=== PATIENT | male | born 1960 ===

== ENCOUNTER 2017-09-02 11:38 | Inpatient (IN) | payer BC, OTHER ==
[2017-09-02] MEDS ORDERED: Vancomycin 1 GM 1 GM/250 ML BAG IV SCH (13:30)
--- NOTE | 2017-09-02 13:36 | C.PDOC ---
History Of Present Illness 57 y/o male sent from clinic presents to ED with worsening swelling and redness to right foot since yesterday. Patient states 2 months ago he developed a callus to right foot that later became a blister. Pt notes that area popped and then he started to develop pain and swelling. Patient reports fever and chills since last night. Patient states he has not seen a doctor in over 6 years - denies PMH. Denies nausea, vomiting, numbness, trauma, sob, calf pain or chest pain. Time Seen by Provider: 09/02/17 12:53 Chief Complaint (Nursing): Abnormal Skin Integrity History Per: Patient History/Exam Limitations: no limitations Onset/Duration Of Symptoms: Days Current Symptoms Are (Timing): Still Present Location Of Injury: Right: Foot Quality Of Symptoms: Painful, Swollen Past Medical History Reviewed: Historical Data, Nursing Documentation, Vital Signs Vital Signs: Last Vital Signs Temp 101.4 F H 09/02/17 14:47 Pulse 108 H 09/02/17 16:30 Resp 17 09/02/17 16:30 BP 107/63 09/02/17 16:30 Pulse Ox 94 L 09/02/17 16:30 - Medical History PMH: No Chronic Diseases Surgical History: No Surg Hx Family History: States: No Known Family Hx - Social History Hx Alcohol Use: No Hx Substance Use: No Review Of Systems Constitutional: Negative for: Fever, Chills Gastrointestinal: Negative for: Nausea, Vomiting Musculoskeletal: Positive for: Foot Pain Skin: Negative for: Rash Neurological: Negative for: Weakness, Numbness Physical Exam - Physical Exam Appears: Non-toxic, No Acute Distress Skin: Warm, Dry, No Rash Head: Atraumatic, Normacephalic Eye(s): bilateral: Normal Inspection, EOMI Nose: Normal Oral Mucosa: Moist Neck: Normal ROM, Supple Chest: Symmetrical Cardiovascular: Rhythm Regular, Other (Tachycardic) Respiratory: Normal Breath Sounds, No Accessory Muscle Use, No Rales, No Rhonchi , No Wheezing Gastrointestinal/Abdominal: Soft, No Tenderness, No Guarding, No Rebound Extremity: Tenderness (under 1st and 2nd MTP to right plantar aspect of right foot), No Calf Tenderness, Capillary Refill (<2 sec), No Deformity, Swelling ( to right foot ), Other (2cm x 1cm full thickness ulceration to lateral plantar aspect of right foot. second ulceration to the plantar aspect at the 1st and 2nd mtp with Erythema to right foot ) Extremity: Bilateral: Normal ROM Pulses: Left Dorsalis Pedis: Normal, Right Dorsalis Pedis: Normal Neurological/Psych: Oriented x3, Normal Motor, Normal Sensation Gait: Steady ED Course And Treatment - Laboratory Results Result Diagrams: 09/02/17 14:04 09/02/17 14:04 ECG: Interpreted By Me, Viewed By Me ECG Rhythm: Sinus Tachycardia Rate From EC (BPM) O2 Sat by Pulse Oximetry: 100 (RA) Pulse Ox Interpretation: Normal Progress Note: Vancomycin, Motrin and IV fluids administered. Podiatry resident , Dr. Cevallos evaluated patient at [facility], discussed with Dr. Frye agreed with plan of admission. Instructed NPO after midlnight for OR in the morning. Case discussed with Dr. Hlils , agreed upon plan and admission. Disposition - Disposition Disposition: HOSPITALIZED Disposition Time: 14:00 Condition: STABLE - Clinical Impression Clinical Impression: Cellulitis, Osteomyelitis of foot, Hyperglycemia - PA / LAB SCIENTIST / Resident Statement MD/DO has reviewed & agrees with the documentation as recorded. - Scribe Statement The provider has reviewed the documentation as recorded by the Raimundoibkelly Ramirez All medical record entries made by the Suzie were at my direction and personally dictated by me. I have reviewed the chart and agree that the record accurately reflects my personal performance of the history, physical exam, medical decision making, and the department course for this patient. I have also personally directed, reviewed, and agree with the discharge instructions and disposition.
--- NOTE | 2017-09-02 13:42 | RAD ---
PROCEDURE: Right Foot Radiographs. HISTORY: r/o osteo COMPARISON: None. FINDINGS: BONES: Bone alignment and mineralization are normal. There is no acute fracture or bone destruction. JOINTS: Normal. SOFT TISSUES: There is large lateral soft tissue defect in the midfoot. OTHER FINDINGS: None. IMPRESSION: Large lateral soft tissue defect in the midfoot most compatible with an ulcer. No radiographic evidence for osteomyelitis.
[2017-09-02 14:07] LABS: BASO # 0.1 K/uL (0.0-0.2); BASO % 0.5 % (0.0-2.0); HEMOGLOBIN 12.2 g/dL (12.0-18.0); LYMPH # 1.5 K/uL (1.0-4.3); LYMPH % 7.5 % (20.0-40.0); MEAN CELL VOLUME 87.4 fL (80.0-94.0); MEAN CORPUSCULAR HEMOGLOBIN 31.1 pg (27.0-31.0); MEAN CORPUSCULAR HGB CONC 35.5 g/dL (33.0-37.0); MONO # 1.1 K/uL (0.0-0.8); MONO % 5.7 % (0.0-10.0); NEUT # 17.1 K/uL (1.8-7.0); NEUT % 86.3 % (50.0-75.0); PLATELET COUNT 293 K/uL (130-400); RBC 3.92 Mil/uL (4.40-5.90); RED CELL DISTRIBUTION WIDTH 12.1 % (11.5-14.5); WHITE BLOOD COUNT 19.8 K/uL (4.8-10.8)
[2017-09-02 14:26] LABS: BANDS 8 % (0-2); LYMPHOCYTE 8 % (20-40); MONOCYTE 5 % (0-10); NEUTROPHIL 79 % (50-75); PLATELET ESTIMATE NORMAL (NORMAL); TOTAL CELLS COUNTED 100
[2017-09-02 14:27] LABS: ANISOCYTOSIS SLIGHT; POLYCHROMIC SLIGHT; TOXIC GRANULATION PRESENT
[2017-09-02 14:28] LABS: ALB/GLOB RATIO 0.8 (1.0-2.1); ALBUMIN 3.9 g/dL (3.5-5.0); ALT/SGPT 21 U/L (21-72); AST/SGOT 23 U/L (17-59); BLOOD UREA NITROGEN 14 mg/dL (9-20); CALCIUM 9.1 mg/dl (8.6-10.4); GFR AFRICAN-AMERICAN > 60; GFR NON-AFRICAN AMERICAN > 60
[2017-09-02] MEDS ORDERED: Sodium Chloride 0.9% 1,000 ML IV ONE ×2 (14:31→15:15)
--- NOTE | 2017-09-02 14:39 | CP.PCM.CON ---
History of Present Illness - History of Present Illness History of Present Illness: Podiatry Consult Note- Dr. Frye Mr. Zavala is a 57 yo Azeri speaking male patient who is seen in the ED today for ulceration of R foot. Pt complains of a wound to the bottom of his R foot which he has had for 2 months, which is worsening. Denies any recent changes in activity or shoe gear. He reports he developed fever and chills yesterday with cramping in the R foot and leg. Patient does not follow up with a primary care physician. Pt is a poor historian, he is unsure of his medical problems and is unsure if he is a diabetic. He denies n/v/sob/cp/deep calf pain at this time. Pt also complains of rash to his right leg, he is unsure how long he has had this, denies pruritis, denies any pain to the leg. PMH: unknown per patient ALL: NKDA Meds: denies Sug. Hx: denies Soc. Hx: denies ETOH, deneis ever smoking, denies illicit drug use Review of Systems - Review of Systems Review of Systems: all systems reviewed and found neg outside hpi Past Patient History - Past Social History Smoking Status: Never Smoked - PSYCHIATRIC Hx Substance Use: No - SURGICAL HISTORY Hx Surgeries: Yes Other/Comment: eye surgery - ANESTHESIA Hx Anesthesia: Yes Hx Anesthesia Reactions: No Meds Allergies/Adverse Reactions: Allergies Allergy/AdvReac Type Severity Reaction Status Date / Time No Known Allergies Allergy Verified 09/02/17 11:58 - Medications Medications: Current Medications Vancomycin HCl (Vancomycin 1gm In Normal Saline Addvantage) 1 gm in 250 mls @ 166.667 mls/hr IV STAT CARTER PRN Reason: Protocol Sodium Chloride (Sodium Chloride 0.9%) 1,000 mls @ 1,000 mls/hr IV .Q1H ONE Stop: 09/02/17 15:30 Physical Exam - Constitutional Appears: Non-toxic, No Acute Distress - Extremities Exam Extremities exam: Negative for: calf tenderness Additional comments: Right low. ext exam: VASC- pedal pulses are fully palpable (DP/PT is 2/4), skin temp runs warm to warm (with increased callor noted to medial arch and sub-metatarsal 1), cap refill is < 3sec to all digits, moderate edema is noted to medial-plantar arch and sub-met 1 NEURO-gross and protective pedal sensation are diminished DERM- there is full thickness ulceration (measures approximately 2.0x2.0x0,5 cm ) noted sub-met 1 with mixed fibro-hyperkeratotic border and central fibrous plug with there is + malodor, neg probe to bone, neg sinus tracking, there is surrounding erythema which is noted to track proximally up medial arch (does not extend proximally up the leg); there is a 2nd full thickness ulceration noted to plantar aspect of styloid process of 5th metatarsal which measures 2.0x1.5x0.5 cm with fixed fibro-hyperkeratotic border, neg PTB, neg malodor, neg juan-wound erythema, neg tracking. There does appear to be a scattered maculo-papular rash along anterior-medial aspect of R leg (non-tender to palpation, neg callor along distribution) MSK- rigid cavovarus foot type is noted, MMT is 5/5 in all directions, neg tenderness to palpation of ulcerations, neg Hohmans sign on deep calf squeeze. - Neurological Exam Neurological exam: Alert, CN II-XII Intact, Oriented x3 - Psychiatric Exam Psychiatric exam: Normal Affect, Normal Mood Results - Vital Signs Recent Vital Signs: Last Vital Signs Temp 99.7 F H 09/02/17 11:54 Pulse 120 H 09/02/17 11:54 Resp 18 09/02/17 11:54 BP 164/96 H 09/02/17 11:54 Pulse Ox 100 09/02/17 13:47 - Labs Result Diagrams: 09/02/17 14:04 09/02/17 14:04 Labs: Laboratory Results - last 24 hr 09/02/17 09/02/17 14:04 14:04 WBC 19.8 H RBC 3.92 L Hgb 12.2 Hct 34.3 L MCV 87.4 MCH 31.1 H MCHC 35.5 RDW 12.1 Plt Count 293 MPV 8.0 Neut % (Auto) 86.3 H Lymph % (Auto) 7.5 L [place] % (Auto) 5.7 Eos % (Auto) 0.0 Baso % (Auto) 0.5 Neut # (Auto) 17.1 H Lymph # (Auto) 1.5 [place] # (Auto) 1.1 H Eos # (Auto) 0.0 Baso # (Auto) 0.1 Neutrophils % (Manual) 79 H Band Neutrophils % 8 H Lymphocytes % (Manual) 8 L Monocytes % (Manual) 5 Toxic Granulation Present Platelet Estimate Normal Polychromasia Slight Anisocytosis (manual) Slight Sodium 135 Potassium 4.7 Chloride 94 L Carbon Dioxide 25 Anion Gap 22 H BUN 14 Creatinine 0.7 L Est GFR ( Amer) > 60 Est GFR (Non-Af Amer) > 60 Random Glucose 432 H* Calcium 9.1 Total Bilirubin 0.8 AST 23 ALT 21 Alkaline Phosphatase 154 H Total Protein 8.6 H Albumin 3.9 Globulin 4.7 H Albumin/Globulin Ratio 0.8 L Assessment & Plan - Assessment and Plan (Free Text) Assessment: 57 yo male pt w/ unknown pmhx presents to ED with infected full-thickness ulcerations R foot Plan: Pt S&E in ED at bedside Plan discussed with attending Dr. Frye in detail d/w with Dr. Hills who will see the patient, medical clearance is requested tmax 101.4, + leukocytosis (WBC 19.8), hyperglycemia (random glucose 432) R foot x-rays: extensive soft tissue emphysema noted to 1st MTPJ, 1st interspace and extending to 2nd digit, no signs OM Verbal consent obtained for aseptic bedside I&D R foot ulcerations, pt tolerated procedure w/o complaint or incident, no evidence of purulence upon milking of ulceration sites and medial arch wound cx taken Will order MRI RLE Pt is for OR with Dr. Frye tomorrow morning 09/03 for I&D R foot infection NPO past midnight tonight Will follow
[2017-09-02] MEDS ORDERED: Sodium Chloride 0.9% 1,000 ML ONE ×2 (14:44→15:55)
[2017-09-02] MEDS ORDERED: Vancomycin 1 gm/NS 200 ml 1 GM/200 ML BAG IVPB ONE (15:00)
--- NOTE | 2017-09-02 15:02 | RAD ---
PROCEDURE: CHEST RADIOGRAPH, 1 VIEW HISTORY: Preoperative examination COMPARISON: None available. FINDINGS: LUNGS: The lungs are well inflated and clear. PLEURA: No pneumothorax or pleural fluid seen. CARDIOVASCULAR: Normal. OSSEOUS STRUCTURES: No significant abnormalities. VISUALIZED UPPER ABDOMEN: Normal. OTHER FINDINGS: None. IMPRESSION: No active pulmonary disease.
[2017-09-02 15:12] LABS: INR 1.3; PROTHROMBIN TIME 15.5 SECONDS (9.7-12.2)
--- NOTE | 2017-09-02 16:45 | CP.PCM.PN ---
Subjective - Date & Time of Evaluation Date of Evaluation: 09/02/17 Time of Evaluation: 16:15 - Subjective Subjective: H&P dictated #[id number] Middle aged male with 1.hyperglycemia, c/w uncontrolled diabetes not on any meds at this time 2.elevated WBC counts with bandemia, fever and tachycardia- Possible sepsis 3. Diabetic foot ulcers with soft tissue emphysema at the first inter tarsal region, r/o osteomyelitis PLAN: Give vancomycin 1gm iv q12 hrs along with rocephin 1 gm iv q 12hrs pending all the culture results. Check accuchecks Check labs as ordered. MRI of the right foot to r/o osteo Podiatry consult appreciated Request ID consult Patient is scheduled for possible debridement of right foot ulcers. Benefits outweigh the risks and he is at acceptable risk for the scheduled procedure. Objective - Vital Signs/Intake and Output Vital Signs (last 24 hours): Temp Pulse Resp BP Pulse Ox 101.4 F H 108 H 17 107/63 94 L 09/02/17 14:47 09/02/17 16:30 09/02/17 16:30 09/02/17 16:30 09/02/17 16:30 - Labs Labs: 09/02/17 14:04 09/02/17 14:04 PT 15.5 SECONDS (9.7-12.2) H 09/02/17 14:54 INR 1.3 09/02/17 14:54 APTT 28 SECONDS (21-34) 09/02/17 14:54
[2017-09-02] MEDS: Sodium Chloride 0.45% 1,000 ML IV SCH (19:30)
[2017-09-02] MEDS: (Novolog) Insulin Aspart, Recombinant 100 u/ml 10 ml vial SC SCH (22:50)
[2017-09-03] MEDS: Vancomycin 1 gm/NS 200 ml 1 GM/200 ML BAG IVPB SCH ×2 (03:15→16:54)
--- NOTE | 2017-09-03 04:43 | HP ---
CHIEF COMPLAINT: Right foot ulcer and throbbing pain, progressively getting worse over the past 2 weeks. HISTORY OF PRESENT ILLNESS: Mr. Zavala is a 57-year-old male, who is Tanzanian speaking; all the history obtained through the Tanzanian speaking closing coordinator, who is an RN in ED. All the history obtained from the patient. As per the patient, the patient was evaluated at [facility] for right foot swelling, pain and ulcers; progressively getting worse over the past few weeks, so the patient was referred to ED for further evaluation. The patient claims that he has right foot ulcer for about 6 months, one on the lateral side, there are other 2 ulcers developed on the medial side for the past 2 weeks. The ulcer was becoming deeper and he started noticing pulsating pain in the right foot and the right lower leg and had fever. He denies any headache or dizziness. Denies any chest pain, shortness of breath or wheezing. Denies any nausea, vomiting, abdominal pain, diarrhea or constipation. Denies any urinary complaints. Denies any neurologic symptoms. All other systems reviewed and were found to be negative. PAST MEDICAL HISTORY: Denies any past medical history. PAST SURGICAL HISTORY: Underwent eye surgery for some type of growth many years ago. FAMILY HISTORY: Nothing contributory to the present illness. Denies any family history of diabetes or hypertension. PERSONAL HISTORY: He lives with his partner, having 3 children. 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 SOCIAL HISTORY: He is an ex-smoker, quit smoking about 8 years ago. Smoked for about 30 years. Used to drink heavily before and he quit alcohol also about 8 years ago. Denies any drug abuse. ALLERGIES: NO KNOWN DRUG ALLERGIES. MEDICATIONS: None at home. REVIEW OF SYSTEMS: As described in history of present illness. All other systems reviewed and were found to be negative. PHYSICAL EXAMINATION: GENERAL: Middle-aged male, lying in bed, in no acute distress. VITAL SIGNS: Blood pressure 107/63, pulse 108, respirations 17, temperature 101.4 degrees Fahrenheit, and O2 saturations 97% on room air. HEENT: Pupils equal, round and reacting to light and accommodation. Extraocular muscles are intact. No icterus. No pallor. No oral thrush. No pharyngeal congestion. NECK: Supple. No JVD. No thyromegaly. CHEST: Moving equally bilaterally on respiration. LUNGS: Bilateral vesicular breath sounds. No wheezing. No rhonchi. CVS: S1 and S2 present, regular. ABDOMEN: Soft, nontender. Bowel sounds present. No guarding. No rigidity. No rebound tenderness noted. DEEP FAT COOK FRY: Alert, awake and oriented x3. No focal deficits noted. EXTREMITIES: There is right foot cellulitic changes noted, warm to touch, tenderness present. There are multiple ulcers, 2 on the medial side, below the greater toe which is about 1 to 1.5 inch in diameter and there is another small one below that. There is another 2-inch size deep ulcer on the lateral aspect of the right foot along the little toe with some granulation tissue. No pus or any oozing noted. Tenderness noted. LABORATORY DATA: Labs done from the ED; WBC 19.8, hemoglobin 12.2, hematocrit 34.3, platelets 293,000, bands 8. PT 15.5, INR 1.3, and PTT 28. Sodium 135, potassium 4.7, chloride 94, bicarb 25, BUN 14, creatinine 0.7, glucose 305 and 432, calcium 9.1, total bilirubin 0.8, AST 23, ALT 21, alkaline phosphatase 154, C-reactive protein more than 15, total protein 8.6, albumin 3.9. Chest x-ray is negative for any infiltrate. EKG shows normal sinus tachycardia at 117 beats per minute. No acute ST-T changes noted. Foot x-ray consistent with extensive soft tissue emphysema in the first and third tarsal space and medial soft tissue of the midfoot. Large lateral soft tissue defect in the midfoot, most compatible with an ulcer. No radiographic evidence for osteomyelitis. ASSESSMENT: Middle-aged male with no past medical history, admitted for worsening right foot swelling, ulcer and pain over the past few weeks. In the emergency room, the patient was found to be having elevated WBC count with elevated bands and elevated glucose and x-ray consistent with extensive emphysema of the right foot. 1. Right foot, diabetic foot ulcer with extensive soft tissue emphysema in the first and third tarsal space. 2. Possible sepsis from diabetic foot ulcer. 3. Elevated sugars consistent with uncontrolled diabetes mellitus, not diagnosed prior. 4. Rule out osteomyelitis of the right foot. PLAN: The patient is being admitted to the floor. The patient received IV antibiotics in the ED, will continue with Rocephin 1 gm every 12 hours along with vancomycin 1 gm IV every 12 hours, pending blood cultures and wound cultures results. Will repeat CBC in a.m. We will do Accu-Cheks every a.c. and at bedtime with sliding scale coverage, check hemoglobin A1c, will start the patient on hypoglycemic agents. We will check MRI of the right foot to rule out any osteomyelitis. Podiatry consult appreciated, discussed with Podiatry resident. The patient is scheduled for possible debridement in a.m. Benefits outweigh the risk and the patient is at acceptable risk for the scheduled procedure. We will obtain infectious diseases consult with Dr. Barcenas. We will give subcu heparin 5000 units subcu every 12 hours for DVT prophylaxis and Pepcid for GI prophylaxis. Will request diabetic teaching. Will add further recommendation as his clinical course progresses. Fernando Hills MD
[2017-09-03 06:25] LABS: BASO % 0.3 % (0.0-2.0); EOS % 0.2 % (0.0-4.0); HEMOGLOBIN 10.7 g/dL (12.0-18.0); LYMPH # 1.6 K/uL (1.0-4.3); MEAN CELL VOLUME 88.2 fL (80.0-94.0); MEAN CORPUSCULAR HEMOGLOBIN 30.4 pg (27.0-31.0); MEAN CORPUSCULAR HGB CONC 34.4 g/dL (33.0-37.0); MEAN PLATELET VOLUME 8.2 fL (7.2-11.7); MONO % 5.8 % (0.0-10.0); NEUT # 15.2 K/uL (1.8-7.0); NEUT % 84.7 % (50.0-75.0); PLATELET COUNT 283 K/uL (130-400); RBC 3.51 Mil/uL (4.40-5.90); RED CELL DISTRIBUTION WIDTH 12.2 % (11.5-14.5); WHITE BLOOD COUNT 17.9 K/uL (4.8-10.8)
[2017-09-03 06:46] LABS: ALB/GLOB RATIO 0.8 (1.0-2.1); ALBUMIN 3.1 g/dL (3.5-5.0); ALT/SGPT 15 U/L (21-72); AST/SGOT 20 U/L (17-59); BLOOD UREA NITROGEN 16 mg/dL (9-20); GFR AFRICAN-AMERICAN > 60; GFR NON-AFRICAN AMERICAN > 60
[2017-09-03 07:12] LABS: SQUAMOUS EPITHIAL < 1 /hpf (0-5); URINE BILIRUBIN NEGATIVE (NEGATIVE); URINE BLOOD NEGATIVE (NEGATIVE); URINE CLARITY Clear (Clear); URINE COLOR Yellow (YELLOW); URINE GLUCOSE (UA) 3+ mg/dL (Normal); URINE LEUKOCYTE ESTERASE NEG Leu/uL (Negative); URINE PROTEIN NEGATIVE (NEGATIVE); URINE UROBILINOGEN NORMAL mg/dL (0.2-1.0)
[2017-09-03] MEDS: (Novolog) Insulin Aspart, Recombinant 100 u/ml 10 ml vial SC SCH ×4 (07:21→16:55)
[2017-09-03] MEDS ORDERED: Bupivacaine 0.5% Inj(30mL) ID ONE (07:28)
[2017-09-03] MEDS ORDERED: Lidocaine 2% MPF (5 ml) Inj ONE (07:30)
[2017-09-03] MEDS ORDERED: Bacitracin 150,000 UNIT in Sodium Chloride 0.9% Irrig 3,000 ML IR SCH (07:45)
[2017-09-03] MEDS ORDERED: Midazolam 2 MG/2 ML VIAL ONE (07:53)
[2017-09-03] MEDS ORDERED: Propofol 10 mg/ml Inj (20 ML) ONE (07:54)
[2017-09-03 08:37] LABS: BANDS 6 % (0-2); LYMPHOCYTE 10 % (20-40); MONOCYTE 4 % (0-10); NEUTROPHIL 80 % (50-75); PLATELET ESTIMATE NORMAL (NORMAL); TOTAL CELLS COUNTED 100
[2017-09-03 08:38] LABS: ANISOCYTOSIS SLIGHT; HYPOCHROMIC SLIGHT; LARGE PLATELETS PRESENT; MICROCYTOSIS SLIGHT; POIKILOCYTOSIS SLIGHT
[2017-09-03] MEDS ORDERED: Bupivacaine 0.25% Inj(30mL) ONE (09:04)
--- NOTE | 2017-09-03 09:26 | PCM.SURG1 ---
Surgeon's Initial Post Op Note - Surgeon's Notes Surgeon: Dr. Nehal Frye DPM Campus Administrator: Dr. Asad Blood DPM PGY-1 Type of Anesthesia: IV Sedation, Local Anesthesia Administered By: Dr. Chito MITTAL Pre-Operative Diagnosis: Right foot chronic wounds with soft tissue emphysema Operative Findings: See dictation. M: 1/4 inch iodoform packing; 4-0 and 3-0 prolene. I: 20 cc of 1:1 2% lidocaine plain:0.5% marcaine plain - pre-op. Post op: 17 cc of 0.5% marcaine plain Post-Operative Diagnosis: Same Operation Performed: Incision and draiange of the right foot with removal of non -viable soft tissue Specimen/Specimens Removed: Pre-op dirty wound cultures and clean wound cultures Estimated Blood Loss: EBL {In ML}: 30 Blood Products Given: N/A Drains Used: No Drains Post-Op Condition: Good Date of Surgery/Procedure: 09/03/17 Time of Surgery/Procedure: 09:28
[2017-09-03] MEDS ORDERED: Oxycodone/Acetaminophen 5/325 mg Tab PO PRN ×2 (09:28)
[2017-09-03] MEDS ORDERED: HYDROmorphone 0.5 mg/0.5 ml ISec IVP PRN (09:30)
[2017-09-03] MEDS: Lactated Ringer's 1,000 ML IV SCH (10:16)
[2017-09-03] MEDS: Sodium Chloride 0.45% 1,000 ML IV SCH ×2 (10:17→23:42)
--- NOTE | 2017-09-03 10:17 | CP.PCM.PN ---
Subjective - Date & Time of Evaluation Date of Evaluation: 09/03/17 Time of Evaluation: 10:20 - Subjective Subjective: Progress note dictated #[id number] Objective - Vital Signs/Intake and Output Vital Signs (last 24 hours): Temp Pulse Resp BP Pulse Ox 99.2 F 93 H 23 122/74 98 09/03/17 10:00 09/03/17 10:00 09/03/17 10:00 09/03/17 10:00 09/03/17 10:00 Intake and Output: 09/03/17 09/03/17 06:59 18:59 Intake Total 560 900 Output Total 400 Balance 160 900 - Medications Medications: Current Medications Acetaminophen (Tylenol 325mg Tab) 650 mg PO Q6 PRN PRN Reason: Fever >100.4 F Last Admin: 09/02/17 23:30 Dose: 650 mg Heparin Sodium (Porcine) (Heparin) 5,000 units SC Q12H [facility] Last Admin: 09/02/17 22:48 Dose: 5,000 units Hydromorphone HCl (Dilaudid) 0.5 mg IVP Q10M PRN PRN Reason: Pain, moderate (4-7) Stop: 09/03/17 11:31 Ceftriaxone Sodium 1 gm/ (Sodium Chloride) 100 mls @ 100 mls/hr IVPB Q12H CARTER PRN Reason: Protocol Last Admin: 09/03/17 07:22 Dose: 100 mls/hr Vancomycin/Sodium Chloride (Vancomycin 1 Gm/Ns 200 Ml) 1 gm in 200 mls @ 133 mls/hr IVPB Q12H CARTER PRN Reason: Protocol Stop: 09/08/17 04:01 Last Admin: 09/03/17 03:15 Dose: 133 mls/hr Sodium Chloride (Sodium Chloride 0.45%) 1,000 mls @ 70 mls/hr IV .[id number] [facility] Last Admin: 09/02/17 19:30 Dose: 70 mls/hr Lactated Ringer's (Lactated Ringer's) 1,000 mls @ 100 mls/hr IV .Q10H [facility] Insulin Aspart (Novolog) 0 unit SC ACHS CARTER PRN Reason: Protocol Last Admin: 09/03/17 07:21 Dose: Not Given Ondansetron HCl (Zofran Inj) 4 mg IVP ONCE PRN PRN Reason: Nausea/Vomiting Stop: 09/03/17 11:32 Oxycodone/Acetaminophen (Percocet 5/325 Mg Tab) 1 tab PO Q4 PRN PRN Reason: Pain, moderate (4-7) Stop: 09/06/17 09:29 Oxycodone/Acetaminophen (Percocet 5/325 Mg Tab) 2 tab PO Q4H PRN PRN Reason: Pain, severe (8-10) Stop: 09/06/17 09:29 Pneumococcal Polyvalent Vaccine (Pneumovax 23 Vaccine) 0.5 ml IM .ONCE ONE Stop: 09/04/17 22:23 - Labs Labs: 09/03/17 06:18 09/03/17 06:18 PT 15.5 SECONDS (9.7-12.2) H 09/02/17 14:54 INR 1.3 09/02/17 14:54 APTT 28 SECONDS (21-34) 09/02/17 14:54
--- NOTE | 2017-09-03 11:03 | CP.PCM.PCO ---
Physician Communication Note - Physician Communication Note Physician Communication Note: R foot MRI for tomorrow 09/04/17 Additional Comments - Additional Comments Additional Comments: Will remove packing tomorrow in AM, per Dr. Frye will get MRI tomorrow 09/04/17
[2017-09-03] MEDS: Piperacill/Tazo 3.375gm in Dex 3.375 GM/50 ML BAG IVPB SCH ×2 (14:57→20:28)
--- NOTE | 2017-09-03 17:09 | CARD ---
APPROVED REPORT EKG Measurement Heart [id number] <Conclusion> Sinus tachycardia Otherwise normal ECG
--- NOTE | 2017-09-03 21:09 | CP.PCM.CON ---
History of Present Illness - History of Present Illness History of Present Illness: dictated Past Patient History - Past Medical History & Family History Past Medical History?: Yes - Past Social History Smoking Status: Current Some Days Smoker - MUSCULOSKELETAL/RHEUMATOLOGICAL Hx Falls: No - PSYCHIATRIC Hx Substance Use: No - SURGICAL HISTORY Hx Surgeries: Yes Other/Comment: eye surgery - ANESTHESIA Hx Anesthesia: Yes Hx Anesthesia Reactions: No Meds Allergies/Adverse Reactions: Allergies Allergy/AdvReac Type Severity Reaction Status Date / Time No Known Allergies Allergy Verified 09/02/17 11:58 - Medications Medications: Current Medications Acetaminophen (Tylenol 325mg Tab) 650 mg PO Q6 PRN PRN Reason: Fever >100.4 F Last Admin: 09/03/17 16:59 Dose: 650 mg Glipizide (Glucotrol) 5 mg PO ACB [facility] Last Admin: 09/03/17 13:00 Dose: 5 mg Heparin Sodium (Porcine) (Heparin) 5,000 units SC Q12H [facility] Last Admin: 09/02/17 22:48 Dose: 5,000 units Vancomycin/Sodium Chloride (Vancomycin 1 Gm/Ns 200 Ml) 1 gm in 200 mls @ 133 mls/hr IVPB Q12H [facility] PRN Reason: Protocol Stop: 09/08/17 04:01 Last Admin: 09/03/17 16:54 Dose: 133 mls/hr Sodium Chloride (Sodium Chloride 0.45%) 1,000 mls @ 70 mls/hr IV .[id number] [facility] Last Admin: 09/03/17 10:17 Dose: Not Given Lactated Ringer's (Lactated Ringer's) 1,000 mls @ 100 mls/hr IV .Q10H [facility] Last Admin: 09/03/17 10:16 Dose: Not Given Piperacillin Sod/Tazobactam Sod (Zosyn 3.375 Gm Iv Premix) 3.375 gm in 50 mls @ 100 mls/hr IVPB Q6H [facility] PRN Reason: Protocol Last Admin: 09/03/17 20:28 Dose: 100 mls/hr Insulin Aspart (Novolog) 0 unit SC ACHS [facility] PRN Reason: Protocol Last Admin: 09/03/17 16:55 Dose: Not Given Insulin Aspart (Novolog) 6 unit SC AC [facility] Last Admin: 09/03/17 16:55 Dose: 6 unit Insulin Glargine (Lantus) 14 unit SC HS [facility] Oxycodone/Acetaminophen (Percocet 5/325 Mg Tab) 1 tab PO Q4 PRN PRN Reason: Pain, moderate (4-7) Stop: 09/06/17 09:29 Oxycodone/Acetaminophen (Percocet 5/325 Mg Tab) 2 tab PO Q4H PRN PRN Reason: Pain, severe (8-10) Stop: 09/06/17 09:29 Pneumococcal Polyvalent Vaccine (Pneumovax 23 Vaccine) 0.5 ml IM .ONCE ONE Stop: 09/04/17 22:23 Results - Vital Signs Recent Vital Signs: Last Vital Signs Temp 99.4 F 09/03/17 16:59 Pulse 101 H 09/03/17 15:30 Resp 20 09/03/17 15:30 BP 159/89 H 09/03/17 15:30 Pulse Ox 95 09/03/17 15:30 - Labs Result Diagrams: 09/03/17 06:18 09/03/17 06:18 Labs: Laboratory Results - last 24 hr 09/02/17 09/03/17 09/03/17 21:03 06:18 06:18 WBC 17.9 H RBC 3.51 L Hgb 10.7 L Hct 31.0 L MCV 88.2 MCH 30.4 MCHC 34.4 RDW 12.2 Plt Count 283 MPV 8.2 Neut % (Auto) 84.7 H Lymph % (Auto) 9.0 L [place] % (Auto) 5.8 Eos % (Auto) 0.2 Baso % (Auto) 0.3 Neut # (Auto) 15.2 H Lymph # (Auto) 1.6 [place] # (Auto) 1.0 H Eos # (Auto) 0.0 Baso # (Auto) 0.0 Neutrophils % (Manual) 80 H Band Neutrophils % 6 H Lymphocytes % (Manual) 10 L Monocytes % (Manual) 4 Platelet Estimate Normal Large Platelets Present Hypochromasia (manual) Slight Poikilocytosis (manual Slight Anisocytosis (manual) Slight Microcytosis (manual) Slight Macrocytosis (manual) Slight Sodium 136 Potassium 4.1 Chloride 101 Carbon Dioxide 23 Anion Gap 16 BUN 16 Creatinine 0.6 L Est GFR ( Amer) > 60 Est GFR (Non-Af Amer) > 60 POC Glucose (mg/dL) 375 H Random Glucose 297 H Hemoglobin A1c Calcium 8.0 L Total Bilirubin 0.5 AST 20 ALT 15 L D Alkaline Phosphatase 108 C-Reactive Protein 328.30 H Total Protein 7.2 Albumin 3.1 L D Globulin 4.1 H Albumin/Globulin Ratio 0.8 L Urine Color Urine Clarity Urine pH Ur Specific [place] Urine Protein Urine Glucose (UA) Urine Ketones Urine Blood Urine Nitrate Urine Bilirubin Urine Urobilinogen Ur Leukocyte Esterase Urine WBC (Auto) Urine RBC (Auto) Ur Squamous Epith Cells 09/03/17 09/03/17 09/03/17 06:18 06:19 06:58 WBC RBC Hgb Hct MCV MCH MCHC RDW Plt Count MPV Neut % (Auto) Lymph % (Auto) [place] % (Auto) Eos % (Auto) Baso % (Auto) Neut # (Auto) Lymph # (Auto) [place] # (Auto) Eos # (Auto) Baso # (Auto) Neutrophils % (Manual) Band Neutrophils % Lymphocytes % (Manual) Monocytes % (Manual) Platelet Estimate Large Platelets Hypochromasia (manual) Poikilocytosis (manual Anisocytosis (manual) Microcytosis (manual) Macrocytosis (manual) Sodium Potassium Chloride Carbon Dioxide Anion Gap BUN Creatinine Est GFR ( Amer) Est GFR (Non-Af Amer) POC Glucose (mg/dL) 260 H 262 H Random Glucose Hemoglobin A1c 11.8 H Calcium Total Bilirubin AST ALT Alkaline Phosphatase C-Reactive Protein Total Protein Albumin Globulin Albumin/Globulin Ratio Urine Color Urine Clarity Urine pH Ur Specific [place] Urine Protein Urine Glucose (UA) Urine Ketones Urine Blood Urine Nitrate Urine Bilirubin Urine Urobilinogen Ur Leukocyte Esterase Urine WBC (Auto) Urine RBC (Auto) Ur Squamous Epith Cells 09/03/17 09/03/17 09/03/17 07:06 10:59 16:06 WBC RBC Hgb Hct MCV MCH MCHC RDW Plt Count MPV Neut % (Auto) Lymph % (Auto) [place] % (Auto) Eos % (Auto) Baso % (Auto) Neut # (Auto) Lymph # (Auto) [place] # (Auto) Eos # (Auto) Baso # (Auto) Neutrophils % (Manual) Band Neutrophils % Lymphocytes % (Manual) Monocytes % (Manual) Platelet Estimate Large Platelets Hypochromasia (manual) Poikilocytosis (manual Anisocytosis (manual) Microcytosis (manual) Macrocytosis (manual) Sodium Potassium Chloride Carbon Dioxide Anion Gap BUN Creatinine Est GFR ( Amer) Est GFR (Non-Af Amer) POC Glucose (mg/dL) 286 H 266 H Random Glucose Hemoglobin A1c Calcium Total Bilirubin AST ALT Alkaline Phosphatase C-Reactive Protein Total Protein Albumin Globulin Albumin/Globulin Ratio Urine Color Yellow Urine Clarity Clear Urine pH 6.0 Ur Specific [place] 1.031 H Urine Protein Negative Urine Glucose (UA) 3+ H Urine Ketones 2+ H Urine Blood Negative Urine Nitrate Negative Urine Bilirubin Negative Urine Urobilinogen Normal Ur Leukocyte Esterase Neg Urine WBC (Auto) < 1 Urine RBC (Auto) < 1 Ur Squamous Epith Cells < 1
[2017-09-03] MEDS ORDERED: (Lantus) Insulin Glargine, Recombinant SC SCH (22:00)
--- NOTE | 2017-09-04 01:41 | CON ---
DATE: LOCATION: Room 353 HISTORY OF PRESENT ILLNESS: This is a 57-year-old male with recent onset evaluation of marked hyperglycemic accelerations with no prior diabetic medications or treatment. Also, no recent medical followup for over 5 years and presenting here with right foot cellulitis and underlying osteomyelitis and is now being referred for diabetic evaluation and management. PAST MEDICAL HISTORY: As mentioned above is actually unremarkable. He has had no recent medical checkup or lab testing for over 5 years, and as noted, he developed about 2 months ago, a blister over a callous formation on the right foot which progressively worsened to the time of admission with supervening swelling, redness, and tenderness in the right foot area as noted. FAMILY HISTORY: Positive for diabetes and hypertension. SOCIAL HISTORY: The patient has a supportive family. No known substance use. REVIEW OF SYSTEMS: As mentioned above, admits to generalized body weakness with easy fatigability and tiredness at suboptimal energy level, also admits to bifrontal headaches and visual blurring. No chest pains or palpitations or PNDs. His oral intake is variable with dyspepsia and vague upper abdominal pain. Also, admits to marked polyuria, nocturia, polydipsia. Also admits to lower extremity painful paresthesias especially nocturnally, with progressively worsening swelling and tenderness and redness of the right foot area, especially in the plantar surface is noted. PHYSICAL EXAMINATION: VITAL SIGNS: This is an average-built male, in no apparent distress with a blood pressure of 150/90, pulse of 70 beats per minute, regular, temperature 98, respirations 20, height is 6 feet, weight is 160 pounds. HEENT: Head is normocephalic. Eyes are anicteric with pink conjunctivae. Funduscopy not possible at this time. Ears, nose, and throat otherwise normal. NECK: Supple. Thyroid gland is normal size. No carotid bruits or cervical adenopathy. CARDIOPULMONARY: Some adynamic precordium. S1 and S2 is rapid and regular. LUNGS: Clear to auscultation. ABDOMEN: Flat, soft with positive bowel sounds. EXTREMITIES: The right foot shows tenderness on the fluctuant area in the plantar surface between the first and second metatarsal area with another ulceration in the lateral aspect of the right plantar area, measuring 2 x 1 cm as noted. LABORATORIES: Chemistries showed a BUN of 16, sodium 136, potassium 4.1, chloride 101, CO2 of 23, glucose 297, creatinine 0.6. His glucose levels have raised from 286 to 375 mg/dL. His hemoglobin A1c is 11.8%. WBC is 19.8. Hemoglobin of 12, hematocrit of 34, platelets 293. 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 He also has diabetic polyneuropathy as noted. Plan of management as discussed with the patient and staff. Will certainly need a more physiologic basal and bolus insulin drug combination, especially with the presence of marked glucose toxicity and the recent hyperglycemic accelerations. As his clinical condition improves and being that he has only been diagnosed fairly recently, should expect reduction of the increased insulin resistance, and hopefully, a better clinical and metabolic response to oral hypoglycemic therapy as an outpatient. However, for this inpatient diabetic management with underlying cellulitis and neuropathic diabetic ulcerations, we would clearly lead insulin therapy not only for the glucotoxicity but also to expertise the healing and clinical improvement of his cellulitis thereof. We will start him with NovoLog given as 6 units t.i.d. before meals, we will start today as ordered. We will add Lantus given as 14 units subcu at bedtime daily to start tonight. We will titrate incrementally as indicated to optimize metabolic control. We will initiate diabetic education to include insulin self administration on glucose monitoring with dietary instructions for healthier food choices thereof. We will follow and advise accordingly. Wendie Steinberg MD cc:
[2017-09-04] MEDS: Piperacill/Tazo 3.375gm in Dex 3.375 GM/50 ML BAG IVPB SCH ×4 (02:04→20:45)
[2017-09-04] MEDS: Vancomycin 1 gm/NS 200 ml 1 GM/200 ML BAG IVPB SCH ×2 (04:26→17:35)
--- NOTE | 2017-09-04 06:21 | PN ---
DATE: SUBJECTIVE: The patient is seen and examined at bedside. The patient underwent surgery this morning. Denies any new complaints. REVIEW OF SYSTEMS: All other systems reviewed and were found to be negative. PHYSICAL EXAMINATION: GENERAL: Middle-aged male, lying in bed, in no acute distress. VITAL SIGNS: Blood pressure 122/74, pulse 93, respirations 23, temperature 99.2 degrees Fahrenheit, O2 saturations 98% on room air. HEENT: Pupils equal, round, and reacting to light and accommodation. Extraocular muscles intact. No icterus. No pallor. No oral thrush. No pharyngeal congestion. NECK: Supple. No JVD. LUNGS: Bilateral vesicular breath sounds. No wheezing. No rhonchi. CVS: S1, S2 present, regular. ABDOMEN: Soft, nontender, bowel sounds present. No guarding. No rigidity. No rebound tenderness noted. DRAWER WAXER: Alert, awake, and oriented x3. No focal deficits noted. EXTREMITIES: Right foot with dressing in place, erythema noted extending up to the lower part of the ankle. MEDICATIONS: Include Tylenol as needed, Rocephin 1 gm every 12 hours, subcu heparin 5000 units every 12 hours, Dilaudid as needed, Zofran as needed, Percocet as needed, Vancomycin 1 gm IV every 12 hours. LABORATORY DATA: Labs from this morning: WBC 17.9, hemoglobin 10.7, hematocrit 31, platelets 283. Sodium 136, potassium 4.1, chloride 101, bicarb 23, BUN 15, creatinine 0.6, glucose 262, hemoglobin A1c 11.8, calcium 8, C-reactive protein 328. UA: Glucose 3+, ketones 2+. Wound cultures pending. Gram stain shows few Gram-positive Cocci in pairs. No polymorphonuclear leukocytes. ASSESSMENT AND PLAN: A middle-aged male with undiagnosed diabetes mellitus, uncontrolled diabetes with right foot multiple diabetic foot ulcers with extensive soft tissue emphysema, status post incision and drainage and debridement and over by Podiatry. We will continue with current antibiotics of Rocephin and vancomycin. Follow up with wound cultures, blood cultures. Podiatry input appreciated. We will start hypoglycemics of glipizide and we will obtain Endocrinology consult with Dr. Steinberg for MRI of the foot to rule out any osteomyelitis. We will continue with deep venous thrombosis and gastrointestinal prophylaxis. Fernando Hills MD [facility] # [id number]
[2017-09-04] MEDS: (Novolog) Insulin Aspart, Recombinant 100 u/ml 10 ml vial SC SCH ×7 (07:44→22:06)
--- NOTE | 2017-09-04 07:51 | CON ---
DATE: REQUESTING PHYSICIAN: Fernando Hills MD HISTORY OF PRESENT ILLNESS: This patient is a 57-year-old [place] male. He came yesterday to the ER with right foot throbbing pain and ulcer which was getting worse for the past 2 weeks, and the patient has been following in [facility] with swelling and ulcers. He said it progressively got worse over few weeks so the patient was referred to the emergency room for further evaluation, and he has his right foot ulcer for six months, one on lateral side and there were other two ulcers developing on the medial side in the past two weeks and was causing lot of pulsating pain in his right foot, and he was running fevers. He denied any chills. He denied any headaches. No dizziness. I think he does not know that he is diabetic, and he is not taking any medications for diabetes. He denies any chest pain. No shortness of breath. No abdominal pain. No nausea. No vomiting. No diarrhea. No wheezing. No urinary symptoms reported. No neurological problems reported, and he does not even seem to know that he has diabetes. PAST MEDICAL HISTORY: Negative except for this ulceration going on for six months. PAST SURGICAL HISTORY: He underwent eye surgery for some eye growth many years ago. Otherwise, there is no other previous surgery. FAMILY HISTORY: Noncontributory. He denies any history of diabetes or hypertension. 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 He is ex-smoker. Has quit smoking for eight years, but smoked about 30 years one pack per day and no history of alcohol. ALLERGIES: HE IS NOT ALLERGIC TO ANY MEDICINE. MEDICATIONS: He takes no medication. REVIEW OF SYSTEMS: As above was negative except for this right foot pulsating pain which was worse for last 2 weeks and fever. Actually, he did have right great toe and swelling of the foot and cellulitis, and he is postoperative at this time. He underwent surgery, I will find out what surgery he did have and will dictate in this note. When I saw him he was feeling very cold as he has had just returned from the OR in the afternoon. PHYSICAL EXAMINATION: GENERAL: On admission, he was admitted with a fever. HEENT: Head is atraumatic and normocephalic. Pupils were reacting to light. Tongue was moist. NECK: Supple. JVP flat. Trachea is central. No lymphadenopathy present. LUNGS: Chest wall is symmetrical. Lungs are clear. No crackles or rales. No wheezing. HEART: S1, S2 is regular. No murmurs appreciated. ABDOMEN: Soft. Nontender. No guarding. No rigidity present. EXTREMITIES: Right leg did have some swelling, and there was OR dressing on the foot. Left foot appeared unremarkable, and so I have to depend on what was written in the note that he did have multiple ulcers, and he was having cellulitis. LABORATORY DATA: His labs are noted. He came with white count of 19.8, hemoglobin 12.2, hematocrit 34.3, platelet count is 293. Bands are 8. Sodium 135, potassium 4.7, creatinine is 0.7. Chest x-ray is negative. He had x-ray which showed extensive soft tissue emphysema in the first and the third dorsal space and medial soft tissue of the mid foot. Since he had emphysema, I would think he was developing a gangrene of the foot with an abscess, subcutaneous emphysema, and he did have high white count and his wound is already growing gram positives and gram negative. He did receive adequate treatment with vancomycin and Rocephin but I would change it to vancomycin and Zosyn to add aerobic coverage, and we will follow. C-reactive protein is 328.30 and creatinine is 0.6, and we will follow with substation operator helper generation. At this time, we are not sure if he had an underlying bone infection, which may be there as he says it was going on for six months and wanted to do OR documentation. Initial postoperative note showed that they did I and D of the right foot and removal of nonviable soft tissue. There was some necrosis of the tissue there and cellulitis and he came in with sepsis with possible right foot osteomyelitis, and he is diabetic and he is unaware of it probably. Tone Barcenas MD
[2017-09-04 08:18] LABS: BASO # 0.1 K/uL (0.0-0.2); BASO % 0.3 % (0.0-2.0); EOS # 0.1 K/uL (0.0-0.7); EOS % 0.9 % (0.0-4.0); HEMOGLOBIN 10.3 g/dL (12.0-18.0); LYMPH # 1.4 K/uL (1.0-4.3); LYMPH % 8.8 % (20.0-40.0); MEAN CELL VOLUME 87.7 fL (80.0-94.0); MEAN CORPUSCULAR HEMOGLOBIN 31.6 pg (27.0-31.0); MEAN PLATELET VOLUME 8.3 fL (7.2-11.7); MONO # 1.1 K/uL (0.0-0.8); MONO % 6.8 % (0.0-10.0); NEUT # 13.6 K/uL (1.8-7.0); NEUT % 83.2 % (50.0-75.0); PLATELET COUNT 281 K/uL (130-400); RBC 3.28 Mil/uL (4.40-5.90); RED CELL DISTRIBUTION WIDTH 12.1 % (11.5-14.5); WHITE BLOOD COUNT 16.4 K/uL (4.8-10.8)
[2017-09-04 08:59] LABS: ALB/GLOB RATIO 0.7 (1.0-2.1); ALBUMIN 2.8 g/dL (3.5-5.0); ALT/SGPT 13 U/L (21-72); AST/SGOT 23 U/L (17-59); BLOOD UREA NITROGEN 11 mg/dL (9-20); CALCIUM 7.9 mg/dl (8.6-10.4); GFR AFRICAN-AMERICAN > 60; GFR NON-AFRICAN AMERICAN > 60
[2017-09-04 09:45] LABS: BANDS 3 % (0-2); LYMPHOCYTE 9 % (20-40); MONOCYTE 3 % (0-10); NEUTROPHIL 84 % (50-75); REACTIVE LYMPHOCYTES 1 % (0-0); TOTAL CELLS COUNTED 100
[2017-09-04 09:46] LABS: ANISOCYTOSIS SLIGHT; HYPOCHROMIC SLIGHT; PLATELET ESTIMATE NORMAL (NORMAL); POIKILOCYTOSIS SLIGHT; TARGET CELLS SLIGHT
--- NOTE | 2017-09-04 10:30 | CP.PCM.PN ---
Subjective - Date & Time of Evaluation Date of Evaluation: 09/04/17 Time of Evaluation: 10:30 - Subjective Subjective: Progress note dictated #[id number] Objective - Vital Signs/Intake and Output Vital Signs (last 24 hours): Temp Pulse Resp BP Pulse Ox 99.9 F H 103 H 20 159/90 H 96 09/04/17 08:20 09/04/17 08:20 09/04/17 08:20 09/04/17 08:20 09/04/17 08:20 Intake and Output: 09/04/17 09/04/17 06:59 18:59 Intake Total 950 Balance 950 - Medications Medications: Current Medications Acetaminophen (Tylenol 325mg Tab) 650 mg PO Q6 PRN PRN Reason: Fever >100.4 F Last Admin: 09/03/17 23:41 Dose: 650 mg Glipizide (Glucotrol) 5 mg PO ACB [facility] Last Admin: 09/04/17 07:52 Dose: 5 mg Heparin Sodium (Porcine) (Heparin) 5,000 units SC Q12H [facility] Last Admin: 09/02/17 22:48 Dose: 5,000 units Vancomycin/Sodium Chloride (Vancomycin 1 Gm/Ns 200 Ml) 1 gm in 200 mls @ 133 mls/hr IVPB Q12H [facility] PRN Reason: Protocol Stop: 09/08/17 04:01 Last Admin: 09/04/17 04:26 Dose: 133 mls/hr Sodium Chloride (Sodium Chloride 0.45%) 1,000 mls @ 70 mls/hr IV .[id number] [facility] Last Admin: 09/03/17 23:42 Dose: 70 mls/hr Lactated Ringer's (Lactated Ringer's) 1,000 mls @ 100 mls/hr IV .Q10H [facility] Last Admin: 09/03/17 10:16 Dose: Not Given Piperacillin Sod/Tazobactam Sod (Zosyn 3.375 Gm Iv Premix) 3.375 gm in 50 mls @ 100 mls/hr IVPB Q6H [facility] PRN Reason: Protocol Last Admin: 09/04/17 07:53 Dose: 100 mls/hr Insulin Aspart (Novolog) 0 unit SC ACHS [facility] PRN Reason: Protocol Last Admin: 09/04/17 07:44 Dose: Not Given Insulin Aspart (Novolog) 6 unit SC AC [facility] Last Admin: 09/04/17 07:52 Dose: 6 unit Insulin Glargine (Lantus) 14 unit SC HS [facility] Oxycodone/Acetaminophen (Percocet 5/325 Mg Tab) 1 tab PO Q4 PRN PRN Reason: Pain, moderate (4-7) Stop: 09/06/17 09:29 Last Admin: 09/04/17 07:59 Dose: 1 tab Oxycodone/Acetaminophen (Percocet 5/325 Mg Tab) 2 tab PO Q4H PRN PRN Reason: Pain, severe (8-10) Stop: 09/06/17 09:29 Pneumococcal Polyvalent Vaccine (Pneumovax 23 Vaccine) 0.5 ml IM .ONCE ONE Stop: 09/04/17 22:23 - Labs Labs: 09/04/17 08:22 09/04/17 08:20 PT 15.5 SECONDS (9.7-12.2) H 09/02/17 14:54 INR 1.3 09/02/17 14:54 APTT 28 SECONDS (21-34) 09/02/17 14:54
--- NOTE | 2017-09-04 10:36 | CP.PCM.PN ---
Subjective - Date & Time of Evaluation Date of Evaluation: 09/04/17 Time of Evaluation: 10:45 - Subjective Subjective: Podiatry Progress Note- Dr. Frye 57 yo diabetic male pt seen at bedside this AM 1 day s/p I&D R foot gas gangrene. Pt seen resting comfortably in be with foot elevated at time of visits. Reports minimal pain which is controlled with pain meds. Denies f/n/v/c/ sob/cp at this time. Denies any deep calf pain. No other pedal complaints today. Objective - Vital Signs/Intake and Output Vital Signs (last 24 hours): Temp Pulse Resp BP Pulse Ox 99.9 F H 103 H 20 159/90 H 96 09/04/17 08:20 09/04/17 08:20 09/04/17 08:20 09/04/17 08:20 09/04/17 08:20 Intake and Output: 09/04/17 09/04/17 06:59 18:59 Intake Total 950 Balance 950 - Medications Medications: Current Medications Acetaminophen (Tylenol 325mg Tab) 650 mg PO Q6 PRN PRN Reason: Fever >100.4 F Last Admin: 09/03/17 23:41 Dose: 650 mg Glipizide (Glucotrol) 5 mg PO ACB [facility] Last Admin: 09/04/17 07:52 Dose: 5 mg Heparin Sodium (Porcine) (Heparin) 5,000 units SC Q12H [facility] Last Admin: 09/02/17 22:48 Dose: 5,000 units Vancomycin/Sodium Chloride (Vancomycin 1 Gm/Ns 200 Ml) 1 gm in 200 mls @ 133 mls/hr IVPB Q12H [facility] PRN Reason: Protocol Stop: 09/08/17 04:01 Last Admin: 09/04/17 04:26 Dose: 133 mls/hr Sodium Chloride (Sodium Chloride 0.45%) 1,000 mls @ 70 mls/hr IV .[id number] [facility] Last Admin: 09/03/17 23:42 Dose: 70 mls/hr Lactated Ringer's (Lactated Ringer's) 1,000 mls @ 100 mls/hr IV .Q10H [facility] Last Admin: 09/03/17 10:16 Dose: Not Given Piperacillin Sod/Tazobactam Sod (Zosyn 3.375 Gm Iv Premix) 3.375 gm in 50 mls @ 100 mls/hr IVPB Q6H [facility] PRN Reason: Protocol Last Admin: 09/04/17 07:53 Dose: 100 mls/hr Insulin Aspart (Novolog) 0 unit SC ACHS [facility] PRN Reason: Protocol Last Admin: 09/04/17 07:44 Dose: Not Given Insulin Aspart (Novolog) 6 unit SC AC [facility] Last Admin: 09/04/17 07:52 Dose: 6 unit Insulin Glargine (Lantus) 14 unit SC HS [facility] Oxycodone/Acetaminophen (Percocet 5/325 Mg Tab) 1 tab PO Q4 PRN PRN Reason: Pain, moderate (4-7) Stop: 09/06/17 09:29 Last Admin: 09/04/17 07:59 Dose: 1 tab Oxycodone/Acetaminophen (Percocet 5/325 Mg Tab) 2 tab PO Q4H PRN PRN Reason: Pain, severe (8-10) Stop: 09/06/17 09:29 Pneumococcal Polyvalent Vaccine (Pneumovax 23 Vaccine) 0.5 ml IM .ONCE ONE Stop: 09/04/17 22:23 - Labs Labs: 09/04/17 08:22 09/04/17 08:20 PT 15.5 SECONDS (9.7-12.2) H 09/02/17 14:54 INR 1.3 09/02/17 14:54 APTT 28 SECONDS (21-34) 09/02/17 14:54 - Constitutional Appears: Non-toxic, No Acute Distress - Extremities Exam Extremities Exam: absent: Calf Tenderness Additional comments: RLE focused dressing appears c/d/i with no strikethrough to outer bandage VASC- pedal pulses are fully palpable (DP/PT is 2/4), skin temp runs warm to warm (with increased callor noted to medial, cap refill is < 3sec to all digits , moderate edema is noted to medial-plantar arch and sub-met 1 NEURO-gross and protective pedal sensation are diminished DERM- there is full thickness ulceration noted sub-met 1 with which tracks dorsally to 1st interspace, + PTB, neg malodor today, there is surrounding erythema which is noted to track proximally up medial arch which does appear to be resolving; there is a 2nd full thickness ulceration noted to plantar aspect of styloid process of 5th metatarsal which measures 2.0x1.5x0.5 cm with fixed fibro-hyperkeratotic border, neg PTB, neg malodor, neg juan-wound erythema, neg tracking. There does appear to be a scattered maculo-papular rash along anterior -medial aspect of R leg (non-tender to palpation, neg callor along distribution ) MSK- rigid cavovarus foot type is noted neg tenderness to palpation of ulcerations, neg Hohmans sign on deep calf squeeze. 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 Hopkins present Plan discussed with attending Dr. Frye tmax overnight 100.3, down to 99.9 this AM, + leukocytosis 16.4 (down from 17.2 yesterday) ESR 131, CRP elevated R foot x-rays: extensive soft tissue emphysema noted to 1st MTPJ, 1st interspace and extending to 2nd digit, no signs OM Wound cx (09/02): + enterobacter, + e. faecalis Intra-op wound cx (09/03): pending Packing advanced, surgical site flushed with sterile saline, and foot dressed with betadine, gauze, DSD, kerlix For MRI (likely OM) c/w IV as per ID will follow closely
--- NOTE | 2017-09-04 14:22 | CP.PCM.PN ---
Subjective - Date & Time of Evaluation Date of Evaluation: 09/04/17 Time of Evaluation: 02:20 - Subjective Subjective: dictated Objective - Vital Signs/Intake and Output Vital Signs (last 24 hours): Temp Pulse Resp BP Pulse Ox 99.9 F H 103 H 20 159/90 H 96 09/04/17 08:20 09/04/17 08:20 09/04/17 08:20 09/04/17 08:20 09/04/17 08:20 Intake and Output: 09/04/17 09/04/17 06:59 18:59 Intake Total 950 Balance 950 - Medications Medications: Current Medications Acetaminophen (Tylenol 325mg Tab) 650 mg PO Q6 PRN PRN Reason: Fever >100.4 F Last Admin: 09/03/17 23:41 Dose: 650 mg Glipizide (Glucotrol) 5 mg PO ACB [facility] Last Admin: 09/04/17 07:52 Dose: 5 mg Heparin Sodium (Porcine) (Heparin) 5,000 units SC Q12H [facility] Last Admin: 09/04/17 10:55 Dose: 5,000 units Vancomycin/Sodium Chloride (Vancomycin 1 Gm/Ns 200 Ml) 1 gm in 200 mls @ 133 mls/hr IVPB Q12H [facility] PRN Reason: Protocol Stop: 09/08/17 04:01 Last Admin: 09/04/17 04:26 Dose: 133 mls/hr Sodium Chloride (Sodium Chloride 0.45%) 1,000 mls @ 70 mls/hr IV .[id number] [facility] Last Admin: 09/03/17 23:42 Dose: 70 mls/hr Lactated Ringer's (Lactated Ringer's) 1,000 mls @ 100 mls/hr IV .Q10H [facility] Last Admin: 09/03/17 10:16 Dose: Not Given Piperacillin Sod/Tazobactam Sod (Zosyn 3.375 Gm Iv Premix) 3.375 gm in 50 mls @ 100 mls/hr IVPB Q6H [facility] PRN Reason: Protocol Last Admin: 09/04/17 13:53 Dose: 100 mls/hr Insulin Aspart (Novolog) 0 unit SC ACHS [facility] PRN Reason: Protocol Last Admin: 09/04/17 11:47 Dose: Not Given Insulin Aspart (Novolog) 6 unit SC AC [facility] Last Admin: 09/04/17 12:17 Dose: 6 unit Insulin Glargine (Lantus) 14 unit SC HS [facility] Oxycodone/Acetaminophen (Percocet 5/325 Mg Tab) 1 tab PO Q4 PRN PRN Reason: Pain, moderate (4-7) Stop: 09/06/17 09:29 Last Admin: 09/04/17 07:59 Dose: 1 tab Oxycodone/Acetaminophen (Percocet 5/325 Mg Tab) 2 tab PO Q4H PRN PRN Reason: Pain, severe (8-10) Stop: 09/06/17 09:29 Pneumococcal Polyvalent Vaccine (Pneumovax 23 Vaccine) 0.5 ml IM .ONCE ONE Stop: 09/04/17 22:23 - Labs Labs: 09/04/17 08:22 09/04/17 08:20 PT 15.5 SECONDS (9.7-12.2) H 09/02/17 14:54 INR 1.3 09/02/17 14:54 APTT 28 SECONDS (21-34) 09/02/17 14:54
[2017-09-04] MEDS: Lactated Ringer's 1,000 ML IV SCH (15:30)
[2017-09-04] MEDS: Sodium Chloride 0.45% 1,000 ML IV SCH (15:30)
--- NOTE | 2017-09-04 16:50 | MRI ---
MRI right forefoot History: Ulcers. Evaluate for osteomyelitis. Comparison: X-ray dated 09/02/2017 Technique: Multi-echo multiplanar sequences were performed through the right forefoot without the use of intravenous contrast. Findings: Prominent circumferential reticulation and edema seen throughout the circumferential soft tissues suggestive for underlying cellulitis. Prominent soft tissue ulceration seen at the volar aspect of 1st digit at the level of the metatarsal head. Additional prominent soft tissue ulceration noted at the dorsal aspect of the interspace between the 1st and 2nd digits with subcutaneous emphysema and air noted in the soft tissues. At that level, there is patchy signal abnormality seen within the 1st metatarsal head best seen on series 3, image 80 with some mild patchy decreased T1 signal. These findings would be concerning for a possible early acute and or developing acute osteomyelitis. Patchy reactive edema seen within the lateral aspect of the medial cuneiform with associated mild patchy decreased T1 signal. These changes may represent an early acute and or developing acute osteomyelitis at this level. Clinical correlation. Additional mild reactive edema seen at the lateral base of the 1st metatarsal bone. Mild patchy nonspecific reactive edema seen within the lateral aspect of the middle cuneiform bone as well as the medial aspect of cuboid bone and lateral aspect of the calcaneus. Clinical correlation. Prominent soft tissue ulceration seen at the lateral aspect of the midfoot adjacent to the base of the 5th metatarsal bone. Some minimal reactive edema noted at the lateral base of the 5th metatarsal bone without gross corresponding T1 signal abnormality. This may represent some mild early acute infectious and/or inflammatory changes but without gross acute osteomyelitis. At the level of the medial aspect of midfoot, within the plantar soft tissues, there is a somewhat lobulated area of multilobulated fluid signal intensity measuring up to 1.7 x 0.9 centimeters as well as the adjacent collection measuring up to 1.9 centimeters which may represent a developing phlegmon collection. This is best seen on series 6, image 22 and series 6, image 21. Some fraying and increased signal noted at the level of the Lisfranc ligament which may represent some partial tearing. Clinical correlation. Minimal patchy nonspecific reactive edema seen at the level of middle phalanx. Severe hallux valgus deformity. Additional signal abnormality noted within the medial and lateral sesamoid bones with decreased T1 signal which may represent underlying prominent osteochondral change and or osteonecrosis. Impression: 1. Prominent circumferential reticulation and edema seen throughout the circumferential soft tissues suggestive for underlying cellulitis. 2. Prominent soft tissue ulceration seen at the volar aspect of 1st digit at the level of the metatarsal head. Additional prominent soft tissue ulceration noted at the dorsal aspect of the interspace between the 1st and 2nd digits with subcutaneous emphysema and air noted in the soft tissues. At that level, there is patchy signal abnormality seen within the 1st metatarsal head best seen on series 3, image 80 with some mild patchy decreased T1 signal. These findings would be concerning for a possible early acute and or developing acute osteomyelitis. 3. Patchy reactive edema seen within the lateral aspect of the medial cuneiform with associated mild patchy decreased T1 signal. These changes may represent an early acute and or developing acute osteomyelitis at this level. Clinical correlation. 4. Additional mild reactive edema seen at the lateral base of the 1st metatarsal bone. 5. Mild patchy nonspecific reactive edema seen within the lateral aspect of the middle cuneiform bone as well as the medial aspect of cuboid bone and lateral aspect of the calcaneus. Clinical correlation. 6. Prominent soft tissue ulceration seen at the lateral aspect of the midfoot adjacent to the base of the 5th metatarsal bone. Some minimal reactive edema noted at the lateral base of the 5th metatarsal bone without gross corresponding T1 signal abnormality. This may represent some mild early acute infectious and/or inflammatory changes but without gross acute osteomyelitis. 7. At the level of the medial aspect of midfoot, within the plantar soft tissues, there is a somewhat lobulated area of multilobulated fluid signal intensity measuring up to 1.7 x 0.9 centimeters as well as the adjacent collection measuring up to 1.9 centimeters which may represent a developing phlegmon collection. This is best seen on series 6, image 22 and series 6, image 21. 8. Some fraying and increased signal noted at the level of the Lisfranc ligament which may represent some partial tearing. Clinical correlation. 9. Minimal patchy nonspecific reactive edema seen at the level of middle phalanx. 10. Severe hallux valgus deformity. 11. Additional signal abnormality noted within the medial and lateral sesamoid bones with decreased T1 signal which may represent underlying prominent osteochondral change and or osteonecrosis.
[2017-09-04] MEDS ORDERED: (Lantus) Insulin Glargine, Recombinant SC SCH (22:00)
[2017-09-04] MEDS ORDERED: Pneumococcal 23-Valent Vaccine IM ONE (22:22)
[2017-09-04] MEDS: Meropenem 1 GM in Sodium Chloride 0.9% 100 ML IVPB SCH (22:24)
--- NOTE | 2017-09-04 22:44 | PN ---
DATE: 09/04/2017 SUBJECTIVE: The patient was seen and examined at bedside. The patient denies any new complaints, event from yesterday noted that he is still spiking with low grade temperatures. Denies any headache, dizziness. Denies any chest pain. REVIEW OF SYSTEMS: All other systems reviewed and were found to be negative. PHYSICAL EXAMINATION: GENERAL: A middle-aged male lying in bed, in no acute distress. VITAL SIGNS: Blood pressure 159/90, pulse 103, respirations 20, temperature 99.9 degrees Fahrenheit, O2 saturations 96% on room air. HEENT: Pupils equal, round, and reacting to light and accommodation. Extraocular muscles intact. No icterus. No pallor. No oral thrush. No pharyngeal congestion. NECK: Supple. No JVD. LUNGS: Bilateral vesicular breath sounds. No wheezing. No rhonchi. CVS: S1, S2 present, regular. ABDOMEN: Soft, nontender. Bowel sounds present. No guarding. No rigidity. No rebound tenderness noted. INVESTMENT UNDERWRITER: Alert, awake, and oriented x3. No focal deficits noted. EXTREMITIES: Right foot with two ulcers, one on the medial side of the plantar aspect and the other one on the lateral side of the plantar aspect, deep ulcers, status post incision and drainage and debridement with sutures in place. Decreasing erythema and warm to touch. MEDICATIONS: Include Tylenol, Glucotrol 5 mg p.o. daily, subcu heparin, Lantus 20 units subcu at bedtime, Novolog 10 units subcu a.c., Percocet as needed, Zosyn 3.375 gm IV every 6 hours, vancomycin 1 gm IV every 12 hours, half normal saline at 70 mL/hour. LABORATORY DATA: Labs from this morning, WBC 16.4, hemoglobin 10.3, hematocrit 28.8, platelets 281. ESR 131, sodium 134, potassium 3.9, chloride 98, bicarb 26, BUN 11, creatinine 0.6, glucose 212, calcium 7.9, total bilirubin 0.5, AST 23, ALT 13, alkaline phosphatase 115, total protein 6.7, albumin 2.8. Wound cultures showed Enterobacter cloacae and enterococcus faecalis. Blood cultures are negative so far. Wound cultures also showed beta hemolytic strep. Group B urine culture is negative. MRI of the lower extremity shows prominent circumferential reticulation and edema seen throughout the circumferential soft tissues suggestive for underlying cellulitis. Prominent soft tissue ulceration seen at the volar aspect of the first digit at the level of the metatarsal head. Additional prominent soft tissue ulcerations noted at the dorsal aspect of the interspace between first and second digits with subcutaneous emphysema and air noted in the soft tissues. At that level, there is PACU signal abnormality seen within the first metatarsal head, best seen on CD3 image 80 with some mild patchy decreased T2 signal. The findings would be concerning for a possible early acute and/or developing acute osteomyelitis. Patchy reactive edema seen within the lateral aspect of the medial cuneiform with associated mild patchy decreased T1 signal. These changes may represent an early acute or developing osteomyelitis at this level. ASSESSMENT AND PLAN: Middle-aged male with uncontrolled diabetes mellitus with diabetic multiple foot ulcers with extensive soft tissue emphysema and cellulitis, MRI consistent with possible acute osteomyelitis, status post incision and drainage and debridement, elevated blood pressures. We will monitor blood pressure closely. Continue with current antibiotics with Zosyn and vancomycin as per Dr. Barcenas. Discussed with Podiatry resident. Continue with wound care and dressing. Endocrinology consult appreciated. Started on insulin and glipizide. Monitor sugars closely. We will request PICC line for possible longterm IV antibiotics. We will start metoprolol 25 mg p.o. b.i.d. We will repeat labs in a.m. Fernando Hills MD
--- NOTE | 2017-09-04 23:05 | PN ---
DATE: ENDO FOLLOWUP NOTE LOCATION: Room 353. SUBJECTIVE: This is a 57-year-old male with recent uncontrolled type 2 insulin-requiring diabetes, currently undergoing IV antibiotic management and local debridement for a right foot cellulitis and is also being followed closely for metabolic management. His glycemic levels are fluctuating but improved and the latest glucose levels have ranged from 212 to 221 and 208 mg/dL. His latest chemistry showed a BUN of 11, sodium 134, potassium 3.9, chloride 98, CO2 of 26, glucose 230, and creatinine 0.6. ASSESSMENT AND PLAN: At this time, we will modify once again his basal and bolus insulin regimen and increase the Novolog to 10 units subcu t.i.d. before meals as ordered. We will continue the low-dose correction scale using Novolog insulin as given to obviate hypoglycemia and detailed orders have been given. We will also modify the basal insulin and increase the Lantus to 20 units subcu at bedtime daily to start tonight. We will titrate increments as indicated to optimize metabolic control. We will obtain serial chemistries and supplement accordingly as needed. We will also continue the diabetic education and dietary instructions at the time of this admission. We will follow and advise accordingly. Wendie Steinberg MD
[2017-09-05] MEDS: Lactated Ringer's 1,000 ML IV SCH (01:30)
--- NOTE | 2017-09-05 03:34 | PN ---
DATE: SUBJECTIVE: The patient was seen this afternoon. He was not complaining of any problems and he was stable, but he had low-grade temps of 100.3. I told him he has sugar problems and he needs to follow a regime and also medications when he is discharged. PHYSICAL EXAMINATION: VITAL SIGNS: Now while I am dictating the note, I was told the temperature is 102.3, pulse is 96, blood pressure 150/83, respirations are 20. HEENT: Head is atraumatic, normocephalic. When I saw him, pupils were reacting to light. NECK: Supple. LUNGS: Clear. Coarse breath sounds. HEART: S1, S2, regular. ABDOMEN: Soft, nontender. No guarding. No rigidity present. EXTREMITIES: Right leg had minimal swelling and he had a new dressing on his foot. Left foot was unremarkable. LABORATORY DATA: Show white count is 16.4 today, hemoglobin 10.3, hematocrit 28.8, and platelet count is 281, it still remains elevated, and his ESR was 131. Chemistry shows his creatinine is 0.6, BUN is 11. Sugars have been a little bit on to be exact right now, and his wound culture is Enterobacter cloacae from 09/02, which is showing Enterobacter and enterococcus fecalis. The enterococcus fecalis, vancomycin sensitivity is 2 which is high and has ampicillin sensitivity less than 2 that makes it difficult. It is very sensitive to erythromycin and to Levaquin. The Levaquin might have been a better choice or Tygacil, and for enterobacter, it is meropenem. The external wound had enterobacter, Cipro sensitive and Levaquin sensitive, later on we will see. Right now when they had called me, I did not have these sensitivities, and I put him on vancomycin and meropenem which I will continue at this time, and otherwise, wound OR cultures are coming out beta hemolytic strep, but probably he did come with necrotic abscess with air and definitely had necrotic changes on the skin and soft tissue which was debrided. We will continue with vancomycin and meropenem at this time. He also had an MRI today and the MRI report is pretty extensive, but it says prominent circumferential radicular edema seen throughout the circumferential soft tissue suggestive of underlying cellulitis, and there is a concerning prominent soft tissue ulceration in the volar space of the first digit, additional soft tissue swelling in the interspace between first and second with subcutaneous edema and air noted in the soft tissue. At that level, there is patchy signal abnormality in the first metatarsal best, seen on the CDs. These findings would be concerning for a possible early acute and developing acute osteomyelitis, but since there is subcutaneous emphysema, I would wonder if there is more disruption going on there, so we will wait for the Podiatry to look into this MRI report, but at this time, I have extended these antibiotics for now, as the patient is still febrile. IMPRESSION: He came with cellulitis, diabetic foot ulcer with necrotic subcutaneous emphysema and status post debridement and still spiking, probably has some more tissue there. Tone Barcenas MD
[2017-09-05] MEDS: Sodium Chloride 0.45% 1,000 ML IV SCH (04:00)
[2017-09-05] MEDS: Meropenem 1 GM in Sodium Chloride 0.9% 100 ML IVPB SCH ×3 (05:35→22:57)
[2017-09-05 06:24] LABS: BASO # 0.1 K/uL (0.0-0.2); BASO % 0.8 % (0.0-2.0); EOS # 0.1 K/uL (0.0-0.7); EOS % 0.8 % (0.0-4.0); LYMPH # 1.9 K/uL (1.0-4.3); LYMPH % 12.2 % (20.0-40.0); MEAN CELL VOLUME 86.5 fL (80.0-94.0); MEAN CORPUSCULAR HEMOGLOBIN 30.6 pg (27.0-31.0); MEAN CORPUSCULAR HGB CONC 35.4 g/dL (33.0-37.0); MEAN PLATELET VOLUME 7.8 fL (7.2-11.7); MONO # 1.4 K/uL (0.0-0.8); MONO % 8.9 % (0.0-10.0); NEUT # 11.8 K/uL (1.8-7.0); NEUT % 77.3 % (50.0-75.0); RBC 3.27 Mil/uL (4.40-5.90); RED CELL DISTRIBUTION WIDTH 12.4 % (11.5-14.5); WHITE BLOOD COUNT 15.3 K/uL (4.8-10.8)
[2017-09-05 06:43] LABS: ALB/GLOB RATIO 0.7 (1.0-2.1); ALBUMIN 2.8 g/dL (3.5-5.0); ALT/SGPT 19 U/L (21-72); AST/SGOT 26 U/L (17-59); BLOOD UREA NITROGEN 8 mg/dL (9-20); CALCIUM 7.7 mg/dl (8.6-10.4); GFR AFRICAN-AMERICAN > 60; GFR NON-AFRICAN AMERICAN > 60
[2017-09-05 08:14] LABS: SQUAMOUS EPITHIAL < 1 /hpf (0-5); URINE BILIRUBIN NEGATIVE (NEGATIVE); URINE BLOOD NEGATIVE (NEGATIVE); URINE CLARITY Clear (Clear); URINE COLOR Yellow (YELLOW); URINE GLUCOSE (UA) 2+ mg/dL (Normal); URINE LEUKOCYTE ESTERASE NEG Leu/uL (Negative); URINE PROTEIN NEGATIVE (NEGATIVE); URINE UROBILINOGEN NORMAL mg/dL (0.2-1.0)
[2017-09-05] MEDS: (Novolog) Insulin Aspart, Recombinant 100 u/ml 10 ml vial SC SCH ×7 (08:37→22:23)
--- NOTE | 2017-09-05 08:40 | RAD ---
Chest x-ray single frontal view History: Fever. Comparison: 09/02/2017 Findings Lung rodriguez are clear. Heart size within normal limits. Mild right hilar prominence. Degenerative changes in the spine. Impression: No focal infiltrate or effusion.
--- NOTE | 2017-09-05 10:25 | CP.PCM.PN ---
Subjective - Date & Time of Evaluation Date of Evaluation: 09/05/17 Time of Evaluation: 09:15 - Subjective Subjective: Podiatry Progress Note- Dr. Frye 57 yo diabetic male pt seen at bedside 2 days s/p I&D gas gangrene R foot. Pt denies any pain or discomfort to the foot at this time. Denies f/n/v/c/sob/cp at this time. Denies any acute overnight events. Objective - Vital Signs/Intake and Output Vital Signs (last 24 hours): Temp Pulse Resp BP Pulse Ox 98.5 F 100 H 20 149/80 96 09/05/17 07:00 09/05/17 07:00 09/05/17 07:00 09/05/17 09:42 09/05/17 07:00 Intake and Output: 09/05/17 09/05/17 06:59 18:59 Intake Total 2090 Output Total 700 Balance 1390 - Medications Medications: Current Medications Acetaminophen (Tylenol 325mg Tab) 650 mg PO Q6 PRN PRN Reason: Fever >100.4 F Last Admin: 09/04/17 20:15 Dose: 650 mg Glipizide (Glucotrol) 5 mg PO ACB [facility] Last Admin: 09/05/17 08:37 Dose: 5 mg Heparin Sodium (Porcine) (Heparin) 5,000 units SC Q8H [facility] Last Admin: 09/05/17 06:00 Dose: 5,000 units Sodium Chloride (Sodium Chloride 0.45%) 1,000 mls @ 70 mls/hr IV .[id number] [facility] Last Admin: 09/05/17 04:00 Dose: Not Given Lactated Ringer's (Lactated Ringer's) 1,000 mls @ 100 mls/hr IV .Q10H [facility] Last Admin: 09/05/17 01:30 Dose: Not Given Meropenem 1 gm/ Sodium (Chloride) 100 mls @ 100 mls/hr IVPB Q8 [facility] PRN Reason: Protocol Last Admin: 09/05/17 05:35 Dose: 100 mls/hr Vancomycin HCl 1,250 mg/ (Sodium Chloride) 250 mls @ 166.6 mls/hr IVPB Q12H [facility] PRN Reason: Protocol Last Admin: 09/05/17 03:55 Dose: 166.6 mls/hr Insulin Aspart (Novolog) 0 unit SC ACHS [facility] PRN Reason: Protocol Last Admin: 09/05/17 08:38 Dose: Not Given Insulin Aspart (Novolog) 10 unit SC AC [facility] Last Admin: 09/05/17 08:37 Dose: 10 unit Insulin Glargine (Lantus) 20 unit SC HS [facility] Last Admin: 09/04/17 22:22 Dose: 20 units Metoprolol Tartrate (Lopressor) 25 mg PO BID [facility] Last Admin: 09/05/17 09:42 Dose: 25 mg Oxycodone/Acetaminophen (Percocet 5/325 Mg Tab) 1 tab PO Q4 PRN PRN Reason: Pain, moderate (4-7) Stop: 09/06/17 09:29 Last Admin: 09/04/17 07:59 Dose: 1 tab Oxycodone/Acetaminophen (Percocet 5/325 Mg Tab) 2 tab PO Q4H PRN PRN Reason: Pain, severe (8-10) Stop: 09/06/17 09:29 - Labs Labs: 09/05/17 06:17 09/05/17 06:17 PT 15.5 SECONDS (9.7-12.2) H 09/02/17 14:54 INR 1.3 09/02/17 14:54 APTT 28 SECONDS (21-34) 09/02/17 14:54 - Constitutional Appears: Non-toxic, No Acute Distress - Extremities Exam Extremities Exam: absent: Calf Tenderness Additional comments: RLE focused dressing appears c/d/i with minimal strikethrough noted to outer bandage VASC- pedal pulses faintly palpable, skin temp runs warm to warm (with increased callor noted to medial foot), cap refill is delayed to 2nd digit ( however is warm to touch and blanchable), cap refill to remaining digits is brisk, moderate pedal edema is noted. NEURO-gross and protective pedal sensation are diminished DERM- there is full thickness ulceration noted sub-met 1 with juan-wound maceration with which tracks dorsally to 1st interspace, + PTB, slight malodor today, there is surrounding erythema which is noted to track proximally up medial arch ; there is a 2nd full thickness ulceration noted to plantar aspect of styloid process of 5th metatarsal which measures 2.0x1.5x0.5 cm with fixed fibro-hyperkeratotic border, neg PTB, neg malodor, neg juan-wound erythema, neg tracking. Plantar forefoot appears dusky/darkened today. Approx 2cc mixed purulent-sanguinous drainage expressed from plantar wound submet 1 with velia bubbles MSK- rigid cavovarus foot type is noted neg tenderness to palpation of ulcerations, neg Hohmans sign on deep calf squeeze. - Neurological Exam Neurological Exam: Alert, Awake, Oriented x3 - Psychiatric Exam Psychiatric exam: Normal Affect, Normal Mood Assessment and Plan - Assessment and Plan (Free Text) Assessment: 57 yo male pt w/ R foot gas gangrene (2/2diabetic neuropathy) POD#2 I&D R foot Plan: Pt S&E at bedside Plan discussed with Dr. Frye Tmax 102.3 overnight, WBC is trending down but remains elevated 15.3 (down from 16.4) MRI: possible early OM 1st met head and medial cuneiform, possible phlegmon collecting plantar-medial foot All sutures removed today, redressed betadine, DSD Plan for OR tomorrow 09/06 w/ Dr. Frye for repeat I&D of R foot NPO past midnight Hold AM anti-coags 09/06 Prognosis is guarded Will follow
[2017-09-05] MEDS ORDERED: Potassium Chloride 20 mEq ER Tab PO STA (10:51)
--- NOTE | 2017-09-05 11:16 | CP.PCM.PN ---
Subjective - Date & Time of Evaluation Date of Evaluation: 09/05/17 Time of Evaluation: 11:20 - Subjective Subjective: Progress note dictated #[id number] Objective - Vital Signs/Intake and Output Vital Signs (last 24 hours): Temp Pulse Resp BP Pulse Ox 98.5 F 100 H 20 149/80 96 09/05/17 07:00 09/05/17 07:00 09/05/17 07:00 09/05/17 09:42 09/05/17 07:00 Intake and Output: 09/05/17 09/05/17 06:59 18:59 Intake Total 2090 Output Total 700 Balance 1390 - Medications Medications: Current Medications Acetaminophen (Tylenol 325mg Tab) 650 mg PO Q6 PRN PRN Reason: Fever >100.4 F Last Admin: 09/04/17 20:15 Dose: 650 mg Glipizide (Glucotrol) 5 mg PO ACB [facility] Last Admin: 09/05/17 08:37 Dose: 5 mg Heparin Sodium (Porcine) (Heparin) 5,000 units SC Q8H [facility] Last Admin: 09/05/17 06:00 Dose: 5,000 units Sodium Chloride (Sodium Chloride 0.45%) 1,000 mls @ 70 mls/hr IV .[id number] [facility] Last Admin: 09/05/17 04:00 Dose: Not Given Lactated Ringer's (Lactated Ringer's) 1,000 mls @ 100 mls/hr IV .Q10H [facility] Last Admin: 09/05/17 01:30 Dose: Not Given Meropenem 1 gm/ Sodium (Chloride) 100 mls @ 100 mls/hr IVPB Q8 [facility] PRN Reason: Protocol Last Admin: 09/05/17 05:35 Dose: 100 mls/hr Vancomycin HCl 1,250 mg/ (Sodium Chloride) 250 mls @ 166.6 mls/hr IVPB Q12H [facility] PRN Reason: Protocol Last Admin: 09/05/17 03:55 Dose: 166.6 mls/hr Insulin Aspart (Novolog) 0 unit SC ACHS [facility] PRN Reason: Protocol Last Admin: 09/05/17 08:38 Dose: Not Given Insulin Aspart (Novolog) 10 unit SC AC [facility] Last Admin: 09/05/17 08:37 Dose: 10 unit Insulin Glargine (Lantus) 20 unit SC HS [facility] Last Admin: 09/04/17 22:22 Dose: 20 units Metoprolol Tartrate (Lopressor) 25 mg PO BID [facility] Last Admin: 09/05/17 09:42 Dose: 25 mg Oxycodone/Acetaminophen (Percocet 5/325 Mg Tab) 1 tab PO Q4 PRN PRN Reason: Pain, moderate (4-7) Stop: 09/06/17 09:29 Last Admin: 09/04/17 07:59 Dose: 1 tab Oxycodone/Acetaminophen (Percocet 5/325 Mg Tab) 2 tab PO Q4H PRN PRN Reason: Pain, severe (8-10) Stop: 09/06/17 09:29 - Labs Labs: 09/05/17 06:17 09/05/17 06:17 PT 15.5 SECONDS (9.7-12.2) H 09/02/17 14:54 INR 1.3 09/02/17 14:54 APTT 28 SECONDS (21-34) 09/02/17 14:54
[2017-09-05] MEDS ORDERED: GENTAMICIN IVPB ONE (17:00)
[2017-09-05] MEDS ORDERED: SODIUM CHLORIDE 0.9% IVPB ONE (17:00)
[2017-09-05] MEDS: (Lantus) Insulin Glargine, Recombinant SC SCH (22:57)
--- NOTE | 2017-09-06 01:53 | PN ---
DATE: 09/05/2017. SUBJECTIVE: The patient was seen and examined at bedside. The patient denies any new complaints. Denies any leg pain. Denies any chest pain. No shortness of breath. PHYSICAL EXAMINATION: GENERAL: Middle-aged male, lying in bed in no acute distress. VITAL SIGNS: Blood pressure 149/80, pulse 98, respirations 20, temperature 101.5 degrees Fahrenheit, O2 saturations 96% on room air. HEENT: Pupils are equal, round and reacting to light and accommodation. Extraocular muscles are intact. No icterus. No pallor. No oral thrush. No oropharyngeal congestion. NECK: Supple. No JVD. LUNGS: Bilateral vesicular breath sounds. No wheezing. No rhonchi. CVS: S1, S2 present. Regular. ABDOMEN: Soft and nontender. Bowel sounds are present. No guarding. No rigidity. No rebound tenderness noted. MANAGER RECRUITMENT: Alert, awake, and oriented x3. No focal deficits noted. EXTREMITIES: Right foot with decreasing erythema. Multiple ulcers. Tender to touch. No oozing noted. MEDICATIONS: Include Tylenol as needed, glipizide 5 mg, subcu heparin for DVT prophylaxis, insulin 12 units subcu a.c., Lantus 22 units subcu at bedtime, meropenem 1 gm IV every 8 hours, metoprolol 25 mg p.o. b.i.d., Percocet as needed, vancomycin 1250 mg IV every 12 hours, gentamicin 200 mg 1 dose. LABORATORY DATA: WBC 15.3, hemoglobin 10, hematocrit 28.3, platelets 300. Sodium 136, potassium 3.5, chloride 100, bicarbonate 25, BUN 8, creatinine 0.6, glucose 193, calcium 7.7. UA specific gravity 1.008, pH 6, glucose 2+, ketones 1+. ASSESSMENT AND PLAN: Middle-aged male with uncontrolled diabetes mellitus with right foot cellulitis, diabetic foot ulcers with osteomyelitis, status post incision and drainage and debridement. His antibiotics switched from Zosyn to meropenem and the vancomycin dose increased. One dose of gentamicin given. We will continue with the current insulin regimen. Blood pressure is improving on Lopressor. Follow up with Podiatry. We will add further recommendation as his clinical course progresses. Fernando Hills MD [facility] # [id number]
--- NOTE | 2017-09-06 02:21 | PN ---
DATE: 09/05/2017. ENDO FOLLOWUP NOTE LOCATION: Room 353. SUBJECTIVE: This is a 57-year-old male with recent uncontrolled type 2 insulin requiring diabetes, presenting here with right foot cellulitis and currently undergoing IV antibiotic management with local debridement procedures as noted thereof. His glycemic levels are fluctuating but improved and today's glucose levels have ranged from 190 to 193 mg/dL. It was 263 at bedtime last night as noted. LABORATORY DATA: The latest chemistry showed the BUN of 8, sodium 136, potassium 3.5, chloride 100, CO2 25, glucose 198, creatinine 0.6. PLAN: So, at this time, we will modify once again his basal and bolus insulin regimen to optimize metabolic control. We will titrate his NovoLog to 12 units subcu t.i.d. before meals to start today as ordered. We will also titrate the Lantus to a higher dosing of 22 units subcu at bedtime daily to start tonight. We will obtain serial chemistries and supplements and accordingly as needed. We will also continued the low dose correction scale using Humalog insulin as given. We will obtain serial chemistries and supplements accordingly as needed. We will follow. Wendie Steinberg MD
--- NOTE | 2017-09-06 03:30 | OP ---
PROCEDURE DATE: 09/03/2017. 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 SURGEON: Nehal Frye DPM. VOICE NETWORK ADMINISTRATOR: Asad Blood DPM, PGY-1. ANESTHESIOLOGIST: Dr. Dale. ANESTHESIA: IV sedation with local. INDICATION: The patient is a 57-year-old male with the above diagnosis. The patient has exhausted all conservative treatment at this time and now requires surgical intervention. The patient signed the consent after careful explanation of risks, benefits, complications and alternatives for the surgical procedure. No guarantees were given nor implied. PREPARATION: The patient was brought in to the operating room and placed on the operating room table in the supine position. Timeout was performed for identification of the correct patient and procedure. DESCRIPTION OF PROCEDURE: After the induction of the IV sedation, the patient received a total of 20 mL of 1:1 mixture of 2% lidocaine plain and 0.5% Marcaine plain in a local block type fashion to the right ankle. Once local anesthesia was achieved, the right foot and ankle were then prepped and draped in a normal sterile manner. No tourniquet was used during the procedure. Attention was directed towards the medial aspect of the right foot as well as between the first and the second metatarsal. Incision was drawn out using the marking pen; on the medial side extending from the first metatarsal head to the metatarsal cuneiform joint and on dorsal side extending from the first interspace to the metatarsal cuneiform joint. Using a #15 blade, incision was made over the planned site. Incisions were deepened after care being taken in identifying all the anatomical surrounding structures. Using curved stats, sinus tracts were identified and opened. Pressure was applied from proximal to distal as well as distal to proximal and lateral to medial. All the purulent drainage was evacuated and nonviable infected soft tissue was removed from the incision site. Surgical site was then irrigated with copious amount of saline infused with Bacitracin using pulse lavage. Surgical site was then packed with 1/4 inch iodoform packing, medial foot incision was closed using 4-0 Prolene, interspace site was closed using 3-0 Prolene with distal edge left open to allow for the iodoform packing access. pre-op wound cultures and post incision and drainage wound cultures were taken. Incision site was dressed with Betadine-soaked Adaptic, 4 x 4, ABD, Kerlix. POSTOPERATIVE CONDITION: The patient tolerated the anesthesia and the procedure well and was escorted to the recovery room with vital signs stable and neurovascular status intact to the right foot. The patient is to weight bear as tolerated to the heel in a surgical shoe. This patient will return to the floor where he will be followed up by Podiatry. Asad Blood DPM Nehal Frye DPM [facility]
[2017-09-06] MEDS: Meropenem 1 GM in Sodium Chloride 0.9% 100 ML IVPB SCH ×3 (05:17→21:45)
[2017-09-06] MEDS: (Novolog) Insulin Aspart, Recombinant 100 u/ml 10 ml vial SC SCH ×7 (07:46→21:49)
--- NOTE | 2017-09-06 10:57 | CP.PCM.PN ---
Subjective - Date & Time of Evaluation Date of Evaluation: 09/06/17 Time of Evaluation: 10:40 - Subjective Subjective: Progress note dictated #[id number] Objective - Vital Signs/Intake and Output Vital Signs (last 24 hours): Temp Pulse Resp BP Pulse Ox 99.0 F 95 H 20 149/76 96 09/06/17 05:46 09/06/17 00:00 09/06/17 00:00 09/06/17 00:00 09/06/17 00:00 Intake and Output: 09/06/17 09/06/17 06:59 18:59 Intake Total 650 350 Balance 650 350 - Medications Medications: Current Medications Acetaminophen (Tylenol 325mg Tab) 650 mg PO Q6 PRN PRN Reason: Fever >100.4 F Last Admin: 09/06/17 02:10 Dose: 650 mg Glipizide (Glucotrol) 5 mg PO ACB [facility] Last Admin: 09/06/17 07:45 Dose: Not Given Heparin Sodium (Porcine) (Heparin) 5,000 units SC Q8H [facility] Last Admin: 09/06/17 06:35 Dose: Not Given Meropenem 1 gm/ Sodium (Chloride) 100 mls @ 100 mls/hr IVPB Q8 [facility] PRN Reason: Protocol Last Admin: 09/06/17 05:17 Dose: 100 mls/hr Vancomycin HCl 1,400 mg/ (Sodium Chloride) 500 mls @ 250 mls/hr IVPB Q12H [facility] PRN Reason: Protocol Insulin Aspart (Novolog) 0 unit SC ACHS [facility] PRN Reason: Protocol Last Admin: 09/06/17 07:46 Dose: Not Given Insulin Aspart (Novolog) 12 unit SC AC [facility] Last Admin: 09/06/17 07:46 Dose: Not Given Insulin Glargine (Lantus) 22 unit SC HS [facility] Last Admin: 09/05/17 22:57 Dose: 22 units Metoprolol Tartrate (Lopressor) 25 mg PO BID [facility] Last Admin: 09/05/17 17:05 Dose: 25 mg - Labs Labs: 09/05/17 06:17 09/05/17 06:17 PT 15.5 SECONDS (9.7-12.2) H 09/02/17 14:54 INR 1.3 09/02/17 14:54 APTT 28 SECONDS (21-34) 09/02/17 14:54
[2017-09-06 11:05] LABS: HEMOGLOBIN 10.2 g/dL (12.0-18.0); MEAN CELL VOLUME 88.1 fL (80.0-94.0); MEAN CORPUSCULAR HEMOGLOBIN 30.9 pg (27.0-31.0); MEAN CORPUSCULAR HGB CONC 35.1 g/dL (33.0-37.0); MEAN PLATELET VOLUME 7.7 fL (7.2-11.7); RBC 3.29 Mil/uL (4.40-5.90); RED CELL DISTRIBUTION WIDTH 12.4 % (11.5-14.5); WHITE BLOOD COUNT 14.7 K/uL (4.8-10.8)
[2017-09-06 11:10] LABS: INR 1.3; PROTHROMBIN TIME 14.5 SECONDS (9.7-12.2)
[2017-09-06 11:20] LABS: BLOOD UREA NITROGEN 8 mg/dL (9-20); CALCIUM 7.9 mg/dl (8.6-10.4); GFR AFRICAN-AMERICAN > 60; GFR NON-AFRICAN AMERICAN > 60
[2017-09-06] MEDS ORDERED: Bacitracin 150,000 UNIT in Sodium Chloride 0.9% Irrig 3,000 ML IR SCH (13:15)
[2017-09-06] MEDS ORDERED: Lidocaine Hydrochloride 10 ML INJ ONE (14:12)
[2017-09-06] MEDS ORDERED: Bupivacaine HCl 0.5% PF (30 ml) Inj ONE (14:12)
[2017-09-06] MEDS ORDERED: ceFAZolin 1 gm in NS 0 GM/0 ML BAG IVPB ONE (14:12)
[2017-09-06] MEDS ORDERED: Midazolam 2 MG/2 ML VIAL ONE (14:25)
[2017-09-06] MEDS ORDERED: Propofol 10 mg/ml Inj (20 ML) ONE (14:25)
[2017-09-06] MEDS ORDERED: HYDROmorphone 0.5 mg/0.5 ml ISec IVP PRN (15:55)
--- NOTE | 2017-09-06 15:58 | PCM.SURG1 ---
Surgeon's Initial Post Op Note - Surgeon's Notes Surgeon: Dr. Nehal Frye DPM Utility Lineman: Dr. Asad Blood DPM PGY-1 Type of Anesthesia: IV Sedation, Local Anesthesia Administered By: Dr. Rashard MITTAL Pre-Operative Diagnosis: Nacrotizing Fasciitis of the right foot Operative Findings: See dictation. M: 1/4 inch iodoform packing. I: 20 cc of 1 :1 lidocaine plain:0.5% marcaine plain - pre-op Post-Operative Diagnosis: Same Operation Performed: Incision and drainage with partial right 2nd ray resection Specimen/Specimens Removed: Right partial 2nd ray Estimated Blood Loss: EBL {In ML}: 80 Blood Products Given: N/A Drains Used: No Drains Post-Op Condition: Good Date of Surgery/Procedure: 09/06/17 Time of Surgery/Procedure: 15:59
[2017-09-06] MEDS ORDERED: Oxycodone/Acetaminophen 5/325 mg Tab PO PRN ×2 (16:02)
[2017-09-06 16:15] LABS: HEMOGLOBIN 9.8 g/dL (12.0-18.0)
--- NOTE | 2017-09-06 16:26 | RAD ---
PROCEDURE: Right Foot Radiographs. HISTORY: s/p right foot surgery COMPARISON: Right foot radiographs dated 09/02/2017. FINDINGS: BONES: Interval 2nd digit amputation at the level of the metatarsal head. No acute fracture. JOINTS: Unremarkable. SOFT TISSUES: Postsurgical changes. OTHER FINDINGS: None. IMPRESSION: Interval 2nd digit amputation as described above.
--- NOTE | 2017-09-06 20:15 | PN ---
DATE: 09/06/2017 SUBJECTIVE: The patient was seen and examined at bedside. The patient was supposed to go for OR this morning. Denies any new complaints. PHYSICAL EXAMINATION: GENERAL: A middle-aged male, lying in bed, in no acute distress. VITAL SIGNS: Blood pressure 149/76, pulse 95, respirations 20, temperature 100.7 degrees Fahrenheit, O2 saturations 96% on room air. HEENT: Pupils are equal, round, and reacting to light and accommodation. Extraocular muscles are intact. No icterus. No pallor. No oral thrush. No oropharyngeal congestion. NECK: Supple. No JVD. LUNGS: Bilateral vesicular breath sounds. No wheezing. No rhonchi. CVS: S1, S2 present. Regular. ABDOMEN: Soft and nontender. Bowel sounds are present. No guarding. No rigidity. No rebound tenderness noted. PLUG SHAPER HAND: Alert, awake, and oriented x3. No focal deficits noted. EXTREMITIES: Right foot ulcers with gas gangrene and cellulitis. MEDICATIONS: Include Tylenol as needed, glipizide 5 mg before breakfast, subcu heparin, insulin 12 units subcu before meals, Lantus 22 units at bedtime, meropenem 1 gm IV every 8 hours, metoprolol 25 mg p.o. b.i.d., vancomycin 1400 mg IV every 12 hours. LABORATORY DATA: From today: WBC 14.7, hemoglobin 10.2, hematocrit 29, platelets 335. Sodium 138, potassium 3.8, chloride 102, bicarbonate 25, BUN 8, creatinine 0.6, glucose 176, calcium 7.9. ASSESSMENT AND PLAN: Middle-aged male with newly diagnosed diabetes mellitus, uncontrolled diabetes, hypertension, cellulitis, diabetic foot ulcer, osteomyelitis with gas gangrene, status post incision and drainage and debridement, for OR today for debridement. We will continue with pain medication, current insulin regimen, and antibiotics meropenem and vancomycin, dose adjusted. We will continue with the current medication. Follow up with Podiatry and Infectious Disease. Discussed with Count Team Member. Discussed with the patient at bedside via a Amharic-speaking sheet folder who is a registered nurse. Fernando Hills MD [facility] # [id number]
--- NOTE | 2017-09-06 20:34 | CP.PCM.PN ---
Subjective - Date & Time of Evaluation Date of Evaluation: 09/06/17 Time of Evaluation: 05:10 - Subjective Subjective: dictated Objective - Vital Signs/Intake and Output Vital Signs (last 24 hours): Temp Pulse Resp BP Pulse Ox 99.1 F 81 17 127/76 97 09/06/17 16:40 09/06/17 16:40 09/06/17 16:40 09/06/17 17:49 09/06/17 16:40 Intake and Output: 09/06/17 09/07/17 18:59 06:59 Intake Total 960 Balance 960 - Medications Medications: Current Medications Acetaminophen (Tylenol 325mg Tab) 650 mg PO Q6 PRN PRN Reason: Fever >100.4 F Last Admin: 09/06/17 02:10 Dose: 650 mg Glipizide (Glucotrol) 5 mg PO ACB [facility] Last Admin: 09/06/17 07:45 Dose: Not Given Heparin Sodium (Porcine) (Heparin) 5,000 units SC Q8H [facility] Last Admin: 09/06/17 06:35 Dose: Not Given Meropenem 1 gm/ Sodium (Chloride) 100 mls @ 100 mls/hr IVPB Q8 [facility] PRN Reason: Protocol Last Admin: 09/06/17 14:28 Dose: 100 mls Vancomycin HCl 1,400 mg/ (Sodium Chloride) 500 mls @ 250 mls/hr IVPB Q12H [facility] PRN Reason: Protocol Last Admin: 09/06/17 17:48 Dose: 250 mls/hr Insulin Aspart (Novolog) 0 unit SC ACHS [facility] PRN Reason: Protocol Last Admin: 09/06/17 17:50 Dose: Not Given Insulin Aspart (Novolog) 12 unit SC AC [facility] Last Admin: 09/06/17 17:51 Dose: Not Given Insulin Glargine (Lantus) 22 unit SC HS [facility] Last Admin: 09/05/17 22:57 Dose: 22 units Metoprolol Tartrate (Lopressor) 25 mg PO BID [facility] Last Admin: 09/06/17 17:49 Dose: 25 mg Oxycodone/Acetaminophen (Percocet 5/325 Mg Tab) 1 tab PO Q4H PRN PRN Reason: Pain, moderate (4-7) Stop: 09/09/17 16:03 Oxycodone/Acetaminophen (Percocet 5/325 Mg Tab) 2 tab PO Q4H PRN PRN Reason: Pain, severe (8-10) Stop: 09/09/17 16:03 - Labs Labs: 09/06/17 16:10 09/06/17 10:53 PT 14.5 SECONDS (9.7-12.2) H 09/06/17 10:53 INR 1.3 09/06/17 10:53 APTT 35 SECONDS (21-34) H 09/06/17 10:53
[2017-09-06] MEDS: (Lantus) Insulin Glargine, Recombinant SC SCH (21:50)
--- NOTE | 2017-09-07 01:32 | PN ---
DATE: SUBJECTIVE: He went to the OR today and he will see the report of the 0perating reports we are going to see. He did have surgery and surgery operative note says that he had an I and D of the right foot with pulsatile lavage and Versajet and removal of infected skin, soft tissue, and bone, and partial second ray resection. So, he did have a bone and partial second ray resection as there was right foot gas gangrene with cellulitis and osteomyelitis. So, had another surgery and expected it because he was still febrile in spite of having adequate antibiotics. I have upped the dose of vancomycin also as the __peak___ was low. He denies any other complaints.he has no new complaints and deneis pain in the foot at present on pain meds PHYSICAL EXAMINATION: VITAL SIGNS: T-max is 99.1, pulse 81, blood pressure 127/76, respirations are 17, saturations 97%. HEENT: Head is atraumatic, normocephalic. NECK: Supple. LUNGS: Clear. No crackles or rales present. HEART: S1, S2 is regular. ABDOMEN: Soft, nontender. No guarding, no rigidity present. EXTREMITIES: Has dressing at this time on right foot. IMP: Abscess and cellulitis of right foot Diabetic foot ulcer with gas gangene ASSESSMENT AND PLAN: We will continue antibiotics over the weekend and we will evaluate him again hopefully and follow with the front loader residential driver as well as the primary, Dr. Hills. We will follow. He is diabetic and he ended up with diabetic gas gangrene and incision and drainage of the foot with cellulitis. Tone Barcenas MD [facility]
--- NOTE | 2017-09-07 03:17 | PN ---
DATE: LOCATION: Room 353. SUBJECTIVE: This is a 57-year-old male presenting with right foot cellulitis and supervening marked hyperglycemic accelerations and is now being followed closely for metabolic management. His glycemic levels are fluctuating, but improved and today's glucose levels have ranged from 176 to 192 mg/dL. Latest chemistries shows a BUN of 8, sodium 138, potassium 3.8, chloride 102, CO2 25, glucose 192, and creatinine 0.6. So at this time we will modify once again his basal and bolus insulin regimen and increase the Lantus to 22 units subcutaneous at bedtime daily, to start tonight. We will also increase the Humalog to 12 units subcu t.i.d. before meals as ordered. We will continue the low dose correction scale using NovoLog insulin as ordered. We will obtain serum chemistry and supplement accordingly as needed. We will follow this. Wendie Steinberg MD
[2017-09-07] MEDS: Meropenem 1 GM in Sodium Chloride 0.9% 100 ML IVPB SCH ×3 (05:15→21:47)
[2017-09-07 06:30] LABS: BASO % 0.4 % (0.0-2.0); EOS # 0.2 K/uL (0.0-0.7); EOS % 1.6 % (0.0-4.0); HEMOGLOBIN 9.3 g/dL (12.0-18.0); LYMPH # 2.3 K/uL (1.0-4.3); LYMPH % 17.4 % (20.0-40.0); MEAN CELL VOLUME 87.5 fL (80.0-94.0); MEAN CORPUSCULAR HEMOGLOBIN 30.6 pg (27.0-31.0); MEAN PLATELET VOLUME 7.7 fL (7.2-11.7); MONO # 1.2 K/uL (0.0-0.8); MONO % 8.8 % (0.0-10.0); NEUT # 9.7 K/uL (1.8-7.0); NEUT % 71.8 % (50.0-75.0); RBC 3.04 Mil/uL (4.40-5.90); RED CELL DISTRIBUTION WIDTH 12.5 % (11.5-14.5); WHITE BLOOD COUNT 13.5 K/uL (4.8-10.8)
[2017-09-07 06:46] LABS: ALB/GLOB RATIO 0.7 (1.0-2.1); ALBUMIN 2.7 g/dL (3.5-5.0); ALT/SGPT 19 U/L (21-72); AST/SGOT 25 U/L (17-59); BLOOD UREA NITROGEN 8 mg/dL (9-20); CALCIUM 7.3 mg/dl (8.6-10.4); GFR AFRICAN-AMERICAN > 60; GFR NON-AFRICAN AMERICAN > 60
[2017-09-07] MEDS: (Novolog) Insulin Aspart, Recombinant 100 u/ml 10 ml vial SC SCH ×7 (07:40→21:48)
--- NOTE | 2017-09-07 08:33 | CP.PCM.PN ---
Subjective - Date & Time of Evaluation Date of Evaluation: 09/07/17 Time of Evaluation: 08:35 - Subjective Subjective: Progress note dictated #[id number] Objective - Vital Signs/Intake and Output Vital Signs (last 24 hours): Temp Pulse Resp BP Pulse Ox 99.5 F 86 20 123/68 96 09/07/17 08:03 09/07/17 08:03 09/07/17 08:03 09/07/17 08:03 09/07/17 08:03 Intake and Output: 09/07/17 09/07/17 06:59 18:59 Intake Total 2100 Output Total 500 Balance 1600 - Medications Medications: Current Medications Acetaminophen (Tylenol 325mg Tab) 650 mg PO Q6 PRN PRN Reason: Fever >100.4 F Last Admin: 09/06/17 02:10 Dose: 650 mg Glipizide (Glucotrol) 5 mg PO ACB [facility] Last Admin: 09/07/17 08:20 Dose: 5 mg Heparin Sodium (Porcine) (Heparin) 5,000 units SC Q8H [facility] Last Admin: 09/06/17 06:35 Dose: Not Given Meropenem 1 gm/ Sodium (Chloride) 100 mls @ 100 mls/hr IVPB Q8 [facility] PRN Reason: Protocol Last Admin: 09/07/17 05:15 Dose: 100 mls/hr Vancomycin HCl 1,400 mg/ (Sodium Chloride) 500 mls @ 250 mls/hr IVPB Q12H [facility] PRN Reason: Protocol Last Admin: 09/07/17 03:00 Dose: 250 mls/hr Insulin Aspart (Novolog) 0 unit SC ACHS [facility] PRN Reason: Protocol Last Admin: 09/07/17 07:40 Dose: Not Given Insulin Aspart (Novolog) 12 unit SC AC [facility] Last Admin: 09/07/17 07:41 Dose: Not Given Insulin Glargine (Lantus) 22 unit SC HS [facility] Last Admin: 09/06/17 21:50 Dose: 22 units Metoprolol Tartrate (Lopressor) 25 mg PO BID [facility] Last Admin: 09/06/17 17:49 Dose: 25 mg Oxycodone/Acetaminophen (Percocet 5/325 Mg Tab) 1 tab PO Q4H PRN PRN Reason: Pain, moderate (4-7) Stop: 09/09/17 16:03 Oxycodone/Acetaminophen (Percocet 5/325 Mg Tab) 2 tab PO Q4H PRN PRN Reason: Pain, severe (8-10) Stop: 09/09/17 16:03 - Labs Labs: 09/07/17 06:17 09/07/17 06:17 PT 14.5 SECONDS (9.7-12.2) H 09/06/17 10:53 INR 1.3 09/06/17 10:53 APTT 35 SECONDS (21-34) H 09/06/17 10:53
--- NOTE | 2017-09-07 14:17 | CP.PCM.PN ---
Subjective - Date & Time of Evaluation Date of Evaluation: 09/07/17 Time of Evaluation: 14:11 - Subjective Subjective: Podiatry Progress Note- Dr. Frye 57 y.o male seen and evaluated at bedside 1 day s/p incision and drainage with partial right 2nd ray resection secondary to necrotizing fasciitis of the right foot. Patient is seen resting comfortably at bedside, in NAD, and AA0x3. Patient reports that he slept okay yesterday. Reports waking up randomly throughout the nice. Feels better. Reports no pain to the right LE. Dressing c/d /i without minimal strikethrough noted. Denies n/v/sob/cp/chills/f Objective - Vital Signs/Intake and Output Vital Signs (last 24 hours): Temp Pulse Resp BP Pulse Ox 99.5 F 86 20 123/68 96 09/07/17 08:03 09/07/17 08:03 09/07/17 08:03 09/07/17 09:44 09/07/17 08:03 Intake and Output: 09/07/17 09/07/17 06:59 18:59 Intake Total 2100 Output Total 500 Balance 1600 - Medications Medications: Current Medications Acetaminophen (Tylenol 325mg Tab) 650 mg PO Q6 PRN PRN Reason: Fever >100.4 F Last Admin: 09/06/17 02:10 Dose: 650 mg Glipizide (Glucotrol) 5 mg PO ACB [facility] Last Admin: 09/07/17 08:20 Dose: 5 mg Heparin Sodium (Porcine) (Heparin) 5,000 units SC Q8H [facility] Last Admin: 09/06/17 06:35 Dose: Not Given Meropenem 1 gm/ Sodium (Chloride) 100 mls @ 100 mls/hr IVPB Q8 [facility] PRN Reason: Protocol Last Admin: 09/07/17 05:15 Dose: 100 mls/hr Vancomycin HCl 1,400 mg/ (Sodium Chloride) 500 mls @ 250 mls/hr IVPB Q12H [facility] PRN Reason: Protocol Last Admin: 09/07/17 03:00 Dose: 250 mls/hr Insulin Aspart (Novolog) 0 unit SC ACHS [facility] PRN Reason: Protocol Last Admin: 09/07/17 11:33 Dose: Not Given Insulin Aspart (Novolog) 12 unit SC AC [facility] Last Admin: 09/07/17 12:23 Dose: 12 unit Insulin Glargine (Lantus) 22 unit SC HS [facility] Last Admin: 09/06/17 21:50 Dose: 22 units Metoprolol Tartrate (Lopressor) 25 mg PO BID [facility] Last Admin: 09/07/17 09:44 Dose: 25 mg Oxycodone/Acetaminophen (Percocet 5/325 Mg Tab) 1 tab PO Q4H PRN PRN Reason: Pain, moderate (4-7) Stop: 09/09/17 16:03 Oxycodone/Acetaminophen (Percocet 5/325 Mg Tab) 2 tab PO Q4H PRN PRN Reason: Pain, severe (8-10) Stop: 09/09/17 16:03 - Labs Labs: 09/07/17 06:17 09/07/17 06:17 PT 14.5 SECONDS (9.7-12.2) H 09/06/17 10:53 INR 1.3 09/06/17 10:53 APTT 35 SECONDS (21-34) H 09/06/17 10:53 - Constitutional Appears: Well, Non-toxic, No Acute Distress - Extremities Exam Extremities Exam: absent: Calf Tenderness Additional comments: dressing appears c/d/i with minimal strikethrough VASC- pedal pulses faintly palpable, skin temp runs warm to warm (with increased callor noted to medial foot), cap refill to remaining digits is brisk , moderate pedal edema is noted. NEURO-gross and protective pedal sensation are diminished DERM- no active drainage or gas, fluctuance, or abscess appreciated surgical site ulceration measures approximately 10cm x 4 cm x 4 cm down to the level of bone with tendons exposed, plantarly the ulceration extends longer and encompasses from the medial aspect of right foot border to the 3rd interspace wound base is mixture fibrotic and granular tissue. flexors tendon exposed plantarly sutures at the proximal ends plantarly and dorsally intact without dehiscence noted; well co-apted, well re-approximated Erythema present Integrity of the surrounding soft tissue appears stable at this time with no nec fasc spreading appreciated at this time Ortho- rigid cavovarus foot type is noted neg tenderness to palpation of ulcerations, neg Hohmans sign on deep calf squeeze. - Neurological Exam Neurological Exam: Alert, Awake, Oriented x3 - Psychiatric Exam Psychiatric exam: Normal Affect, Normal Mood Assessment and Plan - Assessment and Plan (Free Text) Assessment: 57 y.o male 1 day s/p incision and drainage with partial right 2nd ray resection secondary to necrotizing fasciitis Plan: Patient examined and evaluated Discussed plan in detail with attending Dr. Uday Blanco, vitals reviewed- WBC trended down from 14.7 to 13.5 No additional necrotizing fasciittis spreading noted at this time Will continue to closely monitor Will possibility start wound V.A.C therapy Saturday once infection stable Cleanses surgical site with copious amounts of mixture of saline and betadine solution Packed with 1/4 inch idoform packing, betadine soaked adaptic, betadine w2d gauze, dsd, abd and kerlix Patient may PWB to the heel in surgical shoe Keep dressing c/d/i Reinforce dressing as needed Intraop wound culture pending- preliminary gram positive cocci and beta hemolytic strep group b c/w abx per ID Podiatry will continue to follow while in house
--- NOTE | 2017-09-07 14:21 | PN ---
DATE: 09/07/2017 SUBJECTIVE: The patient was seen and examined at bedside. The patient is feeling better. Denies any new complaints. Underwent surgery and amputation of the second toe yesterday by Podiatry. All other systems reviewed and was found to be negative. PHYSICAL EXAMINATION: GENERAL: A middle-aged male, lying in bed, in no acute distress. VITAL SIGNS: Blood pressure 123/68, pulse 86, respirations 20, temperature 99.5 degrees Fahrenheit, O2 saturations 96% on room air. HEENT: Pupils equal, round, and reactive to light and accommodation. Extraocular muscles intact. No icterus. No pallor. No oral thrush. No pharyngeal congestion. NECK: Supple. No JVD. LUNGS: Bilateral vesicular breath sounds. No wheezing. No rhonchi. CVS: S1, S2 present, regular. ABDOMEN: Soft and nontender. Bowel sounds are present. No guarding. No rigidity. No rebound tenderness noted. PIZZA DELIVERY: Alert, awake, and oriented x3. No focal deficits noted. EXTREMITIES: Right foot with dressing in place, decreased erythema and redness. MEDICATIONS: Include Tylenol as needed, glipizide 5 mg before breakfast, subcu heparin for DVT prophylaxis, Novolog 12 units subcu a.c., Lantus 22 units subcu at bedtime, meropenem 1 gm every 8 hours, Lopressor 25 mg p.o. b.i.d., Percocet as needed, vancomycin 1400 mg IV every 12 hours. LABORATORY DATA: From this morning, WBC 13.5, hemoglobin 9.3, hematocrit 26.6, platelets are 333. Sodium 135, potassium 3.8, chloride 99, bicarb 26, BUN 8, creatinine 0.6, glucose 231, calcium 7.3, AST 25, ALT 19, alkaline phosphatase 107, total protein 6.6, albumin 2.7. ASSESSMENT AND PLAN: A middle-aged male with a newly diagnosed diabetes mellitus, uncontrolled diabetes mellitus, hypertension, diabetic foot ulcers with gas gangrene, osteomyelitis, cellulitis of the right foot, status post incision and drainage and debridement, and repeat incision and drainage, debridement, and amputation of the second toe yesterday. The patient is still having low-grade temperatures, fevers are trending down, though spiking low-grade temperatures. We will continue with current antibiotics as per Infectious Disease, on meropenem and vancomycin, local wound care as per Podiatry. Blood pressure is stable on current medications. Pain medication as needed. We will follow up with Podiatry and Infectious Disease. Follow up with social worker aide for possible discharge planning sometime next week, if the patient is clinically stable and does not require any further surgery as per Podiatry. Fernando Hills MD
--- NOTE | 2017-09-07 15:54 | CP.PCM.PN ---
Objective - Vital Signs/Intake and Output Vital Signs (last 24 hours): Temp Pulse Resp BP Pulse Ox 99.5 F 86 20 123/68 96 09/07/17 08:03 09/07/17 08:03 09/07/17 08:03 09/07/17 09:44 09/07/17 08:03 Intake and Output: 09/07/17 09/07/17 06:59 18:59 Intake Total 2100 Output Total 500 Balance 1600 - Medications Medications: Current Medications Acetaminophen (Tylenol 325mg Tab) 650 mg PO Q6 PRN PRN Reason: Fever >100.4 F Last Admin: 09/06/17 02:10 Dose: 650 mg Glipizide (Glucotrol) 5 mg PO ACB [facility] Last Admin: 09/07/17 08:20 Dose: 5 mg Heparin Sodium (Porcine) (Heparin) 5,000 units SC Q8H [facility] Last Admin: 09/07/17 14:15 Dose: 5,000 units Meropenem 1 gm/ Sodium (Chloride) 100 mls @ 100 mls/hr IVPB Q8 [facility] PRN Reason: Protocol Last Admin: 09/07/17 14:16 Dose: 100 mls/hr Vancomycin HCl 1,400 mg/ (Sodium Chloride) 500 mls @ 250 mls/hr IVPB Q12H [facility] PRN Reason: Protocol Last Admin: 09/07/17 03:00 Dose: 250 mls/hr Insulin Aspart (Novolog) 0 unit SC ACHS [facility] PRN Reason: Protocol Last Admin: 09/07/17 11:33 Dose: Not Given Insulin Aspart (Novolog) 12 unit SC AC [facility] Last Admin: 09/07/17 12:23 Dose: 12 unit Insulin Glargine (Lantus) 22 unit SC HS [facility] Last Admin: 09/06/17 21:50 Dose: 22 units Metoprolol Tartrate (Lopressor) 25 mg PO BID [facility] Last Admin: 09/07/17 09:44 Dose: 25 mg Oxycodone/Acetaminophen (Percocet 5/325 Mg Tab) 1 tab PO Q4H PRN PRN Reason: Pain, moderate (4-7) Stop: 09/09/17 16:03 Oxycodone/Acetaminophen (Percocet 5/325 Mg Tab) 2 tab PO Q4H PRN PRN Reason: Pain, severe (8-10) Stop: 09/09/17 16:03 - Labs Labs: 09/07/17 06:17 09/07/17 06:17 PT 14.5 SECONDS (9.7-12.2) H 09/06/17 10:53 INR 1.3 09/06/17 10:53 APTT 35 SECONDS (21-34) H 09/06/17 10:53
[2017-09-07] MEDS: (Lantus) Insulin Glargine, Recombinant SC SCH (21:47)
[2017-09-08] MEDS: Meropenem 1 GM in Sodium Chloride 0.9% 100 ML IVPB SCH ×3 (05:10→21:26)
[2017-09-08] MEDS: (Novolog) Insulin Aspart, Recombinant 100 u/ml 10 ml vial SC SCH ×7 (07:30→21:27)
--- NOTE | 2017-09-08 13:25 | PN ---
DATE: ENDO FOLLOWUP NOTE Room 353. This is a 57-year-old male with recent uncontrolled type 2 insulin requiring diabetes, currently undergoing IV antibiotic management and local debridement procedures for right lower extremity neuropathic ulcerations with underlying cellulitis as noted thereof. His glycemic levels are fluctuating but improved and the latest glucose levels have ranged from 155 to 158 and 192 mg/dL. His latest chemistry showed BUN of 8, sodium 135, potassium 3.8, chloride 99, CO2 26, glucose 215, and creatinine of 0.6. At this time, we will continue the modified basal and bolus insulin regimen as given with NovoLog given as 12 units subcu three times a day before meals as ordered. We will continue the Lantus given as 22 units subcu at bedtime daily as given. We will titrate increment as indicated to optimize metabolic control. We will continue the low dose correction scale using NovoLog insulin as given. We will follow and advise accordingly. Wendie Steinberg MD
--- NOTE | 2017-09-08 16:33 | CP.PCM.PN ---
Subjective - Date & Time of Evaluation Date of Evaluation: 09/08/17 Time of Evaluation: 13:30 - Subjective Subjective: Podiatry Progress Note- Dr. Frye 57 y.o male seen and evaluated at bedside 2 days s/p incision and drainage with partial right 2nd ray resection secondary to necrotizing fasciitis of the right foot. Patient is seen resting comfortably at bedside, in NAD, and AA0x3. Patient reports he feels better and slept better yesterday compared to previous day. Reports no pain to the right LE. Dressing c/d/i without minimal strikethrough noted. Denies n/v/sob/cp/f, reports feeling mild chills at time. Denies calf pain or tenderness Objective - Vital Signs/Intake and Output Vital Signs (last 24 hours): Temp Pulse Resp BP Pulse Ox 98.3 F 89 20 138/79 100 09/08/17 08:28 09/08/17 08:28 09/08/17 08:28 09/08/17 09:51 09/08/17 08:28 Intake and Output: 09/08/17 09/08/17 06:59 18:59 Intake Total 1300 Output Total 450 Balance 850 - Medications Medications: Current Medications Acetaminophen (Tylenol 325mg Tab) 650 mg PO Q6 PRN PRN Reason: Fever >100.4 F Last Admin: 09/06/17 02:10 Dose: 650 mg Glipizide (Glucotrol) 5 mg PO ACB [facility] Last Admin: 09/08/17 07:30 Dose: 5 mg Heparin Sodium (Porcine) (Heparin) 5,000 units SC Q8H [facility] Last Admin: 09/08/17 06:00 Dose: 5,000 units Meropenem 1 gm/ Sodium (Chloride) 100 mls @ 100 mls/hr IVPB Q8 [facility] PRN Reason: Protocol Last Admin: 09/08/17 13:15 Dose: 100 mls/hr Vancomycin HCl 1,400 mg/ (Sodium Chloride) 500 mls @ 250 mls/hr IVPB Q12H [facility] PRN Reason: Protocol Last Admin: 09/08/17 03:00 Dose: 250 mls/hr Insulin Aspart (Novolog) 0 unit SC ACHS [facility] PRN Reason: Protocol Last Admin: 09/08/17 11:30 Dose: Not Given Insulin Aspart (Novolog) 12 unit SC AC [facility] Last Admin: 09/08/17 11:30 Dose: 12 unit Insulin Glargine (Lantus) 22 unit SC HS [facility] Last Admin: 09/07/17 21:47 Dose: 22 units Metoprolol Tartrate (Lopressor) 25 mg PO BID [facility] Last Admin: 09/08/17 09:51 Dose: 25 mg Oxycodone/Acetaminophen (Percocet 5/325 Mg Tab) 1 tab PO Q4H PRN PRN Reason: Pain, moderate (4-7) Stop: 09/09/17 16:03 Oxycodone/Acetaminophen (Percocet 5/325 Mg Tab) 2 tab PO Q4H PRN PRN Reason: Pain, severe (8-10) Stop: 09/09/17 16:03 - Labs Labs: 09/07/17 06:17 09/07/17 06:17 PT 14.5 SECONDS (9.7-12.2) H 09/06/17 10:53 INR 1.3 09/06/17 10:53 APTT 35 SECONDS (21-34) H 09/06/17 10:53 - Constitutional Appears: Well, Non-toxic, No Acute Distress - Extremities Exam Extremities Exam: absent: Calf Tenderness Additional comments: dressing appears c/d/i with minimal strikethrough VASC- pedal pulses faintly palpable, skin temp runs warm to warm (with increased callor noted to medial foot), cap refill to remaining digits is brisk , moderate pedal edema is noted. NEURO-gross and protective pedal sensation are diminished DERM- no active drainage or gas, fluctuance, or abscess appreciated surgical site ulceration measures approximately 10cm x 4 cm x 4 cm down to the level of bone with tendons exposed, plantarly the ulceration extends longer and encompasses from the medial aspect of right foot border to the 3rd interspace wound base is mixture fibrotic and granular tissue. flexors tendon exposed plantarly sutures at the proximal ends plantarly and dorsally intact without dehiscence noted; well co-apted, well re-approximated Erythema present Integrity of the surrounding soft tissue appears stable at this time with no nec fasc spreading appreciated at this time Ortho- rigid cavovarus foot type is noted neg tenderness to palpation of ulcerations, neg Hohmans sign on deep calf squeeze. - Neurological Exam Neurological Exam: Alert, Awake, Oriented x3 - Psychiatric Exam Psychiatric exam: Normal Affect, Normal Mood Assessment and Plan - Assessment and Plan (Free Text) Assessment: 57 y.o male 2 day s/p incision and drainage with partial right 2nd ray resection secondary to necrotizing fasciitis Plan: Patient examined and evaluated Discussed plan in detail with attending Dr. Frye Labs, vitals reviewed- WBC trended down from 14.7 to 13.5 on 09/07/17 No additional necrotizing fasciittis spreading noted at this time Will continue to closely monitor Will possibility start wound V.A.C therapy Saturday once infection stable Cleanses surgical site with copious amounts of mixture of saline and betadine solution Packed with 1 inch idoform packing, betadine soaked xeroform, betadine w2d gauze , dsd, abd and kerlix Patient may PWB to the heel in surgical shoe Keep dressing c/d/i Reinforce dressing as needed Intraop wound culture- enterococcus Faecalis and beta hemolytic strep group b c/w abx per ID Podiatry will continue to follow while in house
--- NOTE | 2017-09-08 19:18 | CP.PCM.PN ---
Subjective - Date & Time of Evaluation Date of Evaluation: 09/08/17 Time of Evaluation: 19:18 - Subjective Subjective: pt is seen an examined, progress note is dictated #[id number] Objective - Vital Signs/Intake and Output Vital Signs (last 24 hours): Temp Pulse Resp BP Pulse Ox 98.3 F 89 20 132/78 100 09/08/17 08:28 09/08/17 08:28 09/08/17 08:28 09/08/17 17:36 09/08/17 08:28 - Medications Medications: Current Medications Acetaminophen (Tylenol 325mg Tab) 650 mg PO Q6 PRN PRN Reason: Fever >100.4 F Last Admin: 09/06/17 02:10 Dose: 650 mg Glipizide (Glucotrol) 5 mg PO ACB [facility] Last Admin: 09/08/17 07:30 Dose: 5 mg Heparin Sodium (Porcine) (Heparin) 5,000 units SC Q8H [facility] Last Admin: 09/08/17 15:00 Dose: 5,000 units Meropenem 1 gm/ Sodium (Chloride) 100 mls @ 100 mls/hr IVPB Q8 [facility] PRN Reason: Protocol Last Admin: 09/08/17 13:15 Dose: 100 mls/hr Vancomycin HCl 1,400 mg/ (Sodium Chloride) 500 mls @ 250 mls/hr IVPB Q12H [facility] PRN Reason: Protocol Last Admin: 09/08/17 16:00 Dose: 250 mls/hr Insulin Aspart (Novolog) 0 unit SC ACHS [facility] PRN Reason: Protocol Last Admin: 09/08/17 16:30 Dose: Not Given Insulin Aspart (Novolog) 12 unit SC AC [facility] Last Admin: 09/08/17 16:30 Dose: 12 unit Insulin Glargine (Lantus) 22 unit SC HS [facility] Last Admin: 09/07/17 21:47 Dose: 22 units Metoprolol Tartrate (Lopressor) 25 mg PO BID [facility] Last Admin: 09/08/17 17:36 Dose: 25 mg Oxycodone/Acetaminophen (Percocet 5/325 Mg Tab) 1 tab PO Q4H PRN PRN Reason: Pain, moderate (4-7) Stop: 09/09/17 16:03 Oxycodone/Acetaminophen (Percocet 5/325 Mg Tab) 2 tab PO Q4H PRN PRN Reason: Pain, severe (8-10) Stop: 09/09/17 16:03 - Labs Labs: 09/07/17 06:17 09/07/17 06:17 PT 14.5 SECONDS (9.7-12.2) H 09/06/17 10:53 INR 1.3 09/06/17 10:53 APTT 35 SECONDS (21-34) H 09/06/17 10:53
[2017-09-08] MEDS: (Lantus) Insulin Glargine, Recombinant SC SCH (21:29)
[2017-09-09] MEDS: Meropenem 1 GM in Sodium Chloride 0.9% 100 ML IVPB SCH ×3 (05:13→21:58)
[2017-09-09 07:32] LABS: BASO # 0.1 K/uL (0.0-0.2); BASO % 0.5 % (0.0-2.0); EOS # 0.3 K/uL (0.0-0.7); EOS % 2.4 % (0.0-4.0); HEMOGLOBIN 10.1 g/dL (12.0-18.0); LYMPH # 2.7 K/uL (1.0-4.3); LYMPH % 21.5 % (20.0-40.0); MEAN CELL VOLUME 87.4 fL (80.0-94.0); MEAN CORPUSCULAR HEMOGLOBIN 30.9 pg (27.0-31.0); MEAN CORPUSCULAR HGB CONC 35.3 g/dL (33.0-37.0); MEAN PLATELET VOLUME 7.5 fL (7.2-11.7); MONO # 0.9 K/uL (0.0-0.8); MONO % 7.4 % (0.0-10.0); NEUT # 8.6 K/uL (1.8-7.0); NEUT % 68.2 % (50.0-75.0); RBC 3.27 Mil/uL (4.40-5.90); RED CELL DISTRIBUTION WIDTH 12.2 % (11.5-14.5); WHITE BLOOD COUNT 12.6 K/uL (4.8-10.8)
[2017-09-09] MEDS: (Novolog) Insulin Aspart, Recombinant 100 u/ml 10 ml vial SC SCH ×7 (07:44→21:33)
[2017-09-09 07:54] LABS: IRON 23 ug/dL (49-181)
[2017-09-09 08:00] LABS: ALB/GLOB RATIO 0.6 (1.0-2.1); ALBUMIN 2.9 g/dL (3.5-5.0); ALT/SGPT 32 U/L (21-72); AST/SGOT 34 U/L (17-59); BLOOD UREA NITROGEN 7 mg/dL (9-20); CALCIUM 8.4 mg/dl (8.6-10.4); GFR AFRICAN-AMERICAN > 60; GFR NON-AFRICAN AMERICAN > 60
[2017-09-09 08:22] LABS: % IRON SATURATION 10 (20-55); TOTAL IRON BINDING CAPACITY 225 ug/dL (250-450)
--- NOTE | 2017-09-09 08:40 | PN ---
DATE:09/08/2017 SUBJECTIVE: The patient is a 57 years old middle-aged male with a past medical history significant for diabetes, uncontrolled hypertension, diabetic foot ulcer with gas gangrene, osteomyelitis, cellulitis of the right foot, status post incision and drainage and debridement, and amputation of the second toe on 09/06/2017. The patient is feeling better now. Not in acute distress. The patient has a dressing to the right foot. No chest pain, no palpitation. No fever. No cough. No abdominal pain. No nausea, vomiting, diarrhea. PHYSICAL EXAMINATION: VITAL SIGNS: As follows, blood pressure 132/78, pulse 89, respirations 20, temperature 98.3, saturation 100%. Height 6 feet, weight is 160 pounds. GENERAL: The patient is a 57 years old middle-aged male, moderately built, moderately nourished, not in distress. HEENT: Pupils normal and reactive to light and accommodation. Conjunctivae pink. Sclerae anicteric. Tongue is moist. Trachea is midline. LUNGS: Symmetric on both sides. Bilateral breath sounds present. Clear to auscultation. CVS: Hallock at the fifth intercostal space, midclavicular line. S1, S2 audible. No murmur or gallop. ABDOMEN: Normal in appearance, soft, tympanic. No guarding. No rigidity. No hepatosplenomegaly. TANK TRUCK OPERATOR: The patient is alert, awake, oriented x3. Nonfocal neuro examination. Cranial nerves II through XII grossly intact. Sensory and motor system within normal limits. EXTREMITIES: No cyanosis, no clubbing, no edema. The patient has a dressing to the right foot. MEDICATIONS: His current medications include as follows, Glucotrol 5 mg p.o. a.c.b., subcu heparin 5000 units every 8 hours, Lantus 22 units subcu at bedtime, metoprolol 25 mg p.o. b.i.d., meropenem 1 gm every 8 hours, NovoLog for sliding scale and NovoLog 12 units subcu a.c., Percocet 1 tablet p.o. every 4 hours p.r.n., Santyl 1 gm topical daily, Tylenol 650 mg p.o. every 6 hours, vancomycin 1.4 gm every 12 hours. LABORATORY DATA: Accu-Cheks 192, 145, 183, and 100. IMPRESSION: In summary, the patient is a 57-year-old middle-aged male with hypertension, diabetes with cellulitis of the right foot, gas gangrene and status post amputation of the second toe. 1. Hypertension. Blood pressure is stable. Continue metoprolol 25 mg p.o. b.i.d. 2. Type 2 diabetes. Continue Lantus, glipizide, and NovoLog. Continue to monitor sugars, and we will titrate insulin as needed. 3. Osteomyelitis of the foot, status post amputation of the second toe. Continue antibiotics as per ID recommendation, vancomycin and meropenem. The patient was seen and examined. Repeat labs in a.m. CBC, CMP, iron, TIBC, ferritin level. Follow with Podiatry. Rachel Hills MD [email or web address]
--- NOTE | 2017-09-09 09:01 | PN ---
DATE: ENDO FOLLOWUP NOTE Room 353 SUBJECTIVE: This is 57-year-old male with recent uncontrolled type 2 insulin requiring diabetes now being followed closely for metabolic management. His glycemic levels are fluctuating, but improved and the glucose levels today have ranged from 231 to 247 mg/dL. The latest chemistry shows a BUN of 8, sodium 135, potassium 3.8, chloride 99, CO2 of 26, glucose 250, and creatinine 0.6. His hospice educator glucose was 306 with a bedtime glucose of 287 mg/dL. PLAN: At this time, we will modify once again his basal and bolus insulin regimen and increase Lantus to 30 units subcu at bedtime daily to start tonight. We will increase also the Humalog to 14 units subcu three times a day before meals as ordered. We will titrate increments as indicated to optimize metabolic control. We will also continue the low dose correction scale using Novolog insulin as given. We will obtain serial chemistries and supplement accordingly as needed. We will follow up with you. Wendie Steinberg MD
[2017-09-09] MEDS: Collagenase 250 Units/gm Ointment(30 gm) TOP SCH ×2 (09:30→09:43)
--- NOTE | 2017-09-09 12:33 | CP.PCM.PN ---
Subjective - Date & Time of Evaluation Date of Evaluation: 09/09/17 Time of Evaluation: 12:20 - Subjective Subjective: Progress note dictated #[id number] Objective - Vital Signs/Intake and Output Vital Signs (last 24 hours): Temp Pulse Resp BP Pulse Ox 99.2 F 87 20 146/76 97 09/09/17 00:00 09/09/17 00:00 09/09/17 00:00 09/09/17 09:31 09/09/17 00:00 Intake and Output: 09/09/17 09/09/17 06:59 18:59 Intake Total 900 Balance 900 - Medications Medications: Current Medications Acetaminophen (Tylenol 325mg Tab) 650 mg PO Q6 PRN PRN Reason: Fever >100.4 F Last Admin: 09/06/17 02:10 Dose: 650 mg Collagenase (Santyl) 1 gm TOP DAILY [facility] Last Admin: 09/09/17 09:43 Dose: Not Given Ferrous Sulfate (Feosol) 325 mg PO DAILY [facility] Glipizide (Glucotrol) 5 mg PO ACB [facility] Last Admin: 09/09/17 08:35 Dose: 5 mg Heparin Sodium (Porcine) (Heparin) 5,000 units SC Q8H [facility] Last Admin: 09/09/17 06:06 Dose: 5,000 units Meropenem 1 gm/ Sodium (Chloride) 100 mls @ 100 mls/hr IVPB Q8 [facility] PRN Reason: Protocol Last Admin: 09/09/17 05:13 Dose: 100 mls/hr Vancomycin HCl 1,400 mg/ (Sodium Chloride) 500 mls @ 250 mls/hr IVPB Q12H [facility] PRN Reason: Protocol Last Admin: 09/09/17 03:00 Dose: 250 mls/hr Insulin Aspart (Novolog) 0 unit SC ACHS [facility] PRN Reason: Protocol Last Admin: 09/09/17 12:30 Dose: Not Given Insulin Aspart (Novolog) 12 unit SC AC [facility] Last Admin: 09/09/17 08:35 Dose: 12 unit Insulin Glargine (Lantus) 22 unit SC HS [facility] Last Admin: 09/08/17 21:29 Dose: 22 units Metoprolol Tartrate (Lopressor) 25 mg PO BID [facility] Last Admin: 09/09/17 09:31 Dose: 25 mg Oxycodone/Acetaminophen (Percocet 5/325 Mg Tab) 1 tab PO Q4H PRN PRN Reason: Pain, moderate (4-7) Stop: 09/09/17 16:03 Oxycodone/Acetaminophen (Percocet 5/325 Mg Tab) 2 tab PO Q4H PRN PRN Reason: Pain, severe (8-10) Stop: 09/09/17 16:03 - Labs Labs: 09/09/17 07:18 09/09/17 07:18 PT 14.5 SECONDS (9.7-12.2) H 09/06/17 10:53 INR 1.3 09/06/17 10:53 APTT 35 SECONDS (21-34) H 09/06/17 10:53
--- NOTE | 2017-09-09 18:23 | CP.PCM.PN ---
Subjective - Date & Time of Evaluation Date of Evaluation: 09/09/17 Time of Evaluation: 04:00 - Subjective Subjective: dictated Objective - Vital Signs/Intake and Output Vital Signs (last 24 hours): Temp Pulse Resp BP Pulse Ox 98.3 F 90 20 142/76 97 09/09/17 17:32 09/09/17 17:32 09/09/17 17:32 09/09/17 17:34 09/09/17 17:32 Intake and Output: 09/09/17 09/09/17 06:59 18:59 Intake Total 900 580 Balance 900 580 - Medications Medications: Current Medications Acetaminophen (Tylenol 325mg Tab) 650 mg PO Q6 PRN PRN Reason: Fever >100.4 F Last Admin: 09/06/17 02:10 Dose: 650 mg Collagenase (Santyl) 1 gm TOP DAILY [facility] Last Admin: 09/09/17 09:43 Dose: Not Given Ferrous Sulfate (Feosol) 325 mg PO DAILY [facility] Last Admin: 09/09/17 12:41 Dose: 325 mg Glipizide (Glucotrol) 5 mg PO ACB [facility] [place] Last Admin: 09/09/17 08:35 Dose: 5 mg Heparin Sodium (Porcine) (Heparin) 5,000 units SC Q8H [facility] [place] Last Admin: 09/09/17 14:39 Dose: 5,000 units Meropenem 1 gm/ Sodium (Chloride) 100 mls @ 100 mls/hr IVPB Q8 [facility] PRN Reason: Protocol Last Admin: 09/09/17 14:30 Dose: 100 mls/hr Insulin Aspart (Novolog) 0 unit SC ACHS [facility] PRN Reason: Protocol Last Admin: 09/09/17 17:15 Dose: Not Given Insulin Aspart (Novolog) 12 unit SC AC [facility] [place] Last Admin: 09/09/17 17:26 Dose: 12 unit Insulin Glargine (Lantus) 24 unit SC HS [facility] Metoprolol Tartrate (Lopressor) 25 mg PO BID [facility] Last Admin: 09/09/17 17:34 Dose: 25 mg - Labs Labs: 09/09/17 07:18 09/09/17 07:18 PT 14.5 SECONDS (9.7-12.2) H 09/06/17 10:53 INR 1.3 09/06/17 10:53 APTT 35 SECONDS (21-34) H 09/06/17 10:53
--- NOTE | 2017-09-09 20:36 | PN ---
DATE: 09/09/2017 SUBJECTIVE: The patient was seen and examined at bedside. The patient denies any new complaints. Denies any headache or dizziness. Denies any chest pain, shortness of breath, or wheezing. Denies any nausea, vomiting, abdominal pain, diarrhea, or constipation. All other systems reviewed and was found to be negative. PHYSICAL EXAMINATION: GENERAL: A middle-aged male, lying in bed, in no acute distress. VITAL SIGNS: Blood pressure 146/76, pulse 87, respirations 20, temperature 99.2 degrees Fahrenheit, O2 saturations 97% on room air. HEENT: Pupils equal, round, and reacting to light and accommodation. Extraocular muscles intact. No icterus. No pallor. No oral thrush. No pharyngeal congestion. NECK: Supple. No JVD. LUNGS: Bilateral vesicular breath sounds. No wheezing. No rhonchi. CVS: S1 and S2 present, regular. ABDOMEN: Soft and nontender. Bowel sounds are present. No guarding. No rigidity. No rebound tenderness noted. 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 No focal deficits noted. EXTREMITIES: Right foot with dressing in place, decreasing erythema and warm to touch. MEDICATIONS: Include Tylenol as needed, collagenase, ferrous sulfate 325 mg daily, Glucotrol 5 mg p.o. before breakfast, Novolog 12 units subcu before meals, Lantus 22 units, meropenem 1 gm IV every 8 hours, vancomycin 1400 mg IV every 12 hours, metoprolol 25 mg p.o. twice a day, Percocet as needed. LABORATORY DATA: Labs from this morning: WBC 12.6, hemoglobin 10.1, hematocrit 28.6, platelets 447. Sodium 137, potassium 4.6, chloride 101, bicarb 26, BUN 7, creatinine 0.6, glucose 175, calcium 8.4, iron 23, TIBC 225, iron saturation 70%, ferritin is 424, C-reactive protein is 60. Repeat wound cultures did show Enterococcus fecalis and beta-hemolytic strep group B. ASSESSMENT AND PLAN: Mr. Zavala is a 57-year-old male with a newly diagnosed diabetes mellitus, uncontrolled sugars, hypertension, diabetic foot ulcers, cellulitis of the right foot, status post incision and drainage and debridement of gas gangrene, necrotizing fasciitis as per Podiatry, osteomyelitis, status post second toe amputation of the right foot. Blood pressure is fairly stable. Continue with metoprolol. Continue with meropenem and vancomycin as per infectious disease recommendation. Continue with wound care and wound VAC to be recommended by Podiatry. We will continue physical therapy, continue with other medications. Add Feosol. Discussed with case management for discharge planning. If no further surgical intervention recommended by Podiatry, we will discuss with Infectious Disease regarding Ancef intravenous antibiotic. We will plan for and for possible subacute rehab placement. Fernando Hills MD
[2017-09-09] MEDS: (Lantus) Insulin Glargine, Recombinant SC SCH (21:59)
--- NOTE | 2017-09-09 23:10 | PN ---
DATE: SUBJECTIVE: The patient is feeling little better. He did have necrotizing fascitis according to the podiatry note and had second toe ray amputation. He denies any nausea, vomiting, but he has still pain in the right foot and has a lot of swelling and dressing. He is on two antibiotics, vancomycin, and meropenem. OBJECTIVE: VITAL SIGNS: He is afebrile, but his T-max was 99.8 yesterday and 99.2. He had the second surgery, and vitals are stable at this time with blood pressure of 152/82, pulse is 90, saturations 97%, respiratory rate is 20. HEENT: Head is atraumatic, normocephalic. NECK: Supple. LUNGS: Clear. HEART: S1, S2 regular. ABDOMEN: Soft, nontender. No guarding, no rigidity present. EXTREMITIES: The right foot has a dressing at this time. Left foot is unremarkable. LABORATORY DATA: White count is 12.6, hemoglobin 10.1, hematocrit is 28.6, and platelet count is 447. Sodium is 137, potassium 4.3, chloride of 101, CO2 is 26, anion gap is 15, BUN is 7, creatinine 0.6. The patient's new culture from 09/06 in the OR comes out to be Enterococcus faecalis and beta hemolytic Strep so it looks like he has a polymicrobial bacteria and since he had necrotizing fasciitis, I would leave the vancomycin and meropenem on, and I tried to discuss with the resident and will speak to Dr. Frye. The patient may need IV antibiotics as he has necrotizing fascitis and deep-seated infection and need to be cleared fully as he is diabetic and so may need IV antibiotics. At this time, it seems he will need both vancomycin and meropenem as the sensitivities are. He did have Enterobacter at one point. Otherwise, Enterococcus faecalis and beta hemolytic can both be covered with vancomycin but we will like to see the foot also with the podiatry resident when I come back, and he will also need a PICC line for IV antibiotics. We will discuss with Dr. Hills and Dr. Frye. Tone Barcenas MD
[2017-09-10] MEDS: Meropenem 1 GM in Sodium Chloride 0.9% 100 ML IVPB SCH ×3 (05:40→21:18)
[2017-09-10] MEDS: (Novolog) Insulin Aspart, Recombinant 100 u/ml 10 ml vial SC SCH ×7 (07:30→21:18)
--- NOTE | 2017-09-10 07:37 | PN ---
DATE: Location: Room 353. SUBJECTIVE: This is a 57-year-old male with recent uncontrolled type 2 insulin-requiring diabetes presenting here with right foot cellulitis and underlying neuropathic ulcerations, foot ulcerations, and is now being followed closely for metabolic management. His glycemic levels are fluctuating but improved and the latest glucose levels today have ranged from 145 to 172 and 175 mg/dL. LABORATORY DATA: His latest chemistry showed a BUN of 7, sodium 137, potassium 4.3, chloride 101, CO2 26, glucose 181, and creatinine 0.6. PLAN: At this time, we will modify once again his basal and bolus insulin regimen and increase the Lantus to 24 units subcu at bedtime daily to start tonight. We will continue the NovoLog given as 12 units subcu t.i.d. before meals as ordered. We will titrate incrementally as indicated to optimize metabolic control. We will follow and advise accordingly. Wendie Steinberg MD
--- NOTE | 2017-09-10 07:39 | OP ---
PROCEDURE DATE: 09/06/2017 SURGEON: Nehal Frye DPM DIRECTOR OF ASSISTED LIVING: Asad Blood DPM ANESTHESIOLOGIST: Dr. Wetzel. ANESTHESIA: IV sedation with local. PREOPERATIVE DIAGNOSIS: Necrotizing fascitis of the right foot. POSTOPERATIVE DIAGNOSIS: Necrotizing fascitis of the right foot. PROCEDURE: Incision and drainage with partial second ray resection of the right foot. INDICATION: The patient is a 57-year-old male with the above diagnosis. The patient had exhausted all conservative treatment at this time, and now requires surgical intervention. The patient signed the consent after careful explanation of risks, benefits, complications, and alternatives for the surgical procedure. No guarantees were given nor implied. NPO status was confirmed prior to taking the patient to the OR. PREPARATION: The patient was brought into the operating room and placed on the operating room table in supine position. Timeout was performed for identification of the correct patient and the procedure. After induction of IV sedation, the patient received a total of 20 mL of 1:1 mixture of 2% lidocaine plain and 0.5% Marcaine plain in a local block type fashion to the right ankle. Once local anesthesia was achieved, the right foot and ankle were then prepped and draped in normal sterile manner. No tourniquet was utilized during this procedure. DESCRIPTION OF PROCEDURE: Incision and drainage with partial second ray resection of the right foot. Attention was directed towards the two prior surgical incisions where subcutaneous tissue was exposed. Second digit was also noted to be dusky with late capillary refill time. At this time using #15 blade, incision was made circumferentially around the second digit. The incision was deepened to the level of the bone and the second digit was disarticulated at the level of MTPJ. At this time using a sagittal saw, the head of the second metatarsal was resected and was passed off the operative field along with the second digit to pathology. Using a fresh #15 blade, the dorsal surgical incision was extended through the first interspace to the plantar aspect of the foot. The incision was deepened through the subcutaneous tissue on the plantar aspect. The medial foot incision was connected through the multiple sinus tracts grossly and plantarly. Using curved stat, all the sinus tracts were found and opened. Pressure was applied in all directions from the ankle joint down to the foot distally and purulent drainage was removed from the surgical incisions. All the nonviable infected necrotic soft tissue was excisionally removed from surgical site. At this time, Versajet was utilized to remove nonviable fibrotic tissue down to the healthy bleeding tissue. Using the pulse lavage, surgical site was irrigated with copious amount of sterile saline infused with bacitracin. At this time, portion of surgical incision was closed with 3-0 Prolene. Surgical incision site was partially left open. The site was packed with 0.25 inch iodoform packing and was dressed with Betadine-soaked Adaptic, 4 x 4, ABD, and Kerlix. POSTOPERATIVE CONDITION: The patient tolerated the anesthesia and the procedure well and was escorted to the recovery room with vital signs stable and neurovascular status intact to the right foot. The patient is to weight bear to the heel with the surgical shoe. This patient will return to the floor where he will be followed up by Podiatry. Asad Blood DPM Nehal Frye DPM HERNAN
[2017-09-10] MEDS: Collagenase 250 Units/gm Ointment(30 gm) TOP SCH (10:00)
--- NOTE | 2017-09-10 11:19 | CP.PCM.PN ---
Subjective - Date & Time of Evaluation Date of Evaluation: 09/10/17 Time of Evaluation: 11:20 - Subjective Subjective: Progress note dictated #[id number] Objective - Vital Signs/Intake and Output Vital Signs (last 24 hours): Temp Pulse Resp BP Pulse Ox 98.3 F 85 20 131/78 97 09/10/17 07:59 09/10/17 07:59 09/10/17 07:59 09/10/17 09:34 09/10/17 07:59 Intake and Output: 09/10/17 09/10/17 06:59 18:59 Intake Total 2079 Balance 2079 - Medications Medications: Current Medications Acetaminophen (Tylenol 325mg Tab) 650 mg PO Q6 PRN PRN Reason: Fever >100.4 F Last Admin: 09/06/17 02:10 Dose: 650 mg Collagenase (Santyl) 1 gm TOP DAILY [facility] Last Admin: 09/10/17 10:00 Dose: 1 applic Ferrous Sulfate (Feosol) 325 mg PO DAILY [facility] Last Admin: 09/10/17 09:40 Dose: 325 mg Glipizide (Glucotrol) 5 mg PO ACB [facility] Last Admin: 09/10/17 07:30 Dose: 5 mg Meropenem 1 gm/ Sodium (Chloride) 100 mls @ 100 mls/hr IVPB Q8 [facility] PRN Reason: Protocol Last Admin: 09/10/17 05:40 Dose: 100 mls/hr Vancomycin HCl 1,400 mg/ (Sodium Chloride) 500 mls @ 250 mls/hr IVPB Q12H [facility] PRN Reason: Protocol Last Admin: 09/10/17 03:30 Dose: 250 mls/hr Insulin Aspart (Novolog) 0 unit SC ACHS [facility] PRN Reason: Protocol Last Admin: 09/10/17 07:30 Dose: Not Given Insulin Aspart (Novolog) 12 unit SC AC [facility] Last Admin: 09/10/17 07:30 Dose: 12 unit Insulin Glargine (Lantus) 24 unit SC HS [facility] Last Admin: 09/09/17 21:59 Dose: 24 unit Metoprolol Tartrate (Lopressor) 25 mg PO BID [facility] Last Admin: 09/10/17 09:34 Dose: 25 mg - Labs Labs: 09/09/17 07:18 09/09/17 07:18 PT 14.5 SECONDS (9.7-12.2) H 09/06/17 10:53 INR 1.3 09/06/17 10:53 APTT 35 SECONDS (21-34) H 09/06/17 10:53
--- NOTE | 2017-09-10 14:41 | CP.PCM.PN ---
Subjective - Date & Time of Evaluation Date of Evaluation: 09/10/17 Time of Evaluation: 10:10 - Subjective Subjective: Podiatry Progress Note- Dr. Frye 57 y.o male seen and evaluated at bedside 4 days s/p incision and drainage with partial right 2nd ray resection secondary to necrotizing fasciitis of the right foot. Patient is seen resting comfortably at bedside, in NAD, and AA0x3. Patient reports he feels better and slept better yesterday compared to previous day. Reports no pain to the right LE. Pt desires to be allowed to ambulate to and from rest room and finish with bedpan use. . Denies n/v/sob/cp/f, reports feeling mild chills at time. Denies calf pain or tenderness Objective - Vital Signs/Intake and Output Vital Signs (last 24 hours): Temp Pulse Resp BP Pulse Ox 98.3 F 85 20 131/78 97 09/10/17 07:59 09/10/17 07:59 09/10/17 07:59 09/10/17 13:23 09/10/17 07:59 Intake and Output: 09/10/17 09/10/17 06:59 18:59 Intake Total 2079 Balance 2080 - Medications Medications: Current Medications Acetaminophen (Tylenol 325mg Tab) 650 mg PO Q6 PRN PRN Reason: Fever >100.4 F Last Admin: 09/06/17 02:10 Dose: 650 mg Collagenase (Santyl) 1 gm TOP DAILY [facility] Last Admin: 09/10/17 10:00 Dose: 1 applic Ferrous Sulfate (Feosol) 325 mg PO DAILY [facility] Last Admin: 09/10/17 09:40 Dose: 325 mg Glipizide (Glucotrol) 5 mg PO ACB [facility] Last Admin: 09/10/17 07:30 Dose: 5 mg Meropenem 1 gm/ Sodium (Chloride) 100 mls @ 100 mls/hr IVPB Q8 [facility] PRN Reason: Protocol Last Admin: 09/10/17 13:33 Dose: 100 mls/hr Vancomycin HCl 1,400 mg/ (Sodium Chloride) 500 mls @ 250 mls/hr IVPB Q12H [facility] PRN Reason: Protocol Last Admin: 09/10/17 03:30 Dose: 250 mls/hr Insulin Aspart (Novolog) 0 unit SC ACHS [facility] PRN Reason: Protocol Last Admin: 09/10/17 11:30 Dose: Not Given Insulin Aspart (Novolog) 12 unit SC AC [facility] Last Admin: 09/10/17 11:30 Dose: 12 unit Insulin Glargine (Lantus) 24 unit SC HS [facility] Last Admin: 09/09/17 21:59 Dose: 24 unit Metoprolol Tartrate (Lopressor) 25 mg PO BID [facility] Last Admin: 09/10/17 09:34 Dose: 25 mg - Labs Labs: 09/09/17 07:18 09/09/17 07:18 PT 14.5 SECONDS (9.7-12.2) H 09/06/17 10:53 INR 1.3 09/06/17 10:53 APTT 35 SECONDS (21-34) H 09/06/17 10:53 - Constitutional Appears: Well, Non-toxic, No Acute Distress - Extremities Exam Additional comments: Right lower extremity focused exam. Dressing c/d/i without minimal strikethrough noted. VASC- pedal pulses fully palpable, skin temp runs warm to warm (with increased callor noted to medial foot), cap refill to remaining digits is brisk, moderate pedal edema is noted. NEURO-gross and protective pedal sensation are diminished DERM- no active drainage or mal-odor produced. No fluctuance, or abscess appreciated. Surgical wound site measures approximately 10cm x 4 cm x 4 cm down to the level of bone with tendons exposed, plantarly the ulceration extends longer and encompasses from the medial aspect of right foot border to the 3rd interspace wound base is mixture fibrotic and granular tissue. flexors tendon exposed plantarly sutures at the proximal ends plantarly and dorsally intact without dehiscence noted; well co-apted, well re-approximated Milt juan-wound margin non-streaking erythema present, extending <0.6cm from margins. Integrity of the surrounding soft tissue appears stable at this time with no nec fasc spreading appreciated at this time. Planter hallux skin along periphery of wound mildly cyanotic, though hallux distal tuft well persuded. Ortho- rigid cavovarus foot type is noted neg tenderness to palpation of ulcerations, neg Hohmans sign on deep calf squeeze. - Neurological Exam Neurological Exam: Alert, Awake, Oriented x3 - Psychiatric Exam Psychiatric exam: Normal Affect, Normal Mood Assessment and Plan - Assessment and Plan (Free Text) Assessment: 57 y.o male 4 day s/p incision and drainage with partial right 2nd ray resection secondary to necrotizing fasciitis Plan: Patient examined and evaluated. Discussed plan in detail with attending Dr. Frye, who endorsed it. Labs, vitals reviewed- WBC trended down from 13.5 to 12.6. IYX=249, CRP trending down from 328 (pre-op) to 60.5(post-op) No additional necrotizing fasciittis spreading noted at this time Will continue to closely monitor. Cleansed surgical site with copious amounts of sterile saline and betadine solution. Ulceration dressed with Santyl, wet-to-dry 4x4 gauze, ABD, Kerlix. -Wound V.A.C therapy to start tomorrow. Physical therapy ordered, pt to be NWB with aid of rolling walker to the right foot in surgical shoe. Heel pressure allowed for transition and pivoting. Intraop wound culture- enterococcus Faecalis and beta hemolytic strep group b c/w abx per ID. PICC line recommended. Disucssed with ID specialist Dr. Barcenas , 3-4 week of outpatient IV abx therapy. Podiatry will continue to follow while in house
--- NOTE | 2017-09-10 17:51 | PN ---
DATE: LOCATION: Room 353. SUBJECTIVE: This is a 57-year-old male with uncontrolled type 2 insulin-requiring diabetes, presenting here with right foot cellulitis with an underlying neuropathic foot ulceration, receiving IV antibiotics and local debridement as noted. His glycemic levels are fluctuating, but improved. The glucose values have ranged from 168 to 174 and 254 mg/dL. His latest chemistries show a BUN of 7, sodium 137, potassium 4.8, chloride 101, CO2 26, glucose 181, creatinine 0.6. So at this time we will continue with the modified basilar bolus insulin regimen that was given with NovoLog given as 12 units subcu t.i.d. before meals as ordered. We will continue the Lantus given as 24 units subcu at bedtime daily. We will continue also the low-dose correction scale Novolog insulin as given. We will follow and advise accordingly. Wendie Steinberg MD
[2017-09-10] MEDS: (Lantus) Insulin Glargine, Recombinant SC SCH (21:17)
--- NOTE | 2017-09-11 03:09 | PN ---
DATE: 09/10/2017 SUBJECTIVE: The patient was seen and examined at bedside. The patient offers no new complaint. Remains afebrile for more than 24 hours. PHYSICAL EXAMINATION: VITAL SIGNS: Blood pressure is 131/78, pulse 85, respirations 20, temperature 98.3 degrees Fahrenheit, O2 saturations 97% on room air. HEENT: Pupils equal, round, and reacting to light and accommodation. Extraocular muscles intact. No icterus. No pallor. No oral thrush. No pharyngeal congestion. NECK: Supple. No JVD. LUNGS: Bilateral vesicular breath sounds. No wheezing. No rhonchi. CVS: S1 and S2 present, regular. ABDOMEN: Soft and nontender. Bowel sounds are present. No guarding. No rigidity. No rebound tenderness noted. WELDER TOOL AND DIE: Alert, awake, and oriented x3. No focal deficits noted. EXTREMITIES: Right foot with dressing in place, decreased erythema, swelling, and redness. MEDICATIONS: Include Tylenol as needed; collagenase daily; Feosol 325 mg p.o. daily; Glucotrol 5 mg p.o. in the morning; Novolog 12 units subcu a.c.; Lantus 24 units subcu at bedtime; meropenem 1 gm IV every 8 hours; metoprolol 25 mg p.o. b.i.d.; vancomycin 1400 mg IV every 12 hours. LABORATORY DATA: Accu-Chek from today 254, 168, 254, 143, 127. Vancomycin trough 13.7. ASSESSMENT AND PLAN: Middle-aged male with newly diagnosed diabetes mellitus, uncontrolled diabetes mellitus, hypertension with diabetic foot ulcer, right foot cellulitis, gas gangrene, necrotizing fasciitis, osteomyelitis of the right foot, status post second toe amputation, status post I and D and debridement. The patient is on vancomycin and meropenem, remains afebrile. Discussed with Podiatry resident regarding plans from surgical standpoint. PICC line ordered. Discussed case management. He is cleared by Podiatry and Entry Clerk and ID. We will plan discharging the patient home to subacute rehab. Fernando Hills MD [facility] # [phone]
[2017-09-11] MEDS: Meropenem 1 GM in Sodium Chloride 0.9% 100 ML IVPB SCH ×3 (05:07→22:19)
[2017-09-11] MEDS: (Novolog) Insulin Aspart, Recombinant 100 u/ml 10 ml vial SC SCH ×7 (07:45→22:20)
--- NOTE | 2017-09-11 09:17 | CP.PCM.PN ---
Subjective - Date & Time of Evaluation Date of Evaluation: 09/11/17 Time of Evaluation: 09:20 - Subjective Subjective: Progress note dictated # [id number] Objective - Vital Signs/Intake and Output Vital Signs (last 24 hours): Temp Pulse Resp BP Pulse Ox 98.6 F 83 20 138/84 97 09/11/17 08:00 09/11/17 08:00 09/11/17 08:00 09/11/17 08:00 09/11/17 08:00 Intake and Output: 09/11/17 09/11/17 06:59 18:59 Intake Total 900 Output Total 500 Balance 400 - Medications Medications: Current Medications Acetaminophen (Tylenol 325mg Tab) 650 mg PO Q6 PRN PRN Reason: Fever >100.4 F Last Admin: 09/06/17 02:10 Dose: 650 mg Collagenase (Santyl) 1 gm TOP DAILY [facility] Last Admin: 09/10/17 10:00 Dose: 1 applic Ferrous Sulfate (Feosol) 325 mg PO DAILY [facility] Last Admin: 09/10/17 09:40 Dose: 325 mg Glipizide (Glucotrol) 5 mg PO ACB [facility] Last Admin: 09/11/17 08:10 Dose: 5 mg Meropenem 1 gm/ Sodium (Chloride) 100 mls @ 100 mls/hr IVPB Q8 [facility] PRN Reason: Protocol Last Admin: 09/11/17 05:07 Dose: 100 mls/hr Vancomycin HCl 1,400 mg/ (Sodium Chloride) 500 mls @ 250 mls/hr IVPB Q12H [facility] PRN Reason: Protocol Last Admin: 09/11/17 03:52 Dose: 250 mls/hr Insulin Aspart (Novolog) 0 unit SC ACHS [facility] PRN Reason: Protocol Last Admin: 09/11/17 07:45 Dose: Not Given Insulin Aspart (Novolog) 12 unit SC AC [facility] Last Admin: 09/11/17 08:10 Dose: 12 unit Insulin Glargine (Lantus) 24 unit SC HS [facility] Last Admin: 09/10/17 21:17 Dose: 24 unit Metoprolol Tartrate (Lopressor) 25 mg PO BID [facility] Last Admin: 09/10/17 18:13 Dose: 25 mg - Labs Labs: 09/09/17 07:18 09/09/17 07:18 PT 14.5 SECONDS (9.7-12.2) H 09/06/17 10:53 INR 1.3 09/06/17 10:53 APTT 35 SECONDS (21-34) H 09/06/17 10:53
[2017-09-11] MEDS: Collagenase 250 Units/gm Ointment(30 gm) TOP SCH (10:48)
--- NOTE | 2017-09-11 11:59 | RAD ---
HISTORY: verify right PICC COMPARISON: 09/04/2017 FINDINGS: LUNGS: No active pulmonary disease. PLEURA: No significant pleural effusion identified, no pneumothorax apparent. CARDIOVASCULAR: New right PICC catheter terminating at the level of the cavoatrial junction OSSEOUS STRUCTURES: No significant abnormalities. VISUALIZED UPPER ABDOMEN: Normal. OTHER FINDINGS: None. IMPRESSION: New right PICC catheter terminating at the level of the cavoatrial junction. No infiltrate. No pneumothorax.
--- NOTE | 2017-09-11 16:56 | CP.PCM.PN ---
Subjective - Date & Time of Evaluation Date of Evaluation: 09/11/17 Time of Evaluation: 12:00 - Subjective Subjective: Podiatry Progress Note- Dr. Frye 57 y.o male seen and evaluated at bedside 5 days s/p incision and drainage with partial right 2nd ray resection secondary to necrotizing fasciitis of the right foot. Patient is seen resting comfortably at bedside, in NAD, and AA0x3. Patient reports he feels better and slept better yesterday compared to previous day. Reports no pain to the right LE. Pt ambulates now using walker. Denies n/v/ sob/cp/f, reports feeling mild chills at time. Denies calf pain or tenderness Objective - Vital Signs/Intake and Output Vital Signs (last 24 hours): Temp Pulse Resp BP Pulse Ox 98.6 F 83 20 135/84 99 09/11/17 15:00 09/11/17 15:00 09/11/17 15:00 09/11/17 15:43 09/11/17 15:00 Intake and Output: 09/11/17 09/11/17 06:59 18:59 Intake Total 900 Output Total 500 Balance 400 - Medications Medications: Current Medications Acetaminophen (Tylenol 325mg Tab) 650 mg PO Q6 PRN PRN Reason: Fever >100.4 F Last Admin: 09/06/17 02:10 Dose: 650 mg Collagenase (Santyl) 1 gm TOP DAILY [facility] Last Admin: 09/11/17 10:48 Dose: 1 applic Ferrous Sulfate (Feosol) 325 mg PO DAILY [facility] Last Admin: 09/11/17 09:27 Dose: 325 mg Glipizide (Glucotrol) 5 mg PO ACB [facility] Last Admin: 09/11/17 08:10 Dose: 5 mg Meropenem 1 gm/ Sodium (Chloride) 100 mls @ 100 mls/hr IVPB Q8 [facility] PRN Reason: Protocol Last Admin: 09/11/17 13:41 Dose: 100 mls/hr Vancomycin HCl 1,400 mg/ (Sodium Chloride) 500 mls @ 250 mls/hr IVPB Q12H [facility] PRN Reason: Protocol Last Admin: 09/11/17 03:52 Dose: 250 mls/hr Insulin Aspart (Novolog) 0 unit SC ACHS [facility] PRN Reason: Protocol Last Admin: 09/11/17 11:57 Dose: Not Given Insulin Aspart (Novolog) 12 unit SC AC [facility] Last Admin: 09/11/17 11:57 Dose: Not Given Insulin Glargine (Lantus) 24 unit SC HS [facility] Last Admin: 09/10/17 21:17 Dose: 24 unit Metoprolol Tartrate (Lopressor) 25 mg PO BID [facility] Last Admin: 09/11/17 09:27 Dose: 25 mg - Labs Labs: 09/09/17 07:18 09/09/17 07:18 PT 14.5 SECONDS (9.7-12.2) H 09/06/17 10:53 INR 1.3 09/06/17 10:53 APTT 35 SECONDS (21-34) H 09/06/17 10:53 - Constitutional Appears: Well, Non-toxic, No Acute Distress - Extremities Exam Additional comments: Right lower extremity focused exam. Dressing c/d/i without minimal strikethrough noted. VASC- pedal pulses fully palpable, skin temp runs warm to warm (with increased callor noted to medial foot), cap refill to remaining digits is brisk, moderate pedal edema is noted. NEURO-gross and protective pedal sensation are diminished DERM- no active drainage or mal-odor produced. No fluctuance, or abscess appreciated. Surgical wound site measures approximately 10cm x 4 cm x 4 cm down to the level of bone with tendons exposed, plantarly the ulceration extends longer and encompasses from the medial aspect of right foot border to the 3rd interspace wound base is mixture fibrotic and granular tissue. flexors tendon exposed plantarly sutures at the proximal ends plantarly and dorsally intact without dehiscence noted; well co-apted, well re-approximated Milt juan-wound margin non-streaking erythema present, extending <0.6cm from margins. Integrity of the surrounding soft tissue appears stable at this time with no nec fasc spreading appreciated at this time. Planter hallux skin along periphery of wound mildly cyanotic, though hallux distal tuft well persuded. Ortho- rigid cavovarus foot type is noted neg tenderness to palpation of ulcerations, neg Hohmans sign on deep calf squeeze. - Neurological Exam Neurological Exam: Alert, Awake, Oriented x3 - Psychiatric Exam Psychiatric exam: Normal Affect, Normal Mood Assessment and Plan - Assessment and Plan (Free Text) Assessment: 57 y.o male 5 day s/p incision and drainage with partial right 2nd ray resection secondary to necrotizing fasciitis Plan: Patient examined and evaluated. Discussed plan in detail with attending Dr. Frye, who endorsed it. Labs, vitals reviewed- WBC trended down from 13.5 to 12.6. PVM=355, CRP trending down from 328 (pre-op) to 60.5(post-op) No additional necrotizing fasciittis spreading noted at this time Will continue to closely monitor. Cleansed surgical site with copious amounts of sterile saline. -Wound V.A.C applied to ulceration site. Negative pressure therapt set to continuous, low 125mmHG of pressure. Outer layer dressed with 4x4 gauze, ABD, Kerlix, & JONNY. -VAC to be changed every 24-48 hours. -Activity to be NWB with aid of rolling walker to the right foot in surgical shoe. Heel pressure allowed for transition and pivoting. Intra-op wound culture- enterococcus Faecalis and beta hemolytic strep group b c/w abx per ID. PICC line placed, ID specialist Dr. Barcenas recommends 3-4 week of outpatient IV abx therapy. Podiatry will continue to follow while in house. F/u labs and inital WOudn Vac change needed prior to podiatry recommending pt stable for discharge planning to [facility].
--- NOTE | 2017-09-11 17:41 | CP.PCM.PN ---
Subjective - Date & Time of Evaluation Date of Evaluation: 09/11/17 Time of Evaluation: 05:00 - Subjective Subjective: dictated Objective - Vital Signs/Intake and Output Vital Signs (last 24 hours): Temp Pulse Resp BP Pulse Ox 98.6 F 83 20 138/74 99 09/11/17 15:00 09/11/17 15:00 09/11/17 15:00 09/11/17 17:25 09/11/17 15:00 Intake and Output: 09/11/17 09/11/17 06:59 18:59 Intake Total 900 Output Total 500 Balance 400 - Medications Medications: Current Medications Acetaminophen (Tylenol 325mg Tab) 650 mg PO Q6 PRN PRN Reason: Fever >100.4 F Last Admin: 09/06/17 02:10 Dose: 650 mg Collagenase (Santyl) 1 gm TOP DAILY [facility] Last Admin: 09/11/17 10:48 Dose: 1 applic Ferrous Sulfate (Feosol) 325 mg PO DAILY [facility] Last Admin: 09/11/17 09:27 Dose: 325 mg Glipizide (Glucotrol) 5 mg PO ACB [facility] Last Admin: 09/11/17 08:10 Dose: 5 mg Meropenem 1 gm/ Sodium (Chloride) 100 mls @ 100 mls/hr IVPB Q8 [facility] PRN Reason: Protocol Last Admin: 09/11/17 13:41 Dose: 100 mls/hr Vancomycin HCl 1,400 mg/ (Sodium Chloride) 500 mls @ 250 mls/hr IVPB Q12H [facility] PRN Reason: Protocol Last Admin: 09/11/17 03:52 Dose: 250 mls/hr Insulin Aspart (Novolog) 0 unit SC ACHS [facility] PRN Reason: Protocol Last Admin: 09/11/17 16:55 Dose: Not Given Insulin Aspart (Novolog) 12 unit SC AC [facility] Last Admin: 09/11/17 17:25 Dose: 12 unit Insulin Glargine (Lantus) 24 unit SC HS [facility] Last Admin: 09/10/17 21:17 Dose: 24 unit Metoprolol Tartrate (Lopressor) 25 mg PO BID [facility] Last Admin: 09/11/17 17:25 Dose: 25 mg - Labs Labs: 09/09/17 07:18 09/09/17 07:18 PT 14.5 SECONDS (9.7-12.2) H 09/06/17 10:53 INR 1.3 09/06/17 10:53 APTT 35 SECONDS (21-34) H 09/06/17 10:53
[2017-09-11] MEDS: (Lantus) Insulin Glargine, Recombinant SC SCH (22:19)
--- NOTE | 2017-09-12 02:10 | PN ---
DATE: LOCATION: Room 353 This is a 57-year-old male with recent uncontrolled type 2 insulin requiring diabetes, presenting here with right foot cellulitis and underlying neuropathic foot ulceration, and currently undergoing local debridement and intensive IV antibiotic therapy as given. His glycemic levels are fluctuating but improved and the latest glucose values have ranged from 85 to 139 mg/dL, it was 127 to 150 at bedtime last night. His latest chemistry showed a BUN of 8, sodium 135, potassium 3.8, chloride 99, CO2 of 26, glucose 215, and creatinine 0.6. So at this time, we will continue the modified basal and bolus insulin regimen with Lantus given as 24 units subcu at bedtime daily as ordered. We will also continue the NovoLog given as 12 units subcu t.i.d. before meals as ordered. We will titrate incrementally as indicated to optimize metabolic control. We will obtain serial chemistries and supplement accordingly as noted. We will follow with you. Wendie Steinberg MD
--- NOTE | 2017-09-12 02:59 | PN ---
DATE: 09/11/2017 SUBJECTIVE: The patient was seen and examined at bedside this morning. The patient is feeling better. Denies any complaints. Denies any leg pain. Denies any other complaints. PHYSICAL EXAMINATION: GENERAL: On examination, middle-aged male, lying in bed, in no acute distress. VITAL SIGNS: Blood pressure 138/74, pulse 83, respirations 20, temperature 98.6 degrees Fahrenheit, O2 sats 99% on room air. HEENT: Pupils equal, round, and reacting to light and accommodation. Extraocular muscles intact. No icterus. No pallor. NECK: Supple. No JVD. LUNGS: Bilateral vesicular breath sounds. No wheezing. No rhonchi. CVS: S1 and S2 present, regular. ABDOMEN: Soft and nontender. Bowel sounds are present. No guarding. No rigidity. No rebound tenderness noted. HEADLIGHT ASSEMBLER: Alert, awake, and oriented x3. No focal deficits noted. EXTREMITIES: Right foot with dressing in place. Swelling decreased. Erythema decreased. MEDICATIONS: Include Tylenol as needed, collagenase 1 gm topical daily, ferrous sulfate 325 mg daily, glipizide 5 mg in a.m., NovoLog 12 units subcu a.c., Lantus 24 units subcu at bedtime, meropenem 1 gm IV every 8 hours, vancomycin 1400 mg IV every 12 hours. LABORATORY DATA: From today, Accu-Chek 127, 150, 139, 185, 146. ASSESSMENT AND PLAN: A middle-aged male with newly diagnosed diabetes mellitus, uncontrolled diabetes, diabetic foot ulcer with necrotizing fasciitis, osteomyelitis, status post debridement, and status post amputation of the second toe with wound culture showing multiple organisms, remaining afebrile, on meropenem 1 gm every 8 hours and vancomycin 1400 mg every 12 hours. Wound VAC applied by Podiatry today. PICC line was fixed. environmental services manager for discharge planning. Awaiting for authorization. We will discharge the patient to subacute rehab when cleared by Podiatry and when bed available. We will continue with other current medications. Fernando Hills MD
--- NOTE | 2017-09-12 03:15 | PN ---
DATE: 09/11/2017 SUBJECTIVE: The patient was seen today. He had an I and D and partial amputation. Now he is with wound VAC and he remains with lot of dressing. Unable to see the foot. He denies any nausea, vomiting, or shortness of breath. He now got a PICC line and he remains on IV antibiotics. He is on high dose of vancomycin, but the trough came out 10 point something. We will continue vancomycin and meropenem at this time and will follow the trough and peak which is ordered. He denies any other complaints except the foot which is with the dressing at this time. PHYSICAL EXAMINATION: VITAL SIGNS: T-max is 98.6, pulse 83, blood pressure 129/75, respirations are 20. HEENT: Atraumatic, normocephalic. NECK: Supple. LUNGS: Clear. No crackles or rales present. HEART: S1, S2 regular. ABDOMEN: Soft, nontender. No guarding. No rigidity present. EXTREMITIES: Right leg has mild edema. Right foot remains with the wound VAC. LABORATORY DATA: Labs are noted. Qiana shields, his wound culture on 09/06/2017 which is from the OR came out as Enterococcus and beta hemolytic group B, and the other cultures have Enterobacter and beta hemolytic but I think at this time because he did have necrotizing fascitis and he had Enterobacter before. The Enterococcus is covered with vancomycin and I have left the meropenem on for now. If he has been on antibiotics and his foot is still not normal, he got from 9 to 18, it is almost 9 days now, so I would give him another 2 weeks worth of antibiotics and reevaluate again to see if the wound is healing, he may need 2 to 4 weeks of IV antibiotics. I am still waiting for the vancomycin level. His white count last was 12.6, hemoglobin 10.1 and was coming down, platelet was still elevated at 447. Vanco trough and peak are 10.6. I do not think they are doing adequate timing of the vancomycin peak, would not increase the dose further. He needs vancomycin peak and trough weekly; and CBC, CMP, ESR, CRP weekly, and need to be monitored and PICC line to be removed when he is done with the antibiotics. Tone Barcenas MD [facility] # [id number]
[2017-09-12] MEDS: Meropenem 1 GM in Sodium Chloride 0.9% 100 ML IVPB SCH ×3 (05:22→22:09)
[2017-09-12 07:09] LABS: BASO # 0.1 K/uL (0.0-0.2); BASO % 0.5 % (0.0-2.0); EOS # 0.2 K/uL (0.0-0.7); EOS % 1.9 % (0.0-4.0); HEMOGLOBIN 9.6 g/dL (12.0-18.0); LYMPH # 2.7 K/uL (1.0-4.3); LYMPH % 20.9 % (20.0-40.0); MEAN CELL VOLUME 88.2 fL (80.0-94.0); MEAN CORPUSCULAR HEMOGLOBIN 31.3 pg (27.0-31.0); MEAN CORPUSCULAR HGB CONC 35.5 g/dL (33.0-37.0); MEAN PLATELET VOLUME 7.5 fL (7.2-11.7); MONO # 0.8 K/uL (0.0-0.8); MONO % 6.5 % (0.0-10.0); NEUT # 9.1 K/uL (1.8-7.0); NEUT % 70.2 % (50.0-75.0); RBC 3.08 Mil/uL (4.40-5.90); RED CELL DISTRIBUTION WIDTH 12.4 % (11.5-14.5); WHITE BLOOD COUNT 12.9 K/uL (4.8-10.8)
[2017-09-12 07:51] LABS: ALB/GLOB RATIO 0.6 (1.0-2.1); ALBUMIN 3.2 g/dL (3.5-5.0); ALT/SGPT 23 U/L (21-72); AST/SGOT 21 U/L (17-59); BLOOD UREA NITROGEN 11 mg/dL (9-20); CALCIUM 8.3 mg/dl (8.6-10.4); GFR AFRICAN-AMERICAN > 60; GFR NON-AFRICAN AMERICAN > 60
[2017-09-12] MEDS: (Novolog) Insulin Aspart, Recombinant 100 u/ml 10 ml vial SC SCH ×7 (08:11→22:10)
[2017-09-12] MEDS: Collagenase 250 Units/gm Ointment(30 gm) TOP SCH (09:39)
--- NOTE | 2017-09-12 10:34 | CP.PCM.PN ---
Subjective - Date & Time of Evaluation Date of Evaluation: 09/12/17 Time of Evaluation: 10:20 - Subjective Subjective: Progress note dictated #[id number] Objective - Vital Signs/Intake and Output Vital Signs (last 24 hours): Temp Pulse Resp BP Pulse Ox 98.7 F 85 20 116/69 97 09/12/17 07:49 09/12/17 07:49 09/12/17 07:49 09/12/17 09:38 09/12/17 07:49 Intake and Output: 09/12/17 09/12/17 06:59 18:59 Intake Total 800 Balance 800 - Medications Medications: Current Medications Acetaminophen (Tylenol 325mg Tab) 650 mg PO Q6 PRN PRN Reason: Fever >100.4 F Last Admin: 09/06/17 02:10 Dose: 650 mg Collagenase (Santyl) 1 gm TOP DAILY [facility] Last Admin: 09/12/17 09:39 Dose: 1 applic Ferrous Sulfate (Feosol) 325 mg PO DAILY [facility] Last Admin: 09/12/17 09:38 Dose: 325 mg Glipizide (Glucotrol) 5 mg PO ACB [facility] Last Admin: 09/12/17 08:17 Dose: 5 mg Meropenem 1 gm/ Sodium (Chloride) 100 mls @ 100 mls/hr IVPB Q8 [facility] PRN Reason: Protocol Last Admin: 09/12/17 05:22 Dose: 100 mls/hr Vancomycin HCl 1,400 mg/ (Sodium Chloride) 500 mls @ 250 mls/hr IVPB Q12H [facility] PRN Reason: Protocol Last Admin: 09/12/17 03:32 Dose: 250 mls/hr Insulin Aspart (Novolog) 0 unit SC ACHS [facility] PRN Reason: Protocol Last Admin: 09/12/17 08:11 Dose: Not Given Insulin Aspart (Novolog) 12 unit SC AC [facility] Last Admin: 09/12/17 08:16 Dose: 12 unit Insulin Glargine (Lantus) 24 unit SC HS [facility] Last Admin: 09/11/17 22:19 Dose: 24 unit Metoprolol Tartrate (Lopressor) 25 mg PO BID [facility] Last Admin: 09/12/17 09:38 Dose: 25 mg - Labs Labs: 09/12/17 06:57 09/12/17 06:57 PT 14.5 SECONDS (9.7-12.2) H 09/06/17 10:53 INR 1.3 09/06/17 10:53 APTT 35 SECONDS (21-34) H 09/06/17 10:53
--- NOTE | 2017-09-12 14:47 | CP.PCM.PN ---
Subjective - Date & Time of Evaluation Date of Evaluation: 09/12/17 Time of Evaluation: 11:20 - Subjective Subjective: Podiatry Progress Note- Dr. Fyre 57 y.o male seen and evaluated at bedside 6 days s/p incision and drainage with partial right 2nd ray resection secondary to necrotizing fasciitis of the right foot. Patient is seen resting comfortably at bedside, in NAD, and AA0x3. Tolerating WoundVAC without incident. Reports no pain to the right LE. Pt ambulates now using walker without issue. Denies n/v/sob/cp/f, denies chills. Denies calf pain or tenderness Objective - Vital Signs/Intake and Output Vital Signs (last 24 hours): Temp Pulse Resp BP Pulse Ox 98.7 F 85 20 116/69 97 09/12/17 07:49 09/12/17 07:49 09/12/17 07:49 09/12/17 09:38 09/12/17 07:49 Intake and Output: 09/12/17 09/12/17 06:59 18:59 Intake Total 800 Balance 800 - Medications Medications: Current Medications Acetaminophen (Tylenol 325mg Tab) 650 mg PO Q6 PRN PRN Reason: Fever >100.4 F Last Admin: 09/06/17 02:10 Dose: 650 mg Collagenase (Santyl) 1 gm TOP DAILY [facility] Last Admin: 09/12/17 09:39 Dose: 1 applic Ferrous Sulfate (Feosol) 325 mg PO DAILY [facility] Last Admin: 09/12/17 09:38 Dose: 325 mg Glipizide (Glucotrol) 5 mg PO ACB [facility] Last Admin: 09/12/17 08:17 Dose: 5 mg Meropenem 1 gm/ Sodium (Chloride) 100 mls @ 100 mls/hr IVPB Q8 [facility] PRN Reason: Protocol Last Admin: 09/12/17 14:22 Dose: 100 mls/hr Vancomycin HCl 1,400 mg/ (Sodium Chloride) 500 mls @ 250 mls/hr IVPB Q12H [facility] PRN Reason: Protocol Last Admin: 09/12/17 03:32 Dose: 250 mls/hr Insulin Aspart (Novolog) 0 unit SC ACHS [facility] PRN Reason: Protocol Last Admin: 09/12/17 11:41 Dose: Not Given Insulin Aspart (Novolog) 12 unit SC AC [facility] Last Admin: 09/12/17 12:13 Dose: 12 unit Insulin Glargine (Lantus) 24 unit SC HS [facility] Last Admin: 09/11/17 22:19 Dose: 24 unit Metoprolol Tartrate (Lopressor) 25 mg PO BID [facility] Last Admin: 09/12/17 09:38 Dose: 25 mg - Labs Labs: 09/12/17 06:57 09/12/17 06:57 PT 14.5 SECONDS (9.7-12.2) H 09/06/17 10:53 INR 1.3 09/06/17 10:53 APTT 35 SECONDS (21-34) H 09/06/17 10:53 - Constitutional Appears: Well, Non-toxic, No Acute Distress - Extremities Exam Additional comments: Dressing tot right lower lef left intact. WoundVAC in place, no leaks of blocks in tubing, minor serous collection(<2ml). Assessment and Plan - Assessment and Plan (Free Text) Assessment: 57 y.o male 6 day s/p incision and drainage with partial right 2nd ray resection secondary to necrotizing fasciitis Plan: Patient examined and evaluated. Discussed plan in detail with attending Dr. Frye, who endorsed it. Labs, vitals reviewed- WBC = 12.6. No additional necrotizing fasciittis spreading noted at this time Will continue to closely monitor. Wound V.A.C in place. Pt tolerating with out issue. Negative pressure therapy set to continuous, low 125mmHG of pressure. Outer layer of 4x4 gauze, ABD, Kerlix, & JONNY, left intact. -VAC to be changed every 24-48 hours. -Activity to be NWB with aid of rolling walker to the right foot in surgical shoe. Heel pressure allowed for transition and pivoting. Intra-op wound culture- enterococcus Faecalis and beta hemolytic strep group b c/w abx per ID. PICC line placed, ID specialist Dr. Barcenas recommends 3-4 week of outpatient IV abx therapy. Podiatry will continue to follow while in house.
--- NOTE | 2017-09-12 19:52 | PN ---
DATE: ENDO FOLLOWUP NOTE Room 353 SUBJECTIVE: This is a 57-year-old male with a recent uncontrolled type 2 insulin requiring diabetes with ongoing IV antibiotic management for right foot cellulitis and underlying neuropathic foot ulcerations as noted. His glycemic levels are fluctuating, but much improved at this time and overnight his glucose levels have ranged from 113 to 138 mg/dL. It was 146 at bedtime last night. The latest chemistry showed a BUN of 11, sodium 139, potassium 4.3, chloride 102, CO2 of 24, glucose 151, and creatinine 0.7. PLAN: At this time, we will continue to modify basal and bolus insulin regimen as ordered with Novolog given as 12 units subcu t.i.d. before meals as given. We will also continue the Lantus given as 24 units subcu at bedtime daily as ordered. We will titrate incrementally as indicated to optimize metabolic control. We will obtain serum chemistry and supplement accordingly as needed. We will follow with you. Wendie Steinberg MD
[2017-09-12] MEDS: (Lantus) Insulin Glargine, Recombinant SC SCH (22:09)
[2017-09-13] MEDS: Meropenem 1 GM in Sodium Chloride 0.9% 100 ML IVPB SCH ×3 (05:15→21:35)
[2017-09-13] MEDS: (Novolog) Insulin Aspart, Recombinant 100 u/ml 10 ml vial SC SCH ×7 (07:20→21:14)
[2017-09-13] MEDS: Collagenase 250 Units/gm Ointment(30 gm) TOP SCH (10:20)
--- NOTE | 2017-09-13 10:44 | CP.PCM.PN ---
Subjective - Date & Time of Evaluation Date of Evaluation: 09/13/17 Time of Evaluation: 10:30 - Subjective Subjective: Progress note dictated #[id number] Objective - Vital Signs/Intake and Output Vital Signs (last 24 hours): Temp Pulse Resp BP Pulse Ox 98.7 F 87 20 138/72 98 09/13/17 08:39 09/13/17 09:24 09/13/17 08:39 09/13/17 09:01 09/13/17 09:24 Intake and Output: 09/13/17 09/13/17 06:59 18:59 Intake Total 1860 Balance 1860 - Medications Medications: Current Medications Acetaminophen (Tylenol 325mg Tab) 650 mg PO Q6 PRN PRN Reason: Fever >100.4 F Last Admin: 09/06/17 02:10 Dose: 650 mg Collagenase (Santyl) 1 gm TOP DAILY [facility] Last Admin: 09/12/17 09:39 Dose: 1 applic Ferrous Sulfate (Feosol) 325 mg PO DAILY [facility] Last Admin: 09/13/17 09:02 Dose: 325 mg Glipizide (Glucotrol) 5 mg PO ACB [facility] Last Admin: 09/13/17 08:58 Dose: 5 mg Meropenem 1 gm/ Sodium (Chloride) 100 mls @ 100 mls/hr IVPB Q8 [facility] PRN Reason: Protocol Last Admin: 09/13/17 05:15 Dose: 100 mls/hr Insulin Aspart (Novolog) 0 unit SC ACHS [facility] PRN Reason: Protocol Last Admin: 09/13/17 07:20 Dose: Not Given Insulin Aspart (Novolog) 12 unit SC AC [facility] Last Admin: 09/13/17 08:59 Dose: 12 unit Insulin Glargine (Lantus) 24 unit SC HS [facility] Last Admin: 09/12/17 22:09 Dose: 24 unit Metoprolol Tartrate (Lopressor) 25 mg PO BID [facility] Last Admin: 09/13/17 09:01 Dose: 25 mg - Labs Labs: 09/12/17 06:57 09/12/17 06:57 PT 14.5 SECONDS (9.7-12.2) H 09/06/17 10:53 INR 1.3 09/06/17 10:53 APTT 35 SECONDS (21-34) H 09/06/17 10:53
--- NOTE | 2017-09-13 10:50 | PN ---
DATE: 09/12/2017 SUBJECTIVE: The patient was seen and examined at bedside. The patient denies any new complaints. Wound VAC is in place. All other systems reviewed and were found to be negative. PHYSICAL EXAMINATION: GENERAL: Middle-aged male, lying in bed, in no acute distress. VITAL SIGNS: Blood pressure 113/66, pulse 85, respirations 20, temperature 98.5 degrees Fahrenheit, O2 saturations 99% on room air. HEENT: Pupils equal, round, reacting to light and accommodation. Extraocular muscles intact. No icterus, no pallor. No oral thrush, no pharyngeal congestion. NECK: Supple. No JVD. LUNGS: Bilaterally vesicular breath sounds. No wheezing, no rhonchi. CVS: S1 and S2 present. Regular. ABDOMEN: Soft, nontender. Bowel sounds present. No guarding, no rigidity, no rebound tenderness noted. CARPET FINISHING SUPERVISOR: Alert, awake, oriented x3. No focal deficits noted. EXTREMITIES: Right foot with the dressing in place, wound VAC in place. MEDICATIONS: Include Tylenol as needed, collagenase 1 gm topical daily, Feosol 325 mg p.o. daily, glipizide 5 mg p.o. in the morning, NovoLog 12 units subcu a.c., Lantus 24 units subcu at bedtime, meropenem 1 gm IV every 8 hours, metoprolol 25 mg p.o. b.i.d., vancomycin 1400 mg IV every 12 hours. LABORATORY DATA: Labs done from this morning; WBC 12.9, hemoglobin 9.6, hematocrit 27.2, platelets 521, sodium 139, potassium 4.3, chloride 102, bicarb 24, BUN 11, creatinine 0.7, glucose 138, calcium 8.3, CRP more . ASSESSMENT AND PLAN: A middle-aged male with history of newly diagnosed diabetes mellitus, uncontrolled diabetes mellitus, hypertension, diabetic foot ulcer with gas gangrene, necrotizing fasciitis, osteomyelitis, on meropenem and vancomycin. Wound culture growing multiple organisms. Continue with wound care as per Podiatry. We will continue with wound VAC. PICC line is in place. Awaiting for subacute rehab placement. We will plan discharging the patient home when bed available and when cleared by Podiatry. Continue with other current medication. His blood pressure remains stable. Fernando Hills MD [facility] # [id number]
--- NOTE | 2017-09-13 16:23 | CP.PCM.PN ---
Subjective - Date & Time of Evaluation Date of Evaluation: 09/13/17 Time of Evaluation: 12:20 - Subjective Subjective: Podiatry Progress Note- Dr. Frye 57 y.o male seen and evaluated at bedside 7 days s/p incision and drainage with partial right 2nd ray resection secondary to necrotizing fasciitis of the right foot. Patient is seen resting comfortably at bedside, in NAD, and AA0x3. Tolerating WoundVAC without incident, vernight vac obstruction reported. Reports no pain to the right LE. Pt ambulates now using walker without issue. Denies n/v/sob/cp/f, denies chills. Denies calf pain or tenderness. No new pedal complaints. Objective - Vital Signs/Intake and Output Vital Signs (last 24 hours): Temp Pulse Resp BP Pulse Ox 98.7 F 87 20 138/72 98 09/13/17 08:39 09/13/17 09:24 09/13/17 08:39 09/13/17 09:01 09/13/17 09:24 Intake and Output: 09/13/17 09/13/17 06:59 18:59 Intake Total 1860 820 Balance 1860 820 - Medications Medications: Current Medications Acetaminophen (Tylenol 325mg Tab) 650 mg PO Q6 PRN PRN Reason: Fever >100.4 F Last Admin: 09/06/17 02:10 Dose: 650 mg Collagenase (Santyl) 1 gm TOP DAILY [facility] Last Admin: 09/13/17 10:20 Dose: 1 applic Ferrous Sulfate (Feosol) 325 mg PO DAILY [facility] Last Admin: 09/13/17 09:02 Dose: 325 mg Glipizide (Glucotrol) 5 mg PO ACB [facility] Last Admin: 09/13/17 08:58 Dose: 5 mg Meropenem 1 gm/ Sodium (Chloride) 100 mls @ 100 mls/hr IVPB Q8 [facility] PRN Reason: Protocol Last Admin: 09/13/17 14:36 Dose: 100 mls/hr Vancomycin HCl 1,400 mg/ (Sodium Chloride) 500 mls @ 250 mls/hr IVPB Q12H [facility] PRN Reason: Protocol Last Admin: 09/13/17 16:16 Dose: 250 mls/hr Insulin Aspart (Novolog) 0 unit SC ACHS [facility] PRN Reason: Protocol Last Admin: 09/13/17 16:17 Dose: Not Given Insulin Aspart (Novolog) 8 unit SC AC [facility] Insulin Glargine (Lantus) 24 unit SC HS [facility] Last Admin: 09/12/17 22:09 Dose: 24 unit Metoprolol Tartrate (Lopressor) 25 mg PO BID [facility] Last Admin: 09/13/17 09:01 Dose: 25 mg - Labs Labs: 09/12/17 06:57 09/12/17 06:57 PT 14.5 SECONDS (9.7-12.2) H 09/06/17 10:53 INR 1.3 09/06/17 10:53 APTT 35 SECONDS (21-34) H 09/06/17 10:53 - Constitutional Appears: Well, Non-toxic, No Acute Distress - Extremities Exam Additional comments: Right lower extremity focused exam. Dressing c/d/i with minimal strikethrough noted, secondary to vac decoupling due to VAC occlusion. VASC- pedal pulses fully palpable, skin temp runs warm to warm (with increased callor noted to medial foot), cap refill to remaining digits is brisk, moderate pedal edema is noted. NEURO-gross and protective pedal sensation are diminished DERM- Mild wound exudate noted, no active drainage or purulence. No mal-odor produced. No fluctuance, or abscess appreciated. Surgical wound site measures approximately 11cm x 4 cm x 4 cm down to the level of bone with tendons exposed, plantarly the ulceration extends longer and encompasses from the medial aspect of right foot border to the 3rd interspace wound base is mixture fibrotic and granular tissue. Ledial hallux hulcer border shows noecrotic rim. Flexors tendon exposed plantarly sutures at the proximal ends plantarly and dorsally intact without dehiscence noted; well co-apted, well re-approximated No juan-wound erythema present. Integrity of the surrounding soft tissue appears stable at this time with no nec fasc spreading appreciated at this time. Planter hallux skin along periphery of wound mildly cyanotic, though hallux distal tuft well persuded. Superficial lateral foot wound measuring 1.6x 0.8, absent probe to bone, with granular-fibrotic wound base. No malodor, no purulence, no active drainage. Ortho- rigid cavovarus foot type is noted neg tenderness to palpation of ulcerations, neg Hohmans sign on deep calf squeeze. - Neurological Exam Neurological Exam: Alert, Awake, Oriented x3 - Psychiatric Exam Psychiatric exam: Normal Affect, Normal Mood Assessment and Plan - Assessment and Plan (Free Text) Assessment: 57 y.o male 7 day s/p incision and drainage with partial right 2nd ray resection secondary to necrotizing fasciitis Plan: Patient examined and evaluated. Discussed plan in detail with attending Dr. Frye, who endorsed it. Labs, vitals reviewed- WBC = 12.9. c/w abx per ID. PICC line placed, ID specialist Dr. Barcenas recommends 3-4 week of outpatient IV abx therapy. -Fresh . foan and seal applied. Pt tolerating with out issue. Negative pressure therapy set to continuous, low 125mmHG of pressure. Outer layer of 4x4 gauze, ABD, Kerlix, & JONNY, left intact. Podiatry Wound care orders for [facility] Facility. * Right foot Wound V.A.C therapy VAC: Settings Continuous therapy @ 125mmHg on low setting. * VAC to be changed every 72 hours. * Right lateral foot wound to be dressed with Santyl, saline wet-to-dry dressing , with DSD. * Weight-bearing activity to be non-weightbearing to right lower leg with aid of rolling walker * Follow up in [facility] with Dr. Frye on Saturday. Set appoint for Saturday09/16/17. Pt is stable form podiatry standpoint for discharge to [facility] facility.
--- NOTE | 2017-09-13 18:05 | PN ---
DATE: LOCATION: Room 353. SUBJECTIVE: This is a 57-year-old male with recent uncontrolled type 2 insulin-requiring diabetes, now being followed closely for metabolic management. His glycemic levels are fluctuating, but much improved at this time and the latest glucose levels overnight have ranged from 113 to 135 and 139 mg/dL. His latest chemistries show a BUN of 11, sodium 139, potassium 4.3, chloride 102, CO2 24, glucose 151, and creatinine 0.7. ASSESSMENT: This is a 57-year-old male with uncontrolled and decompensated type 2 insulin-requiring diabetes with improved metabolic control with the initiation of the above insulin regimen as given. He has ongoing right foot cellulitis with underlying neuropathic foot ulcerations and receiving intravenous antibiotic management as given. PLAN OF MANAGEMENT: We will continue the present ongoing IV antibiotics and local debridement as undertaken and we will obtain serial chemistries and supplement accordingly as needed. We will also continue the same basal and bolus insulin regimen as given with NovoLog given as 12 units subcu t.i.d. before meals as ordered. We will continue the Lantus given as 24 units subcu at bedtime daily as ordered. We will continue also the low-dose correction scale with NovoLog insulin as given. We will obtain serial chemistries and supplement accordingly as needed. We will follow. Wendie Steinberg MD
[2017-09-13] MEDS: (Lantus) Insulin Glargine, Recombinant SC SCH (21:37)
--- NOTE | 2017-09-14 00:35 | PN ---
DATE: 09/13/2017 SUBJECTIVE: The patient was seen and examined at bedside. This morning, the patient is feeling much better. Denies any new complaints, complaining of Wound Vac being disconnected yesterday, feels like pulsatile sensation in the lower part of the foot. Denies any other complaints. PHYSICAL EXAMINATION: GENERAL: Middle-aged male lying in bed, in no acute distress. VITAL SIGNS: Blood pressure 138/72, pulse 87, respirations 20, temperature 98.5 degrees Fahrenheit, O2 saturation 98% on room air. HEENT: Pupils are equal, round, and reacting to light and accommodation. Extraocular muscles are intact. No icterus. No pallor. No oral thrush. No oropharyngeal congestion. NECK: Supple. No JVD. LUNGS: Bilateral vesicular breath sounds. No wheezing. No rhonchi. CARDIOVASCULAR: S1, S2 present. Regular. ABDOMEN: Soft, nontender. Bowel sounds present. No guarding. No rigidity. No rebound tenderness noted. SCENE PAINTER: Alert, awake, and oriented x3. No focal deficits noted. EXTREMITIES: Right foot dressing in place. MEDICATIONS: Include Tylenol as needed, collagenase 1 gm topical daily, Feosol 325 mg p.o. daily, Glucotrol 5 mg p.o. in the morning, NovoLog 8 units subcu a.c., Lantus 24 units subcu at bedtime, meropenem 1 gm IV every 8 hours, Lopressor 25 mg p.o. b.i.d., vancomycin 1400 mg IV every 12 hours. Accu-Cheks from this morning 207, 141, 119, 126, 204. ASSESSMENT AND PLAN: A middle-aged male with newly diagnosed diabetes mellitus, hypertension, diabetic foot ulcer with necrotizing fascitis, status post incision and drainage and debridement of the wound with amputation of the second toe, osteomyelitis. The patient is on IV antibiotics. Accu-Cheks are fair current doses of Lantus and NovoLog. Follow up with Podiatry regarding discharge planning. We will continue with other current therapy. Follow up with community mental health social worker for discharge planning. Fernando Hills MD [facility] # [id number]
[2017-09-14] MEDS: Meropenem 1 GM in Sodium Chloride 0.9% 100 ML IVPB SCH ×3 (05:27→22:43)
[2017-09-14 07:22] LABS: BASO # 0.1 K/uL (0.0-0.2); BASO % 0.7 % (0.0-2.0); EOS # 0.3 K/uL (0.0-0.7); EOS % 2.9 % (0.0-4.0); HEMOGLOBIN 9.5 g/dL (12.0-18.0); LYMPH # 2.5 K/uL (1.0-4.3); LYMPH % 20.6 % (20.0-40.0); MEAN CELL VOLUME 88.9 fL (80.0-94.0); MEAN CORPUSCULAR HEMOGLOBIN 30.6 pg (27.0-31.0); MEAN CORPUSCULAR HGB CONC 34.4 g/dL (33.0-37.0); MEAN PLATELET VOLUME 7.9 fL (7.2-11.7); MONO # 0.7 K/uL (0.0-0.8); NEUT # 8.4 K/uL (1.8-7.0); NEUT % 69.8 % (50.0-75.0); RBC 3.1 Mil/uL (4.40-5.90); RED CELL DISTRIBUTION WIDTH 12.2 % (11.5-14.5); WHITE BLOOD COUNT 12.1 K/uL (4.8-10.8)
[2017-09-14 07:36] LABS: ALB/GLOB RATIO 0.6 (1.0-2.1); ALBUMIN 3.1 g/dL (3.5-5.0); ALT/SGPT 18 U/L (21-72); AST/SGOT 16 U/L (17-59); BLOOD UREA NITROGEN 14 mg/dL (9-20); CALCIUM 7.9 mg/dl (8.6-10.4); GFR AFRICAN-AMERICAN > 60; GFR NON-AFRICAN AMERICAN > 60
[2017-09-14] MEDS: (Novolog) Insulin Aspart, Recombinant 100 u/ml 10 ml vial SC SCH ×7 (08:16→21:48)
[2017-09-14] MEDS: Collagenase 250 Units/gm Ointment(30 gm) TOP SCH (10:07)
--- NOTE | 2017-09-14 11:31 | PN ---
DATE: 09/14/2017. ENDO FOLLOWUP NOTE LOCATION: Room 353. SUBJECTIVE: This is a 57-year-old male with recent uncontrolled type 2 insulin requiring diabetes now being managed for right foot cellulitis with underlying neuropathic foot ulcerations. His glycemic levels are fluctuating but improved and the glucose values have ranged from 65 to 119 and 139 mg/dL. LABORATORY DATA: His latest chemistry showed a BUN of 11, sodium 139, potassium 4.3, chloride 102, CO2 24, glucose 151, creatinine 0.7. ASSESSMENT AND PLAN: So at this time, we will modify once again his basal and bolus insulin regimen and lower the NovoLog to 8 units subcutaneous t.i.d. before meals to start this morning as ordered. We will continue the basal insulin given as Lantus at 24 units subcutaneous at bedtime daily as ordered. We will continue the low dose correction scale using NovoLog insulin as given to obviate hypoglycemia. We will obtain serial chemistries and supplement accordingly as needed. We will follow. Wendie Steinberg MD
--- NOTE | 2017-09-14 13:10 | CP.PCM.PN ---
Subjective - Date & Time of Evaluation Date of Evaluation: 09/14/17 Time of Evaluation: 13:07 - Subjective Subjective: Podiatry Progress Note- Dr. Frye 57 y.o male seen and evaluated at bedside 8 days s/p incision and drainage with partial right 2nd ray resection secondary to necrotizing fasciitis of the right foot. Patient is seen resting comfortably at bedside, in NAD, and AA0x3. Tolerating WoundVAC without incident. No overnight vac obstruction reported. Reports no pain to the right LE. Pt ambulates now using walker without issue. Denies n/v/sob/cp/f, denies chills. Denies calf pain or tenderness. No new pedal complaints. Vac noted to be functioning properly with good seal noted. Objective - Vital Signs/Intake and Output Vital Signs (last 24 hours): Temp Pulse Resp BP Pulse Ox 98.7 F 99 H 20 154/83 H 97 09/14/17 08:00 09/14/17 08:00 09/14/17 08:00 09/14/17 10:06 09/14/17 08:00 - Medications Medications: Current Medications Acetaminophen (Tylenol 325mg Tab) 650 mg PO Q6 PRN PRN Reason: Fever >100.4 F Last Admin: 09/06/17 02:10 Dose: 650 mg Collagenase (Santyl) 1 gm TOP DAILY [facility] Last Admin: 09/14/17 10:07 Dose: 1 applic Ferrous Sulfate (Feosol) 325 mg PO DAILY [facility] Last Admin: 09/14/17 10:06 Dose: 325 mg Glipizide (Glucotrol) 5 mg PO ACB [facility] Last Admin: 09/14/17 08:30 Dose: 5 mg Meropenem 1 gm/ Sodium (Chloride) 100 mls @ 100 mls/hr IVPB Q8 [facility] PRN Reason: Protocol Last Admin: 09/14/17 05:27 Dose: 100 mls/hr Vancomycin HCl 1,400 mg/ (Sodium Chloride) 500 mls @ 250 mls/hr IVPB Q12H [facility] PRN Reason: Protocol Last Admin: 09/14/17 03:03 Dose: 250 mls/hr Insulin Aspart (Novolog) 0 unit SC ACHS [facility] PRN Reason: Protocol Last Admin: 09/14/17 11:45 Dose: Not Given Insulin Aspart (Novolog) 8 unit SC AC [facility] Last Admin: 09/14/17 12:05 Dose: 8 unit Insulin Glargine (Lantus) 24 unit SC HS [facility] Last Admin: 09/13/17 21:37 Dose: 24 unit Metoprolol Tartrate (Lopressor) 25 mg PO BID [facility] Last Admin: 09/14/17 10:06 Dose: 25 mg - Labs Labs: 09/14/17 07:16 09/14/17 07:16 PT 14.5 SECONDS (9.7-12.2) H 09/06/17 10:53 INR 1.3 09/06/17 10:53 APTT 35 SECONDS (21-34) H 09/06/17 10:53 - Constitutional Appears: Well, Non-toxic, No Acute Distress - Extremities Exam Additional comments: Wound vac in place on patient's right foot Dressings c/d/i Vac has good seal at 125mmHg of continuous pressure - Neurological Exam Neurological Exam: Alert, Awake, Oriented x3 - Psychiatric Exam Psychiatric exam: Normal Affect, Normal Mood Assessment and Plan - Assessment and Plan (Free Text) Assessment: 57 y.o male seen and evaluated at bedside 8 days s/p incision and drainage with partial right 2nd ray resection secondary to necrotizing fasciitis of the right foot Plan: Patient seen and evaluated at bedside Plan discussed with attending Dr. Frye Charts, labs, vitals reviewed WBC 12.1 Continue IV abx per ID Continue medical management per Medical Team Patient stable for DC from podiatric standpoint Podiatry will continue to follow and will change vac tomorrow if patient still in house
--- NOTE | 2017-09-14 16:03 | CP.PCM.PN ---
Subjective - Date & Time of Evaluation Date of Evaluation: 09/14/17 Time of Evaluation: 16:03 - Subjective Subjective: pt is seen and examined , progress note is dictated Objective - Vital Signs/Intake and Output Vital Signs (last 24 hours): Temp Pulse Resp BP Pulse Ox 98.7 F 99 H 20 154/83 H 97 09/14/17 08:00 09/14/17 08:00 09/14/17 08:00 09/14/17 10:06 09/14/17 08:00 Intake and Output: 09/14/17 09/14/17 06:59 18:59 Intake Total 700 Balance 700 - Medications Medications: Current Medications Acetaminophen (Tylenol 325mg Tab) 650 mg PO Q6 PRN PRN Reason: Fever >100.4 F Last Admin: 09/06/17 02:10 Dose: 650 mg Collagenase (Santyl) 1 gm TOP DAILY [facility] Last Admin: 09/14/17 10:07 Dose: 1 applic Ferrous Sulfate (Feosol) 325 mg PO DAILY [facility] Last Admin: 09/14/17 10:06 Dose: 325 mg Glipizide (Glucotrol) 5 mg PO ACB [facility] Last Admin: 09/14/17 08:30 Dose: 5 mg Meropenem 1 gm/ Sodium (Chloride) 100 mls @ 100 mls/hr IVPB Q8 [facility] PRN Reason: Protocol Last Admin: 09/14/17 13:30 Dose: 100 mls/hr Vancomycin HCl 1,400 mg/ (Sodium Chloride) 500 mls @ 250 mls/hr IVPB Q12H [facility] PRN Reason: Protocol Last Admin: 09/14/17 03:03 Dose: 250 mls/hr Insulin Aspart (Novolog) 0 unit SC ACHS [facility] PRN Reason: Protocol Last Admin: 09/14/17 11:45 Dose: Not Given Insulin Aspart (Novolog) 8 unit SC AC [facility] Last Admin: 09/14/17 12:05 Dose: 8 unit Insulin Glargine (Lantus) 24 unit SC HS [facility] Last Admin: 09/13/17 21:37 Dose: 24 unit Metoprolol Tartrate (Lopressor) 25 mg PO BID [facility] Last Admin: 09/14/17 10:06 Dose: 25 mg - Labs Labs: 09/14/17 07:16 09/14/17 07:16 PT 14.5 SECONDS (9.7-12.2) H 09/06/17 10:53 INR 1.3 09/06/17 10:53 APTT 35 SECONDS (21-34) H 09/06/17 10:53
[2017-09-14] MEDS: (Lantus) Insulin Glargine, Recombinant SC SCH (22:04)
[2017-09-14 23:26] VITALS: RESP 20
--- NOTE | 2017-09-14 23:43 | PN ---
DATE: 09/14/2017. SUBJECTIVE: The patient offers no new complaints. PHYSICAL EXAMINATION: GENERAL: Middle-aged male lying in bed in no acute distress. VITAL SIGNS: Blood pressure 125/76, pulse 84, respirations 20, temperature 99.1 degrees Fahrenheit, O2 saturation is 99% on room air. HEENT: Pupils equal, round and reacting to light and accommodation. Extraocular muscles intact. No icterus. No pallor. NECK: Supple. No JVD. LUNGS: Bilateral vesicular breath sounds. No wheezing. No rhonchi. CVS: S1, S2 present, regular. ABDOMEN: Soft. Nontender. Bowel sounds present. No guarding. No rigidity. No rebound tenderness noted. SHIFT MECHANIC: Alert, awake and oriented x3. No focal deficits noted. EXTREMITIES: Right foot with dressing in place and wound VAC in place. MEDICATIONS: Include acetaminophen, collagenase, ferrous sulfate 325 mg p.o. daily, glipizide 5 mg in the morning, NovoLog 8 units subcu a.c, Lantus 24 units subcu at bedtime, metoprolol 25 mg p.o. b.i.d., vancomycin 1400 mg, IV every 12 hours. LABORATORY DATA: From this morning; WBC 12.1, hemoglobin 9.5, hematocrit 27.5, platelets 507. Sodium 141, potassium 4.2, chloride 102, bicarbonate 25, BUN 14, creatinine 0.7, glucose 133, calcium 7.9, AST 16, ALT 18, albumin 3.1. ASSESSMENT AND PLAN: Middle-aged male with history of newly diagnosed diabetes mellitus, uncontrolled diabetes, diabetic foot ulcer with gas gangrene, necrotizing fascitis, status post debridement and status post second toe amputation on IV antibiotics. The patient is cleared by Podiatry, but awaiting for subacute rehab placement by manager social responsibility. Awaiting for clearance. The patient is otherwise medically stable for transfer when bed available. Fernando Hills MD
[2017-09-15] MEDS: Meropenem 1 GM in Sodium Chloride 0.9% 100 ML IVPB SCH ×3 (06:20→21:36)
[2017-09-15] MEDS: (Novolog) Insulin Aspart, Recombinant 100 u/ml 10 ml vial SC SCH ×7 (08:02→17:51)
[2017-09-15] MEDS: Collagenase 250 Units/gm Ointment(30 gm) TOP SCH (10:50)
--- NOTE | 2017-09-15 15:02 | CP.PCM.PN ---
Subjective - Date & Time of Evaluation Date of Evaluation: 09/15/17 Time of Evaluation: 14:59 - Subjective Subjective: Podiatry progress note - Dr. Frye 57 y.o male seen and evaluated at bedside 9 days s/p incision and drainage with partial right 2nd ray resection secondary to necrotizing fasciitis of the right foot. Patient is seen resting comfortably at bedside, is NAD, and AA0x3. Per nursing, patients wound vac lost its seal overnight and has been turned off. Minimal drainage in canister noted at this time. Patient states that pain is well controlled. Continues to ambulate with use of walker. Denies any recent N/V /F/C/CP/SOB/D/posterior calf pain when squeezed. Denies any further pedal complaints at this time Objective - Vital Signs/Intake and Output Vital Signs (last 24 hours): Temp Pulse Resp BP Pulse Ox 98.5 F 88 20 118/74 98 09/15/17 08:13 09/15/17 08:13 09/15/17 08:13 09/15/17 09:20 09/15/17 08:13 Intake and Output: 09/15/17 09/15/17 06:59 18:59 Intake Total 1840 820 Output Total 1800 700 Balance 40 120 - Medications Medications: Current Medications Acetaminophen (Tylenol 325mg Tab) 650 mg PO Q6 PRN PRN Reason: Fever >100.4 F Last Admin: 09/06/17 02:10 Dose: 650 mg Collagenase (Santyl) 1 gm TOP DAILY [facility] Last Admin: 09/15/17 10:50 Dose: 1 applic Ferrous Sulfate (Feosol) 325 mg PO DAILY [facility] Last Admin: 09/15/17 09:21 Dose: 325 mg Glipizide (Glucotrol) 5 mg PO ACB [facility] Last Admin: 09/15/17 08:01 Dose: 5 mg Vancomycin HCl 1,400 mg/ (Sodium Chloride) 500 mls @ 250 mls/hr IVPB Q12H [facility] PRN Reason: Protocol Last Admin: 09/15/17 04:19 Dose: 250 mls/hr Meropenem 1 gm/ Sodium (Chloride) 100 mls @ 100 mls/hr IVPB Q8 [facility] PRN Reason: Protocol Last Admin: 09/15/17 14:08 Dose: 100 mls/hr Insulin Aspart (Novolog) 0 unit SC ACHS [facility] PRN Reason: Protocol Last Admin: 09/15/17 11:43 Dose: Not Given Insulin Aspart (Novolog) 8 unit SC AC [facility] Last Admin: 09/15/17 11:43 Dose: Not Given Insulin Glargine (Lantus) 24 unit SC HS [facility] Last Admin: 09/14/17 22:04 Dose: 24 unit Metoprolol Tartrate (Lopressor) 25 mg PO BID [facility] Last Admin: 09/15/17 09:20 Dose: 25 mg - Labs Labs: 09/14/17 07:16 09/14/17 07:16 PT 14.5 SECONDS (9.7-12.2) H 09/06/17 10:53 INR 1.3 09/06/17 10:53 APTT 35 SECONDS (21-34) H 09/06/17 10:53 - Constitutional Appears: Well, Non-toxic, No Acute Distress - Extremities Exam Additional comments: Right lower extremity focused exam. Dressing c/d/i with minimal strikethrough noted, secondary to vac decoupling due to VAC occlusion. VASC- pedal pulses fully palpable, skin temp runs warm to warm (with increased callor noted to medial foot), CFT > 3 seconds to remaining digits. 3rd-5th digit appear slightly more dusky than contralateral side but there temperature is warm NEURO-gross and protective pedal sensation are diminished DERM- Mild wound exudate noted, no active drainage or purulence. No mal-odor produced. No fluctuance, or abscess appreciated. Surgical wound site measures approximately 11cm x 4 cm x 4 cm down to the level of bone with tendons exposed, plantarly the ulceration extends longer and encompasses from the medial aspect of right foot border to the 3rd interspace wound base is mixture fibrotic and granular tissue. Medial hallux ulcer border shows noecrotic rim. Flexors tendon exposed plantarly sutures at the proximal ends plantarly and dorsally intact without dehiscence noted; well co-apted, well re-approximated No juan-wound erythema present. Integrity of the surrounding soft tissue appears stable at this time with no nec fasc spreading appreciated at this time. Planter hallux skin along periphery of wound mildly cyanotic, though hallux distal tuft well persuded. Superficial lateral foot wound measuring 1.6x 0.8, absent probe to bone, with granular-fibrotic wound base. No malodor, no purulence, no active drainage. Ortho- rigid cavovarus foot type is noted neg tenderness to palpation of ulcerations, neg Hohmans sign on deep calf squeeze. - Neurological Exam Neurological Exam: Alert, Awake, Oriented x3 - Psychiatric Exam Psychiatric exam: Normal Affect, Normal Mood Assessment and Plan - Assessment and Plan (Free Text) Assessment: 57 y.o male seen and evaluated at bedside 9 days s/p incision and drainage with partial right 2nd ray resection secondary to necrotizing fasciitis of the right foot for wound vac change Plan: Patient seen and evaluated at bedside Plan discussed with attending Dr. Frye Charts, labs, vitals reviewed WBC 12.1 yesterday Continue IV abx per ID Wound vac changed with low, continuous suction at 125 mmHg Good seal achieved No plan for surgical intervention at this time Patient to follow up in Dr. Frye's clinic upon discharge Podiatry will continue to follow while patient in house
--- NOTE | 2017-09-15 15:31 | CP.PCM.PN ---
Subjective - Date & Time of Evaluation Date of Evaluation: 09/15/17 Time of Evaluation: 15:31 - Subjective Subjective: Progress note dictated #[id number] Objective - Vital Signs/Intake and Output Vital Signs (last 24 hours): Temp Pulse Resp BP Pulse Ox 98.5 F 88 20 118/74 98 09/15/17 08:13 09/15/17 08:13 09/15/17 08:13 09/15/17 09:20 09/15/17 08:13 Intake and Output: 09/15/17 09/15/17 06:59 18:59 Intake Total 1840 820 Output Total 1800 700 Balance 40 120 - Medications Medications: Current Medications Acetaminophen (Tylenol 325mg Tab) 650 mg PO Q6 PRN PRN Reason: Fever >100.4 F Last Admin: 09/06/17 02:10 Dose: 650 mg Collagenase (Santyl) 1 gm TOP DAILY [facility] Last Admin: 09/15/17 10:50 Dose: 1 applic Ferrous Sulfate (Feosol) 325 mg PO DAILY [facility] Last Admin: 09/15/17 09:21 Dose: 325 mg Glipizide (Glucotrol) 5 mg PO ACB [facility] Last Admin: 09/15/17 08:01 Dose: 5 mg Vancomycin HCl 1,400 mg/ (Sodium Chloride) 500 mls @ 250 mls/hr IVPB Q12H [facility] PRN Reason: Protocol Last Admin: 09/15/17 04:19 Dose: 250 mls/hr Meropenem 1 gm/ Sodium (Chloride) 100 mls @ 100 mls/hr IVPB Q8 [facility] PRN Reason: Protocol Last Admin: 09/15/17 14:08 Dose: 100 mls/hr Insulin Aspart (Novolog) 0 unit SC ACHS [facility] PRN Reason: Protocol Last Admin: 09/15/17 11:43 Dose: Not Given Insulin Aspart (Novolog) 8 unit SC AC [facility] Last Admin: 09/15/17 11:43 Dose: Not Given Insulin Glargine (Lantus) 24 unit SC HS [facility] Last Admin: 09/14/17 22:04 Dose: 24 unit Metoprolol Tartrate (Lopressor) 25 mg PO BID [facility] Last Admin: 09/15/17 09:20 Dose: 25 mg - Labs Labs: 09/14/17 07:16 09/14/17 07:16 PT 14.5 SECONDS (9.7-12.2) H 09/06/17 10:53 INR 1.3 09/06/17 10:53 APTT 35 SECONDS (21-34) H 09/06/17 10:53
--- NOTE | 2017-09-15 19:16 | PN ---
DATE: 09/15/2017. ENDO FOLLOWUP NOTE LOCATION: Room 364. SUBJECTIVE: This is a 57-year-old male with recent uncontrolled type 2 insulin-requiring diabetes now being followed closely for metabolic management. He is undergoing IV antibiotic management for right foot cellulitis with underlying neuropathic ulcerations and osteomyelitis as noted. His glycemic levels are fluctuating but improved with the variability also of his oral intake as per the nursing staff. LABORATORY DATA: His glucose levels today have ranged from 96 to 147 and 176 mg/dL. The latest chemistry showed BUN of 14, sodium 141, potassium 4.2, chloride 102, CO2 25, glucose 148 and creatinine 0.7. ASSESSMENT AND PLAN: So at this time, we will modify once again his basal and bolus insulin regimen and lower the Novolog to 6 units subcu t.i.d. before meals to start today. We will also lower the basal insulin given as Lantus at 20 unit subcu at bedtime daily as given. We will titrate incrementally as indicated to optimize metabolic control. We will continue also the low-dose correction scale using Novolog insulin as given. We will follow and advise accordingly. Wendie Steinberg MD
[2017-09-15] MEDS ORDERED: (Lantus) Insulin Glargine, Recombinant SC SCH (22:00)
--- NOTE | 2017-09-15 23:46 | PN ---
DATE: 09/15/2017. SUBJECTIVE: The patient offers no new complaints. PHYSICAL EXAMINATION: GENERAL: A middle-aged male, lying in bed, in no acute distress. VITAL SIGNS: Blood pressure 128/84, pulse 84, respirations 20, temperature 99.2 degree Fahrenheit, O2 saturation 97% on room air. HEENT: Pupils equal, round, reacting to light and accommodation. Extraocular muscles intact. No icterus. No pallor. No oral thrush. No pharyngeal congestion. NECK: Supple. No JVD. LUNGS: Bilateral vesicular breath sounds. No wheezing, no rhonchi. CVS: S1, S2 present. Regular. ABDOMEN: Soft, nontender. Bowel sounds present. No guarding, no rigidity, no rebound tenderness noted. FLOWERS SALESPERSON: Alert, awake, oriented x3. No focal deficits noted. EXTREMITIES: Right foot with dressing in place. MEDICATIONS: His medications include Tylenol as needed, collagenase 1 gm topical daily, ferrous sulfate 325 mg p.o. daily, glipizide 5 mg daily, NovoLog 6 units subcu a.c., Lantus 20 units subcu nightly, meropenem 1 gm IV every 8 hours, metoprolol 25 mg p.o. b.i.d., vancomycin 1400 mg IV every 12 hours. LABORATORY DATA: His Accu-Cheks are 179, 77, 176, 147, 96. ASSESSMENT AND PLAN: A middle-aged male with diabetes mellitus, uncontrolled, hypertension, diabetic foot ulcer, status post incision and debridement and second toe amputation with wound VAC in place. Continue with current antibiotics, meropenem and vancomycin. Awaiting for subacute rehab placement for long-term IV antibiotics and for wound care. The patient is otherwise medically stable whenever bed available at subacute rehab. Followup with Purchasing Administrator for discharge planning. Fernando Hills MD
[2017-09-16] MEDS: Meropenem 1 GM in Sodium Chloride 0.9% 100 ML IVPB SCH ×2 (05:50→14:01)
[2017-09-16] MEDS: (Novolog) Insulin Aspart, Recombinant 100 u/ml 10 ml vial SC SCH ×5 (07:28→17:30)
--- NOTE | 2017-09-16 09:02 | CP.PCM.DIS ---
Provider - Provider Date of Admission: 09/02/17 14:46 Attending physician: Fernando Hills MD Time Spent in preparation of Discharge (in minutes): 30 (d/c to [place]) Hospital Course - Lab Results Lab Results: Micro Results 09/06/17 17:15 Foot - Right Gram Stain - Final 09/06/17 17:15 Foot - Right Wound Culture - Final Enterococcus Faecalis Beta Hemolytic Strep Group B 09/02/17 16:30 Blood Blood Culture - Final NO GROWTH AFTER 5 DAYS 09/02/17 16:30 Blood Gram Stain - Final TEST NOT PERFORMED 09/02/17 16:30 Blood Blood Culture - Final NO GROWTH AFTER 5 DAYS 09/02/17 16:30 Blood Gram Stain - Final TEST NOT PERFORMED 09/02/17 Unknown Foot - Right Gram Stain - Final 09/02/17 Unknown Foot - Right Wound Culture - Final Enterobacter Cloacae Ssp Cloac Enterococcus Faecalis 09/05/17 03:45 Urine,Clean Catch Urine Culture - Final No Growth (<1,000 CFU/ML) 09/03/17 08:31 Foot - Right Gram Stain - Final 09/03/17 08:31 Foot - Right Wound Culture - Final Beta Hemolytic Strep Group B 09/03/17 08:31 Foot - Right Gram Stain - Final 09/03/17 08:31 Foot - Right Wound Culture - Final Beta Hemolytic Strep Group B 09/03/17 02:05 Urine,Clean Catch Urine Culture - Final No Growth (<1,000 CFU/ML) Most Recent Lab Values WBC 12.1 K/uL (4.8-10.8) H 09/14/17 07:16 RBC 3.10 Mil/uL (4.40-5.90) L 09/14/17 07:16 Hgb 9.5 g/dL (12.0-18.0) L 09/14/17 07:16 Hct 27.5 % (35.0-51.0) L 09/14/17 07:16 MCV 88.9 fL (80.0-94.0) 09/14/17 07:16 MCH 30.6 pg (27.0-31.0) 09/14/17 07:16 MCHC 34.4 g/dL (33.0-37.0) 09/14/17 07:16 RDW 12.2 % (11.5-14.5) 09/14/17 07:16 Plt Count 507 K/uL (130-400) H 09/14/17 07:16 MPV 7.9 fL (7.2-11.7) 09/14/17 07:16 Neut % (Auto) 69.8 % (50.0-75.0) 09/14/17 07:16 Lymph % (Auto) 20.6 % (20.0-40.0) 09/14/17 07:16 Humphreys % (Auto) 6.0 % (0.0-10.0) 09/14/17 07:16 Eos % (Auto) 2.9 % (0.0-4.0) 09/14/17 07:16 Baso % (Auto) 0.7 % (0.0-2.0) 09/14/17 07:16 Neut # (Auto) 8.4 K/uL (1.8-7.0) H 09/14/17 07:16 Lymph # (Auto) 2.5 K/uL (1.0-4.3) 09/14/17 07:16 Humphreys # (Auto) 0.7 K/uL (0.0-0.8) 09/14/17 07:16 Eos # (Auto) 0.3 K/uL (0.0-0.7) 09/14/17 07:16 Baso # (Auto) 0.1 K/uL (0.0-0.2) 09/14/17 07:16 Neutrophils % (Manual) 84 % (50-75) H 09/04/17 08:22 Band Neutrophils % 3 % (0-2) H 09/04/17 08:22 Lymphocytes % (Manual) 9 % (20-40) L 09/04/17 08:22 Reactive Lymphs % 1 % (0-0) H 09/04/17 08:22 Monocytes % (Manual) 3 % (0-10) 09/04/17 08:22 Toxic Granulation Present 09/02/17 14:04 Platelet Estimate Normal (NORMAL) 09/04/17 08:22 Large Platelets Present 09/03/17 06:18 Polychromasia Slight 09/02/17 14:04 Hypochromasia (manual) Slight 09/04/17 08:22 Poikilocytosis (manual Slight 09/04/17 08:22 Anisocytosis (manual) Slight 09/04/17 08:22 Microcytosis (manual) Slight 09/03/17 06:18 Macrocytosis (manual) Slight 09/03/17 06:18 Target Cells Slight 09/04/17 08:22 ESR 130 mm/hr (0-15) H 09/09/17 07:18 PT 14.5 SECONDS (9.7-12.2) H 09/06/17 10:53 INR 1.3 09/06/17 10:53 APTT 35 SECONDS (21-34) H 09/06/17 10:53 Sodium 141 mmol/L (132-148) 09/14/17 07:16 Potassium 4.2 mmol/L (3.6-5.2) 09/14/17 07:16 Chloride 102 mmol/L (98-107) 09/14/17 07:16 Carbon Dioxide 25 mmol/L (22-30) 09/14/17 07:16 Anion Gap 18 (10-20) 09/14/17 07:16 BUN 14 mg/dL (9-20) 09/14/17 07:16 Creatinine 0.7 mg/dL (0.8-1.5) L 09/14/17 07:16 Est GFR ( Amer) > 60 09/14/17 07:16 Est GFR (Non-Af Amer) > 60 09/14/17 07:16 POC Glucose (mg/dL) 141 mg/dL (65-110) H 09/16/17 07:18 Random Glucose 148 mg/dL (75-110) H 09/14/17 07:16 Hemoglobin A1c 11.8 % (4.2-6.5) H 09/03/17 06:18 Lactic Acid 0.8 mmol/L (0.7-2.1) 09/05/17 06:17 Calcium 7.9 mg/dl (8.6-10.4) L 09/14/17 07:16 Iron 23 ug/dL (49-181) L 09/09/17 07:18 TIBC 225 ug/dL (250-450) L 09/09/17 07:18 % Saturation 10 (20-55) L 09/09/17 07:18 Ferritin 424.0 ng/mL 09/09/17 07:18 Total Bilirubin 0.2 mg/dL (0.2-1.3) 09/14/17 07:16 AST 16 U/L (17-59) L D 09/14/17 07:16 ALT 18 U/L (21-72) L D 09/14/17 07:16 Alkaline Phosphatase 94 U/L (38-126) 09/14/17 07:16 C-Reactive Protein 60.50 mg/L (0.0-9.9) H 09/09/17 07:18 C-React Prot High Sens > 15.00 mg/L (1.00-3.00) H 09/12/17 06:57 Total Protein 7.9 g/dL (6.3-8.3) 09/14/17 07:16 Albumin 3.1 g/dL (3.5-5.0) L 09/14/17 07:16 Globulin 4.8 gm/dL (2.2-3.9) H 09/14/17 07:16 Albumin/Globulin Ratio 0.6 (1.0-2.1) L 09/14/17 07:16 Urine Color Yellow (YELLOW) 09/05/17 07:30 Urine Clarity Clear (Clear) 09/05/17 07:30 Urine pH 6.0 (5.0-8.0) 09/05/17 07:30 Ur Specific Fowler 1.008 (1.003-1.030) 09/05/17 07:30 Urine Protein Negative mg/dL (NEGATIVE) 09/05/17 07:30 Urine Glucose (UA) 2+ mg/dL (Normal) H 09/05/17 07:30 Urine Ketones 1+ mg/dL (NEGATIVE) H 09/05/17 07:30 Urine Blood Negative (NEGATIVE) 09/05/17 07:30 Urine Nitrate Negative (NEGATIVE) 09/05/17 07:30 Urine Bilirubin Negative (NEGATIVE) 09/05/17 07:30 Urine Urobilinogen Normal mg/dL (0.2-1.0) 09/05/17 07:30 Ur Leukocyte Esterase Neg Yasmin/uL (Negative) 09/05/17 07:30 Urine WBC (Auto) 1 /hpf (0-5) 09/05/17 07:30 Urine RBC (Auto) < 1 /hpf (0-3) 09/05/17 07:30 Ur Squamous Epith Cells < 1 /hpf (0-5) 09/05/17 07:30 Vancomycin Peak 26.1 ug/mL (30.0-40.0) L 09/11/17 22:44 Vancomycin Trough 10.6 ug/mL (5.0-10.0) H 09/11/17 16:58 Discharge Plan - Follow Up Plan Condition: STABLE Disposition: REHAB FACILITY/REHAB UNIT Instructions: Hyperglycemia, Adult (DC), Osteomyelitis (DC), Wound Incision and Drainage (DC), Cellulitis (DC) Referrals: Fernando Hills MD [Staff Provider] -
[2017-09-16] MEDS: Collagenase 250 Units/gm Ointment(30 gm) TOP SCH (12:36)
--- NOTE | 2017-09-16 14:35 | CP.PCM.PN ---
Subjective - Date & Time of Evaluation Date of Evaluation: 09/16/17 Time of Evaluation: 02:15 - Subjective Subjective: dictated Objective - Vital Signs/Intake and Output Vital Signs (last 24 hours): Temp Pulse Resp BP Pulse Ox 98.6 F 83 20 128/76 97 09/16/17 08:00 09/16/17 08:00 09/16/17 08:00 09/16/17 09:47 09/16/17 08:00 Intake and Output: 09/16/17 09/16/17 06:59 18:59 Intake Total 850 Output Total 800 Balance 50 - Medications Medications: Current Medications Acetaminophen (Tylenol 325mg Tab) 650 mg PO Q6 PRN PRN Reason: Fever >100.4 F Last Admin: 09/06/17 02:10 Dose: 650 mg Collagenase (Santyl) 1 gm TOP DAILY [facility] Last Admin: 09/16/17 12:36 Dose: Not Given Ferrous Sulfate (Feosol) 325 mg PO DAILY [facility] Last Admin: 09/16/17 09:47 Dose: 325 mg Glipizide (Glucotrol) 5 mg PO ACB [facility] Last Admin: 09/16/17 09:47 Dose: Not Given Vancomycin HCl 1,400 mg/ (Sodium Chloride) 500 mls @ 250 mls/hr IVPB Q12H [facility] PRN Reason: Protocol Last Admin: 09/16/17 03:42 Dose: 250 mls/hr Meropenem 1 gm/ Sodium (Chloride) 100 mls @ 100 mls/hr IVPB Q8 [facility] PRN Reason: Protocol Last Admin: 09/16/17 14:01 Dose: 100 mls/hr Insulin Aspart (Novolog) 0 unit SC ACHS [facility] PRN Reason: Protocol Last Admin: 09/16/17 12:29 Dose: Not Given Insulin Aspart (Novolog) 6 unit SC ACHS [facility] Last Admin: 09/16/17 12:35 Dose: 6 unit Insulin Glargine (Lantus) 20 unit SC HS [facility] Last Admin: 09/15/17 21:36 Dose: 20 units Metoprolol Tartrate (Lopressor) 25 mg PO BID [facility] Last Admin: 09/16/17 09:47 Dose: 25 mg - Labs Labs: 09/14/17 07:16 09/14/17 07:16 PT 14.5 SECONDS (9.7-12.2) H 09/06/17 10:53 INR 1.3 09/06/17 10:53 APTT 35 SECONDS (21-34) H 09/06/17 10:53
[2017-09-16 16:30] VITALS: BP 132/76; PULSE 85; TEMP 98.5; O2SAT 100
[2017-09-16] MEDS ORDERED: (Novolog) Insulin Aspart, Recombinant 100 u/ml 10 ml vial SC SCH (16:30)
--- NOTE | 2017-09-16 23:38 | PN ---
DATE: INFECTIOUS DISEASE FOLLOWUP SUBJECTIVE: The patient is still here. He has PICC line. He is waiting to be transferred to a rehab. He is on vancomycin and Merrem. He continues to have a wound VAC on the foot. PHYSICAL EXAMINATION: VITAL SIGNS: T-max is 98.5, pulse 85, blood pressure 132/76 and respirations are 20. GENERAL: He is awake and alert. He wants to take a shower, but he has a wound VAC. HEENT: Head is atraumatic and normocephalic. NECK: Supple. LUNGS: Clear. HEART: S1 and S2 is regular. : Abdomen is soft and nontender. No guarding. No rigidity present. He denies any diarrhea. Denies any urinary complaints. He says he goes only once. EXTREMITIES: Foot has a dressing and wound VAC present and it is not draining much however. He is supposed to get vancomycin and Merrem until 09/28/2017 and he needs to be revaluated by the facility designer if there a need be, he may need another 2 weeks with antibiotics depending on how the foot is coming along and will follow if needed and he needs to have vancomycin peak and trough CBC, CMP, and ESR weekly. IMPRESSION: He had necrotizing fasciitis and he has amputation of the second toe and is getting antibiotics for the wound to recover and he is diabetic. Tone Barcenas MD
--- NOTE | 2017-09-17 08:20 | PN ---
DATE: 09/16/2017 ENDO FOLLOWUP NOTE LOCATION: Room 364 SUBJECTIVE: This is a 57-year-old male with recent uncontrolled type 2 insulin-requiring diabetes, now undergoing IV antibiotic management and local debridement for his right foot cellulitis with underlying neuropathic ulcerations and osteomyelitis at this time as noted. LABORATORY DATA: His glucose levels are fluctuating but improved and the latest glucose levels today have ranged from 77 to 141 and 237 mg/dL. His latest chemistry showed a BUN of 14, sodium 141, potassium 4.2, chloride 102, CO2 25, glucose 148 and creatinine 0.7. ASSESSMENT AND PLAN: So at this time, we will continue to modify basal and bolus insulin regimen as given with NovoLog lowered to 6 units subcu t.i.d. before meals as given. We will titrate incrementally as indicated to optimize metabolic control. We will also continue the basal insulin given as Lantus at 20 units subcu at bedtime daily as given. We will continue the low dose correction scale using NovoLog insulin as ordered. We will titrate incrementally as indicated to optimize metabolic control. We will follow and advise accordingly. Wendie Steinberg MD
== END 2017-09-16 19:20 | DRG 616 ==
LOC: C.ER 11:38 → C.9E 14:46 → C.3T 16:35
PROVIDERS: ADMIT Internal Medicine; ATTEND Internal Medicine
PROC: 0JBQ0ZZ Excision of Right Foot Subcutaneous Tissue and Fascia, Open Approach (ICD-10-PCS; 2017-09-03)
PROC: 0H9MXZX Drainage of Right Foot Skin, External Approach, Diagnostic (ICD-10-PCS; 2017-09-03)
PROC: 0H9MXZX Drainage of Right Foot Skin, External Approach, Diagnostic (ICD-10-PCS; 2017-09-06)
PROC: 0Y6R0Z0 Detachment at Right 2nd Toe, Complete, Open Approach (ICD-10-PCS; principal; 2017-09-06 13:45)
DX: E11.69 Type 2 diabetes mellitus with other specified complication (principal); M72.6 Necrotizing fasciitis; E11.52 Type 2 diabetes mellitus with diabetic peripheral angiopathy with gangrene; L03.115 Cellulitis of right lower limb; M86.171 Other acute osteomyelitis, right ankle and foot; Z79.4 Long term (current) use of insulin; E11.42 Type 2 diabetes mellitus with diabetic polyneuropathy; E11.621 Type 2 diabetes mellitus with foot ulcer; E11.65 Type 2 diabetes mellitus with hyperglycemia; I10 Essential (primary) hypertension; L97.519 Non-pressure chronic ulcer of other part of right foot with unspecified severity; F17.210 Nicotine dependence, cigarettes, uncomplicated

== ENCOUNTER 2017-09-17 19:08 | Inpatient (IN) | payer BC, OTHER ==
--- NOTE | 2017-09-17 19:26 | C.PDOC ---
History Of Present Illness 57 y/o male presents to ED sent from [facility] for diabetic right foot ulcer developed 2 months ago. Patient is sent with paperwork from Dr. Gilberto Hills for further evaluation of foot. Patient has had multiple revisions for same, he is s/p 2nd toe amputation and currently has PICC line, has been on Vancomycin for 1 month. No other physical complaints at this time. Time Seen by Provider: 09/17/17 19:25 Chief Complaint (Nursing): Wound Check History Per: Patient, EMS History/Exam Limitations: no limitations Onset/Duration Of Symptoms: Days Ago Current Symptoms Are (Timing): Still Present Location Of Injury: Right: Foot Past Medical History Reviewed: Historical Data, Nursing Documentation, Vital Signs Vital Signs: Last Vital Signs Temp 99.1 F 09/18/17 00:00 Pulse 85 09/18/17 00:00 Resp 20 09/18/17 03:22 BP 125/80 09/18/17 00:00 Pulse Ox 95 09/18/17 00:00 - Medical History PMH: No Chronic Diseases Surgical History: No Surg Hx - [facility] Procedures DETACHMENT AT RIGHT 2ND TOE, COMPLETE, OPEN APPROACH (09/02/17) DRAINAGE OF RIGHT FOOT SKIN, EXTERNAL APPROACH, DIAGNOSTIC (09/02/17) EXCISION OF R FOOT SUBCU/FASCIA, OPEN APPROACH (09/02/17) Family History: States: No Known Family Hx - Social History Hx Alcohol Use: No Hx Substance Use: No Review Of Systems Constitutional: Negative for: Fever, Chills Cardiovascular: Negative for: Chest Pain Gastrointestinal: Negative for: Nausea, Vomiting Musculoskeletal: Positive for: Foot Pain Skin: Negative for: Rash Neurological: Negative for: Weakness, Numbness Physical Exam - Physical Exam Appears: Non-toxic, No Acute Distress Skin: Warm, Dry, No Rash Head: Atraumatic, Normacephalic Eye(s): bilateral: Normal Inspection Oral Mucosa: Moist Cardiovascular: Rhythm Regular Respiratory: Normal Breath Sounds, No Rales, No Rhonchi, No Wheezing Extremity: Capillary Refill (<2 seconds), No Deformity, Other (Amputation of right 2nd toe. 15x3cm deep ulcer to dorsum of right foot extends to plantar region. No purulent drainage noted.) Extremity: Right: Other (Upper arm Picc Line in place) Pulses: Right Dorsalis Pedis: Normal Neurological/Psych: Oriented x3 Gait: Steady ED Course And Treatment - Laboratory Results Result Diagrams: 09/17/17 20:00 09/17/17 20:00 O2 Sat by Pulse Oximetry: 98 (RA) Pulse Ox Interpretation: Normal Medical Decision Making Medical Decision Making: Impression: Chronic diabetic foot ulcer Plan: Admit under Dr. Hills service with Uday in consult. Disposition - Disposition Disposition: HOSPITALIZED Disposition Time: 04:26 Condition: GOOD - Clinical Impression Clinical Impression: Osteomyelitis of foot - Scribe Statement The provider has reviewed the documentation as recorded by the Raimundoibkelly Ramirez All medical record entries made by the Raimundoibkelly were at my direction and personally dictated by me. I have reviewed the chart and agree that the record accurately reflects my personal performance of the history, physical exam, medical decision making, and the department course for this patient. I have also personally directed, reviewed, and agree with the discharge instructions and disposition.
[2017-09-17 20:03] LABS: BASO # 0.2 K/uL (0.0-0.2); BASO % 1.4 % (0.0-2.0); EOS # 0.2 K/uL (0.0-0.7); EOS % 2.2 % (0.0-4.0); HEMOGLOBIN 10.7 g/dL (12.0-18.0); LYMPH # 2.8 K/uL (1.0-4.3); LYMPH % 25.3 % (20.0-40.0); MEAN CELL VOLUME 87.5 fL (80.0-94.0); MEAN CORPUSCULAR HEMOGLOBIN 29.4 pg (27.0-31.0); MEAN CORPUSCULAR HGB CONC 33.6 g/dL (33.0-37.0); MEAN PLATELET VOLUME 7.6 fL (7.2-11.7); MONO # 0.7 K/uL (0.0-0.8); NEUT # 7.3 K/uL (1.8-7.0); NEUT % 65.1 % (50.0-75.0); RBC 3.64 Mil/uL (4.40-5.90); RED CELL DISTRIBUTION WIDTH 12.2 % (11.5-14.5); WHITE BLOOD COUNT 11.2 K/uL (4.8-10.8)
[2017-09-17 20:20] LABS: ALB/GLOB RATIO 0.7 (1.0-2.1); ALBUMIN 3.7 g/dL (3.5-5.0); ALT/SGPT 25 U/L (21-72); AST/SGOT 25 U/L (17-59); BLOOD UREA NITROGEN 15 mg/dL (9-20); CALCIUM 8.9 mg/dl (8.6-10.4); GFR AFRICAN-AMERICAN > 60; GFR NON-AFRICAN AMERICAN > 60
[2017-09-17] MEDS ORDERED: Vancomycin 500 mg Inj IVPB SCH (21:45)
[2017-09-17] MEDS ORDERED: Home Med 1 UNIT (Meropenem [Merrem Iv] 1 GM) IVPB SCH (22:00)
[2017-09-17] MEDS: Meropenem 1 GM in Sodium Chloride 0.9% 100 ML IVPB SCH (22:10)
[2017-09-17] MEDS: (Novolin R) Insulin Human Regular 100 units/ml vial SC SCH (22:12)
[2017-09-17] MEDS: (Lantus) Insulin Glargine, Recombinant SC SCH (22:18)
[2017-09-17] MEDS ORDERED: (Lantus) Insulin Glargine, Recombinant SC ONE (22:19)
[2017-09-17] MEDS ORDERED: VANCOMYCIN IVPB SCH (23:00)
[2017-09-17] MEDS ORDERED: SODIUM CHLORIDE 0.9% IVPB SCH (23:00)
[2017-09-17] MEDS: Vancomycin 1.4 GM in Sodium Chloride 0.9% 500 ML IVPB SCH (23:55)
[2017-09-18] MEDS: Meropenem 1 GM in Sodium Chloride 0.9% 100 ML IVPB SCH ×3 (05:29→21:07)
--- NOTE | 2017-09-18 08:13 | RAD ---
PROCEDURE: Right Foot Radiographs. HISTORY: osteomyelitis COMPARISON: None. FINDINGS: BONES: No acute fracture. Status post amputation distal aspect 2nd metatarsal. JOINTS: There is a marginal erosion of the proximal aspect 1st proximal phalanx seen only in the oblique view. No other articular erosions are appreciated. This is of questionable significance. The possibility of an inflammatory arthropathy should be considered. SOFT TISSUES: Normal. OTHER FINDINGS: None. IMPRESSION: Amputation 2nd digit at distal aspect 2nd metatarsal. Articular erosion proximal aspect 1st proximal phalanx. Possible inflammatory arthropathy. Please correlate.
[2017-09-18] MEDS: (Novolin R) Insulin Human Regular 100 units/ml vial SC SCH ×4 (08:21→21:32)
[2017-09-18] MEDS: Vancomycin 1.4 GM in Sodium Chloride 0.9% 500 ML IVPB SCH ×2 (10:01→22:08)
--- NOTE | 2017-09-18 10:07 | CP.PCM.CON ---
History of Present Illness - History of Present Illness History of Present Illness: Podiatry Consult Note - Dr. Frye 57 y.o male seen at bedside concerning status 12 days after incision and drainage with partial right 2nd ray resection secondary to necrotizing fasciitis of the right foot. PT was discharged from [facility] due to the facility not having access to wound vac therapy, as prescribed by Dr. Frye. Pt has had no acute changes in his condition in that time. Pt is receiving IV abx per PICC line. Patient is seen resting comfortably at bedside. No wound VAC in place at this time. Continues to ambulate with use of walker. Denies any recent N/V/F/C/CP/SOB/D/posterior calf pain when squeezed. Denies any further or new pedal complaints at this time Past Patient History - Past Medical History & Family History Past Medical History?: Yes - Past Social History Smoking Status: Current Some Days Smoker - CARDIAC Hx Cardiac Disorders: Yes Hx Hypertension: Yes - PULMONARY Hx Respiratory Disorders: No - NEUROLOGICAL Hx Neurological Disorder: No - HEENT Hx HEENT Problems: No - RENAL Hx Chronic Kidney Disease: No - ENDOCRINE/METABOLIC Hx Endocrine Disorders: Yes Hx Diabetes Mellitus Type 2: Yes - HEMATOLOGICAL/ONCOLOGICAL Hx Blood Disorders: No - INTEGUMENTARY Hx Dermatological Problems: No - MUSCULOSKELETAL/RHEUMATOLOGICAL Hx Musculoskeletal Disorders: Yes Hx Falls: No Hx Osteomyelitis: Yes - GASTROINTESTINAL Hx Gastrointestinal Disorders: No - GENITOURINARY/GYNECOLOGICAL Hx Genitourinary Disorders: No - PSYCHIATRIC Hx Substance Use: No - SURGICAL HISTORY Hx Surgeries: Yes Hx Amputation: Yes (2nd toe rt foot amputation) Other/Comment: eye surgery - ANESTHESIA Hx Anesthesia: Yes Hx Anesthesia Reactions: No Hx Malignant Hyperthermia: No Has any member of the family had a problem w/ anesthesia?: No Meds Allergies/Adverse Reactions: Allergies Allergy/AdvReac Type Severity Reaction Status Date / Time No Known Allergies Allergy Verified 09/17/17 19:19 - Medications Medications: Current Medications Acetaminophen (Tylenol 325mg Tab) 650 mg PO Q6 PRN PRN Reason: Fever >100.4 F Ferrous Sulfate (Feosol) 325 mg PO DAILY [facility] Last Admin: 09/18/17 09:13 Dose: 325 mg Glipizide (Glucotrol) 5 mg PO ACB [facility] Last Admin: 09/18/17 08:30 Dose: 5 mg Heparin Sodium (Porcine) (Heparin) 5,000 units SC Q12 [facility] Last Admin: 09/18/17 09:14 Dose: 5,000 units Meropenem 1 gm/ Sodium (Chloride) 100 mls @ 200 mls/hr IVPB Q8H [facility] Last Admin: 09/18/17 05:29 Dose: 200 mls/hr Vancomycin HCl 1.4 gm/ Sodium (Chloride) 500 mls @ 220 mls/hr IVPB Q12H [facility] Last Admin: 09/18/17 10:01 Dose: 220 mls/hr Insulin Glargine (Lantus) 20 unit SC HS [facility] Last Admin: 09/17/17 22:18 Dose: 20 units Insulin Human Regular (Novolin R) 1 unit SC ACHS [facility] PRN Reason: Protocol Last Admin: 09/18/17 08:21 Dose: Not Given Metoprolol Tartrate (Lopressor) 25 mg PO BID [facility] Last Admin: 09/18/17 09:13 Dose: 25 mg Pneumococcal Polyvalent Vaccine (Pneumovax 23 Vaccine) 0.5 ml IM .ONCE ONE Stop: 09/19/17 10:01 Physical Exam - Constitutional Appears: Well, Non-toxic, No Acute Distress - Extremities Exam Additional comments: Right lower extremity focused exam. Dressing c/d/i with minimal strikethrough noted. VASC- pedal pulses fully palpable, skin temp runs warm to warm (with increased callor noted to medial foot), CFT > 3 seconds to remaining digits. 3rd-5th digit appear slightly more dusky than contralateral side but there temperature is warm NEURO-gross and protective pedal sensation are diminished DERM- Mild wound exudate noted, no active drainage or purulence. No mal-odor produced. No fluctuance, or abscess appreciated. Surgical wound site measures approximately 14cm x 6 cm x 3 cm down to the level of bone with tendons exposed, plantarly the ulceration extends longer and encompasses from the medial aspect of right foot border to the 3rd interspace. Ulcer base is mixture of granular and fibrotic tisuse with margin showing interrupted necrosis. Lateral hallux proximal-plantar borders shows necrotic rim. Plantar digital flexors tendon exposed. Sutures at the proximal ends plantarly and dorsally intact without dehiscence noted; well co-apted, well re-approximated No juan-wound erythema present. Integrity of the surrounding soft tissue appears stable at this time with no necrotizing fascitis spreading appreciated at this time. Planter hallux skin along periphery of wound mildly cyanotic, though hallux distal tuft well persuded. Superficial lateral foot wound measuring 1.3x 0.8, absent probe to bone, with granular-fibrotic wound base. No malodor, no purulence, no active drainage. Ortho- rigid cavovarus foot type is noted neg tenderness to palpation of ulcerations, neg Hohmans sign on deep calf squeeze. - Neurological Exam Neurological exam: Alert, Oriented x3 - Psychiatric Exam Psychiatric exam: Normal Affect, Normal Mood Results - Vital Signs Recent Vital Signs: Last Vital Signs Temp 98 F 09/18/17 07:57 Pulse 83 09/18/17 07:57 Resp 20 09/18/17 07:57 BP 111/72 09/18/17 09:13 Pulse Ox 96 09/18/17 07:57 - Labs Result Diagrams: 09/17/17 20:00 09/17/17 20:00 Labs: Laboratory Results - last 24 hr 09/17/17 09/17/17 09/17/17 20:00 20:00 20:00 WBC 11.2 H RBC 3.64 L Hgb 10.7 L Hct 31.8 L MCV 87.5 MCH 29.4 MCHC 33.6 RDW 12.2 Plt Count 553 H MPV 7.6 Neut % (Auto) 65.1 Lymph % (Auto) 25.3 Worth % (Auto) 6.0 Eos % (Auto) 2.2 Baso % (Auto) 1.4 Neut # (Auto) 7.3 H Lymph # (Auto) 2.8 Worth # (Auto) 0.7 Eos # (Auto) 0.2 Baso # (Auto) 0.2 ESR 120 H Sodium 141 Potassium 4.3 Chloride 99 Carbon Dioxide 28 Anion Gap 19 BUN 15 Creatinine 0.7 L Est GFR ( Amer) > 60 Est GFR (Non-Af Amer) > 60 POC Glucose (mg/dL) Random Glucose 200 H Calcium 8.9 Total Bilirubin 0.4 AST 25 ALT 25 Alkaline Phosphatase 94 C-React Prot High Sens > 15.00 H Total Protein 9.2 H Albumin 3.7 Globulin 5.5 H Albumin/Globulin Ratio 0.7 L 09/17/17 09/18/17 22:06 07:07 WBC RBC Hgb Hct MCV MCH MCHC RDW Plt Count MPV Neut % (Auto) Lymph % (Auto) Worth % (Auto) Eos % (Auto) Baso % (Auto) Neut # (Auto) Lymph # (Auto) Worth # (Auto) Eos # (Auto) Baso # (Auto) ESR Sodium Potassium Chloride Carbon Dioxide Anion Gap BUN Creatinine Est GFR ( Amer) Est GFR (Non-Af Amer) POC Glucose (mg/dL) 143 H 141 H Random Glucose Calcium Total Bilirubin AST ALT Alkaline Phosphatase C-React Prot High Sens Total Protein Albumin Globulin Albumin/Globulin Ratio Assessment & Plan - Assessment and Plan (Free Text) Assessment: 57 y.o male seen and evaluated at bedside 12 days s/p right foot incision and drainage with partial 2nd ray resection secondary to necrotizing fasciitis Plan: Patient seen and evaluated at bedside. Plan discussed with attending Dr. Frye Charts, labs, vitals reviewed. Afebrile, WBC= 11.2, ESR= 120, CRP>15.00. Continue outpatient IV abx via PICC. (Vancomycin & Meropenam) Surgical debridement of necrotic tissue indicated, avascular areas now well demarcated 2 weeks s/p initial procedures. Discussed need for 2nd wound debridement and ulcer bed preparation to. Discussed risks, benefit, and compilations with patient. Pt opted for proposed treatment plan. -Pt to [facility] tomorrow 09/19/17 in afternoon for right foot wound debridement. -Pt placed NPO. -Anticoagulant (Heparin 5,000 units) held. Cleansed wound site with saline, dressed with Santyl, Wet-to-dry gauze dressing , and DSD. Podiatry will continue to follow while patient in house - Date & Time Date: 09/18/17 Time: 12:00
--- NOTE | 2017-09-18 10:23 | CP.PCM.PN ---
Subjective - Date & Time of Evaluation Date of Evaluation: 09/18/17 Time of Evaluation: 10:25 - Subjective Subjective: H&P dictated #[id number] Objective - Vital Signs/Intake and Output Vital Signs (last 24 hours): Temp Pulse Resp BP Pulse Ox 98 F 83 20 111/72 96 09/18/17 07:57 09/18/17 07:57 09/18/17 07:57 09/18/17 09:13 09/18/17 07:57 - Medications Medications: Current Medications Acetaminophen (Tylenol 325mg Tab) 650 mg PO Q6 PRN PRN Reason: Fever >100.4 F Ferrous Sulfate (Feosol) 325 mg PO DAILY [facility] Last Admin: 09/18/17 09:13 Dose: 325 mg Glipizide (Glucotrol) 5 mg PO ACB [facility] Last Admin: 09/18/17 08:30 Dose: 5 mg Heparin Sodium (Porcine) (Heparin) 5,000 units SC Q12 [facility] Last Admin: 09/18/17 09:14 Dose: 5,000 units Meropenem 1 gm/ Sodium (Chloride) 100 mls @ 200 mls/hr IVPB Q8H [facility] Last Admin: 09/18/17 05:29 Dose: 200 mls/hr Vancomycin HCl 1.4 gm/ Sodium (Chloride) 500 mls @ 220 mls/hr IVPB Q12H [facility] Last Admin: 09/18/17 10:01 Dose: 220 mls/hr Insulin Glargine (Lantus) 20 unit SC HS [facility] Last Admin: 09/17/17 22:18 Dose: 20 units Insulin Human Regular (Novolin R) 1 unit SC ACHS [facility] PRN Reason: Protocol Last Admin: 09/18/17 08:21 Dose: Not Given Metoprolol Tartrate (Lopressor) 25 mg PO BID [facility] Last Admin: 09/18/17 09:13 Dose: 25 mg Pneumococcal Polyvalent Vaccine (Pneumovax 23 Vaccine) 0.5 ml IM .ONCE ONE Stop: 09/19/17 10:01 - Labs Labs: 09/17/17 20:00 09/17/17 20:00
--- NOTE | 2017-09-18 15:06 | RAD ---
HISTORY: need confirmation for PICC line placement. COMPARISON: 09/11/2017. FINDINGS: The right PICC line terminates at the cavoatrial junction. LUNGS: The lungs are well inflated and clear. PLEURA: No significant pleural effusion identified, no pneumothorax apparent. CARDIOVASCULAR: Normal. OSSEOUS STRUCTURES: No significant abnormalities. VISUALIZED UPPER ABDOMEN: Normal. OTHER FINDINGS: None. IMPRESSION: The right PICC line terminates at the cavoatrial junction. No acute findings.
[2017-09-18 17:25] LABS: SQUAMOUS EPITHIAL 2 /hpf (0-5); URINE BACTERIA RARE (<OCC); URINE BILIRUBIN NEGATIVE (NEGATIVE); URINE BLOOD NEGATIVE (NEGATIVE); URINE CLARITY Clear (Clear); URINE COLOR Straw (YELLOW); URINE GLUCOSE (UA) NORMAL (Normal); URINE LEUKOCYTE ESTERASE NEG Leu/uL (Negative); URINE PROTEIN NEGATIVE (NEGATIVE); URINE UROBILINOGEN NORMAL mg/dL (0.2-1.0)
--- NOTE | 2017-09-18 18:11 | CP.PCM.CON ---
History of Present Illness - History of Present Illness History of Present Illness: dictated Past Patient History - Past Medical History & Family History Past Medical History?: Yes - Past Social History Smoking Status: Current Some Days Smoker - CARDIAC Hx Cardiac Disorders: Yes Hx Hypertension: Yes - PULMONARY Hx Respiratory Disorders: No - NEUROLOGICAL Hx Neurological Disorder: No - HEENT Hx HEENT Problems: No - RENAL Hx Chronic Kidney Disease: No - ENDOCRINE/METABOLIC Hx Endocrine Disorders: Yes Hx Diabetes Mellitus Type 2: Yes - HEMATOLOGICAL/ONCOLOGICAL Hx Blood Disorders: No - INTEGUMENTARY Hx Dermatological Problems: No - MUSCULOSKELETAL/RHEUMATOLOGICAL Hx Musculoskeletal Disorders: Yes Hx Falls: No Hx Osteomyelitis: Yes - GASTROINTESTINAL Hx Gastrointestinal Disorders: No - GENITOURINARY/GYNECOLOGICAL Hx Genitourinary Disorders: No - PSYCHIATRIC Hx Substance Use: No - SURGICAL HISTORY Hx Surgeries: Yes Hx Amputation: Yes (2nd toe rt foot amputation) Other/Comment: eye surgery - ANESTHESIA Hx Anesthesia: Yes Hx Anesthesia Reactions: No Hx Malignant Hyperthermia: No Has any member of the family had a problem w/ anesthesia?: No Meds Allergies/Adverse Reactions: Allergies Allergy/AdvReac Type Severity Reaction Status Date / Time No Known Allergies Allergy Verified 09/17/17 19:19 - Medications Medications: Current Medications Acetaminophen (Tylenol 325mg Tab) 650 mg PO Q6 PRN PRN Reason: Fever >100.4 F Collagenase (Santyl) 0 gm TOP DAILY [facility] Ferrous Sulfate (Feosol) 325 mg PO DAILY [facility] Last Admin: 09/18/17 09:13 Dose: 325 mg Glipizide (Glucotrol) 5 mg PO ACB [facility] Last Admin: 09/18/17 08:30 Dose: 5 mg Heparin Sodium (Porcine) (Heparin) 5,000 units SC Q12 [facility] Last Admin: 09/18/17 09:14 Dose: 5,000 units Meropenem 1 gm/ Sodium (Chloride) 100 mls @ 200 mls/hr IVPB Q8H [facility] Last Admin: 09/18/17 14:07 Dose: 200 mls/hr Vancomycin HCl 1.4 gm/ Sodium (Chloride) 500 mls @ 220 mls/hr IVPB Q12H [facility] Last Admin: 09/18/17 10:01 Dose: 220 mls/hr Insulin Glargine (Lantus) 20 unit SC HS [facility] Last Admin: 09/17/17 22:18 Dose: 20 units Insulin Human Regular (Novolin R) 1 unit SC ACHS [facility] PRN Reason: Protocol Last Admin: 09/18/17 11:17 Dose: Not Given Metoprolol Tartrate (Lopressor) 25 mg PO BID [facility] Last Admin: 09/18/17 17:28 Dose: 25 mg Pneumococcal Polyvalent Vaccine (Pneumovax 23 Vaccine) 0.5 ml IM .ONCE ONE Stop: 09/19/17 10:01 Results - Vital Signs Recent Vital Signs: Last Vital Signs Temp 98.5 F 09/18/17 15:00 Pulse 89 09/18/17 15:00 Resp 20 09/18/17 15:00 BP 129/78 09/18/17 17:28 Pulse Ox 98 09/18/17 15:00 - Labs Result Diagrams: 09/17/17 20:00 09/17/17 20:00 Labs: Laboratory Results - last 24 hr 09/17/17 09/17/17 09/17/17 17:13 20:00 20:00 WBC 11.2 H RBC 3.64 L Hgb 10.7 L Hct 31.8 L MCV 87.5 MCH 29.4 MCHC 33.6 RDW 12.2 Plt Count 553 H MPV 7.6 Neut % (Auto) 65.1 Lymph % (Auto) 25.3 [place] % (Auto) 6.0 Eos % (Auto) 2.2 Baso % (Auto) 1.4 Neut # (Auto) 7.3 H Lymph # (Auto) 2.8 [place] # (Auto) 0.7 Eos # (Auto) 0.2 Baso # (Auto) 0.2 ESR 120 H Sodium 141 Potassium 4.3 Chloride 99 Carbon Dioxide 28 Anion Gap 19 BUN 15 Creatinine 0.7 L Est GFR ( Amer) > 60 Est GFR (Non-Af Amer) > 60 POC Glucose (mg/dL) Random Glucose 200 H Calcium 8.9 Total Bilirubin 0.4 AST 25 ALT 25 Alkaline Phosphatase 94 C-React Prot High Sens Total Protein 9.2 H Albumin 3.7 Globulin 5.5 H Albumin/Globulin Ratio 0.7 L Urine Color Straw Urine Clarity Clear Urine pH 7.0 Ur Specific [place] 1.005 Urine Protein Negative Urine Glucose (UA) Normal Urine Ketones Negative Urine Blood Negative Urine Nitrate Negative Urine Bilirubin Negative Urine Urobilinogen Normal Ur Leukocyte Esterase Neg Urine WBC (Auto) < 1 Ur Squamous Epith Cells 2 Urine Bacteria Rare 09/17/17 09/17/17 09/18/17 20:00 22:06 07:07 WBC RBC Hgb Hct MCV MCH MCHC RDW Plt Count MPV Neut % (Auto) Lymph % (Auto) [place] % (Auto) Eos % (Auto) Baso % (Auto) Neut # (Auto) Lymph # (Auto) [place] # (Auto) Eos # (Auto) Baso # (Auto) ESR Sodium Potassium Chloride Carbon Dioxide Anion Gap BUN Creatinine Est GFR ( Amer) Est GFR (Non-Af Amer) POC Glucose (mg/dL) 143 H 141 H Random Glucose Calcium Total Bilirubin AST ALT Alkaline Phosphatase C-React Prot High Sens > 15.00 H Total Protein Albumin Globulin Albumin/Globulin Ratio Urine Color Urine Clarity Urine pH Ur Specific [place] Urine Protein Urine Glucose (UA) Urine Ketones Urine Blood Urine Nitrate Urine Bilirubin Urine Urobilinogen Ur Leukocyte Esterase Urine WBC (Auto) Ur Squamous Epith Cells Urine Bacteria 09/18/17 09/18/17 11:04 16:54 WBC RBC Hgb Hct MCV MCH MCHC RDW Plt Count MPV Neut % (Auto) Lymph % (Auto) [place] % (Auto) Eos % (Auto) Baso % (Auto) Neut # (Auto) Lymph # (Auto) [place] # (Auto) Eos # (Auto) Baso # (Auto) ESR Sodium Potassium Chloride Carbon Dioxide Anion Gap BUN Creatinine Est GFR ( Amer) Est GFR (Non-Af Amer) POC Glucose (mg/dL) 124 H 145 H Random Glucose Calcium Total Bilirubin AST ALT Alkaline Phosphatase C-React Prot High Sens Total Protein Albumin Globulin Albumin/Globulin Ratio Urine Color Urine Clarity Urine pH Ur Specific [place] Urine Protein Urine Glucose (UA) Urine Ketones Urine Blood Urine Nitrate Urine Bilirubin Urine Urobilinogen Ur Leukocyte Esterase Urine WBC (Auto) Ur Squamous Epith Cells Urine Bacteria
[2017-09-18] MEDS: (Lantus) Insulin Glargine, Recombinant SC SCH (20:59)
[2017-09-18] MEDS: Dextrose 5%/0.45% NS 1,000 ML IV SCH (21:08)
--- NOTE | 2017-09-18 22:02 | HP ---
CHIEF COMPLAINT: The patient is transferred from nursing facility as wound VAC was unavailable at the facility. HISTORY OF PRESENT ILLNESS: Mr. Zavala is a 57-year-old male with history of recently diagnosed diabetes mellitus, uncontrolled diabetes, cellulitis of the right foot, diabetic foot ulcer, gas gangrene, necrotizing fasciitis, status post incision and drainage and second toe partial amputation done by Dr. Nehal Frye from Podiatry whose wound grew multiple organisms including enterococcus faecalis, Enterobacter cloacae and beta-hemolytic strep. Has been on meropenem and vancomycin since last admission on 09/02/2017. The patient after being sterilized and on wound VAC and requiring long-term IV antibiotics, the patient is being sent to [facility] for long-term IV antibiotics and sent for wound VAC treatment on 09/16/2017. The patient returned back to ED because nursing facility is not able to obtain wound VAC as recommended by Podiatry. So, the patient is being admitted for further management and Advanced Practice Nurse Psychotherapist followup and for continuation of IV antibiotics. When I examined the patient, the patient denies any headache or dizziness. Denies any chest pain, shortness of breath or wheezing. Denies any nausea, vomiting, abdominal pain, diarrhea or constipation. Denies any urinary complaints. Denies any leg pains or leg cramps. Denies any other neurologic symptoms. Right foot with the dressing in place. Denies any other complaints. PAST MEDICAL HISTORY: Diabetes mellitus, hypertension, diabetic foot ulcer, osteomyelitis and status post I and D debridement of the foot ulcer and second toe amputation. PAST SURGICAL HISTORY: Right second toe amputation. PERSONAL HISTORY: He lives with his partner. Has three children. 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 FAMILY HISTORY: Nothing contributory to the present illness. SOCIAL HISTORY: He is an ex-smoker, quit smoking about 8 years ago, smoked for 30 years. Used to drink heavily before he quit alcohol about 8 years ago. ALLERGIES: NO KNOWN DRUG ALLERGIES. MEDICATIONS: Include vancomycin 1400 mg IV every 12 hours, metoprolol 25 mg p.o. b.i.d., meropenem 1 gm IV every 8 hours, Lantus 20 units subcu, glipizide 5 mg in the morning, Feosol 325 mg daily, Tylenol as needed. REVIEW OF SYSTEMS: As described in history of present illness, all other systems reviewed and were found to be negative. PHYSICAL EXAMINATION: GENERAL: A middle-aged male lying in bed in no acute distress. VITAL SIGNS: Blood pressure 125/80, pulse 85, respirations 20, temperature 99.1 degrees Fahrenheit, and O2 saturations 95% on room air. HEENT: Pupils are equal, round and reacting to light and accommodation. Extraocular muscles are intact. No icterus. No pallor. No oral thrush. No pharyngeal congestion. NECK: Supple. No JVD. LUNGS: Bilateral vesicular breath sounds. No wheezing. No rhonchi. CARDIOVASCULAR: S1 and S2 present, regular. ABDOMEN: Soft and nontender. Bowel sounds present. No guarding. No rigidity. No rebound tenderness noted. BRANCH OFFICE ADMINISTRATOR: Alert, awake and oriented x3. No focal deficits noted. EXTREMITIES: Right foot with the dressing in place ____ plantar aspect of the right foot with dressing in place. LABORATORY DATA: Labs done from ED; WBC 11.2, hemoglobin 10.7, hematocrit 31.8, platelets 553. Sodium 141, potassium 4.3, chloride 99, bicarb 28, BUN 15, creatinine 0.7, glucose 143, calcium 8.9, AST 25, ALT 25, alkaline phosphatase 94, CRP more than 50, total protein 9.2, albumin 3.7. Foot x-ray done on 09/17/2017, amputation of the second digit distal aspect second metatarsal, articular erosion proximal aspect of first proximal phalanx, possible inflammatory atrophy. ASSESSMENT: Middle aged male with history of recently diagnosed diabetes mellitus, uncontrolled diabetes, hypertension, diabetic foot ulcer, status post necrotizing fasciitis, status post gas gangrene, possible osteomyelitis, status post second toe amputation requiring wound VAC and long-term IV antibiotics who has been [facility] secondary to and evaluate the wound VAC. 1. Uncontrolled diabetes mellitus. 2. Hypertension. 3. Diabetic foot ulcer. 4. Status post necrotizing fasciitis. Status post incision and debridement. 5. Possible osteomyelitis and status post amputation of the second toe of the right foot. 6. Wound culture growing multiple organisms including beta-hemolytic strep, enterococcus faecalis and Enterobacter cloacae. PLAN: The patient is being admitted to regular floor. We will continue with Lantus 20 subcu at bedtime with sliding scale coverage and glipizide 5 mg in the morning. Blood pressure is controlled. Continue with metoprolol 25 mg p.o. b.i.d. Continue with meropenem 1 gm IV every 8 hours and vancomycin 1400 mg IV every 12 hours as per ID recommendation. We will obtain Podiatry consult and ID consult. We will follow up with Advanced Practice Nurse Psychotherapist for discharge planning and subacute rehab placement. We will request physical therapy. We will continue with DVT and GI prophylaxes. We will add further recommendation as his clinical course progresses. Fernando Hills MD
[2017-09-19] MEDS: Meropenem 1 GM in Sodium Chloride 0.9% 100 ML IVPB SCH ×3 (05:13→21:32)
[2017-09-19] MEDS: (Novolin R) Insulin Human Regular 100 units/ml vial SC SCH ×4 (07:57→21:53)
--- NOTE | 2017-09-19 09:26 | CON ---
DATE: INFECTIOUS DISEASE CONSULTATION REQUESTING PHYSICIAN: Fernando Hills MD HISTORY OF PRESENT ILLNESS: This patient is a 57-year-old male. He was recently here for 12 days. He was found to have severe cellulitis and necrotizing fascitis of his right foot and second toe was resected and he went to the OR twice with Dr. Frye and he continued to spike several days. His antibiotics had to be changed and he had cultures and 3 different types of bacteria. He was continued on vancomycin and meropenem and was sent to rehabilitation. Now he returns from there as his foot is swollen and he will need further debridement. He did not have any VAC placed now and he continues to walk with his walker and he is concerned about his foot now as he may be going for surgery tomorrow. According to the podiatry note, he is not allergic to any medicine. He was diabetic previous to this admission. Previous to the last admission, he was not on any medications, but now he comes from the rehab. We had sent him with the PICC line in his right arm. He denies any problems with the PICC line. He denies any diarrhea, smoking. He is a smoker. Some days he smokes and he does have hypertension and no pulmonary diseases. Denies any neurological problems. No kidney problems. He does have diabetes. He has no blood issues. No other skin problems. He did have history of osteomyelitis on the foot and he has no substance abuse. He had a second toe amputated on the last admission. He has had eye surgeries in the past and he is on vancomycin and meropenem and we will give him 1400 every 12 hours of vancomycin and meropenem 1 gm every 8 hours and he is on glipizide, ferrous sulphate, heparin, subcu insulin, Lantus 20 units at bedtime and he gets coverage as needed and metoprolol, Lopressor 25 mg b.i.d., and he did receive a Pneumovac. REVIEW OF SYSTEMS: GENERAL: He was sent because the foot was looking worse. He denied any other complaints. HEENT: No headaches. No ear, nose, or throat problems. CHEST: No chest pain. No shortness of breath. ABDOMEN: No abdominal pain. No nausea. No vomiting. No diarrhea. EXTREMITIES: He has a small sore on his heel now and probably because he is keeping his foot like that, so I told him not to put it on the pillow, but to leave it in the air, extend, and pillow should rest his leg and he has had dressing of the foot at this time. PHYSICAL EXAMINATION: VITAL SIGNS: Temperature 98.5, pulse 89, blood pressure 129/78, respirations 20. HEENT: Head is atraumatic and normocephalic. Pupils are reacting to light. Eye movements are unremarkable. Tongue is moist. NECK: Supple. JVP is flat. LUNGS: Clear. No crackles or rales present. HEART: S1, S2 regular. No murmurs present. ABDOMEN: Soft. Nontender. No guarding. No rigidity is present. EXTREMITIES: Noted from the podiatry note that there is a surgical wound, measures approximately 14 cm x 6 x 3 and is down to the level of bone and tendons exposed . The ulceration extends longer and encompasses from the medial aspect of the right foot border to the third interspace and has sebaceous granular fibrotic tissue and margin shows interrupted necrosis and there is a lateral hallux proximal plantar border showing necrotic rim and plantar digital flexor tendons are exposed. He did have a bad necrotizing fascitis and needed debridement and since he has an open wound right now, he should get debridement and I think probably should have Plastics or Podiatry to see if they can put a skin graft on these open tendons and wound. If it remains open, it is going to get necrotic more and more. LABORATORY DATA: Labs are noted. Labs show white count is 11.2, hemoglobin 10.7, hematocrit 31.8, platelet count is 553, and creatinine is 0.7. Sodium is 199, and now 145. CRP is more than 15. So at this time, I will repeat the labs tomorrow with the ESR and vancomycin trough level. We will follow with the roll repairer. This patient is diabetic and was having necrotizing fascitis of the foot and he had foot x-ray done yesterday and the foot x-ray shows amputated second digit on second distal metatarsal. ____ proximal phalanx, possible inflammatory arthropathy, please correlate. There is marginal erosion of the proximal aspect of first proximal phalanx seen in the oblique view. No other articular erosions. The possibility of inflammatory arthropathy should be considered. The chest x-ray was done and the chest x-ray shows right PICC line terminates at the cavoatrial junction. No acute findings. The PICC line was intact at this time and we will continue with the antibiotics and follow with the roll repairer, but I think he should have Plastic evaluation after the debridement, and so that he could get closure of the wound at some point. Tone Barcenas MD
[2017-09-19] MEDS: Dextrose 5%/0.45% NS 1,000 ML IV SCH ×2 (09:31→23:30)
[2017-09-19] MEDS: Collagenase 250 Units/gm Ointment(30 gm) TOP SCH (09:46)
[2017-09-19] MEDS ORDERED: Pneumococcal 23-Valent Vaccine IM ONE (10:00)
[2017-09-19 10:26] LABS: INR 1.3; PROTHROMBIN TIME 14.1 SECONDS (9.7-12.2)
[2017-09-19 10:48] LABS: BASO # 0.1 K/uL (0.0-0.2); BASO % 1.1 % (0.0-2.0); EOS # 0.2 K/uL (0.0-0.7); EOS % 1.8 % (0.0-4.0); HEMOGLOBIN 10.1 g/dL (12.0-18.0); LYMPH # 1.9 K/uL (1.0-4.3); LYMPH % 18.1 % (20.0-40.0); MEAN CELL VOLUME 87.3 fL (80.0-94.0); MEAN CORPUSCULAR HEMOGLOBIN 30.9 pg (27.0-31.0); MEAN CORPUSCULAR HGB CONC 35.4 g/dL (33.0-37.0); MEAN PLATELET VOLUME 7.9 fL (7.2-11.7); MONO # 0.6 K/uL (0.0-0.8); MONO % 5.8 % (0.0-10.0); NEUT # 7.5 K/uL (1.8-7.0); NEUT % 73.2 % (50.0-75.0); RBC 3.27 Mil/uL (4.40-5.90); RED CELL DISTRIBUTION WIDTH 12.4 % (11.5-14.5); WHITE BLOOD COUNT 10.3 K/uL (4.8-10.8)
[2017-09-19 10:49] LABS: ALB/GLOB RATIO 0.7 (1.0-2.1); ALBUMIN 3.4 g/dL (3.5-5.0); ALT/SGPT 11 U/L (21-72); AST/SGOT 18 U/L (17-59); BLOOD UREA NITROGEN 11 mg/dL (9-20); CALCIUM 8.7 mg/dl (8.6-10.4); GFR AFRICAN-AMERICAN > 60; GFR NON-AFRICAN AMERICAN > 60
--- NOTE | 2017-09-19 10:52 | CP.PCM.PN ---
Subjective - Date & Time of Evaluation Date of Evaluation: 09/19/17 Time of Evaluation: 10:40 - Subjective Subjective: Progress note dictated # [id number] Objective - Vital Signs/Intake and Output Vital Signs (last 24 hours): Temp Pulse Resp BP Pulse Ox 98.5 F 88 20 111/74 96 09/19/17 07:59 09/19/17 07:59 09/19/17 07:59 09/19/17 09:44 09/19/17 07:59 Intake and Output: 09/19/17 09/19/17 06:59 18:59 Intake Total 1680 Output Total 700 Balance 980 - Medications Medications: Current Medications Acetaminophen (Tylenol 325mg Tab) 650 mg PO Q6 PRN PRN Reason: Fever >100.4 F Collagenase (Santyl) 0 gm TOP DAILY [facility] Last Admin: 09/19/17 09:46 Dose: 1 applic Ferrous Sulfate (Feosol) 325 mg PO DAILY [facility] Last Admin: 09/19/17 09:44 Dose: 325 mg Glipizide (Glucotrol) 5 mg PO ACB [facility] Last Admin: 09/19/17 07:59 Dose: 5 mg Heparin Sodium (Porcine) (Heparin) 5,000 units SC Q12 [facility] Last Admin: 09/18/17 09:14 Dose: 5,000 units Meropenem 1 gm/ Sodium (Chloride) 100 mls @ 200 mls/hr IVPB Q8H [facility] Last Admin: 09/19/17 05:13 Dose: 200 mls/hr Vancomycin HCl 1.4 gm/ Sodium (Chloride) 500 mls @ 220 mls/hr IVPB Q12H [facility] Last Admin: 09/18/17 22:08 Dose: 220 mls/hr Dextrose/Sodium Chloride (Dextrose 5%/0.45% Ns 1000 Ml) 1,000 mls @ 75 mls/hr IV .[id number] [facility] Last Admin: 09/19/17 09:31 Dose: Not Given Insulin Glargine (Lantus) 20 unit SC HS [facility] Last Admin: 09/18/17 20:59 Dose: Not Given Insulin Human Regular (Novolin R) 1 unit SC ACHS [facility] PRN Reason: Protocol Last Admin: 09/19/17 07:57 Dose: Not Given Metoprolol Tartrate (Lopressor) 25 mg PO BID [facility] Last Admin: 09/19/17 09:44 Dose: 25 mg - Labs Labs: 09/17/17 20:00 09/19/17 10:12 PT 14.1 SECONDS (9.7-12.2) H 09/19/17 10:12 INR 1.3 09/19/17 10:12 APTT 36 SECONDS (21-34) H 09/19/17 10:12
[2017-09-19] MEDS: Vancomycin 1.4 GM in Sodium Chloride 0.9% 500 ML IVPB SCH ×2 (14:29→22:22)
--- NOTE | 2017-09-19 15:12 | CP.PCM.PN ---
Subjective - Date & Time of Evaluation Date of Evaluation: 09/19/17 Time of Evaluation: 15:12 - Subjective Subjective: 57 y/o male seen at bedside prior to OR this afternoon for right foot debridement of ulcer. Pt confirms NPO status after breakfast today. Denies f/C/N /V/CP/SOB. Denies any acute events overnight. Has no further questions regarding his procedure today and says he understands the procedure fully. Objective - Vital Signs/Intake and Output Vital Signs (last 24 hours): Temp Pulse Resp BP Pulse Ox 98.5 F 62 20 111/74 98 09/19/17 07:59 09/19/17 11:15 09/19/17 07:59 09/19/17 11:15 09/19/17 11:15 Intake and Output: 09/19/17 09/19/17 06:59 18:59 Intake Total 1680 Output Total 700 Balance 980 - Medications Medications: Current Medications Acetaminophen (Tylenol 325mg Tab) 650 mg PO Q6 PRN PRN Reason: Fever >100.4 F Collagenase (Santyl) 0 gm TOP DAILY [facility] Last Admin: 09/19/17 09:46 Dose: 1 applic Ferrous Sulfate (Feosol) 325 mg PO DAILY [facility] Last Admin: 09/19/17 09:44 Dose: 325 mg Glipizide (Glucotrol) 5 mg PO ACB [facility] Last Admin: 09/19/17 07:59 Dose: 5 mg Heparin Sodium (Porcine) (Heparin) 5,000 units SC Q12 [facility] Last Admin: 09/18/17 09:14 Dose: 5,000 units Meropenem 1 gm/ Sodium (Chloride) 100 mls @ 200 mls/hr IVPB Q8H [facility] Last Admin: 09/19/17 13:21 Dose: 200 mls/hr Vancomycin HCl 1.4 gm/ Sodium (Chloride) 500 mls @ 220 mls/hr IVPB Q12H [facility] Last Admin: 09/19/17 14:29 Dose: 220 mls/hr Dextrose/Sodium Chloride (Dextrose 5%/0.45% Ns 1000 Ml) 1,000 mls @ 75 mls/hr IV .[id number] [facility] Last Admin: 09/19/17 09:31 Dose: Not Given Insulin Glargine (Lantus) 20 unit SC HS [facility] Last Admin: 09/18/17 20:59 Dose: Not Given Insulin Human Regular (Novolin R) 1 unit SC ACHS [facility] PRN Reason: Protocol Last Admin: 09/19/17 12:30 Dose: Not Given Metoprolol Tartrate (Lopressor) 25 mg PO BID [facility] Last Admin: 09/19/17 09:44 Dose: 25 mg - Labs Labs: 09/19/17 10:28 09/19/17 10:12 PT 14.1 SECONDS (9.7-12.2) H 09/19/17 10:12 INR 1.3 09/19/17 10:12 APTT 36 SECONDS (21-34) H 09/19/17 10:12 - Constitutional Appears: Well, Non-toxic, No Acute Distress - Extremities Exam Additional comments: right lower extremity focused exam: right foot dressing intact with minor strikethrough noted, serosanguinous in nature - Neurological Exam Neurological Exam: Alert, Awake, Oriented x3 - Psychiatric Exam Psychiatric exam: Normal Affect, Normal Mood Assessment and Plan - Assessment and Plan (Free Text) Assessment: 57 y/o male seen at bedside 13 days s/p right foot incision and drainage with partial 2nd ray resection secondary to necrotizing fasciitis, to go to OR today with Dr. Frye for debridement of right foot ulceration Plan: Pt seen and evaluated at bedside Discussed with attending Dr. Frye Labs and vitals reviewed- afebrile, WBC 10.3 NPO status confirmed with patient after breakfast this morning Medical clearance in chart Podiatry will continue to follow postoperatively
[2017-09-19] MEDS ORDERED: Lidocaine 2% MPF (5 ml) Inj ONE (15:38)
[2017-09-19] MEDS ORDERED: Bupivacaine HCl 0.5% PF (10 ml) Inj ONE (15:38)
[2017-09-19] MEDS ORDERED: Midazolam 2 MG/2 ML VIAL ONE ×3 (16:15→17:03)
[2017-09-19] MEDS ORDERED: HYDROmorphone 0.5 mg/0.5 ml ISec IVP PRN (18:07)
--- NOTE | 2017-09-19 18:11 | PCM.SURG1 ---
Surgeon's Initial Post Op Note - Surgeon's Notes Surgeon: Dr. Nehal Frye Shader And Toner: Dr. Justyna Banegas PGY-1 Type of Anesthesia: IV Sedation, Local Anesthesia Administered By: Dr. Katz Pre-Operative Diagnosis: right foot infected diabetic ulceration Operative Findings: see operative report. I: 20cc 1:1 mix 2% Lidocaine plain and 0.5% Marcaine plain; 10cc 0.5% Marcaine plain. M: Versajet setting 7, 3-0 Prolene, 4-0 Prolene, 1 inch iodoform packing, betadine soaked Adaptic, ABD, DSD , JONNY Post-Operative Diagnosis: same Operation Performed: right foot partial 1st ray amputation, 3rd metatarsal head resection, wound debridement, reconstructive skin flap Specimen/Specimens Removed: right hallux, right 1st metatarsal head and 3rd metatarsal head bone Estimated Blood Loss: EBL {In ML}: 100 Blood Products Given: N/A Drains Used: No Drains Post-Op Condition: Good Date of Surgery/Procedure: 09/19/17 Time of Surgery/Procedure: 18:11
--- NOTE | 2017-09-19 19:16 | CP.PCM.PN ---
Subjective - Date & Time of Evaluation Date of Evaluation: 09/19/17 Time of Evaluation: 02:00 - Subjective Subjective: dictated Objective - Vital Signs/Intake and Output Vital Signs (last 24 hours): Temp Pulse Resp BP Pulse Ox 97.9 F 81 19 109/67 95 09/19/17 18:40 09/19/17 18:40 09/19/17 18:40 09/19/17 18:40 09/19/17 18:40 Intake and Output: 09/19/17 09/20/17 18:59 06:59 Intake Total 500 Balance 500 - Medications Medications: Current Medications Acetaminophen (Tylenol 325mg Tab) 650 mg PO Q6 PRN PRN Reason: Fever >100.4 F Acetaminophen (Tylenol 325mg Tab) 650 mg PO Q6 PRN PRN Reason: Pain, Mild (1-3) Collagenase (Santyl) 0 gm TOP DAILY [facility] Last Admin: 09/19/17 09:46 Dose: 1 applic Ferrous Sulfate (Feosol) 325 mg PO DAILY [facility] Last Admin: 09/19/17 09:44 Dose: 325 mg Glipizide (Glucotrol) 5 mg PO ACB [facility] Last Admin: 09/19/17 07:59 Dose: 5 mg Heparin Sodium (Porcine) (Heparin) 5,000 units SC Q12 [facility] Last Admin: 09/18/17 09:14 Dose: 5,000 units Hydromorphone HCl (Dilaudid) 0.5 mg IVP Q15M PRN PRN Reason: Pain, moderate (4-7) Stop: 09/19/17 20:07 Meropenem 1 gm/ Sodium (Chloride) 100 mls @ 200 mls/hr IVPB Q8H [facility] Last Admin: 09/19/17 13:21 Dose: 200 mls/hr Vancomycin HCl 1.4 gm/ Sodium (Chloride) 500 mls @ 220 mls/hr IVPB Q12H [facility] Last Admin: 09/19/17 14:29 Dose: 220 mls/hr Dextrose/Sodium Chloride (Dextrose 5%/0.45% Ns 1000 Ml) 1,000 mls @ 75 mls/hr IV .[id number] [facility] Last Admin: 09/19/17 09:31 Dose: Not Given Insulin Glargine (Lantus) 20 unit SC HS [facility] Last Admin: 09/18/17 20:59 Dose: Not Given Insulin Human Regular (Novolin R) 1 unit SC ACHS [facility] PRN Reason: Protocol Last Admin: 09/19/17 16:25 Dose: Not Given Metoclopramide HCl (Reglan) 10 mg IVP ONCE PRN PRN Reason: Nausea/Vomiting Stop: 09/19/17 20:08 Metoprolol Tartrate (Lopressor) 25 mg PO BID [facility] Last Admin: 09/19/17 18:00 Dose: Not Given Ondansetron HCl (Zofran Inj) 4 mg IVP ONCE PRN PRN Reason: Nausea/Vomiting Stop: 09/19/17 20:08 - Labs Labs: 09/19/17 10:28 09/19/17 10:12 PT 14.1 SECONDS (9.7-12.2) H 09/19/17 10:12 INR 1.3 09/19/17 10:12 APTT 36 SECONDS (21-34) H 09/19/17 10:12
[2017-09-19] MEDS: (Lantus) Insulin Glargine, Recombinant SC SCH (21:40)
--- NOTE | 2017-09-19 22:38 | PN ---
DATE: SUBJECTIVE: Patient is awake and alert. He was n.p.o. He was going to go over the debridement of his right foot wound. OBJECTIVE: VITAL SIGNS: T-max is 97.9, pulse 81, blood pressure 109/67, respirations are 19. HEENT: Head is atraumatic. Pallor present. NECK: Supple. LUNGS: Clear. HEART: S1, S2 is regular. ABDOMEN: Soft, nontender. He was hungry. EXTREMITIES: Right foot has a dressing on it. Left foot is unremarkable and yesterday had seen him again as he was readmitted with further necrosis of the tissue. He does have open wound according to the podiatry note and after this debridement, we will discuss with the warp yarn sorter as his wound has exposed tendons. LABORATORY DATA: White count is 10.3, hemoglobin 10.1 today and a BUN is 11, creatinine 0.7. We will wait for their OR cultures and continue vancomycin and meropenem. Vanco trough was 13.6 and vancomycin peak is pending, but he was going to go to the OR, so I am not sure if it was done timely. IMPRESSION AND PLAN: This patient had necrotizing fasciitis with cellulitis and had second toe re-procedure and still has further debridement to be done today and he is diabetic, newly diagnosed. Continue antibiotics and we will follow the wound culture and we will discuss plans with the warp yarn sorter. Tone Barcenas MD
--- NOTE | 2017-09-20 01:51 | PN ---
DATE: 09/19/2017. SUBJECTIVE: The patient was seen and examined at bedside this morning. The patient was scheduled for procedure. Kept n.p.o.. Offers no new complaints. PHYSICAL EXAMINATION: GENERAL: A middle-aged male, lying in bed, in no acute distress. VITAL SIGNS: Blood pressure 109/67, pulse 81, respirations 18, temperature 97.9 degree Fahrenheit, O2 saturation 95% on room air. HEENT: Pupils equal, round, reacting to light and accommodation. Extraocular muscles intact. No icterus, no pallor. No oral thrush. No pharyngeal congestion. NECK: Supple. No JVD. LUNGS: Bilateral vesicular breath sounds. No wheezing, no rhonchi. CVS: S1 and S2 present, regular. ABDOMEN: Soft, nontender. Bowel sounds present. No guarding, no rigidity. No rebound tenderness noted. JORDAN MAN: Alert, awake, oriented x3. No focal deficits noted. EXTREMITIES: Right foot with dressing in place. No erythema in the ankle noted. MEDICATIONS: Include Tylenol as needed, glipizide 5 mg daily, Lantus 20 units subcu daily, meropenem 1 gm IV every 8 hours, vancomycin 1400 mg IV every 12 hours, metoprolol 25 mg b.i.d., Feosol 325 mg p.o. daily. LABORATORY DATA: Labs done from this morning; WBC 10.3, hemoglobin 10.1, hematocrit 28.5, platelets 442, PT 14.1, INR 1.3, PTT 36, sodium 141, potassium 4.3, chloride 102, bicarb 28, BUN 11, creatinine 0.7, glucose 183, calcium 8.7, AST 18, ALT 11, alkaline phosphatase 92, total protein 8.5, albumin 3.4. ASSESSMENT AND PLAN: A middle-aged male with newly diagnosed diabetes mellitus, uncontrolled diabetes mellitus, hypertension, diabetic foot ulcer, status post debridement and incision and drainage of gas gangrene, necrotizing fasciitis, status post second toe amputation, underwent secondary debridement and underwent first toe amputation and third metatarsal head resection. We will continue with current antibiotics of meropenem and vancomycin. Blood pressure is stable on metoprolol. Continue with wound care as per Podiatry. We will add further recommendation as his clinical course progresses. We will follow up with Podiatry regarding discharge planning from Podiatry standpoint. Follow up with ID regarding the length of antibiotics. Fernando Hills MD
[2017-09-20] MEDS: Meropenem 1 GM in Sodium Chloride 0.9% 100 ML IVPB SCH ×3 (05:17→21:00)
[2017-09-20 06:21] LABS: BASO # 0.1 K/uL (0.0-0.2); BASO % 0.6 % (0.0-2.0); EOS # 0.2 K/uL (0.0-0.7); EOS % 1.5 % (0.0-4.0); HEMOGLOBIN 8.7 g/dL (12.0-18.0); LYMPH # 2.1 K/uL (1.0-4.3); LYMPH % 18.7 % (20.0-40.0); MEAN CELL VOLUME 87.4 fL (80.0-94.0); MEAN CORPUSCULAR HEMOGLOBIN 30.8 pg (27.0-31.0); MEAN CORPUSCULAR HGB CONC 35.3 g/dL (33.0-37.0); MEAN PLATELET VOLUME 7.9 fL (7.2-11.7); MONO # 0.7 K/uL (0.0-0.8); MONO % 6.1 % (0.0-10.0); NEUT # 8.1 K/uL (1.8-7.0); NEUT % 73.1 % (50.0-75.0); RBC 2.81 Mil/uL (4.40-5.90); RED CELL DISTRIBUTION WIDTH 12.2 % (11.5-14.5); WHITE BLOOD COUNT 11.1 K/uL (4.8-10.8)
[2017-09-20 06:37] LABS: ALB/GLOB RATIO 0.7 (1.0-2.1); ALT/SGPT 10 U/L (21-72); AST/SGOT 24 U/L (17-59); BLOOD UREA NITROGEN 12 mg/dL (9-20); CALCIUM 8.3 mg/dl (8.6-10.4); GFR AFRICAN-AMERICAN > 60; GFR NON-AFRICAN AMERICAN > 60
[2017-09-20] MEDS: (Novolin R) Insulin Human Regular 100 units/ml vial SC SCH ×4 (07:51→21:48)
--- NOTE | 2017-09-20 10:05 | CP.PCM.PN ---
Subjective - Date & Time of Evaluation Date of Evaluation: 09/20/17 Time of Evaluation: 09:50 - Subjective Subjective: Progress note dictated # [id number] Objective - Vital Signs/Intake and Output Vital Signs (last 24 hours): Temp Pulse Resp BP Pulse Ox 98.7 F 85 20 128/76 96 09/20/17 07:39 09/20/17 07:39 09/20/17 07:39 09/20/17 07:39 09/20/17 07:39 Intake and Output: 09/20/17 09/20/17 06:59 18:59 Intake Total 2170 Output Total 400 Balance 1770 - Medications Medications: Current Medications Acetaminophen (Tylenol 325mg Tab) 650 mg PO Q6 PRN PRN Reason: Fever >100.4 F Acetaminophen (Tylenol 325mg Tab) 650 mg PO Q6 PRN PRN Reason: Pain, Mild (1-3) Collagenase (Santyl) 0 gm TOP DAILY [facility] Last Admin: 09/19/17 09:46 Dose: 1 applic Ferrous Sulfate (Feosol) 325 mg PO DAILY [facility] Last Admin: 09/19/17 09:44 Dose: 325 mg Glipizide (Glucotrol) 5 mg PO ACB [facility] Last Admin: 09/20/17 07:51 Dose: 5 mg Heparin Sodium (Porcine) (Heparin) 5,000 units SC Q12 [facility] Last Admin: 09/18/17 09:14 Dose: 5,000 units Meropenem 1 gm/ Sodium (Chloride) 100 mls @ 200 mls/hr IVPB Q8H [facility] Last Admin: 09/20/17 05:17 Dose: 200 mls/hr Vancomycin HCl 1.4 gm/ Sodium (Chloride) 500 mls @ 220 mls/hr IVPB Q12H [facility] Last Admin: 09/19/17 22:22 Dose: 220 mls/hr Dextrose/Sodium Chloride (Dextrose 5%/0.45% Ns 1000 Ml) 1,000 mls @ 75 mls/hr IV .[id number] [facility] Last Admin: 09/19/17 23:30 Dose: Not Given Insulin Glargine (Lantus) 20 unit SC HS [facility] Last Admin: 09/19/17 21:40 Dose: 20 units Insulin Human Regular (Novolin R) 1 unit SC ACHS [facility] PRN Reason: Protocol Last Admin: 09/20/17 07:51 Dose: 1 unit Metoprolol Tartrate (Lopressor) 25 mg PO BID [facility] Last Admin: 09/19/17 18:00 Dose: Not Given - Labs Labs: 09/20/17 06:15 09/20/17 06:15 PT 14.1 SECONDS (9.7-12.2) H 09/19/17 10:12 INR 1.3 09/19/17 10:12 APTT 36 SECONDS (21-34) H 09/19/17 10:12
[2017-09-20] MEDS: Vancomycin 1.4 GM in Sodium Chloride 0.9% 500 ML IVPB SCH ×2 (10:35→22:00)
[2017-09-20] MEDS: Collagenase 250 Units/gm Ointment(30 gm) TOP SCH (10:48)
[2017-09-20] MEDS: Dextrose 5%/0.45% NS 1,000 ML IV SCH ×2 (12:37→20:56)
--- NOTE | 2017-09-20 17:35 | CP.PCM.CON ---
History of Present Illness - History of Present Illness History of Present Illness: Podiatry progress note- Dr. Frye 57 y/o male seen at bedside to assess condition POD# 1 s/p right foot debridement of ulcer. Denies f/C/N/V/CP/SOB. Denies any acute events overnight. Past Patient History - Past Medical History & Family History Past Medical History?: Yes - Past Social History Smoking Status: Current Some Days Smoker - CARDIAC Hx Cardiac Disorders: Yes Hx Hypertension: Yes - PULMONARY Hx Respiratory Disorders: No - NEUROLOGICAL Hx Neurological Disorder: No - HEENT Hx HEENT Problems: No - RENAL Hx Chronic Kidney Disease: No - ENDOCRINE/METABOLIC Hx Endocrine Disorders: Yes Hx Diabetes Mellitus Type 2: Yes - HEMATOLOGICAL/ONCOLOGICAL Hx Blood Disorders: No - INTEGUMENTARY Hx Dermatological Problems: No - MUSCULOSKELETAL/RHEUMATOLOGICAL Hx Musculoskeletal Disorders: Yes Hx Falls: No Hx Osteomyelitis: Yes - GASTROINTESTINAL Hx Gastrointestinal Disorders: No - GENITOURINARY/GYNECOLOGICAL Hx Genitourinary Disorders: No - PSYCHIATRIC Hx Substance Use: No - SURGICAL HISTORY Hx Surgeries: Yes Hx Amputation: Yes (2nd toe rt foot amputation) Other/Comment: eye surgery - ANESTHESIA Hx Anesthesia: Yes Hx Anesthesia Reactions: No Hx Malignant Hyperthermia: No Has any member of the family had a problem w/ anesthesia?: No Meds Allergies/Adverse Reactions: Allergies Allergy/AdvReac Type Severity Reaction Status Date / Time No Known Allergies Allergy Verified 09/17/17 19:19 - Medications Medications: Current Medications Acetaminophen (Tylenol 325mg Tab) 650 mg PO Q6 PRN PRN Reason: Fever >100.4 F Acetaminophen (Tylenol 325mg Tab) 650 mg PO Q6 PRN PRN Reason: Pain, Mild (1-3) Collagenase (Santyl) 0 gm TOP DAILY [facility] Last Admin: 09/20/17 10:48 Dose: 1 applic Ferrous Sulfate (Feosol) 325 mg PO DAILY [facility] Last Admin: 09/20/17 10:34 Dose: 325 mg Glipizide (Glucotrol) 5 mg PO ACB [facility] Last Admin: 09/20/17 07:51 Dose: 5 mg Heparin Sodium (Porcine) (Heparin) 5,000 units SC Q12 [facility] Last Admin: 09/20/17 10:34 Dose: 5,000 units Meropenem 1 gm/ Sodium (Chloride) 100 mls @ 200 mls/hr IVPB Q8H [facility] Last Admin: 09/20/17 14:18 Dose: 200 mls/hr Vancomycin HCl 1.4 gm/ Sodium (Chloride) 500 mls @ 220 mls/hr IVPB Q12H [facility] Last Admin: 09/20/17 10:35 Dose: 220 mls/hr Dextrose/Sodium Chloride (Dextrose 5%/0.45% Ns 1000 Ml) 1,000 mls @ 75 mls/hr IV .[id number] [facility] Last Admin: 09/20/17 12:37 Dose: Not Given Insulin Glargine (Lantus) 20 unit SC HS [facility] Last Admin: 09/19/17 21:40 Dose: 20 units Insulin Human Regular (Novolin R) 1 unit SC ACHS [facility] PRN Reason: Protocol Last Admin: 09/20/17 17:16 Dose: 1 unit Metoprolol Tartrate (Lopressor) 25 mg PO BID [facility] Last Admin: 09/20/17 17:15 Dose: 25 mg Physical Exam - Constitutional Appears: Well, Non-toxic, No Acute Distress - Extremities Exam Additional comments: Right lower extremity focused exam. Dressing c/d/i with minimal strikethrough noted. DERM: Right dorsal forefoot wound measuring 6x6 cm with fibro-granular wound base witl no iregular borders, absent tunneling and underming. No mal-odor, purulence nor other acute signs of infection. All plantar and medial sutres remian intact absent signs of dehiscence. VASC- pedal pulses fully palpable, skin temp runs warm to warm (with increased callor noted to medial foot), CFT > 3 seconds to remaining digits. 3rd-5th digit appear slightly more dusky than contralateral side but there temperature is warm NEURO-gross and protective pedal sensation are diminished Ortho- rigid cavovarus foot type is noted neg tenderness to palpation of ulcerations, neg Hohmans sign on deep calf squeeze. - Neurological Exam Neurological exam: Alert, Oriented x3 - Psychiatric Exam Psychiatric exam: Normal Affect, Normal Mood Results - Vital Signs Recent Vital Signs: Last Vital Signs Temp 99 F 09/20/17 16:00 Pulse 88 09/20/17 16:00 Resp 20 09/20/17 16:00 BP 137/81 09/20/17 17:15 Pulse Ox 100 09/20/17 16:00 - Labs Result Diagrams: 09/20/17 06:15 09/20/17 06:15 Labs: Laboratory Results - last 24 hr 09/19/17 09/19/17 09/19/17 18:38 21:15 21:15 WBC RBC Hgb Hct MCV MCH MCHC RDW Plt Count MPV Neut % (Auto) Lymph % (Auto) [place] % (Auto) Eos % (Auto) Baso % (Auto) Neut # (Auto) Lymph # (Auto) [place] # (Auto) Eos # (Auto) Baso # (Auto) Sodium Potassium Chloride Carbon Dioxide Anion Gap BUN Creatinine Est GFR ( Amer) Est GFR (Non-Af Amer) POC Glucose (mg/dL) 145 H 266 H 266 H Random Glucose Calcium Total Bilirubin AST ALT Alkaline Phosphatase Total Protein Albumin Globulin Albumin/Globulin Ratio Vancomycin Peak 09/20/17 09/20/17 09/20/17 06:15 06:15 07:27 WBC 11.1 H RBC 2.81 L Hgb 8.7 L Hct 24.6 L MCV 87.4 MCH 30.8 MCHC 35.3 RDW 12.2 Plt Count 375 MPV 7.9 Neut % (Auto) 73.1 Lymph % (Auto) 18.7 L [place] % (Auto) 6.1 Eos % (Auto) 1.5 Baso % (Auto) 0.6 Neut # (Auto) 8.1 H Lymph # (Auto) 2.1 [place] # (Auto) 0.7 Eos # (Auto) 0.2 Baso # (Auto) 0.1 Sodium 141 Potassium 4.2 Chloride 102 Carbon Dioxide 29 Anion Gap 14 BUN 12 Creatinine 0.8 Est GFR ( Amer) > 60 Est GFR (Non-Af Amer) > 60 POC Glucose (mg/dL) 160 H Random Glucose 230 H Calcium 8.3 L Total Bilirubin 0.3 AST 24 ALT 10 L Alkaline Phosphatase 81 Total Protein 7.3 Albumin 3.0 L Globulin 4.3 H Albumin/Globulin Ratio 0.7 L Vancomycin Peak 09/20/17 09/20/17 09/20/17 11:18 14:07 16:05 WBC RBC Hgb Hct MCV MCH MCHC RDW Plt Count MPV Neut % (Auto) Lymph % (Auto) [place] % (Auto) Eos % (Auto) Baso % (Auto) Neut # (Auto) Lymph # (Auto) [place] # (Auto) Eos # (Auto) Baso # (Auto) Sodium Potassium Chloride Carbon Dioxide Anion Gap BUN Creatinine Est GFR ( Amer) Est GFR (Non-Af Amer) POC Glucose (mg/dL) 151 H 186 H Random Glucose Calcium Total Bilirubin AST ALT Alkaline Phosphatase Total Protein Albumin Globulin Albumin/Globulin Ratio Vancomycin Peak 31.5 Assessment & Plan - Assessment and Plan (Free Text) Assessment: 57 year old male POD#1 right foot partial 1st ray & 3rd metatarsal head resection with rotational reconstructive skin flap. Plan: Patient seen and evaluated at bedside. Plan discussed with attending Dr. Frye Charts, labs, vitals reviewed. Afebrile, WBC= 11.1 Continue outpatient IV abx via PICC. (Vancomycin & Meropenam) Dressings left intact. Wound-VAC ordered via [employer] service from storeroom. To be available for use in AM to right foot. * Right foot Wound V.A.C therapy VAC: Settings Continuous therapy @ 125mmHg on low setting. * VAC to be changed every 72 hours. * Weight-bearing activity to be non-weightbearing to right lower leg with aid of rolling walker Additional podiatric intervention with graft application potential planned. Continue VAC therapy in international account executive period. Pt is stable form podiatry standpoint, once wound vac applied. Follow up in [facility] with Dr. Frye on Saturday. Set 1st appoint for Saturday10/23/17 or 1st available Saturday after discharge. - Date & Time Date: 09/20/17 Time: 17:35
--- NOTE | 2017-09-20 20:05 | CP.PCM.PN ---
Subjective - Date & Time of Evaluation Date of Evaluation: 09/20/17 Time of Evaluation: 03:00 - Subjective Subjective: dctated Objective - Vital Signs/Intake and Output Vital Signs (last 24 hours): Temp Pulse Resp BP Pulse Ox 99 F 88 20 137/81 100 09/20/17 16:00 09/20/17 16:00 09/20/17 16:00 09/20/17 17:15 09/20/17 16:00 Intake and Output: 09/20/17 09/21/17 18:59 06:59 Intake Total 1600 Balance 1600 - Medications Medications: Current Medications Acetaminophen (Tylenol 325mg Tab) 650 mg PO Q6 PRN PRN Reason: Fever >100.4 F Acetaminophen (Tylenol 325mg Tab) 650 mg PO Q6 PRN PRN Reason: Pain, Mild (1-3) Collagenase (Santyl) 0 gm TOP DAILY [facility] Last Admin: 09/20/17 10:48 Dose: 1 applic Ferrous Sulfate (Feosol) 325 mg PO DAILY [facility] Last Admin: 09/20/17 10:34 Dose: 325 mg Glipizide (Glucotrol) 5 mg PO ACB [facility] Last Admin: 09/20/17 07:51 Dose: 5 mg Heparin Sodium (Porcine) (Heparin) 5,000 units SC Q12 [facility] Last Admin: 09/20/17 10:34 Dose: 5,000 units Meropenem 1 gm/ Sodium (Chloride) 100 mls @ 200 mls/hr IVPB Q8H [facility] Last Admin: 09/20/17 14:18 Dose: 200 mls/hr Vancomycin HCl 1.4 gm/ Sodium (Chloride) 500 mls @ 220 mls/hr IVPB Q12H [facility] Last Admin: 09/20/17 10:35 Dose: 220 mls/hr Dextrose/Sodium Chloride (Dextrose 5%/0.45% Ns 1000 Ml) 1,000 mls @ 75 mls/hr IV .[id number] [facility] Last Admin: 09/20/17 12:37 Dose: Not Given Insulin Glargine (Lantus) 20 unit SC HS [facility] Last Admin: 09/19/17 21:40 Dose: 20 units Insulin Human Regular (Novolin R) 1 unit SC ACHS [facility] PRN Reason: Protocol Last Admin: 09/20/17 17:16 Dose: 1 unit Metoprolol Tartrate (Lopressor) 25 mg PO BID [facility] Last Admin: 09/20/17 17:15 Dose: 25 mg - Labs Labs: 09/20/17 06:15 09/20/17 06:15 PT 14.1 SECONDS (9.7-12.2) H 09/19/17 10:12 INR 1.3 09/19/17 10:12 APTT 36 SECONDS (21-34) H 09/19/17 10:12
[2017-09-20] MEDS: (Lantus) Insulin Glargine, Recombinant SC SCH (21:45)
--- NOTE | 2017-09-21 00:41 | PN ---
DATE: 09/20/2017 SUBJECTIVE: The patient is seen today. He went to the OR yesterday, and he says that they did further debridement. He has extensive OR dressings at this time, and I am hopeful that it will improve, and I would need the postop note of Dr. Frye, which says right foot infected diabetic ulceration, and she did a partial ray amputation, third metatarsal head resection, wound debridement, and reconstructive skin flap. They also took out right hallux first meta head and third metatarsal head, so he had extensive surgery yesterday again, and at this time, we will make sure he continues his antibiotics. LABORATORY DATA: His white count was 11.1, hemoglobin 8.7, hematocrit 24.6, platelet count is 375. He remains anemic. BUN is 14 and creatinine is 0.8. His sugars are being monitored. IMPRESSION: He has necrotizing fascitis. His peak was fine, 31.5, so will continue the same dose of vancomycin and Merrem, and we will follow. I hope they took OR cultures, but he has been on vancomycin and meropenem, which should cover most of it. We will follow. Tone Barcenas MD
--- NOTE | 2017-09-21 01:29 | PN ---
DATE: 09/20/2017. SUBJECTIVE: The patient was seen and examined at bedside this morning. The patient offers no new complaints. Underwent debridement yesterday. PHYSICAL EXAMINATION: GENERAL: A middle-aged male, lying in bed, in no acute distress. VITAL SIGNS: Blood pressure 128/76, pulse 88, respirations 20, temperature 99 degree Fahrenheit, O2 saturation 100% on room air. HEENT: Pupils equal, round, reacting to light and accommodation. Extraocular muscles intact. No icterus, no pallor. NECK: Supple. No JVD. LUNGS: Bilateral vesicular breath sounds. No wheezing, no rhonchi. CVS: S1 and S2 present, regular. ABDOMEN: Soft, nontender. Bowel sounds present. No guarding, no rigidity. No rebound tenderness noted. 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 No focal deficits noted. EXTREMITIES: Right foot with dressing in place. MEDICATIONS: Include Tylenol as needed, collagenase 1 gm topical daily, Feosol 325 mg p.o. daily, Glucotrol 5 mg p.o. daily, Lantus 20 units subcu at bedtime, meropenem 1 gm IV every 8 hours, metoprolol 25 mg p.o. b.i.d., vancomycin 1.4 gm IV every 12 hours. LABORATORY DATA: From this morning; WBC 11.1, hemoglobin 8.7, hematocrit 24.6, platelets 375. Sodium 141, potassium 4.2, chloride 102, bicarb 29, BUN 12, creatinine 0.8, glucose 160, calcium 8.3, AST 24, ALT 10, alkaline phosphatase 81, total protein 7.3, albumin 3. ASSESSMENT AND PLAN: A middle-aged male with uncontrolled diabetes mellitus, hypertension, diabetic foot ulcer, status post debridement, amputation of the second toe and partial amputation of the third toe on IV antibiotics. Podiatry followup appreciated. Will follow up with Gastroenterologist for discharge planning. Will continue with other current medications. Fernando Hills MD
[2017-09-21] MEDS: Dextrose 5%/0.45% NS 1,000 ML IV SCH ×2 (02:20→16:30)
[2017-09-21] MEDS: Meropenem 1 GM in Sodium Chloride 0.9% 100 ML IVPB SCH ×3 (05:31→21:28)
[2017-09-21 06:56] LABS: BASO # 0.1 K/uL (0.0-0.2); BASO % 0.9 % (0.0-2.0); EOS # 0.1 K/uL (0.0-0.7); EOS % 1.3 % (0.0-4.0); HEMOGLOBIN 8.8 g/dL (12.0-18.0); LYMPH # 2.2 K/uL (1.0-4.3); MEAN CELL VOLUME 86.6 fL (80.0-94.0); MEAN CORPUSCULAR HEMOGLOBIN 30.7 pg (27.0-31.0); MEAN CORPUSCULAR HGB CONC 35.4 g/dL (33.0-37.0); MEAN PLATELET VOLUME 7.9 fL (7.2-11.7); MONO # 0.6 K/uL (0.0-0.8); MONO % 6.4 % (0.0-10.0); NEUT # 6.8 K/uL (1.8-7.0); NEUT % 69.4 % (50.0-75.0); NRBC % 0.1 % (0.0-2.0); RBC 2.88 Mil/uL (4.40-5.90); RED CELL DISTRIBUTION WIDTH 12.4 % (11.5-14.5); WHITE BLOOD COUNT 9.9 K/uL (4.8-10.8)
[2017-09-21] MEDS: (Novolin R) Insulin Human Regular 100 units/ml vial SC SCH ×4 (08:02→21:31)
[2017-09-21 08:03] LABS: ALB/GLOB RATIO 0.7 (1.0-2.1); ALBUMIN 3.1 g/dL (3.5-5.0); ALT/SGPT 12 U/L (21-72); AST/SGOT 17 U/L (17-59); BLOOD UREA NITROGEN 8 mg/dL (9-20); CALCIUM 8.4 mg/dl (8.6-10.4); GFR AFRICAN-AMERICAN > 60; GFR NON-AFRICAN AMERICAN > 60
[2017-09-21] MEDS: Collagenase 250 Units/gm Ointment(30 gm) TOP SCH (10:44)
[2017-09-21] MEDS: Vancomycin 1.4 GM in Sodium Chloride 0.9% 500 ML IVPB SCH ×2 (10:45→22:55)
--- NOTE | 2017-09-21 12:20 | CP.PCM.PN ---
Subjective - Date & Time of Evaluation Date of Evaluation: 09/21/17 Time of Evaluation: 12:19 - Subjective Subjective: Podiatry Progress note- Dr. Frye 57 y/o male seen at bedside to assess condition 2 days s/p right foot debridement of ulcer. Pt denies having any pain to the foot. Denies F/C/N/V/CP/ SOB. Denies any acute events overnight. Objective - Vital Signs/Intake and Output Vital Signs (last 24 hours): Temp Pulse Resp BP Pulse Ox 98.7 F 95 H 20 103/65 96 09/21/17 08:00 09/21/17 08:00 09/21/17 08:00 09/21/17 10:44 09/21/17 08:00 Intake and Output: 09/21/17 09/21/17 06:59 18:59 Intake Total 1680 800 Output Total 800 Balance 1680 0 - Medications Medications: Current Medications Acetaminophen (Tylenol 325mg Tab) 650 mg PO Q6 PRN PRN Reason: Fever >100.4 F Acetaminophen (Tylenol 325mg Tab) 650 mg PO Q6 PRN PRN Reason: Pain, Mild (1-3) Collagenase (Santyl) 0 gm TOP DAILY [facility] Last Admin: 09/21/17 10:44 Dose: 1 applic Ferrous Sulfate (Feosol) 325 mg PO DAILY [facility] Last Admin: 09/21/17 10:44 Dose: 325 mg Glipizide (Glucotrol) 5 mg PO ACB [facility] Last Admin: 09/21/17 08:17 Dose: 5 mg Heparin Sodium (Porcine) (Heparin) 5,000 units SC Q12 [facility] Last Admin: 09/21/17 10:45 Dose: 5,000 units Meropenem 1 gm/ Sodium (Chloride) 100 mls @ 200 mls/hr IVPB Q8H [facility] Last Admin: 09/21/17 05:31 Dose: 200 mls/hr Vancomycin HCl 1.4 gm/ Sodium (Chloride) 500 mls @ 220 mls/hr IVPB Q12H [facility] Last Admin: 09/21/17 10:45 Dose: 220 mls/hr Dextrose/Sodium Chloride (Dextrose 5%/0.45% Ns 1000 Ml) 1,000 mls @ 75 mls/hr IV .[id number] [facility] Last Admin: 09/21/17 02:20 Dose: Not Given Insulin Glargine (Lantus) 20 unit SC HS [facility] Last Admin: 09/20/17 21:45 Dose: 20 units Insulin Human Regular (Novolin R) 1 unit SC ACHS [facility] PRN Reason: Protocol Last Admin: 09/21/17 08:02 Dose: Not Given Metoprolol Tartrate (Lopressor) 25 mg PO BID [facility] Last Admin: 09/21/17 10:44 Dose: 25 mg - Labs Labs: 09/21/17 06:46 09/21/17 06:46 PT 14.1 SECONDS (9.7-12.2) H 09/19/17 10:12 INR 1.3 09/19/17 10:12 APTT 36 SECONDS (21-34) H 09/19/17 10:12 - Constitutional Appears: Well, Non-toxic, No Acute Distress - Extremities Exam Additional comments: R foot focused exam: Vasc: DP/PT pulses 2/4. Temperature gradient warm to cool. CFT < 3 sec to digits 4 and 5, intact to dorsal and medial aspects of skin flap Derm: Open post-surgical wound measuring 6cm x 6cm x 0.3cm with skin flap noted to dorsomedial foot. Plantar lateral aspect of flap exhibits necrotic skin changes. Wound bed is a mixture of fibrotic and granular tissue. Mild active sanguinous drainage noted. No malodor, no purulence, no fluctuance. Previously exposed metatarsal bone now exhibits overlying tissue formation. Neuro: Protective sensation grossly intact Ortho: No tenderness to palpation of R foot at entirety of wound bed - Neurological Exam Neurological Exam: Alert, Awake, Oriented x3 - Psychiatric Exam Psychiatric exam: Normal Affect, Normal Mood Assessment and Plan - Assessment and Plan (Free Text) Assessment: 57 y/o male 2 days s/p right foot partial 1st ray resection, 3rd digit and met head resection and wound debridement of right foot with reconstructive rotational skin flap Plan: Pt seen and evaluated at bedside Discussed with attending Dr. Frye Labs and vitals reviewed - afebrile, WBC 9.9 Wound cleansed with saline Wound vac applied to R foot open ulceration, set to continuous pressure at 125 mmHg Dry sterile dressing applied to outer aspect of wound vac Wound vac to be changed q48-72h Will continue to follow patient on floors Should pt remain in house, will plan for possible application of graft to R foot wound on Saturday
--- NOTE | 2017-09-21 14:04 | CP.PCM.PN ---
Subjective - Date & Time of Evaluation Date of Evaluation: 09/21/17 Time of Evaluation: 14:04 - Subjective Subjective: pt is seen and examined, profress note is dictated for lin horton#[id number] Objective - Vital Signs/Intake and Output Vital Signs (last 24 hours): Temp Pulse Resp BP Pulse Ox 98.7 F 95 H 20 103/65 96 09/21/17 08:00 09/21/17 08:00 09/21/17 08:00 09/21/17 10:44 09/21/17 08:00 Intake and Output: 09/21/17 09/21/17 06:59 18:59 Intake Total 1680 800 Output Total 800 Balance 1680 0 - Medications Medications: Current Medications Acetaminophen (Tylenol 325mg Tab) 650 mg PO Q6 PRN PRN Reason: Fever >100.4 F Acetaminophen (Tylenol 325mg Tab) 650 mg PO Q6 PRN PRN Reason: Pain, Mild (1-3) Collagenase (Santyl) 0 gm TOP DAILY [facility] Last Admin: 09/21/17 10:44 Dose: 1 applic Ferrous Sulfate (Feosol) 325 mg PO DAILY [facility] Last Admin: 09/21/17 10:44 Dose: 325 mg Glipizide (Glucotrol) 5 mg PO ACB [facility] Last Admin: 09/21/17 08:17 Dose: 5 mg Heparin Sodium (Porcine) (Heparin) 5,000 units SC Q12 [facility] Last Admin: 09/21/17 10:45 Dose: 5,000 units Meropenem 1 gm/ Sodium (Chloride) 100 mls @ 200 mls/hr IVPB Q8H [facility] Last Admin: 09/21/17 05:31 Dose: 200 mls/hr Vancomycin HCl 1.4 gm/ Sodium (Chloride) 500 mls @ 220 mls/hr IVPB Q12H [facility] Last Admin: 09/21/17 10:45 Dose: 220 mls/hr Dextrose/Sodium Chloride (Dextrose 5%/0.45% Ns 1000 Ml) 1,000 mls @ 75 mls/hr IV .[id number] [facility] Last Admin: 09/21/17 02:20 Dose: Not Given Insulin Glargine (Lantus) 20 unit SC HS [facility] Last Admin: 09/20/17 21:45 Dose: 20 units Insulin Human Regular (Novolin R) 1 unit SC ACHS [facility] PRN Reason: Protocol Last Admin: 09/21/17 12:23 Dose: 1 unit Metoprolol Tartrate (Lopressor) 25 mg PO BID [facility] Last Admin: 09/21/17 10:44 Dose: 25 mg - Labs Labs: 09/21/17 06:46 09/21/17 06:46 PT 14.1 SECONDS (9.7-12.2) H 09/19/17 10:12 INR 1.3 09/19/17 10:12 APTT 36 SECONDS (21-34) H 09/19/17 10:12
--- NOTE | 2017-09-21 20:37 | CP.PCM.PN ---
Subjective - Date & Time of Evaluation Date of Evaluation: 09/21/17 Time of Evaluation: 03:15 - Subjective Subjective: dictated Objective - Vital Signs/Intake and Output Vital Signs (last 24 hours): Temp Pulse Resp BP Pulse Ox 99.2 F 94 H 20 113/73 96 09/21/17 15:00 09/21/17 15:00 09/21/17 15:00 09/21/17 18:08 09/21/17 15:00 Intake and Output: 09/21/17 09/22/17 18:59 06:59 Intake Total 2600 Output Total 800 Balance 1800 - Medications Medications: Current Medications Acetaminophen (Tylenol 325mg Tab) 650 mg PO Q6 PRN PRN Reason: Fever >100.4 F Acetaminophen (Tylenol 325mg Tab) 650 mg PO Q6 PRN PRN Reason: Pain, Mild (1-3) Collagenase (Santyl) 0 gm TOP DAILY [facility] Last Admin: 09/21/17 10:44 Dose: 1 applic Ferrous Sulfate (Feosol) 325 mg PO DAILY [facility] Last Admin: 09/21/17 10:44 Dose: 325 mg Glipizide (Glucotrol) 5 mg PO ACB [facility] Last Admin: 09/21/17 08:17 Dose: 5 mg Heparin Sodium (Porcine) (Heparin) 5,000 units SC Q12 [facility] Last Admin: 09/21/17 10:45 Dose: 5,000 units Meropenem 1 gm/ Sodium (Chloride) 100 mls @ 200 mls/hr IVPB Q8H [facility] Last Admin: 09/21/17 14:18 Dose: 200 mls/hr Vancomycin HCl 1.4 gm/ Sodium (Chloride) 500 mls @ 220 mls/hr IVPB Q12H [facility] Last Admin: 09/21/17 10:45 Dose: 220 mls/hr Dextrose/Sodium Chloride (Dextrose 5%/0.45% Ns 1000 Ml) 1,000 mls @ 75 mls/hr IV .[id number] [facility] Last Admin: 09/21/17 16:30 Dose: Not Given Insulin Glargine (Lantus) 20 unit SC HS [facility] Last Admin: 09/20/17 21:45 Dose: 20 units Insulin Human Regular (Novolin R) 1 unit SC ACHS [facility] PRN Reason: Protocol Last Admin: 09/21/17 17:10 Dose: Not Given Metoprolol Tartrate (Lopressor) 25 mg PO BID [facility] Last Admin: 09/21/17 18:08 Dose: 25 mg - Labs Labs: 09/21/17 06:46 09/21/17 06:46 PT 14.1 SECONDS (9.7-12.2) H 09/19/17 10:12 INR 1.3 09/19/17 10:12 APTT 36 SECONDS (21-34) H 09/19/17 10:12
[2017-09-21] MEDS: (Lantus) Insulin Glargine, Recombinant SC SCH (21:34)
--- NOTE | 2017-09-22 00:25 | PN ---
DATE: SUBJECTIVE: The patient today was seen. He has now a wound VAC back on and unable to see the foot again because of the wound VAC. He was, however, not complaining and he was like he still has a PICC line. Denies any diarrhea. No other skin infections and he will probably need IV antibiotics again. Denies any other issues. PHYSICAL EXAMINATION: VITAL SIGNS: Temperature 99.2, pulse 94, blood pressure 116/71, respirations are 20. HEENT: Head is atraumatic, normocephalic. NECK: Supple. LUNGS: Free air. No crackles or rales present. HEART: S1, S2 regular. PICC line present on the right arm. ABDOMEN: Soft. Nontender. No guarding. No rigidity present. EXTREMITIES: Have this right foot, he lost three toes because of necrotizing fascitis and he has a wound VAC and the other toes appear unremarkable. There is no swelling on the right leg, but part of the foot with dressing. He is diabetic and he is receiving vancomycin and Merrem. LABORATORY DATA: Noted, which are unremarkable, BUN and creatinine, and the white count. Tone Barcenas MD
--- NOTE | 2017-09-22 00:40 | PN ---
DATE: 09/21/2017. LOCATION: Room 353, bed A. The patient is seen and examined for Dr. Fernando Hills. SUBJECTIVE: Mr. Zavala is a 57 years old middle-aged male with a history of diabetes who was recently admitted about 2 weeks ago with chief complaints of necrotizing fasciitis of the right foot. The patient underwent a partial right second ray resection secondary to necrotizing fasciitis of the right foot. Subsequently, the patient was placed on wound VAC and discharged to fpc for continuation of antibiotics and wound VAC, unable to receive a wound VAC in the fpc and the patient was sent back to the hospital. The patient was ambulating with a cane and walker in the fpc without a wound VAC. The patient is not in acute distress. Denies any headache, dizziness. Denies any chest pain or palpitation. Denies any fever or cough. No abdominal pain. No nausea, vomiting, diarrhea. The patient was evaluated by Dr. Frye on admission 09/18/2017. Subsequently, the patient went to OR on 09/19/2017 and the patient underwent resection of the first right big toe and also resection of the first and third metatarsal head. The patient has a dressing and denies any pain at this time. PHYSICAL EXAMINATION: VITAL SIGNS: Blood pressure 116/71, pulse 94, respirations 20, temperature 99.2, saturation 96%. Height 5 feet 8 inches and weight is 175 pounds. GENERAL: Mr. Zavala is a 57 years old middle-aged male, moderately built, moderately nourished, not in distress. HEENT: Pupils normal, react to light and accommodation. Conjunctivae pink. Sclerae anicteric. Tongue is moist and trachea is midline. LUNGS: Symmetric on both sides. Bilateral breath sounds present. Clear to auscultation. CVS: [place] at the fifth intercostal space, midclavicular line. S1 and S2 audible. No murmur or gallop. ABDOMEN: Normal in appearance, soft, tympanic. No guarding, no rigidity. No hepatosplenomegaly. 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 Nonfocal neuro examination. Cranial nerves II through XII grossly intact. Sensory and motor system is within normal limits. EXTREMITIES: No cyanosis, no clubbing, no edema. The patient has a dressing to the right foot. CURRENT MEDICATIONS: D5 half normal saline at 75 mL/hour, Feosol 325 mg p.o. daily, Glucotrol 5 mg p.o. a.c.b, subcu heparin 5000 every 12 hours, insulin Lantus 20 units subcu at bedtime, metoprolol 25 mg p.o. b.i.d., Novolin R for sliding scale, collagenase Santyl topical daily, Tylenol and vancomycin 1.4 gm every 12 hours. LABORATORY DATA: As of 09/21/2017; WBC 9.9, hemoglobin 8.8, hematocrit is 25, platelets 343 and sodium 143, potassium 4, chloride 105, CO2 27, BUN 8, creatinine 0.6, glucose 140, calcium 8.4. Total bili 0.4, AST 17, ALT 12, alkaline phosphatase 77, total protein 7.5, albumin is 3.1. ASSESSMENT: In summary, Mr. Zavala is a 57 years old middle age male with history of hypertension, diabetes, was admitted with right foot cellulitis, osteomyelitis on 09/02/2017. Subsequently, the patient underwent right second ray amputation for necrotizing fasciitis as per Podiatry and subsequently discharged to [facility] on 09/16/2017 with wound VAC to [facility]. The patient was not able to get a wound VAC in the fpc and ambulating with walker and the patient was admitted back to the hospital on 09/17/2017 within 24 hours for further management and wound VAC. The patient was evaluated by the Podiatry on admission and found to have worsening infection underwent debridement and status post amputation of the right big toe and also resection of the first and third metatarsal head and also status post amputation of the right second ray about 12 days ago and low hemoglobin and hematocrit. 1. Osteomyelitis of the foot status post resection of the second ray about 12 days ago and now the patient underwent resection of the first right big toe and also first metatarsal and third metatarsal head with skin flap. 2. Anemia secondary to recent surgery and sepsis. 3. Hypertension. Blood pressure is stable. Continue his current medications, Metoprolol 25 mg p.o. b.i.d. 4. Diabetes. Sugars are under control. Continue Lantus 20 units at bedtime and Accu-Chek coverage for controlling the sugars. PLAN: Continue vancomycin as per ID recommendations and also continue meropenem 1 gm every 8 hours. The patient seen and examined and progress note dictated for Dr. Fernando Hills. Follow up with Podiatry and continue follow up with ID attending and Dr. Barcenas. Rachel Hills MD
[2017-09-22] MEDS: Meropenem 1 GM in Sodium Chloride 0.9% 100 ML IVPB SCH ×3 (05:04→21:56)
[2017-09-22] MEDS: (Novolin R) Insulin Human Regular 100 units/ml vial SC SCH ×4 (07:49→21:52)
[2017-09-22] MEDS: Multiple Vitamins Tab PO SCH (09:16)
[2017-09-22] MEDS: Collagenase 250 Units/gm Ointment(30 gm) TOP SCH (09:17)
[2017-09-22] MEDS ORDERED: Epoetin Alfa 20000 UNIT/ML Inj SC ONE (10:00)
[2017-09-22] MEDS: Vancomycin 1.4 GM in Sodium Chloride 0.9% 500 ML IVPB SCH ×2 (10:55→23:21)
--- NOTE | 2017-09-22 12:51 | CP.PCM.PN ---
Subjective - Date & Time of Evaluation Date of Evaluation: 09/22/17 Time of Evaluation: 12:51 - Subjective Subjective: Podiatry Progress note- Dr. Frye 57 y/o male seen at bedside this morning 3 days s/p right foot debridement of ulcer. Pt denies having any pain to the foot. Pt states the vac has continued to run and is not causing him any pain. He admits to keeping the dressing intact. Denies F/C/N/V/CP/SOB. Denies any acute events overnight. Objective - Vital Signs/Intake and Output Vital Signs (last 24 hours): Temp Pulse Resp BP Pulse Ox 99.4 F 85 20 118/73 99 09/22/17 00:00 09/22/17 00:00 09/22/17 00:00 09/22/17 09:16 09/22/17 00:00 Intake and Output: 09/22/17 09/22/17 06:59 18:59 Intake Total 3100 Output Total 1400 Balance 1700 - Medications Medications: Current Medications Acetaminophen (Tylenol 325mg Tab) 650 mg PO Q6 PRN PRN Reason: Fever >100.4 F Acetaminophen (Tylenol 325mg Tab) 650 mg PO Q6 PRN PRN Reason: Pain, Mild (1-3) Collagenase (Santyl) 0 gm TOP DAILY [facility] Last Admin: 09/22/17 09:17 Dose: 1 applic Ferrous Sulfate (Feosol) 325 mg PO DAILY [facility] Last Admin: 09/22/17 09:16 Dose: 325 mg Glipizide (Glucotrol) 5 mg PO ACB [facility] Last Admin: 09/22/17 08:30 Dose: 5 mg Heparin Sodium (Porcine) (Heparin) 5,000 units SC Q12 [facility] Last Admin: 09/22/17 09:16 Dose: 5,000 units Meropenem 1 gm/ Sodium (Chloride) 100 mls @ 200 mls/hr IVPB Q8H [facility] Last Admin: 09/22/17 05:04 Dose: 200 mls/hr Vancomycin HCl 1.4 gm/ Sodium (Chloride) 500 mls @ 220 mls/hr IVPB Q12H [facility] Last Admin: 09/22/17 10:55 Dose: 220 mls/hr Insulin Glargine (Lantus) 20 unit SC HS [facility] Last Admin: 09/21/17 21:34 Dose: 20 units Insulin Human Regular (Novolin R) 1 unit SC ACHS [facility] PRN Reason: Protocol Last Admin: 09/22/17 12:08 Dose: 1 unit Metoprolol Tartrate (Lopressor) 25 mg PO BID [facility] Last Admin: 09/22/17 09:16 Dose: 25 mg Multivitamins (Hexavitamin) 1 tab PO DAILY [facility] Last Admin: 09/22/17 09:16 Dose: 1 tab - Labs Labs: 09/21/17 06:46 09/21/17 06:46 PT 14.1 SECONDS (9.7-12.2) H 09/19/17 10:12 INR 1.3 09/19/17 10:12 APTT 36 SECONDS (21-34) H 09/19/17 10:12 - Constitutional Appears: Well, Non-toxic, No Acute Distress - Extremities Exam Additional comments: R foot focused exam: Vasc: CFT < 3 sec to 4th and 5th digits Derm: Wound vac in place to R foot, running on continuous 125 mmHg pressure. No strikethrough noted on vac dressing Neuro: Diminished protective sensation to exposed digits 4 and 5 Ortho: No pain on palpation of R foot at vac site or exposed digits. (-) calf tenderness - Neurological Exam Neurological Exam: Alert, Awake, Oriented x3 - Psychiatric Exam Psychiatric exam: Normal Affect, Normal Mood Assessment and Plan - Assessment and Plan (Free Text) Assessment: 57 y/o male 3 days s/p right foot partial 1st ray resection, 3rd digit and met head resection and wound debridement of right foot with reconstructive rotational skin flap, with wound vac in place to R foot Plan: Pt seen and evaluated at bedside Discussed with attending Dr. Frye Labs and vitals reviewed - afebrile, NNL Wound cleansed with saline Wound vac left in place, set to continuous pressure at 125 mmHg Wound vac to be changed q48-72h Plan for application of Integra graft to right foot ulceration on Saturday morning Pt to be NPO past midnight Saturday; anti-coags held Will continue to follow patient while in house
--- NOTE | 2017-09-22 14:13 | CP.PCM.PN ---
Subjective - Date & Time of Evaluation Date of Evaluation: 09/22/17 Time of Evaluation: 14:12 - Subjective Subjective: pt is seen and examined, progress note is dictated #[id number] Objective - Vital Signs/Intake and Output Vital Signs (last 24 hours): Temp Pulse Resp BP Pulse Ox 99.4 F 85 20 118/73 99 09/22/17 00:00 09/22/17 00:00 09/22/17 00:00 09/22/17 09:16 09/22/17 00:00 Intake and Output: 09/22/17 09/22/17 06:59 18:59 Intake Total 3100 Output Total 1400 Balance 1700 - Medications Medications: Current Medications Acetaminophen (Tylenol 325mg Tab) 650 mg PO Q6 PRN PRN Reason: Fever >100.4 F Acetaminophen (Tylenol 325mg Tab) 650 mg PO Q6 PRN PRN Reason: Pain, Mild (1-3) Collagenase (Santyl) 0 gm TOP DAILY [facility] Last Admin: 09/22/17 09:17 Dose: 1 applic Ferrous Sulfate (Feosol) 325 mg PO DAILY [facility] Last Admin: 09/22/17 09:16 Dose: 325 mg Glipizide (Glucotrol) 5 mg PO ACB [facility] Last Admin: 09/22/17 08:30 Dose: 5 mg Heparin Sodium (Porcine) (Heparin) 5,000 units SC Q12 [facility] Last Admin: 09/22/17 09:16 Dose: 5,000 units Meropenem 1 gm/ Sodium (Chloride) 100 mls @ 200 mls/hr IVPB Q8H [facility] Last Admin: 09/22/17 05:04 Dose: 200 mls/hr Vancomycin HCl 1.4 gm/ Sodium (Chloride) 500 mls @ 220 mls/hr IVPB Q12H [facility] Last Admin: 09/22/17 10:55 Dose: 220 mls/hr Insulin Glargine (Lantus) 20 unit SC HS [facility] Last Admin: 09/21/17 21:34 Dose: 20 units Insulin Human Regular (Novolin R) 1 unit SC ACHS [facility] PRN Reason: Protocol Last Admin: 09/22/17 12:08 Dose: 1 unit Metoprolol Tartrate (Lopressor) 25 mg PO BID [facility] Last Admin: 09/22/17 09:16 Dose: 25 mg Multivitamins (Hexavitamin) 1 tab PO DAILY [facility] Last Admin: 09/22/17 09:16 Dose: 1 tab - Labs Labs: 09/21/17 06:46 09/21/17 06:46 PT 14.1 SECONDS (9.7-12.2) H 09/19/17 10:12 INR 1.3 09/19/17 10:12 APTT 36 SECONDS (21-34) H 09/19/17 10:12
[2017-09-22] MEDS: (Lantus) Insulin Glargine, Recombinant SC SCH (21:57)
--- NOTE | 2017-09-22 23:04 | PN ---
DATE: 09/22/2017 LOCATION: The patient is located in room 353, bed A. Seen for Dr. Fernando Hills. SUBJECTIVE: Mr. Zavala is a 57-year-old middle-aged male with a past medical history significant for longstanding hypertension, diabetes who was admitted about 3 weeks ago with chief complaints of right foot infection and found to have necrotizing fasciitis, underwent second ray amputation, and the patient is being treated for osteomyelitis. Subsequently, the patient was discharged to [facility] on 09/16 with a Wound Vac, unable to receive the Wound Vac in the halfway, and the patient was sent back within 24 hours for further evaluation, and the patient was evaluated by Podiatry again, requiring amputation of the first digit on the right, and also amputation of the first and third metatarsal head. The patient is not in acute distress. Denies any headache, dizziness. Denies any chest pain or palpitation. Denies any fever or cough. No abdominal pain. No nausea, vomiting, diarrhea. PHYSICAL EXAMINATION: VITAL SIGNS: This afternoon as follows, blood pressure 110/67, pulse 81, respirations 20, temperature 98.6, saturation 97%. Height 5 feet 8 inches and weight is 175 pounds. HEENT: Mr. Zavala is a 57-year-old middle-aged male, moderately built, moderately nourished, not in distress. HEENT: Pupils normal and reactive to light and accommodation. Conjunctivae pink. Sclerae anicteric. Tongue is moist. Trachea is midline. LUNGS: Symmetric on both sides. Bilateral breath sounds present. Clear to auscultation. CVS: [place] at the fifth intercostal space, midclavicular line. S1, S2 audible. No murmur or gallop. ABDOMEN: Normal in appearance, soft, tympanic. No guarding. No rigidity. No hepatosplenomegaly. 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 Nonfocal neuro examination. Cranial nerves II through XII grossly intact. Sensory and motor system is within normal limits. EXTREMITIES: No cyanosis, no clubbing, no edema. The patient has a dressing to the right foot. MEDICATIONS: His current medications include as follows, Feosol 325 mg p.o. daily, Glucotrol 5 mg p.o. a.c.b., heparin 5000 units subcu every 12 hours, Extra Vitamin 1 tablet daily, Lantus 20 units subcu at bedtime, metoprolol 25 mg p.o. b.i.d., insulin Novolin for sliding scale, Santyl topical daily, also Tylenol 325 mg 2 tablets every 6 hours p.r.n., and also vancomycin 1.4 gm every 12 hours. LABORATORY DATA: No new labs are available for today. Accu-Cheks this morning 139, 162, and 90. IMPRESSION: In summary, Mr. Zavala is a 57-year-old middle-aged male with history of hypertension, diabetes, necrotizing fascitis, status post second ray amputation about 2 weeks ago, was readmitted from the halfway with worsening infection, and unable to receive Wound Vac in the halfway requiring additional surgery on admission on 09/19 with amputation of the right first big toe and also amputation of the metatarsal head of the first and third toes. 1. Osteomyelitis. Continue antibiotics, vancomycin, and also, meropenem as per ID recommendations. 2. Diabetes. Sugars are under control. Continue Lantus and glipizide. 3. Hypertension. Blood pressure is stable. Continue metoprolol 25 mg p.o. b.i.d. and low sodium diet and also diabetic diet. We will check CBC, BMP, and also vancomycin level in a.m. Random vanco level. Follow up with Podiatry for osteomyelitis of the foot. The patient was seen and examined. Rachel Hills MD
--- NOTE | 2017-09-23 03:59 | OP ---
PROCEDURE DATE: 09/19/2017 SURGEON: Nehal Frye DPM CQ DEVELOPER: Justyna Banegas DPM, PGY-1 ANESTHESIOLOGIST: Dr. Katz. TYPE OF ANESTHESIA: IV sedation plus local. PREOPERATIVE DIAGNOSIS: Right foot infected diabetic ulceration. POSTOPERATIVE DIAGNOSIS: Right foot infected diabetic ulceration. PROCEDURE PERFORMED: 1. Right foot partial first ray amputation. 2. Third digit and metatarsal head resection. 3. Wound debridement. 4. Reconstructive thin flap. INDICATIONS: The patient is a 57-year-old male with the above diagnosis. The patient has exhausted all conservative treatment at this time and now requires surgical intervention. The patient signed the consent after careful explanation of risks, benefits, complications, and alternatives for surgical procedure. No guarantees were given nor implied. N.p.o. status was confirmed prior to taking the patient to the operating room. PREPARATION: The patient was brought into the operating room and placed on the operating room table in a supine position. A time-out was performed for identification of the correct patient and procedure. After induction of IV sedation, the patient received a total of 20 mL of a 1:1 mixture of 2% lidocaine plain and 0.5% Marcaine plain in an ankle block fashion to the right lower extremity. Once adequate anesthesia was achieved, the right lower extremity was then prepped and draped in normal sterile manner and the procedure began. No tourniquet was utilized during that procedure. DESCRIPTION OF PROCEDURE: 1. Attention was directed to the patient's right foot, where an open deep ulceration was present extending from the plantar medial aspect of the first metatarsal head, extending laterally to the plantar aspect of the third metatarsal head. The ulceration measured approximately 14 cm x 9 cm x 0.5 cm in depth. It is important to note that the plantar hallux exhibited dark necrotic skin changes extending proximally to the level of the 1st metatarsal head. At this time, a #15 blade was utilized to create an incision at the plantar 1st metatarsal head down to the level of bone through the ulceration site. Next, using a [place] elevator, all periosteal tissue was carefully resected off the first metatarsal head. The incision was then carried proximally towards the distal phalanx of the hallux, down to the level of bone. The [place] elevator was then utilized to free all tissue from the bones of the hallux proximal and distal phalanges. At this time, using a sagittal saw, the first metatarsal head was resected. The proximal and distal first phalanges were then dissected from the soft tissue and all three bone specimens were passed from the operative site and sent for pathology. The dorsal skin overlying the hallux was left intact as it appeared healthy and of good quality for healing. The wound was then flushed with copious amounts of sterile normal saline. 2. At this time, attention was directed to the third digit, which was noted to appear dusky and gangrenous in nature. It is also of note that the plantar aspect of the third metatarsal head exhibited dusky and necrotic skin changes. A 15-blade was used to create an incision down the level of bone within the third interspace of the right foot extending circumferentially around the third digit. At this time, the third digit was disarticulated at the level of the metatarsal phalangeal joint. It was then noted that the third metatarsal head bone was soft and did not appear viable. A double action bone cutter was utilized to resect the distal portion of the third metatarsal head. A bone rasp was then utilized to smooth out the surface of the metatarsal head. 3. At this time, the Versajet hydrosurgical debridement tool was set up and primed on setting 7. The Versajet system was then utilized to excisionally debride all nonviable soft tissue from the entirety of the wound bed at the plantar right foot. A total of 3 L of sterile saline was utilized to copiously irrigate and debride the wound. 4. At this time, the remainder of the dorsal skin from where the right hallux formally lie was noted to still be intact and demonstrating a healthy appearance. Using plastic surgery technique, the flap was then excised from the dorsal medial aspect of the foot, left partially intact at the dorsal medial aspect of the foot. The flap was then rotated in a plantar lateral direction to allow for 50% coverage of the prior open ulceration site. The flap was then adhered down to the remainder of the foot using 3-0 Prolene and 4-0 Prolene sutures. Any redundant skin at this time was resected to us for allow for adequate skin to skin closure. At this time, the remainder of the ulceration site was noted to measure 6 cm x 6 cm size, 0.5 cm in depth. One inch iodoform packing was utilized to pack the wound bed. The surgical site was then dressed with Betadine soaked Adaptic, ABD pad, a dry sterile dressing, and an JONNY bandage. POSTOPERATIVE CONDITION: The patient tolerated the anesthesia and procedure well and was escorted to the recovery room with vital signs stable and neurovascular status intact to the right foot. The patient will return to the floor and Podiatry will continue to follow while inhouse. Upon discharge, the patient will followup in [facility] with Dr. Frye. Justyna Banegas DPM [facility]
[2017-09-23] MEDS: Meropenem 1 GM in Sodium Chloride 0.9% 100 ML IVPB SCH ×2 (05:18→22:14)
[2017-09-23] MEDS: (Novolin R) Insulin Human Regular 100 units/ml vial SC SCH ×4 (07:47→21:58)
[2017-09-23 08:27] LABS: HEMOGLOBIN 9.1 g/dL (12.0-18.0); MEAN CELL VOLUME 87.8 fL (80.0-94.0); MEAN CORPUSCULAR HEMOGLOBIN 31.2 pg (27.0-31.0); MEAN CORPUSCULAR HGB CONC 35.5 g/dL (33.0-37.0); MEAN PLATELET VOLUME 8.6 fL (7.2-11.7); RBC 2.92 Mil/uL (4.40-5.90); RED CELL DISTRIBUTION WIDTH 12.5 % (11.5-14.5); WHITE BLOOD COUNT 8.1 K/uL (4.8-10.8)
[2017-09-23 08:50] LABS: BLOOD UREA NITROGEN 10 mg/dL (9-20); CALCIUM 8.8 mg/dl (8.6-10.4); GFR AFRICAN-AMERICAN > 60; GFR NON-AFRICAN AMERICAN > 60
--- NOTE | 2017-09-23 10:19 | CP.PCM.PN ---
Subjective - Date & Time of Evaluation Date of Evaluation: 09/23/17 Time of Evaluation: 10:16 - Subjective Subjective: Podiatry Progress note- Dr. Frye 57 y/o male seen at bedside this morning with attending, Dr. Frye 4 days s/p right foot debridement of ulcer. Pt denies having any pain to the foot. Pt states the vac has continued to run and is not causing him any pain. He admits to keeping the dressing intact. Denies F/C/N/V/CP/SOB. Denies any acute events overnight. He is aware that tomorrow he is going for a wound graft application and he is to be NPO after midnight. Objective - Vital Signs/Intake and Output Vital Signs (last 24 hours): Temp Pulse Resp BP Pulse Ox 98.7 F 90 20 113/76 100 09/23/17 07:55 09/23/17 07:55 09/23/17 07:55 09/23/17 07:55 09/23/17 07:55 Intake and Output: 09/23/17 09/23/17 06:59 18:59 Intake Total 900 900 Output Total 700 500 Balance 200 400 - Medications Medications: Current Medications Acetaminophen (Tylenol 325mg Tab) 650 mg PO Q6 PRN PRN Reason: Fever >100.4 F Acetaminophen (Tylenol 325mg Tab) 650 mg PO Q6 PRN PRN Reason: Pain, Mild (1-3) Collagenase (Santyl) 0 gm TOP DAILY [facility] Last Admin: 09/22/17 09:17 Dose: 1 applic Ferrous Sulfate (Feosol) 325 mg PO DAILY [facility] Last Admin: 09/22/17 09:16 Dose: 325 mg Glipizide (Glucotrol) 5 mg PO ACB [facility] Last Admin: 09/23/17 08:16 Dose: 5 mg Meropenem 1 gm/ Sodium (Chloride) 100 mls @ 200 mls/hr IVPB Q8H [facility] Last Admin: 09/23/17 05:18 Dose: 200 mls/hr Vancomycin HCl 1.4 gm/ Sodium (Chloride) 500 mls @ 220 mls/hr IVPB Q12H [facility] Last Admin: 09/22/17 23:21 Dose: 220 mls/hr Insulin Glargine (Lantus) 20 unit SC HS [facility] Last Admin: 04/29/18 21:57 Dose: 20 units Insulin Human Regular (Novolin R) 1 unit SC ACHS [facility] PRN Reason: Protocol Last Admin: 09/23/17 07:47 Dose: Not Given Metoprolol Tartrate (Lopressor) 25 mg PO BID [facility] Last Admin: 09/22/17 18:09 Dose: 25 mg Multivitamins (Hexavitamin) 1 tab PO DAILY [facility] Last Admin: 09/22/17 09:16 Dose: 1 tab - Labs Labs: 09/23/17 08:20 09/23/17 08:20 PT 14.1 SECONDS (9.7-12.2) H 09/19/17 10:12 INR 1.3 09/19/17 10:12 APTT 36 SECONDS (21-34) H 09/19/17 10:12 - Constitutional Appears: Well, Non-toxic, No Acute Distress - Extremities Exam Additional comments: Right lower extremity focused exam: Vasc: CFT < 3 sec to 4th and 5th digits Derm: Open post-surgical wound measuring 6cm x 6cm x 0.3cm with skin flap noted to dorsomedial foot. Plantar lateral aspect of flap exhibits necrotic skin changes. Wound bed is a mixture of fibrotic and granular tissue. Mild active sanguinous drainage noted. No malodor, no purulence, no fluctuance. Previously exposed metatarsal bone now exhibits overlying tissue formation. Neuro: Protective sensation grossly intact Ortho: No tenderness to palpation of R foot at entirety of wound bed - Neurological Exam Neurological Exam: Alert, Awake, Oriented x3 - Psychiatric Exam Psychiatric exam: Normal Affect, Normal Mood Assessment and Plan - Assessment and Plan (Free Text) Assessment: 57 y/o male 3 days s/p right foot partial 1st ray resection, 3rd digit and met head resection and wound debridement of right foot with reconstructive rotational skin flap Plan: Pt seen and evaluated at bedside with attending Dr. Frye Labs and vitals reviewed - afebrile, WBC 8.1 Wound vac removed, dressed with LOLA christian Pt to OR tomorrow morning for wound graft placement Vac to be placed tomorrow in OR Will continue to follow patient on floors NPO after midnight
[2017-09-23] MEDS: Multiple Vitamins Tab PO SCH (10:35)
[2017-09-23] MEDS: Collagenase 250 Units/gm Ointment(30 gm) TOP SCH (10:36)
[2017-09-23] MEDS ORDERED: Vancomycin 1.4 GM in Sodium Chloride 0.9% 250 ML IVPB SCH (11:00)
[2017-09-23] MEDS: Vancomycin 1.4 GM in Sodium Chloride 0.9% 500 ML IVPB SCH ×2 (11:56→23:24)
--- NOTE | 2017-09-23 11:58 | CP.PCM.PN ---
Subjective - Date & Time of Evaluation Date of Evaluation: 09/23/17 Time of Evaluation: 11:45 - Subjective Subjective: Progress note dictated #[id number] Objective - Vital Signs/Intake and Output Vital Signs (last 24 hours): Temp Pulse Resp BP Pulse Ox 98.7 F 90 20 113/76 100 09/23/17 07:55 09/23/17 07:55 09/23/17 07:55 09/23/17 10:35 09/23/17 07:55 Intake and Output: 09/23/17 09/23/17 06:59 18:59 Intake Total 900 900 Output Total 700 500 Balance 200 400 - Medications Medications: Current Medications Acetaminophen (Tylenol 325mg Tab) 650 mg PO Q6 PRN PRN Reason: Fever >100.4 F Acetaminophen (Tylenol 325mg Tab) 650 mg PO Q6 PRN PRN Reason: Pain, Mild (1-3) Collagenase (Santyl) 0 gm TOP DAILY [facility] Last Admin: 09/23/17 10:36 Dose: Not Given Ferrous Sulfate (Feosol) 325 mg PO DAILY [facility] Last Admin: 09/23/17 10:35 Dose: 325 mg Glipizide (Glucotrol) 5 mg PO ACB [facility] Last Admin: 09/23/17 08:16 Dose: 5 mg Vancomycin HCl 1.4 gm/ Sodium (Chloride) 500 mls @ 250 mls/hr IVPB Q12H [facility] Last Admin: 09/23/17 11:56 Dose: 250 mls/hr Insulin Glargine (Lantus) 20 unit SC HS [facility] Last Admin: 09/22/17 21:57 Dose: 20 units Insulin Human Regular (Novolin R) 1 unit SC ACHS [facility] PRN Reason: Protocol Last Admin: 09/23/17 07:47 Dose: Not Given Metoprolol Tartrate (Lopressor) 25 mg PO BID [facility] Last Admin: 09/23/17 10:35 Dose: 25 mg Multivitamins (Hexavitamin) 1 tab PO DAILY [facility] Last Admin: 09/23/17 10:35 Dose: 1 tab - Labs Labs: 09/23/17 08:20 09/23/17 08:20 PT 14.1 SECONDS (9.7-12.2) H 09/19/17 10:12 INR 1.3 09/19/17 10:12 APTT 36 SECONDS (21-34) H 09/19/17 10:12
--- NOTE | 2017-09-23 15:26 | CP.PCM.PN ---
Subjective - Date & Time of Evaluation Date of Evaluation: 09/23/17 Time of Evaluation: 03:15 - Subjective Subjective: dictated Objective - Vital Signs/Intake and Output Vital Signs (last 24 hours): Temp Pulse Resp BP Pulse Ox 98.7 F 90 20 113/76 100 09/23/17 07:55 09/23/17 07:55 09/23/17 07:55 09/23/17 10:35 09/23/17 07:55 Intake and Output: 09/23/17 09/23/17 06:59 18:59 Intake Total 900 900 Output Total 700 500 Balance 200 400 - Medications Medications: Current Medications Acetaminophen (Tylenol 325mg Tab) 650 mg PO Q6 PRN PRN Reason: Fever >100.4 F Acetaminophen (Tylenol 325mg Tab) 650 mg PO Q6 PRN PRN Reason: Pain, Mild (1-3) Collagenase (Santyl) 0 gm TOP DAILY [facility] Last Admin: 09/23/17 10:36 Dose: Not Given Ferrous Sulfate (Feosol) 325 mg PO DAILY [facility] Last Admin: 09/23/17 10:35 Dose: 325 mg Glipizide (Glucotrol) 5 mg PO ACB [facility] Last Admin: 09/23/17 08:16 Dose: 5 mg Vancomycin HCl 1.4 gm/ Sodium (Chloride) 500 mls @ 250 mls/hr IVPB Q12H [facility] Last Admin: 09/23/17 11:56 Dose: 250 mls/hr Insulin Glargine (Lantus) 20 unit SC HS [facility] Last Admin: 09/22/17 21:57 Dose: 20 units Insulin Human Regular (Novolin R) 1 unit SC ACHS [facility] PRN Reason: Protocol Last Admin: 09/23/17 12:04 Dose: Not Given Metoprolol Tartrate (Lopressor) 25 mg PO BID [facility] Last Admin: 09/23/17 10:35 Dose: 25 mg Multivitamins (Hexavitamin) 1 tab PO DAILY [facility] Last Admin: 09/23/17 10:35 Dose: 1 tab - Labs Labs: 09/23/17 08:20 09/23/17 08:20 PT 14.1 SECONDS (9.7-12.2) H 09/19/17 10:12 INR 1.3 09/19/17 10:12 APTT 36 SECONDS (21-34) H 09/19/17 10:12
--- NOTE | 2017-09-23 21:05 | PN ---
DATE: 09/23/2017 SUBJECTIVE: The patient was seen and examined at bedside. This morning, the patient denies any complaints. Denies any headache, dizziness. Denies any chest pain, shortness of breath, or wheezing. Denies any nausea, vomiting, abdominal pain, diarrhea, or constipation. All other systems reviewed and was found to be negative. PHYSICAL EXAMINATION: GENERAL: Middle-aged male, lying in bed, in no acute distress. VITAL SIGNS: Blood pressure 113/76, pulse 90, respirations 20, temperature 98.7 degrees Fahrenheit, O2 saturation 100% on room air. HEENT: Pupils equal, round, and reactive to light and accommodation. Extraocular muscles intact. No icterus, no pallor, no oral thrush. No oropharyngeal congestion. NECK: Supple. No JVD. LUNGS: Bilateral with clear breath sounds. No wheezing, no rhonchi. CVS: S1, S2 present, regular. ABDOMEN: Soft, nontender. Bowel sounds present. No guarding, no rigidity, no rebound tenderness noted. PRINCIPAL PRODUCT MANAGER: Alert, awake, and oriented x3. No focal deficits noted. EXTREMITIES: Right foot with dressing in place. LABORATORY DATA: Done from this morning. WBC 8.1, hemoglobin 9.1, hematocrit 23.6, platelets 314. Sodium 143, potassium 4, chloride 105, bicarb 28, BUN 10, creatinine 0.7, glucose 183. MEDICATIONS: Include Tylenol as needed, collagenase topical daily, Feosol 325 mg p.o. daily, glipizide 5 mg daily, insulin Lantus 20 units subcu nightly, metoprolol 25 mg p.o. b.i.d., multivitamin, vancomycin 1400 mg IV every 12 hours. ASSESSMENT AND PLAN: A middle-aged male with history of uncontrolled diabetes mellitus; hypertension; diabetic foot ulcers, status post I and D of the right foot gas gangrene; necrotizing fasciitis; status post resection of first, second, and third toes, on multiple OR visits. The patient is for possible debridement in the morning for possible dressing in a.m. by Podiatry. His sugars are . Blood pressure is controlled. H and H remain stable. Continue with current antibiotics of meropenem and vancomycin. We will follow up with ID and Podiatry. The patient is at acceptable risk for the scheduled procedure but . The patient understands the need for surgery. Discussed with patient via a [place] speaking anesthesiology physician assistant at bedside. I clarified all his concerns and questions. Frenando Hills MD
[2017-09-23] MEDS: Dextrose 5%/0.45% NS 1,000 ML IV SCH (21:45)
[2017-09-23] MEDS: (Lantus) Insulin Glargine, Recombinant SC SCH (21:46)
--- NOTE | 2017-09-23 22:47 | PN ---
DATE: SUBJECTIVE: The patient is awake, alert. He is not complaining of any problems. They have remove the Wound Vac. He has a dressing on his right foot, and he is offering no new complaints. He has no diarrhea. OBJECTIVE: HEENT: Head is atraumatic, normocephalic. Pupils are reacting to light. NECK: Supple. LUNGS: Clear. His PICC line is unremarkable. HEART: S1, S2 is regular. ABDOMEN: Soft, nontender. No guarding, no rigidity present. EXTREMITIES: Right foot has a dressing. I spoke to Dr. Frye over the weekend about the plan, and she said she would be putting a skin graft later on this week. The wound appears to look good as she has done multiple debridements on it and I was concerned about leaving the foot open and sending him back. Right now, we will continue with the IV antibiotics. Labs show white count is 8.1, hemoglobin is 9.1, hematocrit 25.6, platelet count is 314, BUN is 10, creatinine 0.7. They actually did a vancomycin random level today which was 21.2 which is kind of high, so I would hold one dose of vancomycin today and let another level tomorrow. The patient did come with necrotizing fascia and has undergone removal of three toes, and at least 3 debridements and has a open wound and had a Wound Vac on yesterday and today has a dressing. Tone Barcenas MD
[2017-09-24] MEDS: Meropenem 1 GM in Sodium Chloride 0.9% 100 ML IVPB SCH ×3 (05:30→21:58)
--- NOTE | 2017-09-24 07:13 | CP.PCM.PN ---
Subjective - Date & Time of Evaluation Date of Evaluation: 09/24/17 Time of Evaluation: 07:13 - Subjective Subjective: Podiatry Progress note for Dr. Frye 57 year old male was seen at bedside this morning 5 days s/p right 1st and 3rd metatarsal head resection. Patient is aware he is going for a graft placement this morning. NPO status confirmed. Denies any n/v/f/c/sob/cp. Objective - Vital Signs/Intake and Output Vital Signs (last 24 hours): Temp Pulse Resp BP Pulse Ox 99.1 F 82 20 144/70 98 09/24/17 00:00 09/24/17 00:00 09/24/17 00:00 09/24/17 06:49 09/24/17 00:00 Intake and Output: 09/24/17 09/24/17 06:59 18:59 Intake Total 480 Balance 480 - Medications Medications: Current Medications Acetaminophen (Tylenol 325mg Tab) 650 mg PO Q6 PRN PRN Reason: Fever >100.4 F Acetaminophen (Tylenol 325mg Tab) 650 mg PO Q6 PRN PRN Reason: Pain, Mild (1-3) Collagenase (Santyl) 0 gm TOP DAILY [facility] Last Admin: 09/23/17 10:36 Dose: Not Given Ferrous Sulfate (Feosol) 325 mg PO DAILY [facility] Last Admin: 09/23/17 10:35 Dose: 325 mg Glipizide (Glucotrol) 5 mg PO ACB [facility] Last Admin: 09/23/17 08:16 Dose: 5 mg Vancomycin HCl 1.4 gm/ Sodium (Chloride) 500 mls @ 250 mls/hr IVPB Q12H [facility] Last Admin: 09/23/17 23:24 Dose: Not Given Meropenem 1 gm/ Sodium (Chloride) 100 mls @ 100 mls/hr IVPB Q8 [facility] PRN Reason: Protocol Last Admin: 09/24/17 05:30 Dose: 100 mls/hr Dextrose/Sodium Chloride (Dextrose 5%/0.45% Ns 1000 Ml) 1,000 mls @ 75 mls/hr IV .[id number] [facility] Last Admin: 09/23/17 21:45 Dose: 75 mls/hr Insulin Glargine (Lantus) 20 unit SC HS [facility] Last Admin: 09/23/17 21:46 Dose: Not Given Insulin Human Regular (Novolin R) 1 unit SC ACHS [facility] PRN Reason: Protocol Last Admin: 09/23/17 21:58 Dose: Not Given Metoprolol Tartrate (Lopressor) 25 mg PO BID [facility] Last Admin: 09/24/17 06:49 Dose: 25 mg Multivitamins (Hexavitamin) 1 tab PO DAILY [facility] Last Admin: 09/23/17 10:35 Dose: 1 tab - Labs Labs: 09/23/17 08:20 09/23/17 08:20 PT 14.1 SECONDS (9.7-12.2) H 09/19/17 10:12 INR 1.3 09/19/17 10:12 APTT 36 SECONDS (21-34) H 09/19/17 10:12 - Constitutional Appears: Well, Non-toxic, No Acute Distress - Extremities Exam Additional comments: dressing c/d/i to RLE - Neurological Exam Neurological Exam: Alert, Awake, Oriented x3 - Psychiatric Exam Psychiatric exam: Normal Affect, Normal Mood Assessment and Plan - Assessment and Plan (Free Text) Assessment: 57 y/o male 5 days s/p right foot partial 1st ray resection, 3rd digit and met head resection and wound debridement of right foot with reconstructive rotational skin flap Plan: Pt was seen and examined at bedside Pt NPO status was confirmed All Pre-op testing and clearance was in the chart Pt has exhausted all conservative treatment at this time and is opting for surgical intervention Pt was explained procedure and post-operative course All pt's questions were answered to satisfaction No guarantees were made Pt understands all risks, benefits and complications of procedure Pt will follow-up with Dr. Frye
[2017-09-24] MEDS ORDERED: Lidocaine 2% MPF (5 ml) Inj ONE (07:24)
[2017-09-24] MEDS ORDERED: Bupivacaine 0.5% Inj(30mL) IJ ONE (07:24)
[2017-09-24] MEDS ORDERED: Bupivacaine HCl 0.25% PF (30 ml) Inj ONE (07:24)
[2017-09-24] MEDS ORDERED: Lidocaine Hydrochloride 10 ML INJ ONE (07:31)
[2017-09-24] MEDS ORDERED: Bacitracin 150,000 UNIT in Sodium Chloride 0.9% Irrig 3,000 ML IR SCH (07:45)
[2017-09-24] MEDS ORDERED: Propofol 10 mg/ml Inj (20 ML) ONE (07:50)
[2017-09-24] MEDS ORDERED: Midazolam 2 MG/2 ML VIAL ONE (07:50)
[2017-09-24] MEDS: (Novolin R) Insulin Human Regular 100 units/ml vial SC SCH ×4 (08:15→22:16)
--- NOTE | 2017-09-24 08:58 | PCM.SURG1 ---
Surgeon's Initial Post Op Note - Surgeon's Notes Surgeon: Dr. Frye Director Of State: Alcon Mena PGY1 Type of Anesthesia: IV Sedation, Local (20cc 1:1 mixture 1% lidocaine plain & 0.5% marcaine plain) Anesthesia Administered By: Dr. Alonso Pre-Operative Diagnosis: Right foot non-healing wound Operative Findings: See operative report. Materials: Integra bilayer graft, 4- 0 monocryl Post-Operative Diagnosis: Same Operation Performed: Right foot wound debridement with application of Integra graft Specimen/Specimens Removed: Right foot wound culture Estimated Blood Loss: EBL {In ML}: 1 Blood Products Given: N/A Drains Used: Wound Vac Post-Op Condition: Good Date of Surgery/Procedure: 09/24/17 Time of Surgery/Procedure: 08:57
[2017-09-24] MEDS ORDERED: Oxycodone/Acetaminophen 5/325 mg Tab PO PRN ×2 (08:59)
--- NOTE | 2017-09-24 10:15 | RAD ---
PROCEDURE: Right Foot Radiographs. HISTORY: right foot wound debridment COMPARISON: 09/17/2017 FINDINGS: BONES: Status post amputation 1st and 3rd digits at the level of the distal metatarsal diaphysis. Old amputation 2nd distal metatarsal. No acute fracture. JOINTS: Normal. SOFT TISSUES: Normal. OTHER FINDINGS: None. IMPRESSION: Amputation 1st and 3rd digit at the level of the distal metatarsal.
[2017-09-24] MEDS: Vancomycin 1.4 GM in Sodium Chloride 0.9% 500 ML IVPB SCH (10:45)
[2017-09-24] MEDS: Multiple Vitamins Tab PO SCH (10:46)
[2017-09-24] MEDS: Collagenase 250 Units/gm Ointment(30 gm) TOP SCH (10:48)
--- NOTE | 2017-09-24 10:49 | CP.PCM.PN ---
Subjective - Date & Time of Evaluation Date of Evaluation: 09/24/17 Time of Evaluation: 10:40 - Subjective Subjective: Progress note dictated #[id number] Objective - Vital Signs/Intake and Output Vital Signs (last 24 hours): Temp Pulse Resp BP Pulse Ox 98.7 F 67 15 113/70 100 09/24/17 08:55 09/24/17 09:45 09/24/17 09:45 09/24/17 10:47 09/24/17 09:45 Intake and Output: 09/24/17 09/24/17 06:59 18:59 Intake Total 480 785 Balance 480 785 - Medications Medications: Current Medications Acetaminophen (Tylenol 325mg Tab) 650 mg PO Q6 PRN PRN Reason: Fever >100.4 F Acetaminophen (Tylenol 325mg Tab) 650 mg PO Q6 PRN PRN Reason: Pain, Mild (1-3) Collagenase (Santyl) 0 gm TOP DAILY [facility] Last Admin: 09/24/17 10:48 Dose: Not Given Ferrous Sulfate (Feosol) 325 mg PO DAILY [facility] Last Admin: 09/24/17 10:47 Dose: 325 mg Glipizide (Glucotrol) 5 mg PO ACB [facility] Last Admin: 09/24/17 08:15 Dose: Not Given Vancomycin HCl 1.4 gm/ Sodium (Chloride) 500 mls @ 250 mls/hr IVPB Q12H [facility] Last Admin: 09/24/17 10:45 Dose: 250 mls/hr Meropenem 1 gm/ Sodium (Chloride) 100 mls @ 100 mls/hr IVPB Q8 [facility] PRN Reason: Protocol Last Admin: 09/24/17 05:30 Dose: 100 mls/hr Dextrose/Sodium Chloride (Dextrose 5%/0.45% Ns 1000 Ml) 1,000 mls @ 75 mls/hr IV .[id number] [facility] Last Admin: 09/23/17 21:45 Dose: 75 mls/hr Insulin Glargine (Lantus) 20 unit SC HS [facility] Last Admin: 09/23/17 21:46 Dose: Not Given Insulin Human Regular (Novolin R) 1 unit SC ACHS [facility] PRN Reason: Protocol Last Admin: 09/24/17 08:15 Dose: Not Given Metoprolol Tartrate (Lopressor) 25 mg PO BID [facility] Last Admin: 09/24/17 10:47 Dose: 25 mg Multivitamins (Hexavitamin) 1 tab PO DAILY [facility] Last Admin: 09/24/17 10:46 Dose: 1 tab Oxycodone/Acetaminophen (Percocet 5/325 Mg Tab) 1 tab PO Q6H PRN PRN Reason: Pain, moderate (4-7) Stop: 09/27/17 09:00 Oxycodone/Acetaminophen (Percocet 5/325 Mg Tab) 2 tab PO Q6H PRN PRN Reason: Pain, severe (8-10) Stop: 09/27/17 09:00 - Labs Labs: 09/23/17 08:20 09/23/17 08:20 PT 14.1 SECONDS (9.7-12.2) H 09/19/17 10:12 INR 1.3 09/19/17 10:12 APTT 36 SECONDS (21-34) H 09/19/17 10:12
[2017-09-24] MEDS: Dextrose 5%/0.45% NS 1,000 ML IV SCH ×2 (11:18→13:22)
[2017-09-24 16:48] VITALS: RESP 20
--- NOTE | 2017-09-24 21:11 | CP.PCM.PN ---
Subjective - Date & Time of Evaluation Date of Evaluation: 09/24/17 Time of Evaluation: 02:15 - Subjective Subjective: dictated Objective - Vital Signs/Intake and Output Vital Signs (last 24 hours): Temp Pulse Resp BP Pulse Ox 99.5 F 81 20 118/68 97 09/24/17 16:00 09/24/17 16:00 09/24/17 16:00 09/24/17 17:17 09/24/17 16:00 Intake and Output: 09/24/17 09/25/17 18:59 06:59 Intake Total 1965 Output Total 1200 Balance 765 - Medications Medications: Current Medications Acetaminophen (Tylenol 325mg Tab) 650 mg PO Q6 PRN PRN Reason: Fever >100.4 F Acetaminophen (Tylenol 325mg Tab) 650 mg PO Q6 PRN PRN Reason: Pain, Mild (1-3) Collagenase (Santyl) 0 gm TOP DAILY [facility] Last Admin: 09/24/17 10:48 Dose: Not Given Ferrous Sulfate (Feosol) 325 mg PO DAILY [facility] Last Admin: 09/24/17 10:47 Dose: 325 mg Glipizide (Glucotrol) 5 mg PO ACB [facility] Last Admin: 09/24/17 08:15 Dose: Not Given Meropenem 1 gm/ Sodium (Chloride) 100 mls @ 100 mls/hr IVPB Q8 [facility] PRN Reason: Protocol Last Admin: 09/24/17 14:05 Dose: 100 mls/hr Vancomycin HCl 1,400 mg/ (Sodium Chloride) 500 mls @ 166.6 mls/hr IVPB Q24H [facility] PRN Reason: Protocol Insulin Glargine (Lantus) 20 unit SC HS [facility] Last Admin: 09/23/17 21:46 Dose: Not Given Insulin Human Regular (Novolin R) 1 unit SC ACHS [facility] PRN Reason: Protocol Last Admin: 09/24/17 17:20 Dose: 1 unit Metoprolol Tartrate (Lopressor) 25 mg PO BID [facility] Last Admin: 09/24/17 17:17 Dose: 25 mg Multivitamins (Hexavitamin) 1 tab PO DAILY [facility] Last Admin: 09/24/17 10:46 Dose: 1 tab Oxycodone/Acetaminophen (Percocet 5/325 Mg Tab) 1 tab PO Q6H PRN PRN Reason: Pain, moderate (4-7) Stop: 09/27/17 09:00 Oxycodone/Acetaminophen (Percocet 5/325 Mg Tab) 2 tab PO Q6H PRN PRN Reason: Pain, severe (8-10) Stop: 09/27/17 09:00 - Labs Labs: 09/23/17 08:20 09/23/17 08:20 PT 14.1 SECONDS (9.7-12.2) H 09/19/17 10:12 INR 1.3 09/19/17 10:12 APTT 36 SECONDS (21-34) H 09/19/17 10:12
[2017-09-24] MEDS: (Lantus) Insulin Glargine, Recombinant SC SCH (21:59)
--- NOTE | 2017-09-25 02:15 | PN ---
DATE: SUBJECTIVE: The patient was back on the Wound Vac today when I went to see him, and he said he was going to go for OR. He denies any other complaints. He has been on antibiotics. His vancomycin random level was low today, and it was high yesterday, so I made it once a day for now. We will follow vancomycin peak and trough when done, and the patient said he was going to go to OR, and as discussed with Dr. Frye, she was saying that they may try to graft it, and at this time when I am writing the note, they have already done that, and the patient when seen was stable otherwise, but he was waiting for this as he has had three amputations with necrotizing fascitis of the foot, and three toes are gone. PHYSICAL EXAMINATION: VITAL SIGNS: T-max 99.5. When I saw pulse was 81, blood pressure 118/68, respirations 20. I do not see any repeat vitals at this time. GENERAL: He was awake and alert. HEENT: Unremarkable. NECK: Supple. LUNGS: Clear. HEART: S1, S2 is regular. Right arm PICC line. ABDOMEN: Soft. EXTREMITIES: Right foot had a Wound Vac at that time. LABORATORY DATA: There are no new labs today except for the toxicology, which has showed vancomycin random level was 9.3, so I have restarted vancomycin 1400 once a day and leave him on meropenem. They also took wound culture . We will follow that again, and the patient is on vancomycin and Merrem. I want to make sure he is getting those. IMPRESSION: He had necrotizing fasciitis and needing multiple debridements, and he is diabetic and has had three toes amputated on the right foot and went to the OR today. Tone Barcenas MD
--- NOTE | 2017-09-25 03:00 | PN ---
DATE: 09/24/2017 SUBJECTIVE: The patient was seen and examined at bedside. Underwent debridement and grafting this morning. The patient denies any new complaints. PHYSICAL EXAMINATION: GENERAL: Middle-aged male, lying in bed, in no acute distress. VITAL SIGNS: Blood pressure 113/70, pulse 81, respirations 20, temperature 99.5 degrees Fahrenheit, O2 saturations is 97% on room air. HEENT: Pupils are equal, round, and reacting to light and accommodation. Extraocular muscles are intact. No icterus. No pallor. NECK: Supple. No JVD. LUNGS: Bilateral vesicular breath sounds. No wheezing. No rhonchi. CVS: S1 and S2 present. Regular. ABDOMEN: Soft and nontender. Bowel sounds present. No guarding. No rigidity. No rebound tenderness noted. EQUAL EMPLOYMENT OPPORTUNITY OFFICER: Alert, awake, and oriented x3. No focal deficits noted. EXTREMITIES: Right foot dressing in place. MEDICATIONS: Include Tylenol as needed, collagenase topical daily, Feosol 325 mg p.o. daily, glipizide 5 mg in the morning, Lantus 20 units subcu at bedtime, meropenem 1 gm IV every 8 hours, metoprolol 25 mg p.o. b.i.d., multivitamin daily, Percocet as needed, vancomycin 1400 mg IV every 24 hours. LABORATORY DATA: Labs from this morning random vancomycin 9.3. Glucose 220, 165, 132, 226, and 199. Right foot wound culture few polymorphonuclear WBC's, no organism are seen. ASSESSMENT AND PLAN: Middle-aged male with uncontrolled diabetes mellitus, hypertension, diabetic foot ulcer, status post debridement and amputation of first, second and third toes. Wound culture is growing multiple organisms on meropenem and vancomycin. Status post repeat debridement and grafting. Continue with current antibiotics. Follow up with Podiatry. Wound Vac as per Podiatry. Blood pressure is stable on current medications. Monitor sugars. Adjust hyperglycemics as needed. Discussed with social media marketing analyst. Awaiting for authorization from insurance when cleared by Podiatry and social media marketing analyst and when bed available. The patient may be transferred to subacute rehabilitation. Fernando Hills MD
[2017-09-25] MEDS: Meropenem 1 GM in Sodium Chloride 0.9% 100 ML IVPB SCH ×3 (05:19→21:16)
[2017-09-25 07:23] LABS: BASO # 0.1 K/uL (0.0-0.2); BASO % 1.1 % (0.0-2.0); EOS # 0.3 K/uL (0.0-0.7); HEMOGLOBIN 9.6 g/dL (12.0-18.0); LYMPH # 2.4 K/uL (1.0-4.3); LYMPH % 28.3 % (20.0-40.0); MEAN CORPUSCULAR HEMOGLOBIN 31.4 pg (27.0-31.0); MEAN CORPUSCULAR HGB CONC 35.7 g/dL (33.0-37.0); MEAN PLATELET VOLUME 8.3 fL (7.2-11.7); MONO # 0.5 K/uL (0.0-0.8); NEUT # 5.1 K/uL (1.8-7.0); NEUT % 60.6 % (50.0-75.0); NRBC % 0.1 % (0.0-2.0); RBC 3.06 Mil/uL (4.40-5.90); RED CELL DISTRIBUTION WIDTH 12.8 % (11.5-14.5); WHITE BLOOD COUNT 8.4 K/uL (4.8-10.8)
[2017-09-25 07:26] LABS: ALB/GLOB RATIO 0.7 (1.0-2.1); ALBUMIN 3.4 g/dL (3.5-5.0); ALT/SGPT 8 U/L (21-72); AST/SGOT 18 U/L (17-59); BLOOD UREA NITROGEN 9 mg/dL (9-20); CALCIUM 8.8 mg/dl (8.6-10.4); GFR AFRICAN-AMERICAN > 60; GFR NON-AFRICAN AMERICAN > 60
[2017-09-25] MEDS: (Novolin R) Insulin Human Regular 100 units/ml vial SC SCH ×4 (08:27→22:38)
[2017-09-25] MEDS: Multiple Vitamins Tab PO SCH (09:53)
[2017-09-25] MEDS: Collagenase 250 Units/gm Ointment(30 gm) TOP SCH (09:56)
--- NOTE | 2017-09-25 11:36 | CP.PCM.PN ---
Subjective - Date & Time of Evaluation Date of Evaluation: 09/25/17 Time of Evaluation: 11:36 - Subjective Subjective: Podiatry Progress Note for Dr. Frye 57 year old male 1 day s/p right foot graft application was seen resting comfortably at bedside. Wound vac is intact and working. He currently denies any pain. Denies any n/v/f/c/sob/cp. Objective - Vital Signs/Intake and Output Vital Signs (last 24 hours): Temp Pulse Resp BP Pulse Ox 98.4 F 76 20 114/74 97 09/25/17 08:16 09/25/17 08:16 09/25/17 08:16 09/25/17 09:54 09/25/17 08:16 Intake and Output: 09/25/17 09/25/17 06:59 18:59 Intake Total 780 300 Output Total 500 Balance 780 -200 - Medications Medications: Current Medications Acetaminophen (Tylenol 325mg Tab) 650 mg PO Q6 PRN PRN Reason: Fever >100.4 F Acetaminophen (Tylenol 325mg Tab) 650 mg PO Q6 PRN PRN Reason: Pain, Mild (1-3) Collagenase (Santyl) 0 gm TOP DAILY [facility] Last Admin: 09/25/17 09:56 Dose: Not Given Ferrous Sulfate (Feosol) 325 mg PO DAILY [facility] Last Admin: 09/25/17 09:53 Dose: 325 mg Glipizide (Glucotrol) 5 mg PO ACB [facility] Last Admin: 09/25/17 08:30 Dose: 5 mg Meropenem 1 gm/ Sodium (Chloride) 100 mls @ 100 mls/hr IVPB Q8 [facility] PRN Reason: Protocol Last Admin: 09/25/17 05:19 Dose: 100 mls/hr Vancomycin HCl 1,400 mg/ (Sodium Chloride) 500 mls @ 166.6 mls/hr IVPB Q24H [facility] PRN Reason: Protocol Last Admin: 09/24/17 23:30 Dose: 166.6 mls/hr Insulin Glargine (Lantus) 20 unit SC HS [facility] Last Admin: 09/24/17 21:59 Dose: 20 units Insulin Human Regular (Novolin R) 1 unit SC ACHS [facility] PRN Reason: Protocol Last Admin: 09/25/17 08:27 Dose: Not Given Metoprolol Tartrate (Lopressor) 25 mg PO BID [facility] Last Admin: 09/25/17 09:54 Dose: 25 mg Multivitamins (Hexavitamin) 1 tab PO DAILY [facility] Last Admin: 09/25/17 09:53 Dose: 1 tab Oxycodone/Acetaminophen (Percocet 5/325 Mg Tab) 1 tab PO Q6H PRN PRN Reason: Pain, moderate (4-7) Stop: 09/27/17 09:00 Oxycodone/Acetaminophen (Percocet 5/325 Mg Tab) 2 tab PO Q6H PRN PRN Reason: Pain, severe (8-10) Stop: 09/27/17 09:00 - Labs Labs: 09/25/17 06:47 09/25/17 06:47 PT 14.1 SECONDS (9.7-12.2) H 09/19/17 10:12 INR 1.3 09/19/17 10:12 APTT 36 SECONDS (21-34) H 09/19/17 10:12 - Constitutional Appears: Well, No Acute Distress - Extremities Exam Additional comments: dressing c/d/i wound vac set to 125 mmHg with 5mL of drainage in vac - Neurological Exam Neurological Exam: Alert, Awake, Oriented x3 - Psychiatric Exam Psychiatric exam: Normal Affect, Normal Mood Assessment and Plan - Assessment and Plan (Free Text) Assessment: 57 year old male 1 day s/p right foot graft application Plan: patient examined and evaluated discussed in detail with attending, Dr. Frye labs, chart, vitals reviewed;WBC 8.4 wound vac and dressing left intact podiatry will cont to follow patient while in house
--- NOTE | 2017-09-25 12:10 | CP.PCM.PN ---
Subjective - Date & Time of Evaluation Date of Evaluation: 09/25/17 Time of Evaluation: 12:10 - Subjective Subjective: Progress note dictated # [id number] Objective - Vital Signs/Intake and Output Vital Signs (last 24 hours): Temp Pulse Resp BP Pulse Ox 98.4 F 76 20 114/74 97 09/25/17 08:16 09/25/17 08:16 09/25/17 08:16 09/25/17 09:54 09/25/17 08:16 Intake and Output: 09/25/17 09/25/17 06:59 18:59 Intake Total 780 300 Output Total 500 Balance 780 -200 - Medications Medications: Current Medications Acetaminophen (Tylenol 325mg Tab) 650 mg PO Q6 PRN PRN Reason: Fever >100.4 F Acetaminophen (Tylenol 325mg Tab) 650 mg PO Q6 PRN PRN Reason: Pain, Mild (1-3) Collagenase (Santyl) 0 gm TOP DAILY [facility] Last Admin: 09/25/17 09:56 Dose: Not Given Ferrous Sulfate (Feosol) 325 mg PO DAILY [facility] Last Admin: 09/25/17 09:53 Dose: 325 mg Glipizide (Glucotrol) 5 mg PO ACB [facility] Last Admin: 09/25/17 08:30 Dose: 5 mg Meropenem 1 gm/ Sodium (Chloride) 100 mls @ 100 mls/hr IVPB Q8 [facility] PRN Reason: Protocol Last Admin: 09/25/17 05:19 Dose: 100 mls/hr Vancomycin HCl 1,400 mg/ (Sodium Chloride) 500 mls @ 166.6 mls/hr IVPB Q24H [facility] PRN Reason: Protocol Last Admin: 09/24/17 23:30 Dose: 166.6 mls/hr Insulin Glargine (Lantus) 20 unit SC HS [facility] Last Admin: 09/24/17 21:59 Dose: 20 units Insulin Human Regular (Novolin R) 1 unit SC ACHS [facility] PRN Reason: Protocol Last Admin: 09/25/17 08:27 Dose: Not Given Metoprolol Tartrate (Lopressor) 25 mg PO BID [facility] Last Admin: 09/25/17 09:54 Dose: 25 mg Multivitamins (Hexavitamin) 1 tab PO DAILY [facility] Last Admin: 09/25/17 09:53 Dose: 1 tab Oxycodone/Acetaminophen (Percocet 5/325 Mg Tab) 1 tab PO Q6H PRN PRN Reason: Pain, moderate (4-7) Stop: 09/27/17 09:00 Oxycodone/Acetaminophen (Percocet 5/325 Mg Tab) 2 tab PO Q6H PRN PRN Reason: Pain, severe (8-10) Stop: 09/27/17 09:00 - Labs Labs: 09/25/17 06:47 09/25/17 06:47 PT 14.1 SECONDS (9.7-12.2) H 09/19/17 10:12 INR 1.3 09/19/17 10:12 APTT 36 SECONDS (21-34) H 09/19/17 10:12
--- NOTE | 2017-09-25 20:41 | CP.PCM.PN ---
Subjective - Date & Time of Evaluation Date of Evaluation: 09/25/17 Time of Evaluation: 03:00 - Subjective Subjective: dictated Objective - Vital Signs/Intake and Output Vital Signs (last 24 hours): Temp Pulse Resp BP Pulse Ox 99 F 81 20 103/67 98 09/25/17 15:15 09/25/17 15:15 09/25/17 15:15 09/25/17 17:03 09/25/17 15:15 Intake and Output: 09/25/17 09/26/17 18:59 06:59 Intake Total 880 Output Total 500 Balance 380 - Medications Medications: Current Medications Acetaminophen (Tylenol 325mg Tab) 650 mg PO Q6 PRN PRN Reason: Fever >100.4 F Acetaminophen (Tylenol 325mg Tab) 650 mg PO Q6 PRN PRN Reason: Pain, Mild (1-3) Collagenase (Santyl) 0 gm TOP DAILY [facility] Last Admin: 09/25/17 09:56 Dose: Not Given Ferrous Sulfate (Feosol) 325 mg PO DAILY [facility] Last Admin: 09/25/17 09:53 Dose: 325 mg Glipizide (Glucotrol) 5 mg PO ACB [facility] Last Admin: 09/25/17 08:30 Dose: 5 mg Meropenem 1 gm/ Sodium (Chloride) 100 mls @ 100 mls/hr IVPB Q8 [facility] PRN Reason: Protocol Last Admin: 09/25/17 14:07 Dose: 100 mls/hr Vancomycin HCl 1,400 mg/ (Sodium Chloride) 500 mls @ 166.6 mls/hr IVPB Q12H [facility] PRN Reason: Protocol Last Admin: 09/25/17 17:02 Dose: 166.6 mls/hr Insulin Glargine (Lantus) 20 unit SC HS [facility] Last Admin: 09/24/17 21:59 Dose: 20 units Insulin Human Regular (Novolin R) 1 unit SC ACHS [facility] PRN Reason: Protocol Last Admin: 09/25/17 16:24 Dose: Not Given Metoprolol Tartrate (Lopressor) 25 mg PO BID [facility] Last Admin: 09/25/17 17:03 Dose: 25 mg Multivitamins (Hexavitamin) 1 tab PO DAILY [facility] Last Admin: 09/25/17 09:53 Dose: 1 tab Oxycodone/Acetaminophen (Percocet 5/325 Mg Tab) 1 tab PO Q6H PRN PRN Reason: Pain, moderate (4-7) Stop: 09/27/17 09:00 Oxycodone/Acetaminophen (Percocet 5/325 Mg Tab) 2 tab PO Q6H PRN PRN Reason: Pain, severe (8-10) Stop: 09/27/17 09:00 - Labs Labs: 09/25/17 06:47 09/25/17 06:47 PT 14.1 SECONDS (9.7-12.2) H 09/19/17 10:12 INR 1.3 09/19/17 10:12 APTT 36 SECONDS (21-34) H 09/19/17 10:12
[2017-09-25] MEDS: (Lantus) Insulin Glargine, Recombinant SC SCH (21:50)
--- NOTE | 2017-09-25 22:48 | OP ---
PROCEDURE DATE: 09/24/2017 PREOPERATIVE DIAGNOSIS: Right foot nonhealing wound. POSTOPERATIVE DIAGNOSIS: Right foot nonhealing wound. PROCEDURE: Right foot wound debridement with application of Integra allograft and WoundVAC SURGEON: Dr. Nehal Frye DPM FINANCE TEACHER: Annetta Mena DPM, PGY-1. ANESTHESIOLOGIST: Dr. Alonso. TYPE OF ANESTHESIA: IV sedation with local, 20 mL of 1:1 mixture of 1% lidocaine and 0.5% Marcaine plain. INDICATIONS: The patient is a 57-year-old male with the above diagnosis. The patient has exhausted conservative treatment at this time, and now requests surgical intervention. The patient signed the consent after careful explanation of risks, benefits, complications, and alternatives for procedure and wishes to proceed. No guarantees were given nor implied. PREPARATION: The patient was brought to the operating room and placed on the operating room table in a supine position. Time-out was performed for identification of the correct patient and procedure. After the induction of IV sedation, approximately 20 mL of 1:1 mixture of 1% lidocaine plain and 0.5% Marcaine plain was administered in an ankle block fashion to the right lower extremity. The right lower extremity was then prepped and draped in normal sterile manner and the procedure began. DESCRIPTION OF PROCEDURE: Attention was directed to the right foot where it was noted to have a non-healing post surgical wound, measuring approximately 6 x 6 x 0.3 cm at the distal medial aspect of the right foot, along with a rotational skin flap. The skin flap was noted to have sutures intact with no wound dehiscence that is proximal in most aspect. The wound bed was noted to have a mixture of fibrotic and granular tissue. It was also noted to have black eschar on the distal lateral aspect of the flap. Using a 15 blade, all necrotic and nonviable tissues were excisionally debrided until a mixture of subcutaneous tissue and healthy bleeding tissue appeared. No purulent drainage was expressed from the wound. A wound culture was taken of the debrided ulceration, passed off the operative field, and was sent to pathology. The wound was then flushed with copious amounts of sterile saline. Next, an Integra bilayer wound matrix was applied onto the wound site and was adhered to the wound bed using 4-0 Monocryl in a simple interrupted suture technique. Next, the wound VAC was placed on the surgical wound. The right lower extremity was then dressed with 4 x 4 gauze, ABD, and Kerlix. POSTOPERATIVE CONDITION: The patient tolerated the anesthesia and procedure well and was escorted to the recovery room with vital signs stable and neurovascular status intact to the right lower extremity. The wound VAC to the right lower extremity will remain clean, dry, and intact until the first dressing change. At this time, the VAC will be changed, however, the Integra graft will be left intact and will be examined to evaluate graft take. The patient will continue to be followed while the patient remains in-house. Annetta Mena DPM MTDFanny
--- NOTE | 2017-09-25 22:50 | PN ---
DATE: SUBJECTIVE: Patient was seen today and he had a wound VAC present, and I noticed the podiatry note saying that he will be discharged tomorrow. He did had a skin graft and that is what my assumption was from the prior note and he is going to go with the wound VAC and we will be going back to rehab. So, at this time, I would leave him on IV antibiotics. He will go back on vancomycin and meropenem again for next 2 weeks and need to be evaluated further by Dr. Frye and he is status post right foot graft application and there still applying wound VAC and will leave him on vancomycin and Merrem. Patient's vancomycin levels were noted initially, they called me saying that it was a trough but this was a peak and if it was a peak, it was normal, so we will change the medication to 1400 mg every 12 hours which is the adequate dose to be given and leave him on that for next 2 weeks until his wound is healed and he is better. PHYSICAL EXAMINATION: GENERAL: He was seen today and he had no new complaints. VITAL SIGNS: His T-max is 99, pulse 81, blood pressure 103/67, respirations are 20. HEENT: Head is atraumatic, normocephalic. NECK: Supple. LUNGS: Clear. HEART: S1, S2 is regular. PICC line was unremarkable. ABDOMEN: Soft, nontender. No guarding, no rigidity present. EXTREMITIES: Right leg had a wound VAC and left leg is unremarkable at this time. LABORATORY DATA: White count is 8.4, hemoglobin 9.6, hematocrit 26.8, and platelet count is 291. Sodium is 145, potassium 4.1, chloride 104, CO2 is 28, BUN is 17, and creatinine is 0.7. ASSESSMENT AND PLAN: At this time, patient was treated for necrotizing fascitis, has had multiple debridements and amputation and has a skin graft now with a wound VAC suggest to continue vancomycin 1400 mg every 12 hours for next 2 weeks and also to continue meropenem 1 gm every 8 hours to monitor CBC, CMP, vancomycin peak and trough weekly and try to keep the peak between 30 and 40 and the trough between 10 and 20. Sadhna Swapna, MD [facility] # [id number]
--- NOTE | 2017-09-25 23:25 | PN ---
DATE: 09/25/2017 SUBJECTIVE: The patient was seen and examined at bedside. The patient is feeling much better. Denies any new complaints. PHYSICAL EXAMINATION: GENERAL: A middle-aged male, lying in bed, in no acute distress. VITAL SIGNS: Blood pressure 114/74, pulse 76, respirations 20, temperature 98.4 degrees Fahrenheit, O2 saturations 97% on room air. HEENT: Pupils equal, round, reacting to light and accommodation. Extraocular muscles intact. No icterus, no pallor. No oral thrush. No oropharyngeal congestion. NECK: Supple. No JVD. LUNGS: Bilateral vesicular breath sounds. No wheezing, no rhonchi. CVS: S1 and S2 present, regular. ABDOMEN: Soft, nontender. Bowel sounds present. No guarding, no rigidity, no rebound tenderness noted. HELPER TEACHER: Alert, awake, oriented x3. No focal deficits noted. EXTREMITIES: Right foot with dressing in place and wound VAC in place. MEDICATIONS: Include Tylenol as needed, collagenase topical, ferrous sulfate 325 mg p.o. daily, glipizide 5 mg p.o. a.m., Lantus 20 units subcu nightly, meropenem 1 gm IV every 8 hours, metoprolol 25 mg p.o. b.i.d., multivitamin one tablet daily, Percocet as needed, vancomycin 1400 mg IV every 12 hours. Wound culture, no growth. LABORATORY DATA: From this morning, WBC 8.4, hemoglobin 9.6, hematocrit 26.9, platelets 291. Sodium 145, potassium 4.1, chloride 104, bicarb 28, BUN 9, creatinine 0.7, glucose 103, calcium 8.8, hemoglobin A1c 9.8, AST 18, ALT 8, alkaline phosphatase 93, total protein 7.9. ASSESSMENT AND PLAN: A middle-aged male with a history of newly diagnosed diabetes mellitus, uncontrolled diabetes mellitus, hypertension, diabetic foot ulcer, status post necrotizing fasciitis of the right foot, status post gas gangrene, status post I and D debridement and amputation of the first three toes, status post graft placement with wound VAC in place with negative pressure, on meropenem and vancomycin. We will continue with current antibiotics. The patient is cleared by Podiatry for possible discharge in a.m. Director Agricultural Services to make arrangement for subacute rehab placement, waiting for authorization from the insurance. Discussed with case management. We will continue with IV antibiotics as per ID. Blood pressure is stable on current medication. Followup with Director Agricultural Services per discharge plan. Fernando Hills MD
[2017-09-26] MEDS: Meropenem 1 GM in Sodium Chloride 0.9% 100 ML IVPB SCH ×2 (06:25→13:33)
[2017-09-26 08:17] VITALS: PULSE 75; TEMP 97.3; O2SAT 98
[2017-09-26] MEDS: (Novolin R) Insulin Human Regular 100 units/ml vial SC SCH ×2 (08:18→12:06)
[2017-09-26] MEDS: Collagenase 250 Units/gm Ointment(30 gm) TOP SCH (10:02)
[2017-09-26] MEDS: Multiple Vitamins Tab PO SCH (10:07)
[2017-09-26 10:08] VITALS: BP 108/72
--- NOTE | 2017-09-26 10:25 | CP.PCM.PN ---
Subjective - Date & Time of Evaluation Date of Evaluation: 09/26/17 Time of Evaluation: 10:30 - Subjective Subjective: Progress note dictated #[id number] Objective - Vital Signs/Intake and Output Vital Signs (last 24 hours): Temp Pulse Resp BP Pulse Ox 97.3 F L 75 20 108/72 98 09/26/17 08:16 09/26/17 08:16 09/26/17 08:16 09/26/17 10:08 09/26/17 08:16 Intake and Output: 09/26/17 09/26/17 06:59 18:59 Intake Total 960 800 Output Total 500 450 Balance 460 350 - Medications Medications: Current Medications Acetaminophen (Tylenol 325mg Tab) 650 mg PO Q6 PRN PRN Reason: Fever >100.4 F Acetaminophen (Tylenol 325mg Tab) 650 mg PO Q6 PRN PRN Reason: Pain, Mild (1-3) Collagenase (Santyl) 0 gm TOP DAILY [facility] Last Admin: 09/26/17 10:02 Dose: Not Given Ferrous Sulfate (Feosol) 325 mg PO DAILY [facility] Last Admin: 09/26/17 10:07 Dose: 325 mg Glipizide (Glucotrol) 5 mg PO ACB [facility] Last Admin: 09/26/17 08:45 Dose: 5 mg Meropenem 1 gm/ Sodium (Chloride) 100 mls @ 100 mls/hr IVPB Q8 [facility] PRN Reason: Protocol Last Admin: 09/26/17 06:25 Dose: 100 mls/hr Vancomycin HCl 1,400 mg/ (Sodium Chloride) 500 mls @ 166.6 mls/hr IVPB Q12H [facility] PRN Reason: Protocol Last Admin: 09/26/17 05:01 Dose: 166.6 mls/hr Insulin Glargine (Lantus) 20 unit SC HS [facility] Last Admin: 09/25/17 21:50 Dose: 20 units Insulin Human Regular (Novolin R) 1 unit SC ACHS [facility] PRN Reason: Protocol Last Admin: 09/26/17 08:18 Dose: Not Given Metoprolol Tartrate (Lopressor) 25 mg PO BID [facility] Last Admin: 09/26/17 10:08 Dose: 25 mg Multivitamins (Hexavitamin) 1 tab PO DAILY [facility] Last Admin: 09/26/17 10:07 Dose: 1 tab Oxycodone/Acetaminophen (Percocet 5/325 Mg Tab) 1 tab PO Q6H PRN PRN Reason: Pain, moderate (4-7) Stop: 09/27/17 09:00 Oxycodone/Acetaminophen (Percocet 5/325 Mg Tab) 2 tab PO Q6H PRN PRN Reason: Pain, severe (8-10) Stop: 09/27/17 09:00 - Labs Labs: 09/25/17 06:47 09/25/17 06:47 PT 14.1 SECONDS (9.7-12.2) H 09/19/17 10:12 INR 1.3 09/19/17 10:12 APTT 36 SECONDS (21-34) H 09/19/17 10:12
--- NOTE | 2017-09-26 11:30 | CP.PCM.PN ---
Subjective - Date & Time of Evaluation Date of Evaluation: 09/26/17 Time of Evaluation: 11:30 - Subjective Subjective: Podiatry Progress Note for Dr. Frye 57 year old male 2 day s/p right foot graft application was seen resting comfortably at bedside. Wound vac is intact and working. He currently denies any pain to his lower extremity. Denies any n/v/f/c/sob/cp. Objective - Vital Signs/Intake and Output Vital Signs (last 24 hours): Temp Pulse Resp BP Pulse Ox 97.3 F L 75 20 108/72 98 09/26/17 08:16 09/26/17 08:16 09/26/17 08:16 09/26/17 10:08 09/26/17 08:16 Intake and Output: 09/26/17 09/26/17 06:59 18:59 Intake Total 960 800 Output Total 500 450 Balance 460 350 - Medications Medications: Current Medications Acetaminophen (Tylenol 325mg Tab) 650 mg PO Q6 PRN PRN Reason: Fever >100.4 F Acetaminophen (Tylenol 325mg Tab) 650 mg PO Q6 PRN PRN Reason: Pain, Mild (1-3) Collagenase (Santyl) 0 gm TOP DAILY [facility] Last Admin: 09/26/17 10:02 Dose: Not Given Ferrous Sulfate (Feosol) 325 mg PO DAILY [facility] Last Admin: 09/26/17 10:07 Dose: 325 mg Glipizide (Glucotrol) 5 mg PO ACB [facility] Last Admin: 09/26/17 08:45 Dose: 5 mg Meropenem 1 gm/ Sodium (Chloride) 100 mls @ 100 mls/hr IVPB Q8 [facility] PRN Reason: Protocol Last Admin: 09/26/17 06:25 Dose: 100 mls/hr Vancomycin HCl 1,400 mg/ (Sodium Chloride) 500 mls @ 166.6 mls/hr IVPB Q12H [facility] PRN Reason: Protocol Last Admin: 09/26/17 05:01 Dose: 166.6 mls/hr Insulin Glargine (Lantus) 20 unit SC HS [facility] Last Admin: 09/25/17 21:50 Dose: 20 units Insulin Human Regular (Novolin R) 1 unit SC ACHS [facility] PRN Reason: Protocol Last Admin: 09/26/17 08:18 Dose: Not Given Metoprolol Tartrate (Lopressor) 25 mg PO BID [facility] Last Admin: 09/26/17 10:08 Dose: 25 mg Multivitamins (Hexavitamin) 1 tab PO DAILY [facility] Last Admin: 09/26/17 10:07 Dose: 1 tab Oxycodone/Acetaminophen (Percocet 5/325 Mg Tab) 1 tab PO Q6H PRN PRN Reason: Pain, moderate (4-7) Stop: 09/27/17 09:00 Oxycodone/Acetaminophen (Percocet 5/325 Mg Tab) 2 tab PO Q6H PRN PRN Reason: Pain, severe (8-10) Stop: 09/27/17 09:00 - Labs Labs: 09/25/17 06:47 09/25/17 06:47 PT 14.1 SECONDS (9.7-12.2) H 09/19/17 10:12 INR 1.3 09/19/17 10:12 APTT 36 SECONDS (21-34) H 09/19/17 10:12 - Constitutional Appears: Well, Non-toxic, No Acute Distress - Extremities Exam Additional comments: dressing c/d/i wound vac set to 125 mmHg with 5mL of drainage in vac Right lower extremity focused exam: Vasc: CFT < 3 sec to 4th and 5th digits Derm: Open post-surgical wound measuring 6cm x 6cm x 0.3cm with integra graft noted to dorsomedial foot. Plantar lateral aspect of foot has a wound measure approximately 4 cm by 3 cm with fibrogranular base. No malodor, no purulence, no fluctuance. Previously exposed metatarsal bone now exhibits overlying tissue formation. Neuro: Protective sensation grossly intact Ortho: No tenderness to palpation of R foot at entirety of wound bed - Neurological Exam Neurological Exam: Alert, Awake, Oriented x3 - Psychiatric Exam Psychiatric exam: Normal Affect, Normal Mood Assessment and Plan - Assessment and Plan (Free Text) Assessment: 57 year old male 2 day s/p right foot graft application Plan: patient examined and evaluated discussed in detail with attending, Dr. Uday finch, chart, vitals reviewed;WBC 8.4(09/26/17) wound vac and dressing removed Patient stable for discharge per podiatry standpoint patient will need wound vac changed every 3 days with wound vac sponge and tape then dressed with 4x4, kerlix, if edges of wounds are macerated, may be painted with betadine patient will need negative wound vac therapy continuous at 125 mmHg podiatry to follow up in podiatry clinic with Dr. Frye on Saturday
--- NOTE | 2017-09-27 20:37 | DS ---
DISCHARGE DIAGNOSES: Uncontrolled diabetes mellitus, hypertension, diabetic foot ulcer status post debridement and skin grafting, status post amputation of the first, second and third toes, wound culture growing multiple organisms. HISTORY OF PRESENT ILLNESS: Mr. Zavala is a 57-year-old male with recently diagnosed diabetes mellitus, uncontrolled sugars, hypertension, admitted for diabetic foot ulcer, gas gangrene, necrotizing fasciitis, status post I and D and second toe amputation by Podiatry, was sent to [facility], and unable to get the wound VAC at the senior care. The patient was transferred back to hospital for further management. The patient is being admitted for reevaluation by Podiatry. This morning, the patient is feeling much better. Denies any headache, dizziness. Denies any chest pain, shortness of breath or wheezing. Denies any nausea, vomiting, abdominal pain, diarrhea or constipation. Denies any urinary complaints. Denies any leg pains or leg cramps. Denies any other neurologic symptoms. All other systems reviewed and were found to be negative. PHYSICAL EXAMINATION: GENERAL: A middle-aged male, lying in bed, in no acute distress. VITAL SIGNS: Blood pressure 108/72, pulse 75, respirations 20, temperature 97.3 degree Fahrenheit, O2 saturations 98% on 2 liters nasal cannula. HEENT: Pupils equal, round, reacting to light and accommodation. Extraocular muscles intact. No icterus, no pallor. No oral thrush, no pharyngeal congestion. NECK: Supple. No JVD. LUNGS: Bilateral vesicular breath sounds. No wheezing, no rhonchi. CVS: S1 and S2 present regular. ABDOMEN: Soft, nontender. Bowel sounds present. No guarding, no rigidity, no rebound tenderness noted. OBSTETRICS TEACHER: Alert, awake, oriented x3. No focal deficits noted. EXTREMITIES: Right foot with dressing in place. LABORATORY DATA: Done from 09/25/2017, WBC 8.4, hemoglobin 9.6, hematocrit 26.9, platelets 291, sodium 145, potassium 4.1, chloride 104, bicarb 28, BUN 9, creatinine 0.7, glucose 103, hemoglobin A1c 9.8, calcium 8.8, total bilirubin 0.4, AST 18, ALT 8, alkaline phosphatase 93, total protein 7.9, albumin 3.4. HOSPITAL COURSE: The patient was admitted to the hospital for continuation of the wound VAC. The patient was evaluated by Podiatry. The patient underwent further debridement and cleaning of the wound by Podiatry and underwent first and second and third toe amputation and followed by repeat surgery for grafting which was done 2 days ago and the patient was evaluated by Podiatry, recommended wound VAC. The patient was continued on meropenem and vancomycin, evaluated by ID, continued with insulin and glipizide. The patient was cleared by Podiatry and ID and Heater Worker made arrangements for him to be transferred to [facility] for wound care and for continuation of the IV antibiotics for another 2 weeks as recommended by ID. As the patient is otherwise hemodynamically stable, the patient was transferred to [facility] for further wound care and physical therapy. CONDITION UPON DISCHARGE: The patient was alert, awake, oriented x3 and hemodynamically stable. DISCHARGE INSTRUCTIONS: Follow up with PMD. Follow up with ID. Follow up with Podiatry. Follow up with Endocrinology. DISCHARGE MEDICATION: Glipizide 5 mg in the morning, Lantus 20 units subcu nightly, meropenem 1 gm IV every 8 hours, metoprolol 25 mg p.o. b.i.d., vancomycin 1400 mg IV every 12 hours, Feosol 325 mg p.o. daily. ACTIVITY: As recommended by Podiatry. DIET: Low sodium, low cholesterol, 1800 calorie ADA diet. Fernando Hills MD
== END 2017-09-26 14:45 | DRG 616 ==
LOC: C.ER 19:08 → C.9E 19:40 → C.3T 22:16
PROVIDERS: ADMIT Internal Medicine; ATTEND Internal Medicine
PROC: 0Y6M0ZC Detachment at Right Foot, Partial 3rd Ray, Open Approach (ICD-10-PCS; 2017-09-19)
PROC: 0QTN0ZZ Resection of Right Metatarsal, Open Approach (ICD-10-PCS; 2017-09-19)
PROC: 0JBQ0ZZ Excision of Right Foot Subcutaneous Tissue and Fascia, Open Approach (ICD-10-PCS; 2017-09-19)
PROC: 0JXQ0ZB Transfer Right Foot Subcutaneous Tissue and Fascia with Skin and Subcutaneous Tissue, Open Approach (ICD-10-PCS; 2017-09-19)
PROC: 0Y6M0Z9 Detachment at Right Foot, Partial 1st Ray, Open Approach (ICD-10-PCS; principal; 2017-09-19 15:15)
PROC: 0HRMXK3 Replacement of Right Foot Skin with Nonautologous Tissue Substitute, Full Thickness, External Approach (ICD-10-PCS; 2017-09-24)
PROC: 0JBQ0ZZ Excision of Right Foot Subcutaneous Tissue and Fascia, Open Approach (ICD-10-PCS; 2017-09-24)
DX: E11.621 Type 2 diabetes mellitus with foot ulcer (principal); M72.6 Necrotizing fasciitis; L97.418 Non-pressure chronic ulcer of right heel and midfoot with other specified severity; M86.9 Osteomyelitis, unspecified; L03.115 Cellulitis of right lower limb; E11.52 Type 2 diabetes mellitus with diabetic peripheral angiopathy with gangrene; I96 Gangrene, not elsewhere classified; T81.89XA Other complications of procedures, not elsewhere classified, initial encounter; D64.9 Anemia, unspecified; E11.69 Type 2 diabetes mellitus with other specified complication; E11.628 Type 2 diabetes mellitus with other skin complications; E11.65 Type 2 diabetes mellitus with hyperglycemia; B96.89 Other specified bacterial agents as the cause of diseases classified elsewhere; I10 Essential (primary) hypertension; F17.210 Nicotine dependence, cigarettes, uncomplicated; Z89.421 Acquired absence of other right toe(s); Z79.4 Long term (current) use of insulin; Z79.2 Long term (current) use of antibiotics

== ENCOUNTER 2018-07-12 12:49 | Emergency (ER) | payer BC ==
[2018-07-12 13:17] VITALS: BMI 21.9
[2018-07-12 13:24] VITALS: RESP 18; O2SAT 100
[2018-07-12 14:23] LABS: BASO # 0.1 K/uL (0.0-0.2); BASO % 0.6 % (0.0-2.0); EOS # 0.5 K/uL (0.0-0.7); EOS % 5.8 % (0.0-4.0); LYMPH % 23.5 % (20.0-40.0); MEAN CORPUSCULAR HEMOGLOBIN 31.3 pg (27.0-31.0); MEAN CORPUSCULAR HGB CONC 34.5 g/dL (33.0-37.0); MEAN PLATELET VOLUME 8.9 fL (7.2-11.7); MONO # 0.5 K/uL (0.0-0.8); MONO % 6.2 % (0.0-10.0); NEUT # 5.4 K/uL (1.8-7.0); NEUT % 63.9 % (50.0-75.0); NRBC % 0.1 % (0.0-2.0); RBC 3.87 Mil/uL (4.40-5.90); RED CELL DISTRIBUTION WIDTH 12.9 % (11.5-14.5); WHITE BLOOD COUNT 8.5 K/uL (4.8-10.8)
[2018-07-12 14:24] LABS: HEMOGLOBIN 12.1 g/dL (12.0-18.0); MEAN CELL VOLUME 90.7 fL (80.0-94.0)
--- NOTE | 2018-07-12 14:51 | C.PDOC ---
History Of Present Illness 58 y/o male pt sent from the clinic to the ER for possible cellulitis on b/l extremities. Pt reports his lower extremities has been red for x1 month. Associated sx includes x1 week rash to abdomen and b/l shoulders. Pt notes he used neosporin on his legs with no relief. Pt denies pain, fever, or any other symptoms. Time Seen by Provider: 07/12/18 13:19 Chief Complaint (Nursing): Lower Extremity Problem/Injury History Per: Patient History/Exam Limitations: no limitations Onset/Duration Of Symptoms: Days (x1 montth ) Current Symptoms Are (Timing): Still Present Past Medical History Reviewed: Historical Data, Nursing Documentation, Vital Signs Vital Signs: Last Vital Signs Temp 98.5 F 07/12/18 13:17 Pulse 88 07/12/18 13:17 Resp 18 07/12/18 13:17 BP 189/100 H 07/12/18 13:17 Pulse Ox 100 07/12/18 13:17 - Medical History PMH: HTN - [facility] Procedures DETACHMENT AT RIGHT 2ND TOE, COMPLETE, OPEN APPROACH (09/02/17) DETACHMENT AT RIGHT FOOT, PARTIAL 1ST RAY, OPEN APPROACH (09/17/17) DETACHMENT AT RIGHT FOOT, PARTIAL 3RD RAY, OPEN APPROACH (09/17/17) DRAINAGE OF RIGHT FOOT SKIN, EXTERNAL APPROACH, DIAGNOSTIC (09/02/17) EXCISION OF R FOOT SUBCU/FASCIA, OPEN APPROACH (09/17/17) REPLACE R FOOT SKIN W NONAUT SUB, FULL THICK, WAIST PLEATER (09/17/17) RESECTION OF RIGHT METATARSAL, OPEN APPROACH (09/17/17) TRANSFER R FOOT SUBCU/FASCIA WITH SKIN, SUBCU, OPEN APPROACH (09/17/17) Family History: States: No Known Family Hx - Social History Hx Alcohol Use: No Hx Substance Use: No - Immunization History Hx Tetanus Toxoid Vaccination: No Hx Influenza Vaccination: No Hx Pneumococcal Vaccination: No Review Of Systems Constitutional: Positive for: Other (redness on b/l legs ) Cardiovascular: Negative for: Chest Pain Respiratory: Negative for: Shortness of Breath Gastrointestinal: Negative for: Nausea, Vomiting Genitourinary: Negative for: Hematuria Musculoskeletal: Negative for: Leg Pain Skin: Positive for: Rash (abdomen and b/l shoulders ) Neurological: Negative for: Weakness, Numbness Physical Exam - Physical Exam Appears: Non-toxic, No Acute Distress Skin: Warm, Dry Head: Normacephalic Oral Mucosa: Moist Chest: Symmetrical, No Deformity Cardiovascular: Rhythm Regular Respiratory: Normal Breath Sounds, No Rales, No Rhonchi, No Wheezing Gastrointestinal/Abdominal: Soft, No Tenderness, Other (several erythematous pinpoint macuoles to lower abdomen ) Extremity: Normal ROM (x4), No Tenderness, No Swelling, Other (several erythematous pinpoint macuoles to b/l shoulders; +scattered; b/l legs are scaly, dry and erythematous; 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 ) Pulses: Left Dorsalis Pedis: Normal, Right Dorsalis Pedis: Normal Neurological/Psych: Oriented x3, Normal Speech, Normal Cognition, Normal Motor, Normal Sensation ED Course And Treatment - Laboratory Results Result Diagrams: 07/12/18 14:19 07/12/18 14:19 O2 Sat by Pulse Oximetry: 100 (RA) Pulse Ox Interpretation: Normal Medical Decision Making Medical Decision Making: Plans: -- chem labs -- blood work Patient with dry, cracked skin with erythema to bilateral legs x1 month. Denies pain. He is afebrile with no leukocytosis. Unlikely that this is cellulitis. Attempted to contact clinic in [place] which sent patient to the ED, however no answer. Advised patient to follow up further as outpatient. Return to the ED for any new or worsening symptoms. Patient comfortable, in no distress, stable for discharge home. Disposition - Disposition Disposition: HOME/ ROUTINE Disposition Time: 15:45 Condition: STABLE Additional Instructions: MCKENNA BOYD, thank you for letting us take care of you today. Your provider was Mary Chavez MD and you were treated for SENT BY PMD. The emergency medical care you received today was directed at your acute symptoms. If you were prescribed any medication, please fill it and take as directed. It may take several days for your symptoms to resolve. Return to the Emergency Department if your symptoms worsen, do not improve, or if you have any other problems. Please contact your doctor or call one of the physicians/clinics you have been referred to that are listed on the Patient Visit Information form that is included in your discharge packet. Bring any paperwork you were given at discharge with you along with any medications you are taking to your follow up visit. Our treatment cannot replace ongoing medical care by a primary care provider outside of the emergency department. Thank you for allowing the [facility] team to be part of your care today. If you had an X-Ray or CT scan: A Radiologist will review the ED reading if any change in treatment is needed we will contact you. If you had a blood, urine, or wound culture: It will take several days for the results, if any change in treatment is needed we will contact you. If you had an STI test: It will take 48 hours for the results. Please call after 1 week if you have not heard back. Instructions: Skin Rash (DC) Forms: Decalog (English) Print Language: KAZAKH - Clinical Impression Clinical Impression: Erythema of lower extremity - Scribe Statement The provider has reviewed the documentation as recorded by the Scribe Chloé Stauffer Provider Attestation: All medical record entries made by the Raimundoibe were at my direction and personally dictated by me. I have reviewed the chart and agree that the record accurately reflects my personal performance of the history, physical exam, medical decision making, and the department course for this patient. I have also personally directed, reviewed, and agree with the discharge instructions and disposition.
[2018-07-12 15:10] LABS: BLOOD UREA NITROGEN 15 mg/dL (9-20); CALCIUM 9.3 mg/dl (8.6-10.4); GFR NON-AFRICAN AMERICAN > 60
[2018-07-12 16:04] VITALS: BP 161/93; PULSE 86; TEMP 98.6
== END 2018-07-12 16:03 | disposition home or self-care (01) ==
LOC: C.ER 12:49
DX: L53.9 Erythematous condition, unspecified (principal); I10 Essential (primary) hypertension